=== PATIENT | male | born 1955 | race Caucasian/White ===

== ENCOUNTER 2023-09-17 14:50 | Inpatient (IN) ==
[2023-09-17 15:40] LABS: Basophils # (auto) 0.06 K/uL (0.00-0.20); Basophils % (auto) 0.4 %; Eosinophils # (auto) 0.07 K/uL (0.00-0.50); Eosinophils % (auto) 0.5 %; Hematocrit (blood only) 46.8 % (42.0-52.0); Hemoglobin 15.6 g/dl (14.0-18.0); Immature Granulocytes # (auto) 0.09 K/uL (0.01-0.20); Immature Granulocytes % (auto) 0.6 %; Lymphocytes # (auto) 2.21 K/uL (1.20-3.40); Lymphocytes % (auto) 15.7 %; Mean Corpuscular Hemoglobin 29.6 pg (25.0-34.0); Mean Corpuscular Hgb Conc 33.3 g/dL (32.0-36.0); Mean Corpuscular Volume 88.8 fL (80.0-100.0); Mean Platelet Volume 9.2 fL (9.4-12.4); Monocytes # (auto) 0.97 K/uL (0.11-0.59); Monocytes % (auto) 6.9 %; Neutrophils # (auto) 10.71 K/uL (1.40-6.50); Neutrophils % (auto) 75.9 %; Platelet Count 310 K/uL (130-400); RDW Coefficient of Variation 12.8 % (11.5-14.5); RDW Standard Deviation 41.6 fL (36.4-46.3); Red Blood Count 5.27 M/uL (4.70-6.10); White Blood Count 14.11 K/ul (4.8-10.8)
--- NOTE | 2023-09-17 15:53 | Emergency Department Note ---
Impression & Plan CHI (closed head injury), Contusion of scalp, Hematemesis, Nausea & vomiting, Fall, Dehydration ED Provider Note ED Provider Note NAME: MAKAYLA ESCALERA AGE:67 SEX: Male : 1955 ARRIVES VIA: Police INFORMANT: Patient ED PROVIDER(s): Dina Parsons DO CHIEF COMPLAINT: Altered mental status, head injury HPI: This is a 67-year-old male presents emergency department after police found him sitting on the ground and he was unable to coherently answer questions regarding events leading to that position. Police took him to the EMS station for further evaluation. He was noted to have an obvious head injury and did acknowledge that he was on blood thinners. He was brought in for evaluation. Patient states he was headed to a doctor's appointment and remembers getting out of his car. He believes he struck his head on the sidewalk. He denies loss of consciousness. He states he does take blood thinners but does not know what for. He denies any other pain or concern for injury. PAST MEDICAL HISTORY:See Below PAST SURGICAL HISTORY:See Below FAMILY HISTORY:See Below SOCIAL HISTORY:See Below HOME MEDICATIONS:See Below ALLERGIES:See Below VITALS:See Below PHYSICAL EXAMINATION: GENERAL: alert, well appearing, well nourished, no distress, non-toxic HEAD: nc, contusion and evolving hematoma with overlying superficial abrasion noted to right superior forehead/frontal scalp, no barrow signs, no raccoon eyes, no evidence of facial trauma EYE EXAM: normal conjunctiva, PERRL and EOM's grossly intact OROPHARYNX: no exudate, no erythema, lips, buccal mucosa, and tongue normal and mucous membranes are moist, no evidence of dental trauma NECK: supple, no nuchal rigidity, no adenopathy, non-tender LUNGS: Clear to auscultation. Normal chest wall mechanics, no w/r/r HEART: no murmurs, S1 normal and S2 normal ABDOMEN: abdomen soft, non-tender, normo-active bowel sounds, no masses, no rebound or guarding. BACK: Back is symmetrical on inspection and there is no deformity, no midline tenderness, no CVA tenderness. SKIN: no rashes, petechiae, orbruising UPPER EXTREMITIES: upper extremities are grossly normal. FROM, nml pulses b/l. No evidence of trauma or deformity. LOWER EXTREMITIES: No pitting edema. FROM, nml pulses b/l. 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 Superficial abrasion noted to right knee NEURO EXAM: Normal sensorium, cranial nerves II-XII grossly intact, normal speech, no facial droop,nogross weakness of arms, no gross weakness of legs. Gross sensation intact. No ataxia. Vital Signs: reviewed and remarkable Differential Diagnosis: CHI, ICH, concussion, ACS, dysrhythmia, CVA, electrolyte abnormality, dehydration, occult infection, DKA, as well as others were considered MEDICAL DECISION MAKING: This is a 67-year-old male brought in by EMS due to concern for head injury. Patient with difficulty remembering exact details and entire story of how this may have occurred. He states he was going to a doctor's office and he remembers falling onto the sidewalk. Patient afebrile and vital signs stable. Obvious head trauma noted, no other signs of significant trauma on physical exam. Labs drawn and sent, IV established, EKG and x-rays performed bedside interpreted by me. Patient sent for CT head and C-spine which were reassuring. While awaiting results of this patient sat up and vomited. Unfortunately emesis appeared bloody as I witnessed this at bedside, and IV had been dislodged. No other IV was able to be placed, patient given IV Protonix, and sent back down for additional CT imaging of the chest, abdomen and pelvis. Patient continued to remain hemodynamically stable. He was given IV magnesium additionally due to mild hypomagnesemia and prolonged QT noted on EKG. Patient began to recall more more events leading up to his fall more details surrounding the fall with each subsequent recheck at bedside. Additional imaging otherwise reassuring. Additional notes did reveal prior EGD with esophagitis and gastritis. No listing for anticoagulation noted on medication list from most recent [facility] evaluation. Patient started on Protonix drip as a precaution. Case discussed with hospitalist team for additional evaluation and management. I suspect head injury led to concussion causing amnesia surrounding those events however patient was more more lucid and able to provide more more details throughout his ER stay. I feel the concussion likely led to the nausea and vomiting which in the setting of his recent diagnosis of esophagitis and gastritis the cause of the underlying hematemesis. Given patient lives alone with the symptoms and recent GI evaluation, I feel he would benefit from additional inpatient monitoring and possible GI recommendations. Consultation(s): 1839: Discussed with Dr. Abdul, [facility] hospitalist team, for additional evaluation and management. ER Treatment Provided: See below 1645: Upon rechecking the patient, he had apparently ripped out his peripheral IV, and had vomited onto the floor. There did appear to be blood in the emesis. Patient states he first began getting sick several nights ago and that is why he called and made an appointment his doctor's office. 1718: Repeat IV established. Patient now clarifies that he first began having abdominal pain several months ago and has had a prior EGD and CAT scan of his abdomen. 1755: Patient states he lives alone. I did ask about calling friend or family and he declined. Patient stated he remembers getting out of his car now and tripping over the curb striking his head on the sidewalk. He states he has no current chest or abdominal pain, no difficulty breathing. He states he felt well prior to getting out of his car. He states it has been hard adjusting to walking since his amputation and he has fallen frequently. Diagnostics Interpreted By Me: -ECG: Normal sinus at 94, leftward axis, normal QRS, prolonged QTc, nonspecific ST/T wave changes -Cardiac Monitoring: An order was placed for continuous cardiac monitoring. The monitor shows a rate of 90 with normal sinus rhythm. -Laboratory studies: As stated above and show below. -Imaging studies: X-ray Chest: A single view study of the chest was reviewed and was negative for cardiomegaly, focal infiltrate, effusion, pulmonary edema, or wide mediastinum. No obvious rib fracture or pneumothorax. X-ray pelvis: No obvious fracture or dislocation Triage Nursing Note Reviewed Prior/Outside Records Reviewed -review of prior admission to [facility] in July 2023 reveals EGD which showed gastritis, esophagitis, and esophageal plaquing suspicious for candidemia; on review of medication list no listing and [facility] records for antiplatelet or anticoagulation medication Critical Care: Critical care of 52 min performed to assess and manage high likelihood of life- threatening traumatic injury and hematemesis, involving labs and imaging performed with assessment to evaluate altered mental status and fall diagnosis with frequent reassessment. This time includes bedside time, treatment discussions with patient/family/consultants, documentation time and excludes procedure time. 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 Communication effective. Development Rep Required: No Beliefs That Will Affect Care: None Current Living Situation: Alone Feels Safe at Home: Yes Safety Concerns: Feels Safe At This Time Assistive Devices: Cane, Glasses and Prosthesis Allergies Allergies Allergy/AdvReac Type Severity Reaction Status Date / Time No Known Allergies Allergy Unverified 09/17/23 18:57 Home Meds Home Medications Medication Instructions Recorded Confirmed amitriptyline 10 mg tablet 10 mg PO HS 09/17/23 09/17/23 atenolol 25 mg tablet 12.5 mg PO DAILY 09/17/23 09/17/23 atorvastatin 40 mg tablet 40 mg PO QAM 09/17/23 09/17/23 bupropion HCl 150 mg 24 hr tablet, 150 mg PO QAM 09/17/23 09/17/23 extended release bupropion HCl 300 mg 24 hr tablet, 300 mg PO QAM 09/17/23 09/17/23 extended release buspirone 10 mg tablet 20 mg PO BID 09/17/23 09/17/23 escitalopram oxalate 10 mg tablet 10 mg PO DAILY 09/17/23 09/17/23 finasteride 5 mg tablet 5 mg PO QAM 09/17/23 09/17/23 furosemide 20 mg tablet 20 mg PO QAM 09/17/23 09/17/23 glipizide 5 mg tablet, extended 5 mg PO QAM 09/17/23 09/17/23 release 24 hr hydroxyzine HCl 10 mg tablet 10 mg PO BID PRN anx/panic attacks 09/17/23 09/17/23 metformin 1,000 mg tablet 1,000 mg PO AMHS 09/17/23 09/17/23 mirtazapine 15 mg tablet 15 mg PO HS 09/17/23 09/17/23 omeprazole 40 mg capsule,delayed 40 mg PO HS 09/17/23 09/17/23 release semaglutide 2 mg/dose (8 mg/3 mL) 2 mg subcut WE 09/17/23 09/17/23 subcutaneous pen injector (Ozempic) tamsulosin 0.4 mg capsule 0.4 mg PO QAM 09/17/23 09/17/23 travoprost 0.004 % eye drops 1 drp OPB 09/17/23 09/17/23 trazodone 100 mg tablet 100 mg PO HS 09/17/23 09/17/23 Results & Data (ED) Vital Signs Vital Signs - 24 hr 09/17/23 15:01 09/17/23 15:08 09/17/23 16:55 Temperature 36.4 C L Temperature Source Temporal Artery Scan Pulse Rate 90 91 H Respiratory Rate 20 24 Respiratory Effort / Characteristics Non-Labored Spontaneous Respiratory Depth Normal Blood Pressure 122/80 98/67 L Blood Pressure Mean 94 76 Pulse Oximetry 97 Oxygen Delivery Method Room Air Sepsis Recent Fever Within 48 Hours No Sepsis New/Unexplained Change in Mental Status No Sepsis Action Taken by Nursing No Action Required 09/17/23 17:31 09/17/23 17:53 09/17/23 18:00 Temperature Temperature Source Pulse Rate 92 H 89 89 Respiratory Rate 28 H 22 25 H Respiratory Effort / Characteristics Respiratory Depth Blood Pressure 112/86 116/73 120/79 Blood Pressure Mean 94 87 92 Pulse Oximetry 97 95 95 Oxygen Delivery Method Room Air Sepsis Recent Fever Within 48 Hours Sepsis New/Unexplained Change in Mental Status Sepsis Action Taken by Nursing 09/17/23 18:15 09/17/23 18:30 Temperature Temperature Source Pulse Rate 90 91 H Respiratory Rate 24 21 Respiratory Effort / Characteristics Respiratory Depth Blood Pressure 119/77 129/79 Blood Pressure Mean 91 95 Pulse Oximetry 96 100 Oxygen Delivery Method Sepsis Recent Fever Within 48 Hours Sepsis New/Unexplained Change in Mental Status Sepsis Action Taken by Nursing Laboratory Data 09/18/23 01:53 09/18/23 01:53 Lab Results 09/17/23 09/17/23 09/17/23 Range/Units 15:21 15:42 17:33 WBC 14.11 H (4.8-10.8) K/ul RBC 5.27 (4.70-6.10) M/uL Hgb 15.6 (14.0-18.0) g/dl Hct 46.8 (42.0-52.0) % MCV 88.8 (80.0-100.0) fL MCH 29.6 (25.0-34.0) pg MCHC 33.3 (32.0-36.0) g/dL RDW Std Deviation 41.6 (36.4-46.3) fL RDW Coeff of William 12.8 (11.5-14.5) % Plt Count 310 (130-400) K/uL MPV 9.2 L (9.4-12.4) fL Immature Gran % (Auto) 0.6 % Neut % (Auto) 75.9 % Lymph % (Auto) 15.7 % Brantley % (Auto) 6.9 % Eos % (Auto) 0.5 % Baso % (Auto) 0.4 % Neut # (Auto) 10.71 H (1.40-6.50) K/uL Lymph # (Auto) 2.21 (1.20-3.40) K/uL Brantley # (Auto) 0.97 H (0.11-0.59) K/uL Eos # (Auto) 0.07 (0.00-0.50) K/uL Baso # (Auto) 0.06 (0.00-0.20) K/uL Immature Gran # (Auto) 0.09 (0.01-0.20) K/uL PT 10.9 (9.0-12.0) Seconds INR 1.0 (0.9-1.1) VBG pH 7.50 H (7.36-7.41) VBG pCO2 35 L (38-50) mmHg VBG pO2 23 mmHg VBG HCO3 27 mmol/L VBG O2 Saturation < 60.0 % VBG Base Excess 4.2 mEq/L Sodium 139 (136-145) mmol/L Potassium 4.1 (3.5-5.1) mmol/L Chloride 97 L (98-107) mmol/L Carbon Dioxide 26 (21-32) mmol/L Anion Gap 16 H (3-11) BUN 26 H (6-23) mg/dl Creatinine 1.17 (0.6-1.4) mg/dl Est Cr Clr Drug Dosing 64.1 ml/min Est GFR ( Amer) 74.9 ml/min Est GFR (Non-Af Amer) 64.6 ml/min BUN/Creatinine Ratio 22.2 H (10-20) Glucose 175 H (70-99(Fasting)) mg/dl Calcium 11.2 H (8.6-10.3) mg/dl Magnesium 1.6 L (1.7-2.4) mg/dl Total Bilirubin 1.0 (0.2-1.0) mg/dl AST 19 (13-39) U/L ALT 26 (7-52) U/L Alkaline Phosphatase 116 H (34-104) U/L Troponin I High Sens 4.0 (0-20) pg/ml Total Protein 7.2 (6.0-8.3) gm/dl Albumin 4.7 (3.4-5.0) gm/dl Globulin 2.5 (2.5-4.0) gm/dl Albumin/Globulin Ratio 1.9 (0.9-2) Lipase 13 (11-82) U/L TSH 2.241 (0.300-4.500) uIu/ml Ethyl Alcohol mg/dL < 10.0 (<10.0) mg/dl Administered Medications Acetaminophen (Acetaminophen 325 Mg Tab) 650 mg PO Q4H PRN PRN Reason: Pain or Fever Stop: 10/17/23 18:56 Last Admin: 09/18/23 06:29 Dose: 650 mg Documented By: [employer] Admin: 09/18/23 02:31 Dose: 650 mg Documented By: RONAK Sodium Chloride (Nss) 1,000 mls @ 125 mls/hr IV .Q8H [facility] Stop: 10/17/23 15:29 Last Admin: 09/18/23 06:25 Dose: 125 mls/hr Documented By: [employer] Infusion: 09/18/23 06:25 Dose: Infused Documented By: [employer] Admin: 09/17/23 22:41 Dose: 125 mls/hr Documented By: [employer] Infusion: 09/17/23 19:00 Dose: Infused Documented By: Infusion: 09/17/23 17:14 Dose: 125 mls/hr Documented By: Infusion: 09/17/23 17:03 Dose: 0 mls/hr Documented By: Admin: 09/17/23 17:00 Dose: 125 mls/hr Documented By: CPB Travoprost (Travoprost Z 0.004% Oph Soln 2.5 Ml Btl) 1 drops OPB HS DYANA Stop: 10/17/23 22:33 Last Admin: 09/17/23 23:22 Dose: 1 drops Documented By: [employer] Discontinued Medications Magnesium Sulfate/Dextrose (Magnesium Sulfate / D5w) 1 gm in 100 mls @ 100 mls/hr IV NOW STA Stop: 09/17/23 17:02 Last Infusion: 09/17/23 18:59 Dose: Infused Documented By: Infusion: 09/17/23 17:14 Dose: 100 mls/hr Documented By: Infusion: 09/17/23 17:04 Dose: 0 mls/hr Documented By: Admin: 09/17/23 16:57 Dose: 100 mls/hr Documented By: CPB Pantoprazole Sodium 40 mg/ (Syringe) 10 mls @ 5 mls/min IV NOW ONE Stop: 09/17/23 16:46 Last Admin: 09/17/23 18:59 Dose: 5 mls/min Documented By: CPB Pantoprazole Sodium 80 mg/ (Dextrose) 120 mls @ 480 mls/hr IV ONE STA Stop: 09/17/23 18:21 Last Infusion: 09/17/23 21:27 Dose: Infused Documented By: Admin: 09/17/23 21:07 Dose: 480 mls/hr Documented By: ROMARIO Ioversol (Optiray 320 500ml) 85 ml IV ONCE ONE Stop: 09/17/23 17:20 Last Admin: 09/17/23 17:20 Dose: 85 ml Documented By: PLW Imaging Data Radiologist's Impression: Cervical Spine CT 09/17/23 15:24 CT OF THE CERVICAL SPINE WITHOUT CONTRAST CLINICAL HISTORY: trauma COMPARISON STUDY: No previous studies for comparison. TECHNIQUE: Helical axial images of the cervical spine were obtained without IV contrast. Sagittal and coronal reconstructions were viewed. Automated exposure control was utilized for the study. A dose lowering technique was utilized adhering to the principles of ALARA. FINDINGS: Alignment of the cervical spine is anatomic. Vertebral body heights are maintained. No acute cervical spine fracture or subluxation is present. There is no prevertebral edema. Facet joints are intact. Mild multilevel degenerative disc disease and facet arthrosis is present. IMPRESSION: No acute cervical spine fracture or subluxation. ACT 112: Negative or not required by law. Electronically signed by: Nic Millan M.D. 09/17/2023 4:19 PM Chest X-Ray 09/17/23 15:24 XR chest 1V portable HISTORY: 67 years-old Male trauma acute chest pain status post fall COMPARISON: None TECHNIQUE: AP view of the chest FINDINGS: Cardiomediastinal and hilar silhouettes are within normal limits. No pneumothorax, pleural effusion or airspace consolidation. Spondylotic spurring of the spine. IMPRESSION: No acute process. ACT 112: Negative or not required by law. The above report was generated using voice recognition software. It may contain grammatical, syntax or spelling errors. Electronically signed by: Eugenio Vázquez M.D. 09/17/2023 4:[address] 09/17/23 15:24 CT OF THE HEAD WITHOUT CONTRAST CLINICAL HISTORY: trauma COMPARISON STUDY: No previous studies for comparison. TECHNIQUE: Helical axial images of the head were obtained without IV contrast. Automated exposure control was utilized for the study. A dose lowering technique was utilized adhering to the principles of ALARA. FINDINGS: No acute intracranial hemorrhage, midline shift or mass effect is present. The ventricular system is unremarkable. The basal cisterns are patent. No extra-axial collections are present. There are no findings to suggest acute dural sinus thrombosis or acute territorial infarct. Two right scalp contusions are present. There are no calvarial fractures. IMPRESSION: 1. No acute intracranial findings. 2. Two right scalp contusion. No calvarial fractures. ACT 112: Negative or not required by law. Electronically signed by: Nic Millan M.D. 09/17/2023 4:13 PM Pelvis X-Ray 09/17/23 15:24 XR pelvis 1-2V routine CLINICAL HISTORY: trauma COMPARISON: None FINDINGS: The sacroiliac joints and symphysis pubis are intact. There is no acute fracture within the pelvis or hips. Hip joint spaces are preserved. IMPRESSION: No fractures within the pelvis or hips. ACT 112: Negative or not required by law. Electronically signed by: Nic Millan M.D. 09/17/2023 4:14 PM Abdomen/Pelvis CT 09/17/23 16:45 CT OF THE ABDOMEN AND PELVIS WITH CONTRAST CLINICAL HISTORY: trauma, hematemesis COMPARISON STUDY: None. TECHNIQUE: Following IV administration of 85 mL of Optiray, axial images of the abdomen and pelvis were obtained from the lung bases to the proximal femurs. Images were reviewed in the axial, sagittal, and coronal planes. IV contrast was administered without complication. Automated exposure control was utilized for the study. A dose lowering technique was utilized adhering to the principles of ALARA. CT DOSE: 1807.82 mGy.cm FINDINGS: No hemoperitoneum or pneumoperitoneum is present. A metallic density within the gastric fundus likely reflects an endoscopic clip. No evidence for traumatic injury to the liver, spleen, adrenal glands, kidneys or pancreas. There is no biliary or pancreatic ductal dilatation. The caliber and wall thickness of small and large bowel are normal. The appendix is normal. No free fluid. No acute lumbar spine or pelvic fracture is identified. Lucency through the first coccygeal segment is present. IMPRESSION: 1. No evidence for traumatic injury to the solid abdominal viscera. 2. Lucency through the first coccygeal segment. This suggests an age indeterminate nondisplaced fracture. No additional fractures. ACT 112: Negative or not required by law. Electronically signed by: Nic Millan M.D. 09/17/2023 6:[address] 09/17/23 16:45 CT OF THE CHEST WITH IV CONTRAST CLINICAL HISTORY: trauma, hemoptysis COMPARISON STUDY: Chest radiograph performed earlier today. TECHNIQUE: Following IV administration of 85 mL of Optiray, helical axial images of the chest were obtained. Sagittal and coronal reconstructions were viewed as well as maximal intensity projections on an independent 3-D workstation. Automated exposure control was utilized for the study. A dose lowering technique was utilized adhering to the principles of ALARA. FINDINGS: There is no evidence for traumatic injury to the thoracic aorta. Size of the heart is normal. There is no pericardial effusion. No pneumothorax or pleural effusion is present. No pulmonary contusion is present. No acute rib or thoracic spine fracture is present. Heterogeneity of the spleen is due to the phase of enhancement. The spleen enhances homogeneously on the CT of the abdomen and pelvis which will be reported separately. There is no perisplenic fluid. IMPRESSION: No acute traumatic findings within the chest. ACT 112: Negative or not required by law. Electronically signed by: Nic Millan M.D. 09/17/2023 5:53 PM Discharge Plan Visit Data Chief Complaint: Fall ED Provider: Dina Parsons Discharge Problem: CHI (closed head injury), Contusion of scalp, Hematemesis, Nausea & vomiting, Fall, Dehydration Patient Disposition: Admitted As Inpatient Discharge Instructions Interventions: ED Discharge Assessment Last Done: 09/17/23 22:18
[2023-09-17 15:59] LABS: Albumin Globulin Ratio 1.9 (0.9-2); Albumin Level 4.7 gm/dl (3.4-5.0); BUN Creatinine Ratio 22.2 (10-20); Calcium 11.2 mg/dl (8.6-10.3); Creatinine Clr Calc Pharmacy 64.1 ml/min; Est GFR (African American) 74.9 ml/min; Est GFR (Non-African American) 64.6 ml/min; Globulin 2.5 gm/dl (2.5-4.0); Magnesium 1.6 mg/dl (1.7-2.4); Potassium 4.1 mmol/L (3.5-5.1); Total Protein 7.2 gm/dl (6.0-8.3)
[2023-09-17 16:07] LABS: Prothrombin Time 10.9 Seconds (9.0-12.0)
[2023-09-17 16:14] LABS: Thyroid Stimulating Hormone 2.241 uIu/ml (0.300-4.500)
--- NOTE | 2023-09-17 16:14 | CT Scan Report ---
CT OF THE HEAD WITHOUT CONTRAST CLINICAL HISTORY: trauma COMPARISON STUDY: No previous studies for comparison. TECHNIQUE: Helical axial images of the head were obtained without IV contrast. Automated exposure con trol was utilized for the study. A dose lowering technique was utilized adhering to the principles o f ALARA. FINDINGS: No acute intracranial hemorrhage, midline shift or mass effect is present. The ventricular system is unremarkable. The basal cisterns are patent. No extra-axial collections are present. There are no findings to suggest acute dural sinus thrombosis or acute territorial infarct. Two right scalp contusions are present. There are no calvarial fractures. IMPRESSION: 1. No acute intracranial findings. 2. Two right scalp contusion. No calvarial fractures. ACT 112: Negative or not required by law. Electronically signed by: Nic Millan M.D. 09/17/2023 4:13 PM
--- NOTE | 2023-09-17 16:16 | XRay Report ---
XR pelvis 1-2V routine CLINICAL HISTORY: trauma COMPARISON: None FINDINGS: The sacroiliac joints and symphysis pubis are intact. There is no acute fracture within th e pelvis or hips. Hip joint spaces are preserved. IMPRESSION: No fractures within the pelvis or hips. ACT 112: Negative or not required by law. Electronically signed by: Nic Millan M.D. 09/17/2023 4:14 PM
--- NOTE | 2023-09-17 16:20 | CT Scan Report ---
CT OF THE CERVICAL SPINE WITHOUT CONTRAST CLINICAL HISTORY: trauma COMPARISON STUDY: No previous studies for comparison. TECHNIQUE: Helical axial images of the cervical spine were obtained without IV contrast. Sagittal a nd coronal reconstructions were viewed. Automated exposure control was utilized for the study. A do se lowering technique was utilized adhering to the principles of ALARA. FINDINGS: Alignment of the cervical spine is anatomic. Vertebral body heights are maintained. No acut e cervical spine fracture or subluxation is present. There is no prevertebral edema. Facet joints are intact. Mild multilevel degenerative disc disease and facet arthrosis is present. IMPRESSION: No acute cervical spine fracture or subluxation. ACT 112: Negative or not required by law. Electronically signed by: Nic Millan M.D. 09/17/2023 4:19 PM
--- NOTE | 2023-09-17 16:33 | XRay Report ---
XR chest 1V portable HISTORY: 67 years-old Male trauma acute chest pain status post fall COMPARISON: None TECHNIQUE: AP view of the chest FINDINGS: Cardiomediastinal and hilar silhouettes are within normal limits. No pneumothorax, pleural effusion o r airspace consolidation. Spondylotic spurring of the spine. IMPRESSION: No acute process. ACT 112: Negative or not required by law. The above report was generated using voice recognition software. It may contain grammatical, syntax o r spelling errors. Electronically signed by: Eugenio Vázquez M.D. 09/17/2023 4:31 PM
[2023-09-17] MEDS: MAGNESIUM SULFATE / D5W 1 GM/100 ML BAG IV STA (16:57)
[2023-09-17] MEDS: SODIUM CHLORIDE 0.9% 1,000 ML IV SCH (17:00)
[2023-09-17] MEDS: OPTIRAY 320 500ml IV ONE (17:20)
[2023-09-17 17:43] LABS: Base Excess VBG 4.2 mEq/L; HCO3 VBG 27 mmol/L; Oxygen Saturation VBG < 60.0 %; PCO2 VBG 35 mmHg (38-50); PO2 VBG 23 mmHg
--- NOTE | 2023-09-17 17:56 | CT Scan Report ---
CT OF THE CHEST WITH IV CONTRAST CLINICAL HISTORY: trauma, hemoptysis COMPARISON STUDY: Chest radiograph performed earlier today. TECHNIQUE: Following IV administration of 85 mL of Optiray, helical axial images of the chest were o btained. Sagittal and coronal reconstructions were viewed as well as maximal intensity projections o n an independent 3-D workstation. Automated exposure control was utilized for the study. A dose low ering technique was utilized adhering to the principles of ALARA. FINDINGS: There is no evidence for traumatic injury to the thoracic aorta. Size of the heart is norm al. There is no pericardial effusion. No pneumothorax or pleural effusion is present. No pulmonary co ntusion is present. No acute rib or thoracic spine fracture is present. Heterogeneity of the spleen i s due to the phase of enhancement. The spleen enhances homogeneously on the CT of the abdomen and pel vis which will be reported separately. There is no perisplenic fluid. IMPRESSION: No acute traumatic findings within the chest. ACT 112: Negative or not required by law. Electronically signed by: Nic Millan M.D. 09/17/2023 5:53 PM
--- NOTE | 2023-09-17 18:03 | CT Scan Report ---
CT OF THE ABDOMEN AND PELVIS WITH CONTRAST CLINICAL HISTORY: trauma, hematemesis COMPARISON STUDY: None. TECHNIQUE: Following IV administration of 85 mL of Optiray, axial images of the abdomen and pelvis we re obtained from the lung bases to the proximal femurs. Images were reviewed in the axial, sagittal, and coronal planes. IV contrast was administered without complication. Automated exposure control wa s utilized for the study. A dose lowering technique was utilized adhering to the principles of ALARA . CT DOSE: 1807.82 mGy.cm FINDINGS: No hemoperitoneum or pneumoperitoneum is present. A metallic density within the gastric fun dus likely reflects an endoscopic clip. No evidence for traumatic injury to the liver, spleen, adrena l glands, kidneys or pancreas. There is no biliary or pancreatic ductal dilatation. The caliber and w all thickness of small and large bowel are normal. The appendix is normal. No free fluid. No acute murray mbar spine or pelvic fracture is identified. Lucency through the first coccygeal segment is present. IMPRESSION: 1. No evidence for traumatic injury to the solid abdominal viscera. 2. Lucency through the first coccygeal segment. This suggests an age indeterminate nondisplaced fract ure. No additional fractures. ACT 112: Negative or not required by law. Electronically signed by: Nic Millan M.D. 09/17/2023 6:01 PM
[2023-09-17] MEDS: PANTOprazole 40 MG in SYRINGE 0 ML IV ONE (18:59)
--- NOTE | 2023-09-17 19:17 | History & Physical Report ---
Date of Service September 17, 2023 Assessment & Plan (1) Fall: (2) Contusion of scalp: (3) CHI (closed head injury): Plan: Head CT - 1. No acute intracranial findings. 2. Two right scalp contusion. No calvarial fractures. No acute cervical spine fracture or subluxation. Trauma body scan obtained in ED and negative Patient likely with concussion as he had troubles remembering the story and was found by police and brought into the hospital. Will repeat CT head, and cont. to closely monitor. Monitor H&H as well Neurology consult ? Syncope Not clear how patient fell. He feels that he tripped over, however he also repo rts he felt lightheaded. CT chest - IMPRESSION: No acute traumatic findings within the chest. Urine drug screen - pending ECG - NSR, poss. prolonged QT Will monitor on telemetry Will obtain US carotids Will obtain echocardiogram, and will further discuss with cardiology as story from the patient is unclear at this time. (4) Diabetes mellitus type 2 in nonobese: Plan: In July reportedly A1c 6.7% -Does not use insulin, at home using metformin, Ozempic and glipizide, will hold while inpatient (5) Hematemesis: (6) Nausea & vomiting: Plan: Patient reports abdominal pain for past 6 weeks, nausea and vomiting, difficulty eating Reports being seen in July, and diagnosed with gastritis , esophagitis and taking omeprazole In ER noted to have hematemesis CT abdomen pelvis obtained - 1. No evidence for traumatic injury to the solid abdominal viscera. 2. Lucency through the first coccygeal segment. This suggests an age indeterminate nondisplaced fracture. No additional fractures. Started on PPI IV, will continue N.p.o. Monitor H&H q6hrs IVF GI consult (7) Depression: Plan: - on multiple medications, ? possibly contributing to fall, ? possibly prolong ing QT - follows w/ psychiatry Dr. Lewis Allen - med list from 08/29/23 reviewed in [facility] - seen by therapist 09/13/23 note reviewed in [facility] - pt says he feels anxious and feels medications are helping History of Present Illness Chief Complaint: head trauma, ? syncope Primary Care Provider: NO PCP 67-year-old male with history of diabetes mellitus type 2, not on insulin, A1c in July was 6.7%, hypertension, hyperlipidemia, BPH, history of osteomyelitis and patient status post left BKA, anxiety and depression, who presents in the ED today after being found by police sitting on the curb side confused. Patient fell and hit his head earlier today, and had difficulty remembering what happened to him. Police took him to EMS station and then brought him to the hospital here. Patient was scanned in the ER due to trauma, and scans were otherwise negative. However he was vomiting in the ER and had some hematemesis noted. Patient believes that he was actually going to see a [facility] physician today, but when he got out of his car, he fell and hit his head. He reports feeling lightheaded as he has not been eating for past 4 to 5 days, and also has difficulty with his prosthesis and likely tripped. However he cannot confirm the story very well. He tells me [facility] because he has been vomiting and has had abdominal pain for past 6 weeks. He denies blood in the stool or diarrhea. Currently he says that his stomach hurts, and his head hurts. In the ED he had CT of his head and also CT of the abdomen pelvis. He has history of anxiety and depression, and recently saw a therapist, note reviewed from September 13. He also reports usually seeing physicians in [facility]. Per therapist note, patient is stuttering since he had COVID. Patient denies having any fever chills cough rhinorrhea. Does not believe he had any chest pain. He says that he gets short of breath especially from his anxiety. Allergies Allergy/AdvReac Type Severity Reaction Status Date / Time No Known Allergies Allergy Unverified 09/17/23 18:57 Home Medications Medication Instructions Recorded Confirmed Type amitriptyline 10 mg tablet 10 mg PO HS 09/17/23 09/17/23 History atenolol 25 mg tablet 12.5 mg PO DAILY 09/17/23 09/17/23 History atorvastatin 40 mg tablet 40 mg PO QAM 09/17/23 09/17/23 History bupropion HCl 150 mg 24 hr tablet, 150 mg PO QAM 09/17/23 09/17/23 History extended release bupropion HCl 300 mg 24 hr tablet, 300 mg PO QAM 09/17/23 09/17/23 History extended release buspirone 10 mg tablet 20 mg PO BID 09/17/23 09/17/23 History escitalopram oxalate 10 mg tablet 10 mg PO DAILY 09/17/23 09/17/23 History finasteride 5 mg tablet 5 mg PO QAM 09/17/23 09/17/23 History furosemide 20 mg tablet 20 mg PO QAM 09/17/23 09/17/23 History glipizide 5 mg tablet, extended 5 mg PO QAM 09/17/23 09/17/23 History release 24 hr hydroxyzine HCl 10 mg tablet 10 mg PO BID PRN anx/panic attacks 09/17/23 09/17/23 History metformin 1,000 mg tablet 1,000 mg PO AMHS 09/17/23 09/17/23 History mirtazapine 15 mg tablet 15 mg PO HS 09/17/23 09/17/23 History omeprazole 40 mg capsule,delayed 40 mg PO HS 09/17/23 09/17/23 History release semaglutide 2 mg/dose (8 mg/3 mL) 2 mg subcut WE 09/17/23 09/17/23 History subcutaneous pen injector (Ozempic) tamsulosin 0.4 mg capsule 0.4 mg PO QAM 09/17/23 09/17/23 History travoprost 0.004 % eye drops 1 drp OPB HS 09/17/23 09/17/23 History trazodone 100 mg tablet 100 mg PO HS 09/17/23 09/17/23 History Past Med/Surg History Medical History (Updated 09/17/23 @ 19:40 by Franklyn Abdul MD) 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 MDD (major depressive disorder) BPH (benign prostatic hyperplasia) HTN (hypertension), benign Surgical History (Updated 09/17/23 @ 19:08 by Franklyn Abdul MD) Status post amputation of great toe Social History Smoking Status: Never smoker Hx Alcohol Use: No Hx Substance Use: No Preferred Language: [place] Communication Ability: Effective Communication Ability Comment: Patient reports stuttering following COVID. Communication effective. 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 Required: No Beliefs That Will Affect Care: None Current Living Situation: Alone Feels Safe at Home: Yes Safety Concerns: Feels Safe At This Time Assistive Devices: Cane, Glasses and Prosthesis Review of Systems Review of Systems: All systems reviewed & are unremarkable except as noted in HPI & below Physical Exam Constitutional: WD/WN, vitals as above (+ forehead contusion) Eyes: PERRL, conjunctivae normal, anicteric sclerae ENMT: external ear and nose normal, oropharynx normal Neck: normal visual inspection Respiratory: normal respiratory effort, lungs clear to auscultation Cardiovascular: RRR, no murmur, no edema Chest (Breasts): Chest: normal inspection of chest Gastrointestinal (Abdomen): Percussion/Palpation: abdomen soft (+ bowel sounds, + mild tenderness to palp, no guarding, no distention) Musculoskeletal: Head/Neck/Chest: normocephalic and + scalp tenderness (+ forehead contusion, moves extremities, + Left BKA) Skin: no rashes, warm and dry Neurologic: moves all extremities and awake Awake, alert, stuttering, able to answer some questions appropriately Psychiatric: Affect: + anxious affect Results & Data Results & Data Vital Signs (Past 12 Hours) Vital Signs Temp Pulse Resp BP Pulse Ox O2 Del Method 09/17/23 18:59 99 H 09/17/23 17:31 92 H 28 H 112/86 97 Room Air 09/17/23 16:55 24 98/67 L 09/17/23 15:08 91 H 09/17/23 15:01 36.4 C L 90 20 122/80 97 Room Air Laboratory Results 09/17/23 09/17/23 09/17/23 Range/Units 17:33 15:42 15:21 WBC 14.11 H (4.8-10.8) K/ul RBC 5.27 (4.70-6.10) M/uL Hgb 15.6 (14.0-18.0) g/dl Hct 46.8 (42.0-52.0) % MCV 88.8 (80.0-100.0) fL MCH 29.6 (25.0-34.0) pg MCHC 33.3 (32.0-36.0) g/dL RDW Std Deviation 41.6 (36.4-46.3) fL RDW Coeff of William 12.8 (11.5-14.5) % Plt Count 310 (130-400) K/uL MPV 9.2 L (9.4-12.4) fL Immature Gran % (Auto) 0.6 % Neut % (Auto) 75.9 % Lymph % (Auto) 15.7 % [place] % (Auto) 6.9 % Eos % (Auto) 0.5 % Baso % (Auto) 0.4 % Neut # (Auto) 10.71 H (1.40-6.50) K/uL Lymph # (Auto) 2.21 (1.20-3.40) K/uL [place] # (Auto) 0.97 H (0.11-0.59) K/uL Eos # (Auto) 0.07 (0.00-0.50) K/uL Baso # (Auto) 0.06 (0.00-0.20) K/uL Immature Gran # (Auto) 0.09 (0.01-0.20) K/uL PT 10.9 (9.0-12.0) Seconds INR 1.0 (0.9-1.1) VBG pH 7.50 H (7.36-7.41) VBG pCO2 35 L (38-50) mmHg VBG pO2 23 mmHg VBG HCO3 27 mmol/L VBG O2 Saturation < 60.0 % VBG Base Excess 4.2 mEq/L Sodium 139 (136-145) mmol/L Potassium 4.1 (3.5-5.1) mmol/L Chloride 97 L (98-107) mmol/L Carbon Dioxide 26 (21-32) mmol/L Anion Gap 16 H (3-11) BUN 26 H (6-23) mg/dl Creatinine 1.17 (0.6-1.4) mg/dl Est Cr Clr Drug Dosing 64.1 ml/min Est GFR ( Amer) 74.9 ml/min Est GFR (Non-Af Amer) 64.6 ml/min BUN/Creatinine Ratio 22.2 H (10-20) Glucose 175 H (70-99(Fasting)) mg/dl Calcium 11.2 H (8.6-10.3) mg/dl Magnesium 1.6 L (1.7-2.4) mg/dl Total Bilirubin 1.0 (0.2-1.0) mg/dl AST 19 (13-39) U/L ALT 26 (7-52) U/L Alkaline Phosphatase 116 H (34-104) U/L Troponin I High Sens 4.0 (0-20) pg/ml Total Protein 7.2 (6.0-8.3) gm/dl Albumin 4.7 (3.4-5.0) gm/dl Globulin 2.5 (2.5-4.0) gm/dl Albumin/Globulin Ratio 1.9 (0.9-2) Lipase 13 (11-82) U/L TSH 2.241 (0.300-4.500) uIu/ml Ethyl Alcohol mg/dL < 10.0 (<10.0) mg/dl Code Status & VTE Plan VTE Prophylaxis Plan VTE Prophylaxis will be ordered: Yes
[2023-09-17] MEDS: PANTOprazole 80 MG in DEXTROSE 5% 100 ML IV STA (21:07)
[2023-09-17 21:45] LABS: Hematocrit (blood only) 39.2 % (42.0-52.0); Hemoglobin 13.8 g/dl (14.0-18.0)
--- NOTE | 2023-09-17 23:13 | CT Scan Report ---
Exam(s): CT HEAD Without Contrast EXAM: CT Head Without Intravenous Contrast CLINICAL HISTORY: Reason for exam: follow up head trauma. TECHNIQUE: Axial computed tomography images of the head/brain without intravenous contrast. Automated exposure control was utilized for the study. A dose lowering technique was utilized adhering to the principles of ALARA. COMPARISON: CT head 09/17/2023. FINDINGS: Brain: Parenchymal volume loss with chronic microvascular ischemic changes. No hemorrhage. Ventricles: No ventriculomegaly. Bones/joints: Unremarkable. No acute fracture. Soft tissues: Right frontal and parietal scalp contusions. Sinuses: Unremarkable as visualized. No acute sinusitis. Mastoid air cells: Unremarkable as visualized. No mastoid effusion. IMPRESSION: 1. No intracranial hemorrhage or other acute intracranial abnormality. 2. Right frontal and parietal scalp contusions. 3. Parenchymal volume loss with chronic microvascular ischemic changes. Electronically signed by: Bubba Dunn MD 09/17/23 23:12 PM
[2023-09-17] MEDS: TRAVOPROST Z 0.004% OPH SOLN 2.5 ML BTL OPB SCH (23:22)
[2023-09-18 02:17] LABS: Hematocrit (blood only) 37.6 % (42.0-52.0); Hematocrit (blood only) 38.7 % (42.0-52.0); Hemoglobin 12.8 g/dl (14.0-18.0); Mean Corpuscular Volume 88.1 fL (80.0-100.0); Mean Platelet Volume 9.3 fL (9.4-12.4); Platelet Count 275 K/uL (130-400); RDW Standard Deviation 41.8 fL (36.4-46.3); Red Blood Count 4.27 M/uL (4.70-6.10); White Blood Count 15.04 K/ul (4.8-10.8)
[2023-09-18] MEDS: ACETAMINOPHEN 325 MG TAB PO PRN (02:31)
[2023-09-18 02:34] LABS: BUN Creatinine Ratio 27.7 (10-20); Calcium 9.3 mg/dl (8.6-10.3); Creatinine Clr Calc Pharmacy 74.8 ml/min; Est GFR (African American) 97.5 ml/min; Est GFR (Non-African American) 84.2 ml/min; Magnesium 1.7 mg/dl (1.7-2.4); Phosphorus 3.9 mg/dl (2.5-4.9); Potassium 3.7 mmol/L (3.5-5.1)
--- OUTSIDE RECORDS SUMMARY | 2023-09-18 06:10 | External Medical Summary | Summary of Care ---
Author Name Unknown Organization [facility] Address [address] [facility] [place] [address] Phone [phone] Care Team Providers Care Reproduction Artist Name Role Phone Alok Campbell MD Primary Care Provider [phone] Reason for Visit * Reason Comments Anxiety Encounter Details Date Type Department Care Team (Late st Contact Info) Description 09/13/2023 8:40 AM EST Therapy Psychology, [place] [address] [place] [address] Charo Wing [facility] [address] [place] [address] Adjustment disorder with mixed anxiety and depressed mood* Allergies No known active allergiesdocumented as of this encounter (statuses as of 09/13/2023) Medications Medication Sig Dispensed Refills Start Date End Date Status GoYoDeo ULTRA SYSTEM W/DEVICE KITIndications:DM type 2, not at goal (HCC) Use up to four times a day as directed 1 0 10/06/2008 Active Zinc Gluconate 50 MG CAPS Take 1 Tablet by mouth in the morning. 30 Cap 11 10/18/2016 Active Folic Acid 400 MCG Tablet Take 1 Tablet by mouth in the morning. 30 Tab 11 10/18/2016 Active NATURAL SUPPLEMENT Take 1 g by mouth in the morning. CINNAMON. 0 Active [place]-3 Fatty Acids (FISH OIL) 1200 MG CAPS Take 1,200 mg by mouth in the morning and 1,200 mg before bedtime. 0 Active ONETOUCH ULTRASOFT LANCETS MISCIndications:DM type 2 causing neurological disease (HCC) CHECK FASTING BLOOD SUGAR BEFORE BREAKFAST AND BEFORE SUPPER ADVISED 100 Box Dosing Unit 5 12/21/2017 Active ONETOUCH ULTRA BLUE STRPIndications:DM type 2 causing neurological disease (HCC) CHECK FASTING BLOOD SUGAR BEFORE BREAKFAST AND BEFORE SUPPER ADVISED 100 Strip 11 01/29/2018 Active BuPROPion HCl ER, SR, (WELLBUTRIN SR) 200 MG TB12 Take 1 Tablet by mouth in the morning and 1 Tablet before bedtime. 0 Active escitalopram (LEXAPRO) 20 MG Tablet Take 1 Tablet by mouth in the morning. 0 10/22/2019 Active busPIRone HCl 10 MG Oral Tablet (Buspar) TAKE 1 TABLET BY MOUTH TWICE DAILY DIRECTED 0 04/21/2021 Active Vitron-C 65-125 MG Oral Tablet (Iron-Vitamin C) Take 1 tablet by mouth twice daily 60 Tablet 11 09/16/2021 Active Acetaminophen 325 MG Oral Tablet (Tylenol) Take 3 Tablets (975 mg) by mouth every 6 hours as needed for Fever (Temp Greater than ), Pain, Breakthrough or Other (none). 30 Tablet 0 07/14/2022 Active Amitriptyline HCl 10 MG Oral Tablet (Elavil)Indication s:DM type 2 causing neurological disease (HCC) Take 1 Tablet by mouth at bedtime. 90 Tablet 1 07/19/2023 Active Atenolol 25 MG Oral Tablet (Tenormin)Indicati ons:HTN, goal below 140/80,Type 2 diabetes mellitus with hemoglobin A1c goal of less than 7.0% (HCC) Take 1/2 (one-half) tablet by mouth once daily 45 Tablet 3 07/19/2023 Active Atorvastatin Calcium 40 MG Oral Tablet (Lipitor)Indicatio ns:Type 2 diabetes mellitus with hemoglobin A1c goal of less than 7.0% (HCC),Dyslipidemia , goal LDL below 100,DM type 2 causing neurological disease (HCC) Take 1 Tablet by mouth in the morning. 90 Tablet 1 07/19/2023 Active Finasteride 5 MG Oral Tablet (Proscar)Indicatio ns:Enlarged prostate Take 1 Tablet by mouth in the morning. 90 Tablet 3 07/19/2023 Active Furosemide 20 MG Oral Tablet (Lasix)Indications :HTN, goal below 140/80 Take 1 Tablet by mouth in the morning. 90 Tablet 1 07/19/2023 Active glipiZIDE ER 5 MG Oral Tablet Extended Release 24 Hour (glipiZIDE XL)Indications:DM type 2 causing neurological disease (HCC),Type 2 diabetes mellitus with hemoglobin A1c goal of less than 7.0% (HCC),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) Take 1 Tablet by mouth in the morning. 90 Tablet 1 07/19/2023 Active metFORMIN HCl 1000 MG Oral Tablet (Glucophage)Indica tions:Type 2 diabetes mellitus with hemoglobin A1c goal of less than 7.0% (HCC),DM type 2 causing neurological disease (HCC) Take 1 Tablet by mouth in the morning and 1 Tablet before bedtime. With meals.. 180 Tablet 3 07/19/2023 Active Ozempic (2 MG/DOSE) 8 MG/3ML Subcutaneous Solution Pen-injector (Semaglutide (2 MG/DOSE)) INJECT 2 MG SUBCUTANEOUSLY ONCE A WEEK 3 mL 2 07/19/2023 Active Tamsulosin HCl 0.4 MG Oral Capsule (Flomax)Indication s:Enlarged prostate Take 1 Capsule by mouth in the morning. 90 Capsule 3 07/19/2023 Active traZODone HCl 100 MG Oral Tablet (Desyrel)Indicatio ns:Insomnia Take 1 Tablet by mouth at bedtime as needed for Sleep. 30 Tablet 3 07/19/2023 Active Omeprazole 40 MG Oral Capsule Delayed Release (PriLOSEC) Take 1 Capsule by mouth every night at bedtime. 30 Capsule 1 07/31/2023 Active hydrOXYzine HCl 25 MG Oral Tablet Take 1 Tablet by mouth 3 times a day as needed for Anxiety. 21 Tablet 0 07/31/2023 Active PreviDent 5000 Booster Plus 1.1 % Dental Paste Use as directed. 0 05/06/2023 Active Travoprost (BOBBY Free) 0.004 % Ophthalmic Solution (Travatan Z)Indications:Prim luisa open angle glaucoma of both eyes, moderate stage Instill 1 Drop into both eyes at bedtime. 5 mL 5 09/01/2023 Active documented as of this encounter (statuses as of 09/13/2023) Active Problems Problem Noted Date Diagnosed Date Abnormal CT of the chest 07/30/2023 Jen esophagitis 07/30/2023 Major depressive disorder, r ecurrent episode, moderate with anxious distress 07/29/2023 Tenosynovitis of foot 09/29/2022 Complicated UTI (urinary tract infection) 2022 Hematuria 09/25/2022 Cellulitis of left foot 09/25/2022 History of transmetatarsal amputation of left fo ot 09/20/2022 Diabetic ulcer of left lower leg associated with diabetes mellitus due to underlying condition, with fat layer exposed 09/20/2022 Osteomyelitis of left foot 07/21/2022 Sepsis 07/08/2022 Rhinovirus 07/08/2022 PVD (peripheral vascular disease) 11/04/2020 Primary open angle glaucoma of both eyes, modera te stage 09/09/2019 Cellulitis of left lower extremity 11/17/2017 Diabetic foot ulcer 11/17/2017 Status post amputation of great toe, left 2016 Benign non-nodular prostatic hyperplasia without lower urinary tract symptoms 07/19/2016 HTN, goal below 140/90 10/18/2015 Overview: Per HTN Protocol #27. Ojd95--pgp-ZSB at 97/mt, Min voltage criteria LVH. Type 2 diabetes mellitus wit h hemoglobin A1c goal of less than 7.0% 06/30/2015 Overview: ICD-10 update of inactive term DM type 2 causing eye disease 11/13/2009 Overview: DM eye exam 11/09/09-Taylort---NPDR,glaucoma suspect--Sweta f/u since 01/20 Dyslipidemia, goal LDL below 100 11/09/2009 Generalized anxiety disorder 11/24/2008 Avoidant personality disorder 11/24/2008 Major depressive disorder, r ecurrent severe without psychotic features 11/12/2008 Overview: Adm--LH DrSheth. DM type 2 causing neurological disease Overview: Fnjt59--1%, ld 100, nl bm, rbs 132, alt 09/26/2008--NEW DIAG DM--Hb 17/49, bmp, x na 134, fbs 238, nl lft, tsh 2.01, 226/259/31/143, psa 0.85, ua +glu, b12 nml , fol nml, -ferritin 56, 37%sat, l2d--15.2%---- - ma neg Eye exam--Nivia - Foot exam-10/06/2008--nml documented as of this encounter (statuses as of 09/13/2023) Resolved Problems Problem Noted Date Diagnosed Date Resolved Date BPH with obstruction/lower u rinary tract symptoms 07/29/2023 07/31/2023 Acute urinary retention 07/29/202307/13 Major depressive disorder, r ecurrent, moderate 07/21/2022 08/01/2023 Overview: Duplicated on pl Gangrene of toe of left foot 07/08/2022 09/20/2022 Symptomatic anemia 09/18/2020 GI bleed 09/18/2020 11/04/2020 Upper GI bleed 09/18/2020 09/21/2020 Acute blood loss anemia 09/18/2020 02/0 04/2021 Subacute osteomyelitis of left foot 09/18/2020 11/04/2020 Subacute osteomyelitis of right foot 08/17/2020 11/04/2020 Dry heaves 08/14/2020 11/04/2020 Lactic acidosis 08/14/2020 11/04/2020 Moderate malnutrition 08/14/20202020 Failure to thrive in adult 07/21/2020 0 11/04/2020 Ambulatory dysfunction 07/21/202011/04 Generalized weakness 07/21/2020 021 Generalized weakness 07/13/2020 021 Hypoxia 07/13/2020 11/04/2020 COVID-19 virus infection 07/11/2020 Abdominal pain 07/11/2020 09/21/2020 Foot osteomyelitis 10/22/2018 9 Diabetic ulcer of toe of rig ht foot associated with type 2 diabetes mellitus, with fat layer exposed 10/22/2018 11/04/2020 Elevated WBC count 11/18/2017 8 Gram-positive bacteremia 11/18/201705/2018 Rigors 11/17/2017 02/19/2018 Chills 11/17/2017 02/19/2018 Fatigue 11/17/2017 02/19/2018 Nausea and vomiting 11/17/2017 07/31/20 23 Near syncope 11/17/2017 02/19/2018 Foot osteomyelitis 09/18/2017 8 Encounter for long-term (cur rent) use of medications 09/11/2017 07/05/2021 Personal history of diabetic foot ulcer 08/07/2017 02/19/2018 Diastolic heart failure 08/05/2017 12/0 04/2022 Moderate malnutrition 08/04/20172017 Diabetic ulcer of left great toe 08/01/2017 08/07/2017 Acute osteomyelitis 08/01/2017 02/20/20 18 Fecal occult blood test positive 01/18/2016 02/05/2017 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 [id number]--vwq-EWS at 97/mt, Min voltage criteria LVH. Primary open angle glaucoma 11/15/2010 02/05/2017 Overview: St travatan gtt 10/21 Diverticulosis of colon 05/10/201001/12 Obesity, Class I, BMI 30.0-3 4.9 (see actual BMI) 11/04/2009 07/29/2020 Overview: Per Obesity Taxonomy, 09/22/2008--BMI: 30.35 kg/m? -- ht s Shoes. HTN, goal below 130/80 09/09/200904/04 Overview: Gdq47--gyg-AMQ at 97/mt, Min voltage criteria LVH. HTN, goal below 140/90 11/24/200809/09 Overview: Per HTN Taxonomy. Ufa10--jrg-DHC at 97/mt, Min voltage criteria LVH. Carpal tunnel syndrome 11/03/200802/05 Overview: Trial splint. Benign neoplasm of colon 10/29/2008 Overview: -- - One 2 mm polyp in the distal transverse colon.-adenoma ,- Mild diverticulosis in the sigmoid colon. Recommendation: - Repeat colonoscopy in 1 year because the preparation was too poor and for surveillance. Felicia Duarte MD Benign neoplasm of colon 10/27/2008 Overview: 12/22--nml-fair prep--rpt 3 yrs-DrL.>>>>>>12/25--defers csope this yr.>06/27- fobt++++refuses,ch cbc>hb 16.-,rpt 3 mts 12/15/2009 -Moderate diverticulosis sigmoid colon and descending colon. - Stool in the entire examined colon. Recommendation: - Use fiber, for example Citrucel, Fibercon, Konsyl or Metamucil. --RPT 2 yrs Shaylee 10/19-poor prep - repeat in 1 year, adenomatous polyp Referral 09/22/2008--FOBT neg. h/o CALCULUS OF KIDNEY 09/22/200802/05 Overview: Had passed spontaneously in 1993 --type unknown Obesity, BMI not known 09/22/200811/04 Overview: Per Obesity Taxonomy, 09/22/2008--BMI: 30.35 kg/m? -- ht s Shoes. Screening for prostate cancer 09/22/2008 02/05/2017 Overview: Adjustment disorder with depressed mood 09/22/2008 10/22/2018 Family history of diabetes mellitus 09/22/2008 02/05/2017 Overview: father Routine medical exam 09/22/2008 016 Overview: 11/09/2009 09/22/2008--new pt yousif--sent us his list--Fo 1000mg daily, Zn 50mg, [id number] documented as of this encounter (statuses as of 09/13/2023) Immunizations Name Administration Dates Next Due COVID-19 mRNA, LNP-s, No Pre serve, 2-Dose Series (Moderna) 09/15/2020,08/25/2020 COVID-19 mRNA, LNP-s, No Pre serve, 2-Dose Series (Pfizer) 06/24/2021 Pneumococcal Conjugate Vacci ne, 20-valent ([id number]) 05/14/2023 Pneumococcal Polysaccharide PPV23 (Pneumovax) 11/03/2008,10/06/2008(Deferred: Patient Refused) Seasonal Influenza, PF, 6 M & above, IM , (FluLaval or Fluzone) 04/25/2021,05/25/2020,06/13/2017 Seasonal Influenza, Quadriva lent Hd (Fluzone Hd) 05/14/2023,07/14/2022(Deferred: Contraindication - PT ALREADY RECEIVED THIS SEASON) Seasonal Influenza, Quadriva lent, No Preserve, IM 06/12/2018,06/30/2015 Seasonal Influenza, Recombin ant, RIV4, PF, (Flublock) 06/17/2019 Seasonal Influenza, Split, I IV3, With Preserve, Inj 06/19/2016,06/23/2014,06/10/2013,2011,06/07/2011,05/10/2010,05/11/2009,0 09/22/2008(Deferred: Patient Refused) TDAP (age 10 and older)(Boostrix) 03/05/2019 TDAP (age 11 and older)(Adacel) 09/22/19 09,09/22/2008(Deferred: Patient Refused) Varicella Zoster Vaccine (Adult) 08/17/2016 Zoster Vaccine Recombinant (Shingrix) 05/25/2020 documented as of this encounter Social History Tobacco Use Types Packs/Day Years Used Date Smoking Tobacco: Never Smokeless Tobacco: Never Alcohol Use Standard Drinks/Week Comments Not Currently 0 (1 standard drink = 0.6 oz pur e alcohol) PHQ-2 Answer Date Recorded PHQ Adult Total Score 11 05/14/2023 Hunger Vital Sign Answer Date Recorded Within the past 12 months, y ou worried that your food would run out before you got the money to buy more. Never true 05/14/20 23 Within the past 12 months, t he food you bought just didn't last and you didn't have money to get more. Never true 05/14/2023 Sex and Gender Information Value Date Recorded Sex Assigned at Male 03/05/2019 9:01 AM EDT Gender Identity Male 03/05/2019 9:01 AM EDT Sexual Orientation Straight 03/05/2019 9: 01 AM EDT Job Start Date Occupation Industry Not on file Not on file Not on file documented as of this encounter Functional Status Functional Status Response Date of Assess ment Are you deaf or do you have serious difficulty hearing? No 07/29/2023 Are you blind or do you have serious difficulty seeing, even when wearing glasses? No-wears glasses 07/29/2023 Do you have serious difficul ty walking or climbing stairs? (5 years old or older) Yes-ambulates w/cane and has prothestic leg (L) 07/29/2023 Do you have difficulty dress ing or bathing? (5 years old or older) No 07/29/2023 Because of a physical, menta l, or emotional condition, do you have difficulty doing errands alone such as visiting a doctor s office or shopping? (15 years old or older) No 07/29/2023 Cognitive Status Response Date of Assessm ent Because of a physical, menta l, or emotional condition, do you have serious difficulty concentrating, remembering, or making decisions? (5 years old or older) No 07/29/2023 documented as of this encounter Progress Notes * Charo Wing LCSW - 09/13/2023 8:49 AM EST PRIMARY CARE BEHAVIORAL HEALTH FOLLOW-UP 09/13/2023 Length of visit: 70 minutes (8:42am - 9:52am) Type of Visit: individual Treatment session number: 1 AGENDA & ACTION PLAN: 09/13/23- Epifanio was oriented and engaged. Epifanio presented anxious and displayed anxious thinking while processing through new information. During appointment, Epifanio picked his nails, was shaking and at times stuttered. Stuttering started after Epifanio had COVID. Epifanio reports that he has always had depression. He remembers being depressed since the age of [age]. . Currently, Epifanio reports that he doesn't feel sad, or down, but isn't happy.. Epifanio related to feeling "blah". Epifanio sees community Psychiatry and is on Buspar, Lexapro, Wellburtirn , and Hydroxyizine. Epifanio reports also having anxiety for a long time. At this time, Epifanio is having a hard time getting out of bed, is feeling overwhelmed by his apartment, has no ambition to clean it, and is having a hard time sleeping at night. Epifanio reports feeling more alert at night from 8-11. Can stay up for a couple nights in a row, and will sleep during the day. Epifanio recalls being in therapy ten years ago. Epifanio states that he is not an immediate threat to himself or anyone else at this time. Provided education on deep breathing and how to implement it Provided education on sleep hygiene. Not able to implement at this time due to hording books and only having pathways in his living room. Is always in his bed but reports that books are taking over his bed Discussed a behavioral activation routine of three times a day working on one corner of his living room for one minute. Plan: Will work on behavioral activation and deep breathing three times a day Complete treatment plan. Optional: Interventions addressed in treatment thus far: Treatment/Intervention Visit 09/13/2023 1 2 3 4 5 6 Behavioral activation Behavior modification for poor health behaviors (e.g., smoking cessation) Breathing re-training mindfulness training Cognitive restructuring/diffusion Exercise/physical activity Problem-solving Psychoeducation Exposure and/or response prevention Supportive therapy Sleep hygiene Stimulus control Time in bed restriction Conduct WHO (BHCM,RUI,MTM) MENTAL STATUS EXAMINATION: No changes to mental status since last visit. No change in suicide or homicide risk status since last visit. Level of suicide completion risk:Low Risk (wish to or ideation without method, intent, plan, orbehavior; modifiable risk factors and strong protective factors; or no reported history of ideationor behavior): Pt has agreed to return for further psychotherapy. Diagnosis: Adjustment Disorder with mixed anxiety and depressed mood RETURN 2 WEEKS for individual cognitive behavioral therapy. Charo Wing LCSW Primary Care Behavioral Health Psychology, [address] [place] [phone] documented in this encounter Plan of Treatment Upcoming Encounters Date Type Department Care Team (Latest Contact Info) Description 09/25/2023 10:00 AM EST [address] [phone] Charo Wing LCSW [address] [facility] [place] [address] 11/02/2023 8:45 AM EDT Office Visit Urology Adore Dolan [address] [facility] [address] [place] [address] Shane Baker MD 27 [facility] [address] [place] [address] 11/19/2023 11:00 AM EDT Pharmacy Pharmacy, [place] [address] [address] [place] [address] Pharmacist1, [facility] [place] [address] [place] [address] 11/22/2023 6:00 PM EDT Office Visit Family Practice, [place] [address] [place] [phone] Renata Murrieta CRNP [address] [place] [address] 12/11/2023 10:00 AM EDT Office Visit Podiatry, [address] [place] [address] Violet Grier, DPM [address] [place] [address] 12/18/2023 11:15 AM EDT Hospital Encounter ENDO [facility], Endoscopy [address] [place] [phone] Donna De Souza, DO [address] [place] [address] 12/18/2023 11:15 AM EDT - 12/18/2023 11:45 AM EDT Surgery ENDO [facility], Endoscopy [address] [place] [phone] Donna De Souza, DO [address] [place] [address] ESOPHAGOGASTRODUODENOSCOPY (EGD), FLEXIBLE, TRANSORAL, DIAGNOSTIC 12/31/2023 11:30 AM EDT Office Visit Ophthalmology, [place] [address] [place] [address] Michael Spivey MD [address] [place] [address] Scheduled Procedures Name Priority Associated Diagnoses Date/Ti me ESOPHAGOGASTRODUODENOSCOPY ( EGD), FLEXIBLE, TRANSORAL, DIAGNOSTIC Reflux esophagitis 12/18/2023 11:15 AM EDT Health Maintenance Due Date Last Done Comments Hepatitis C Screening 1974 Sigmoidoscopy 2001 Hepatitis B (1 of 3 - Risk 3-dose series) 2016 Fecal Occult Blood Test 09/14/2017 09/14/19 17, 07/19/2016, 06/23/2015, Additional history exists Zoster Vaccines (3 of 3) 07/20/2020 05/25/2020, /12/2016 Colonoscopy 12/25/2021 12/26/2011, 12/11, 12/15/2009, Additional history exists B-12 10/19/2022 10/19/2021, 02/0 02/2021, 04/06/2020, Additional history exists COVID-19 Vaccine ( season) 2023 06/24/2021, 09/15/2020, 08/25/2020 Albumin/Creatinine Ratio 05/04/2023 022, 04/29/2021, 02/25/2019, Additional history exists Depression, Most Recent Score >= 10 (will fire each visit until score < 10) 05/15/2023 05/14/2023 Diabetic Foot Exam 09/20/2023 09/20/2022, 0 02/22/2021, 09/09/2019, Additional history exists HbA1c 01/28/2024 07/29/2023, 02/11, 11/01/2022, Additional history exists Cologuard 03/02/2024 03/02/2021, 080 09/2017, 02/19/2017 Colorectal Cancer Screening 03/02/2024 GFR 07/31/2024 07/31/2023, 07/13, 07/29/2023, Additional history exists Diabetic Eye Exam 09/01/2024 09/01/2023, , 09/01/2023, Additional history exists Lipid Panel 03/02/2028 03/02/2023, 09/14, 07/05/2021, Additional history exists DTaP,Tdap,and Td Vaccines (3 - Td or Tdap) 03/05/2029 03/05/2019, 09/22/2008 Influenza Vaccine (FLU shot) Completed 09/2022, 04/25/2021, 05/25/2020, Additional history exists Pneumococcal Vaccine: 65+ Years Completed 05/14/2023, 11/03/2008 GARDASIL-HPV IMMUNIZATION SERIES Aged Out No longer eligible based on patient's age to complete this topic MENINGOCOCCAL (MENACTRA/MENVEO) Aged Out No longer eligible based on patient's age to complete this topic documented as of this encounter Medical Devices Implanted Type Area Roto Mixer Operator Device Identifier Shelf Expiration Date Model / Serial / Lot Clip Quick 2.8mm 230cm - [id number] Implanted:Qty: 7 on 09/18/2020 by Terrance Granados MD at [facility] N/A: Stomach [employer] [id number] / / Description:lot 01K x4, 02K x2and 92K x1 documented as of this encounter Visit Diagnoses Diagnosis Adjustment disorder with mixed anxiety and depressed mood- Primary Reflux esophagitis documented in this encounter Advance Directives Latest Code Status on File Code Status Date Activated Date Inactivated Comments Full Code 07/29/2023 12:00 AM 07/31/2023 8:32 PM Th is order reflects the patients wishes and were consensually agreed upon. Question Answer Comments Discussion of Advance Directives occurred with: Patient Code Status History Code Status Date Activated Date Inactivated Comments Full Code 09/25/2022 9:49 PM 10/04/2022 9:28 PM This order reflects the patients wishes and were consensually agreed upon. Question Answer Comments Discussion of Advance Directives occurred with: Patient Full Code 07/08/2022 2:58 AM 07/14/2022 5:35 PM This order reflects the patients wishes and were consensually agreed upon. Question Answer Comments Discussion of Advance Directives occurred with: Patient No Code 09/18/2020 12:42 AM 09/21/2020 5:52 PM This o rder reflects the patients wishes and were consensually agreed upon. Question Answer Comments Discussion of Advance Directives occurred with: Patient Does the patient have a Living Will? Yes, in chart and reviewed as current Does the patient have Health Care Power of Dimension Stone Quarry Supervisor? Yes, in chart and reviewed as current No Code 08/14/2020 1:19 AM 08/20/2020 4:29 PM This or mihir reflects the patients wishes and were consensually agreed upon. Question Answer Comments Discussion of Advance Directives occurred with: Patient Care Teams Reproduction Artist Relationship Specialty Start Date End Date Alok Campbell MD [address] [place] [address] PCP - General Family Medicine 09/01/23 documented as of this encounter
--- OUTSIDE RECORDS SUMMARY | 2023-09-18 06:11 | External Medical Summary | Summary of Care ---
Author Name Unknown Organization [facility] Address [address] [facility] [address] Phone [phone] Care Team Providers Care Senior Shipping Clerk Name Role Phone Unavailable Primary Care Provider Unavailabl e Reason for Visit * Reason Comments Appointment Encounter Details Date Type Department Care Team (Late st Contact Info) Description 08/21/2023 6:10 PM [facility] Pharmacy Pharmacy, [address] [place] [address] Pharmacist1, [address] [place] [address] Type 2 diabetes mellitus with hemoglobin A1c goal of less than 7.0% ([facility])*; 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 30 Cap 11 10/18/2016 Active Folic Acid 400 MCG Tablet Take 1 Tablet by mouth in the morning. 30 Tab 11 10/18/2016 Active NATURAL SUPPLEMENT Take 1 g by mouth in the morning. CINNAMON. 0 Active [place]-3 Fatty Acids (FISH OIL) 1200 MG CAPS [...] twice daily 60 Tablet 11 09/16/2021 Active Travoprost (BOBBY Free) 0.004 % Ophthalmic Solution (Travatan Z)Indications:Prim luisa open angle glaucoma of both eyes, moderate stage Instill into both eyes 1 Drop before bedtime. 5 mL 5 02/18/2022 Active Acetaminophen 325 MG Oral Tablet (Tylenol) [...] 07/19/2023 Active Atenolol 25 MG Oral Tablet (Tenormin)Faustinoti ons:HTN, goal below 140/80,Type 2 diabetes mellitus with hemoglobin A1c goal of less than 7.0% (HCC) Take 1/2 (one-half) tablet by mouth once daily 45 Tablet 3 07/19/2023 Active Atorvastatin Calcium 40 MG Oral Tablet (Lipitor)Faustinotio ns:Type 2 diabetes mellitus with hemoglobin A1c [...] Paste Use as directed. 0 05/06/2023 Active documented as of this encounter (statuses as of 08/21/2023) Active Problems Problem Noted Date Diagnosed Date [...] 140/90 10/18/2015 Overview: Per HTN Protocol #27. Fot58--mhe-YWF at 97/mt, Min voltage criteria LVH. 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 DM type 2 causing neurological disease Overview: Iqrq19--4%, ld 100, nl bm, rbs 132, alt 09/26/2008--NEW DIAG DM--Hb 17/49, bmp, x na 134, fbs 238, nl lft, tsh 2.01, 226/259/31/143, psa 0.85, ua +glu, b12 nml , fol nml, -ferritin 56, 37%sat, h9x--12.2%---- - ma neg Eye exam--Nivia - Foot exam-10/06/2008--nml documented as of this encounter (statuses as of 08/21/2023) Resolved Problems Problem Noted Date Diagnosed Date [...] foot ulcer 08/07/2017 02/19/2018 Diastolic heart failure 08/05/201704/2022 Moderate malnutrition 08/04/20172017 Diabetic ulcer of left [...] 140/80 04/01/201211/16 Overview: Per HTN Protocol #27. Ily84--mov-DTP at 97/mt, Min voltage criteria LVH. Primary open angle glaucoma 11/15/2010 02/05/2017 Overview: St travatan gtt 10/21 Diverticulosis of colon 05/10/201001/12 Obesity, Class I, BMI 30.0-3 4.9 (see actual BMI) 11/04/2009 07/29/2020 Overview: Per Obesity Taxonomy, 09/22/2008--BMI: 30.35 kg/m? -- ht s Shoes. HTN, goal below 130/80 09/09/200904/04 Overview: Xar40--gbx-YYU at 97/mt, Min voltage criteria LVH. HTN, goal below 140/90 11/24/200809/09 Overview: Per HTN Taxonomy. Ewq03--isq-WJI at 97/mt, Min voltage criteria LVH. Carpal [...] history of diabetes mellitus 09/22/2008 02/05/2017 Overview: Routine medical exam 09/22/2008 016 Overview: 11/09/2009 09/22/2008--new pt yousif--sent us his list--Fo 1000mg daily, Zn 50mg, [id number] documented as of this encounter (statuses as of 08/21/2023) Immunizations Name Administration Dates Next Due COVID-19 mRNA, LNP-s, No Pre serve, 2-Dose Series (Moderna) 09/15/2020,08/25/2020 COVID-19 mRNA, LNP-s, No Pre serve, 2-Dose Series (Pfizer) 06/24/2021 Pneumococcal Conjugate Vacci ne, 20-valent ([id number]) 05/14/2023 Pneumococcal Polysaccharide PPV23 (Pneumovax) 11/03/2008,10/06/2008(Deferred: Patient [...] as of this encounter Progress Notes * Valeri Lujan, pipelines superintendent - 08/21/2023 8:47 AM EST Patient Phone Numbers Spoke with patient to schedule MTDM appointment for diabetes management. Appointment scheduled as noted below. 09/04/2023 Thank you, Valeri Lujan Figure Refinisher And Repairer [facility] 08/21/2023,8:47 AM documented in this encounter Plan of Treatment Upcoming Encounters Date Type Department Care Team (Latest Contact Info) Description 08/27/2023 10:40 AM EST Office Visit Podiatry, [facility] [address] [facility] [place] [address] Violet Grier DPM [facility] [address] 09/01/2023 12:00 PM EST Office Visit Ophthalmology, [address] [place] [address] Michael Spivey MD [facility] [place] [address] 09/04/2023 1:00 PM EST [address], [address] [address] Pharmacist1, [facility] [place] [facility] [place] [address] 11/02/2023 8:45 AM EDT Office Visit Urology Kadi Jang [place] [address] [facility] [address] [place] [address] Shane Baker MD 27 [facility] [address] [place] [address] 11/16/2023 10:00 AM EDT Office Visit Family Practice, [place] 21 [place] [phone] Renata Murrieta CRNP 21 [facility] [place] [address] 12/18/2023 11:15 AM EDT Hospital Encounter ENDO GECL, Endoscopy [address] [facility] [address] [place] [phone] Donna De Souza, DO [address] [place] [address] 12/18/2023 11:15 AM EDT - 12/18/2023 11:45 AM EDT Surgery ENDO GECL, Endoscopy [address] [place] [phone] Donna De Souza, DO [address] [place] [address] ESOPHAGOGASTRODUODENOSCOPY (EGD), FLEXIBLE, TRANSORAL, DIAGNOSTIC Scheduled Procedures Name Priority Associated Diagnoses Date/Ti mo ESOPHAGOGASTRODUODENOSCOPY ( EGD), FLEXIBLE, TRANSORAL, DIAGNOSTIC Reflux esophagitis 12/18/2023 11:15 AM EDT Health Maintenance Due Date Last Done Comments Hepatitis C Screening 1974 Sigmoidoscopy 2001 Hepatitis B (1 of 3 - Risk 3-dose series) 2016 Fecal Occult Blood Test 09/14/2017 09/14/19 17, 07/19/2016, 06/23/2015, Additional history exists Zoster Vaccines (3 of 3) 07/20/2020 05/25/2020, 12/2016 Colonoscopy 12/25/2021 12/26/2011, 12/11, 12/15/2009, Additional history exists B-12 10/19/2022 10/19/2021, 02/2021, 04/06/2020, Additional history exists Diabetic Eye Exam 02/09/2023 02/09/2022, , 10/12/2021, Additional history exists COVID-19 Vaccine ( season) 2023 06/24/2021, 09/15/2020, 08/25/2020 Albumin/Creatinine Ratio 05/04/20232 022, 04/29/2021, 02/25/2019, Additional history exists Depression, Most Recent Score >= 10 (will fire each visit until score < 10) 05/15/2023 05/14/2023 Diabetic Foot Exam 09/20/2023 09/20/2022, 0 02/22/2021, 09/09/2019, Additional history exists HbA1c 01/28/2024 07/29/2023, 02/11, 11/01/2022, Additional history exists Cologuard 03/02/2024 03/02/2021, 08/09/2017, 02/19/2017 Colorectal Cancer Screening 03/02/2024 GFR 07/31/2024 07/31/2023, 07/13, 07/29/2023, Additional history exists Lipid Panel 03/02/2028 03/02/2023, [...] this encounter Medical Devices Implanted Type Area Grain Elevator Clerk Device Identifier Shelf Expiration Date Model / Serial / Lot Clip Quick 2.8mm 230cm - [id number] Implanted:Qty: 7 on 09/18/2020 by Terrance Granados MD at OR [facility] N/A: Stomach [employer] [id number] / / Description:lot 01K x4, 02K x2and 92K x1 documented as of this encounter Visit Diagnoses Diagnosis Type 2 diabetes mellitus with hemoglobin A1c goal of less than 7.0% (HCC)- Primary 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 Yes, in chart and reviewed as current No Code 08/14/2020 1:19 AM 08/20/2020 4:29 PM This or mihir reflects the patients wishes and were consensually agreed upon. Question Answer Comments Discussion of Advance Directives occurred with: Patient
--- OUTSIDE RECORDS SUMMARY | 2023-09-18 06:11 | External Medical Summary | Summary of Care ---
Author Name Unknown Organization [facility] Address [address] [facility] [place] [address] Phone [phone] Care Team Providers Care Corncob Pipe Supervisor Name Role Phone Alok Campbell MD Primary Care Provider [phone] Reason for Visit * Reason Comments Follow Up * Evaluate & Treat - Unlimited Visits (Within 10 days (routine)) - Pending Review Specialty Diagnoses / Procedures Referred By Mattie dillon Referred To Contact Podiatry Diagnoses Type 2 diabetes mellitus with hemoglobin A1c goal of less than 7.0% ([facility]) Dianne Lua MD [address] [place] [address] Referral ID Status Reason Start Date Expiration Date Visits Requested Visits Authorized [id number] Pending Review Specialty Services Required 05/14/[phone] Encounter Details Date Type Department Care Team (Late st Contact Info) Description 09/10/2023 10:00 AM EST Office Visit Podiatry, [facility] [address] [place] [address] Violet Grier DPM [address] [place] [address] History of below-knee amputation of left lower extremity (HCC)*; DM type 2 causing neurological disease Allergies No known active allergiesdocumented as of this encounter (statuses as of 09/10/2023) Medications Medication Sig Dispensed Refills Start Date [...] mouth in the morning. CINNAMON. 0 Active [place]-3 Fatty Acids (FISH OIL) 1200 MG CAPS Take 1,200 mg by mouth in the morning and 1,200 mg before bedtime. 0 Active [employer] ULTRASOFT LANCETS MISCIndications:DM type 2 causing neurological disease (HCC) CHECK FASTING BLOOD SUGAR BEFORE BREAKFAST AND BEFORE SUPPER ADVISED 100 Box Dosing Unit 5 12/21/2017 Active [employer]ap ULTRA BLUE STRPIndications:DM type 2 causing neurological [...] as of this encounter (statuses as of 09/10/2023) Active Problems Problem Noted Date Diagnosed Date [...] 140/90 10/18/2015 Overview: Per HTN Protocol #27. Zlk79--pjn-UJL at 97/mt, Min voltage criteria LVH. 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 DM type 2 causing neurological disease Overview: Euuo33--9%, ld 100, nl bm, rbs 132, alt 09/26/2008--NEW DIAG DM--Hb 17/49, bmp, x na 134, fbs 238, nl lft, tsh 2.01, 226/259/31/143, psa 0.85, ua +glu, b12 nml , fol nml, -ferritin 56, 37%sat, s6z--70.2%---- - ma neg Eye exam--DrNardis - Foot exam-10/06/2008--nml documented as of this encounter (statuses as of 09/10/2023) Resolved Problems Problem Noted Date Diagnosed Date [...] 140/80 04/01/201211/16 Overview: Per HTN Protocol #27. Llp70--mcs-ICO at 97/mt, Min voltage criteria LVH. Primary open angle glaucoma 11/15/2010 02/05/2017 Overview: St travatan gtt 10/21 Diverticulosis of colon 05/10/201001/12 Obesity, Class I, BMI 30.0-3 4.9 (see actual BMI) 11/04/2009 07/29/2020 Overview: Per Obesity Taxonomy, 09/22/2008--BMI: 30.35 kg/m? -- ht s Shoes. HTN, goal below 130/80 09/09/200904/04 Overview: Qin86--hre-VYI at 97/mt, Min voltage criteria LVH. HTN, goal below 140/90 11/24/200809/09 Overview: Per HTN Taxonomy. Ogm26--wlz-HOG at 97/mt, Min voltage criteria LVH. Carpal [...] us his list--Fo 1000mg daily, Zn 50mg, [id number] documented as of this encounter (statuses as of 09/10/2023) Immunizations Name Administration Dates Next Due COVID-19 mRNA, LNP-s, No Pre serve, 2-Dose Series (Moderna) 09/15/2020,08/25/2020 COVID-19 mRNA, LNP-s, No Pre serve, 2-Dose Series (Pfizer) 06/24/2021 Pneumococcal Conjugate Vacci ne, 20-valent (Adlpqms55) 05/14/2023 Pneumococcal Polysaccharide PPV23 (Pneumovax) 11/03/2008,10/06/2008(Deferred: Patient [...] as of this encounter Progress Notes * CherrieViolet hernandez, DPM - 09/10/2023 10:08 AM EST Podiatry Established Note [facility] Name: Epifanio Silva : 1955 Date: 09/10/2023 REASON FOR VISIT: Routine care SUBJECTIVE: This patient is a 67 year old male who presents today for routine care. Pt is well known to podiatry. Pt with hx of BKA, left. 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 - Stool in the entire examined colon. Recommendation: - Use fiber, for example Citrucel,Fibercon, Konsyl or Metamucil. --RPT 2 yrs DrHashem 10/19-poor prep - repeat in 1 year, adenomatous polyp Referral 09/22/2008--FOBT neg. Carpal tunnel syndrome 11/03/2008 Trial splint. 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) 11/13/2009 Dry eye Dyslipidemia, goal LDL below 100 11/09/2009 Family history of diabetes mellitus 09/22/2008 father h/o CALCULUS OF KIDNEY 09/22/2008 h/o CALCULUS OF KIDNEY 09/22/2008 Had passed spontaneously in 1993 --type unknown HTN, goal below 130/80 09/09/2009 Incipient senile cataract INFORMATION 01/2010 pachy 591/608;-4/-4 Major depressive disorder, recurrent 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) 11/12/2008 MGD (meibomian gland disease) Moderate malnutrition ([facility]) 08/04/2017 Personal history of diabetic foot ulcer 08/07/2017 Personal history of diabetic foot ulcer 08/07/2017 Primary open angle glaucoma 0.7/0.8 (11/01); FH-;VF 06/28;HRT 04/01 Primary open angle glaucoma 11/15/2010 St travatan gtt 10/21 Status post amputation of great toe, left ([facility]) 08/07/2017 ALLERGIES: Review of patient's allergies indicates: No Known Allergies REVIEW OF SYSTEMS: Constitutional: Negative for fever, activity change and appetite change. Skin: Negative for color change, rash and wound. Neurological: Negative for dizziness, weakness and numbness. FOCUSED PODIATRIC EXAM: Vitals: There were no vitals filed for this visit. General: Patient is awake alert oriented to person place time. No apparent distress. Vascular: Pedal pulses are palpable. Neurologic: LOPS. Diminished pain and light touch. +paresthesia. Musculoskeletal: +BKA, LLE. Absent 2nd digit. Hammer toes noted to the remaining digits. Dermatological: Small crusted/scabbed area to the medial arch and lateral 4th digit. No active signs of infection DIAGNOSTIC STUDIES: None ASSESSMENT: DM Hx of BKA PLAN: - Pt seen and evaluated - Ambulate to tolerance - Pt to be extra cautious and vigilant to the right foot - Discussed neuropathy - Follow up in 3 months for routine care or sooner should anything arise. Violet Grier DPM documented in this encounter Nursing Notes * Cleo Awan LPN - 09/10/2023 10:06 AM EST Check up for the right foot. Pt feels like he might be experiencing some neuropathy to that foot. Pt has been doing well since his BKA to the left foot. Pt is diabetic. documented in this encounter Plan of Treatment Upcoming Encounters Date Type Department Care Team (Latest Contact Info) Description 09/13/2023 8:40 AM EST Therapy Psychology, [address] [phone] Charo Wing, [facility] [place] [address] 11/02/2023 8:45 AM EDT Office Visit Urology Kadi Jnag [place] 27 [facility] [address] [place] [address] Shane Baker MD 27 [facility] [address] [place] [address] 11/19/2023 11:00 AM EDT Pharmacy Pharmacy, [address] [place] [address] Pharmacist1, [facility] [address] [place] [address] 11/22/2023 6:00 PM EDT Office [address], [address] [phone] Renata Murrieta CRNP 21 [facility] [place] [address] 12/11/2023 10:00 AM EDT Office Visit Podiatry, [facility] [address] [facility] [address] Violet Grier, [facility] [address] [facility] [place] [address] 12/18/2023 11:15 AM EDT Hospital Encounter ENDO GECL, Endoscopy [address] [facility] [address] [facility] [phone] Donna De Souza, DO [address] [place] [address] 12/18/2023 11:15 AM EDT - 12/18/2023 11:45 AM EDT Surgery ENDO GECL, Endoscopy [address] [facility] 310 [facility] [place] [phone] Donna De Souza DO [address] [place] [address] ESOPHAGOGASTRODUODENOSCOPY (EGD), FLEXIBLE, TRANSORAL, DIAGNOSTIC 12/31/2023 11:30 AM EDT Office Visit Ophthalmology, [place] [address] [place] [address] Michael Spivey MD [address] [place] [address] Scheduled Procedures Name Priority Associated Diagnoses Date/Ti me ESOPHAGOGASTRODUODENOSCOPY ( EGD), FLEXIBLE, TRANSORAL, DIAGNOSTIC Reflux esophagitis 12/18/2023 11:15 AM EDT Scheduled Referrals Name Type Priority Associated Diagnoses Orde r Schedule PODIATRY REFERRAL OP Referral Within 10 days (routine) Type 2 diabetes mellitus with hemoglobin A1c goal of less than 7.0% (HCC) Ordered: 05/14/2023 Health Maintenance Due Date Last Done Comments Hepatitis C Screening 1974 Sigmoidoscopy 2001 Hepatitis B (1 of 3 - Risk 3-dose series) 2016 Fecal Occult Blood Test 09/14/2017 09/14/19 17, 07/19/2016, 06/23/2015, Additional history exists Zoster Vaccines (3 of 3) 07/20/2020 05/25/2020, 12/2016 Colonoscopy 12/25/2021 12/26/2011, 12/11, 12/15/2009, Additional history exists B-12 10/19/2022 10/19/2021, 02/2021, 04/06/2020, Additional history exists COVID-19 Vaccine ( season) 2023 06/24/2021, 09/15/2020, 08/25/2020 Albumin/Creatinine Ratio 05/04/20232 022, 04/29/2021, 02/25/2019, Additional history exists Depression, Most Recent Score >= 10 (will fire each visit until score < 10) 05/15/2023 05/14/2023 Diabetic Foot Exam 09/20/2023 09/20/2022, 0 02/22/2021, 09/09/2019, Additional history exists HbA1c 01/28/2024 07/29/2023, 02/11, 11/01/2022, Additional history exists Cologuard 03/02/2024 03/02/2021, 0809/2017, 02/19/2017 Colorectal Cancer Screening 03/02/2024 GFR 07/31/2024 [...] this encounter Medical Devices Implanted Type Area Reducer Device Identifier Shelf Expiration Date Model / Serial / Lot Clip Quick 2.8mm 230cm - [id number] Implanted:Qty: 7 on 09/18/2020 by Terrance Granados MD at OR [facility] N/A: Stomach [employer] [id number] / / Description:lot 01K x4, 02K x2and 92K x1 documented as of this encounter Visit Diagnoses Diagnosis History of below-knee amputation of left lower extremity (HCC)- Primary DM type 2 causing neurological disease Type [...] the patient have Health Care Power of Lamp Tester And Inspector? Yes, in chart and reviewed as current No Code 08/14/2020 1:19 AM 08/20/2020 4:29 PM This or mihir reflects the patients wishes and were consensually agreed upon. Question Answer Comments Discussion of Advance Directives occurred with: Patient Care Teams Corncob Pipe Supervisor Relationship Specialty Start Date End Date Alok Campbell MD 21 [place] [address] PCP - General Family Medicine 09/01/23 documented as of this encounter
--- OUTSIDE RECORDS SUMMARY | 2023-09-18 06:11 | External Medical Summary | Summary of Care ---
Author Name Unknown Organization [facility] Address [address] [facility] [place] [address] Phone [phone] Care Team Providers Care Service Operations Manager Name Role Phone Alok Campbell MD Primary Care Provider [phone] Reason for Visit * Reason Comments Dosage Adjustment In Person (Anticoag Cl inic) Diabetes Follow-Up Encounter Details Date Type Department Care Team (Late st Contact Info) Description 09/04/2023 1:00 PM [facility] Pharmacy, [address] [place] [address] Pharmacist1, [address] [place] [address] Type 2 diabetes mellitus with hemoglobin A1c goal of less than 7.0% ([facility])*; 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 CINNAMON. 0 Active Nathalie-3 Fatty Acids (FISH OIL) 1200 MG CAPS [...] as of this encounter (statuses as of 09/04/2023) Active Problems Problem Noted Date Diagnosed Date [...] 140/90 10/18/2015 Overview: Per HTN Protocol #27. Cmm80--sqx-QYM at 97/mt, Min voltage criteria LVH. Type [...] DM type 2 causing neurological disease Overview: Jtqe52--1%, ld 100, nl bm, rbs 132, alt 09/26/2008--NEW DIAG DM--Hb 17/49, bmp, x na 134, fbs 238, nl lft, tsh 2.01, 226/259/31/143, psa 0.85, ua +glu, b12 nml , fol nml, -ferritin 56, 37%sat, a5y--24.2%---- - ia neg Eye exam--[facility] - Foot exam-10/06/2008--nml documented as of this encounter (statuses as of 09/04/2023) Resolved Problems Problem Noted Date Diagnosed Date [...] ulcer 08/07/2017 02/19/2018 Diastolic heart failure 08/05/2017 1204/2022 Moderate malnutrition 08/04/20172017 Diabetic ulcer of left [...] 140/80 04/01/201211/16 Overview: Per HTN Protocol #27. Gny82--wfw-EDG at 97/mt, Min voltage criteria LVH. Primary open angle glaucoma 11/15/2010 02/05/2017 Overview: St travatan gtt 10/21 Diverticulosis of colon 05/10/201001/12 Obesity, Class I, BMI 30.0-3 4.9 (see actual BMI) 11/04/2009 07/29/2020 Overview: Per Obesity Taxonomy, 09/22/2008--BMI: 30.35 kg/m? -- ht s Shoes. HTN, goal below 130/80 09/09/200904/04 Overview: Ixg24--hft-HXK at 97/mt, Min voltage criteria LVH. HTN, goal below 140/90 11/24/200809/09 Overview: Per HTN Taxonomy. Wpl71--vmf-QQZ at 97/mt, Min voltage criteria LVH. Carpal [...] us his list--Fo 1000mg daily, Zn 50mg, [id number] documented as of this encounter (statuses as of 09/04/2023) Immunizations Name Administration Dates Next Due COVID-19 mRNA, LNP-s, No Pre serve, 2-Dose Series (Moderna) 09/15/2020,08/25/2020 COVID-19 mRNA, LNP-s, No Pre serve, 2-Dose Series (Pfizer) 06/24/2021 Pneumococcal Conjugate Vacci ne, 20-valent (Fvyriwe30) 05/14/2023 Pneumococcal Polysaccharide PPV23 (Pneumovax) 11/03/2008,10/06/2008(Deferred: Patient [...] as of this encounter Progress Notes * Silva Chan, [facility] - 09/04/2023 1:16 PM EST Medication Therapy Disease Management Clinic - Diabetes Management Progress Note Epifanio Silva, identified by name and date of , is a 67 year old male being seen for diabetes management/education. Patient presents for return diabetic visit. DIABETES: Current diabetic medications: Metformin 1000mg: take 1 tablet twice daily Ozempic: inject 2mg once weekly Glipizide ER 5mg: take 1 tablet every morning GFR > 90 on 02/24/22 Medication Injection Site: Abdomen Lifestyle: Diet: unchanged Glucose Review/SMBG: Readings obtained from patient documented BG logbook Pre am Post am Pre Lunch Post Lunch Pre pm Post pm HS 159 129 115 104 156 171 166 172 115 226 141 128 128 141 193 168 139 148 125 96 137 125 150 68 Average 140 #DIV/0! 143 #DIV/0! #DIV/0! #DIV/0! 141 Hi 141 0 226 0 0 0 171 Lo 139 0 68 0 0 0 115 Range 2 0 158 0 0 0 56 Hypoglycemia: Does your blood sugar go below 70 mg/dL? Yes, once - today Hyperglycemia symptoms present: none Recent Labs Units 07/29/23 0603 03/02/23 0715 11/01/22 0449 HEMOGLOBIN A1C - [facility] % 6.7* 8.4* 6.3* Recent Labs Units 07/31/23 0445 07/30/23 0519 07/29/23 0603 ESTIMATED GLOMERULAR FILTRATION RATE - [facility] mL/min 89 >90 >90 CREATININE - [facility] mg/dL 0.9 0.9 0.8 HYPERTENSION: Patient on ACEi/ARB: no, UAC 22 on 05/04/22 BP Readings from Last 3 Encounters: 08/09/23 100/70 07/31/23 101/64 05/14/23 122/78 Blood pressure at goal: yes HYPERLIPIDEMIA: Patient is taking moderate or high intensity statin: yes HEALTH MAINTENANCE REVIEW: Health Maintenance Due Topic Date Due Hepatitis C Screening Never done Hepatitis B (1 of 3 - Risk 3-dose series) Never done Zoster Vaccines (3 of 3) 07/20/2020 B-12 10/19/2022 COVID-19 Vaccine ( season) 2023 Albumin/Creatinine Ratio 05/04/2023 Depression, Most Recent Score >= 10 (will fire each visit until score < 10) 05/15/2023 Diabetic Foot Exam 09/20/2023 ASSESSMENT & PLAN: ICD-10-CM 1. Type 2 diabetes mellitus with hemoglobin A1c goal of less than 7.0% (HCC) E11.9 2. 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 Reviewed BG readings with patient. Readings overall are controlled - mostly averaging in 140's. Occasional elevated readings, likely related to diet. Patient had 1 episode of hypoglycemia, this morning. Reported that he had overslept. A1C drawn in July when patient was in the hospital. Resulted at 6.7% - improved from previous reading and at goal. Medications - Reviewed current regimen, patient is adherent to regimen. Discussed reducing dose of glipizide to help prevent hypoglycemia if not eating. Patient does not want to do so at this time, stated he is trying to eat on a more regular basis. Patient to contact MTM if issues with hypoglycemia. Diet, Exercise, Lifestyle - Patient has been sick off and on since last MTM appointment. Patient is agreeable to SMBG 1 time(s) daily. Patient aware to contact clinic if any hypoglycemia before next visit. MEDICATION CHANGES: no change Diabetic Medications: Metformin 1000mg: take 1 tablet twice daily Ozempic: inject 2mg once weekly Glipizide ER 5mg: take 1 tablet every morning GFR > 90 on 02/24/22 HEALTH MAINTENANCE INTERVENTIONS: Labs: due for B12 and microalbumin - already ordered Immunizations: defers Foot Exam: Up to Date Eye Exam: Up to Date Annual Wellness Visit: due FOLLOW UP: Return to clinic in 10 weeks 11/16/2023 Silva Chan RPh Clinical Pharmacist - Tube Cutter Operator Medication Therapy Management Clinic 09/04/2023, 1:16 PM documented in this encounter Plan of Treatment Upcoming Encounters Date Type Department Care Team (Latest Contact Info) Description 09/10/2023 10:00 AM EST [facility] [address] [place] [address] Violet Grier DPM [address] [place] [address] 11/02/2023 8:45 AM EDT Office Visit Urology Adore Dolan [address] [facility] [address] [place] [address] [facility] [address] [place] [address] 11/16/2023 10:00 AM EDT Office Visit [facility] [address] [facility] [place] [phone] Renata Murrieta CRNP [address] [place] [address] 11/16/2023 11:00 AM EDT Pharmacy Pharmacy, [place] [address] [place] [address] Pharmacist1, [facility] [address] [place] [address] 12/18/2023 11:15 AM EDT Hospital Encounter [facility]O [facility], Endoscopy [address], [place] [phone] Donna De Souza, DO [address] [place], [place] [address] 12/18/2023 11:15 AM EDT - 12/18/2023 11:45 AM EDT Surgery [facility]O [facility] [phone] Donna De Souza, DO [address] [place], [place] [address] ESOPHAGOGASTRODUODENOSCOPY (EGD), FLEXIBLE, TRANSORAL, DIAGNOSTIC 12/31/2023 11:30 AM EDT Office Visit Ophthalmology, [place] [address] [place] [address] Michael Spivey MD [address] [facility] [place] [id number] Scheduled Procedures Name Priority Associated Diagnoses Date/Ti me ESOPHAGOGASTRODUODENOSCOPY ( EGD), FLEXIBLE, TRANSORAL, DIAGNOSTIC Reflux esophagitis 12/18/2023 11:15 AM EDT Health Maintenance Due Date Last Done Comments Hepatitis C Screening 1974 Sigmoidoscopy 2001 Hepatitis B (1 of 3 - Risk 3-dose series) 2016 Fecal Occult Blood Test 09/14/2017 09/14/19, 07/19/2016, 06/23/2015, Additional history exists Zoster Vaccines [...] 09/09/2019, Additional history exists HbA1c 01/28/2024 07/29/2023, 0708/2022, 11/01/2022, Additional history exists Cologuard 03/02/2024 03/02/2021, 09/2017, 02/19/2017 Colorectal Cancer Screening 03/02/2024 GFR [...] this encounter Medical Devices Implanted Type Area Lacquer Machine Feeder Device Identifier Shelf Expiration Date Model / Serial / Lot Clip Quick 2.8mm 230cm - [id number] Implanted:Qty: 7 on 09/18/2020 by Terrance Granados MD at OR [facility] N/A: St[employer] [id number]-.[id number] / / Description:lot 01K x4, 02K x2and [...] the patient have Health Care Power of Dedicated Owner Operator? Yes, in chart and reviewed as current No Code 08/14/2020 1:19 AM 08/20/2020 4:29 PM This or mihir reflects the patients wishes and were consensually agreed upon. Question Answer Comments Discussion of Advance Directives occurred with: Patient Care Teams Service Operations Manager Relationship Specialty Start Date End Date Alok Campbell MD [address] [place] [address] PCP - General Family Medicine 09/01/23 documented as of this encounter
--- OUTSIDE RECORDS SUMMARY | 2023-09-18 06:11 | External Medical Summary | Summary of Care ---
Author Name Unknown Organization [facility] Address [address] [place] [facility] [place] [address] Phone [phone] Care Team Providers Care Emergency Medical Technician Basic Name Role Phone Alok Campbell MD Primary Care Provider [phone] Reason for Visit * Reason Comments Eye Exam * Evaluate & Treat - Unlimited Visits (Within 30 days (routine)) - Authorized Specialty Diagnoses / Procedures Referred By Mattie dillon Referred To Contact Ophthalmology Diagnoses Type 2 diabetes mellitus with hemoglobin A1c goal of less than 7.0% (HCC) Khari Jackson MD [address] [place] [address] Referral ID Status Reason Start Date Expiration Date Visits Requested Visits Authorized [id number] Authorized Specialty Services Required [phone] Encounter Details Date Type Department Care Team ([facility] st Contact Info) Description 09/01/2023 9:00 AM EST Office Visit Ophthalmology, [place] [id number] Michael [place] [address] Encounter for ophthalmic examination and evaluation*; Primary open angle glaucoma of both eyes, moderate stage; Type 2 diabetes mellitus with hemoglobin A1c goal of less than 8.0% (HCC); Senile incipient cataract of both eyes Allergies No known active allergiesdocumented as of this encounter (statuses as of 09/03/2023) Medications Medication Sig Dispensed Refills Start Date End Date Status [place] ULTRA SYSTEM W/DEVICE KITIndications:DM type 2, not at goal (HCC) Use up to four times a day as directed 1 0 9 Active Zinc Gluconate 50 MG CAPS Take 1 Tablet by mouth in the morning. 30 Cap 11 7 Active Folic Acid 400 MCG Tablet Take 1 Tablet by mouth in the morning. 30 Tab 11 7 Active NATURAL SUPPLEMENT Take 1 g by mouth in the morning. CINNAMON. 0 Active [place]-3 Fatty Acids (FISH OIL) 1200 MG CAPS Take 1,200 mg by mouth in the morning and 1,200 mg before bedtime. 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 0 Active escitalopram (LEXAPRO) 20 MG Tablet Take 1 Tablet by mouth in the morning. 0 0 Active busPIRone HCl 10 MG Oral Tablet (Buspar) TAKE 1 TABLET BY MOUTH TWICE DAILY DIRECTED 0 1 Active Vitron-C 65-125 MG Oral Tablet (Iron-Vitamin C) Take 1 tablet by mouth twice daily 60 Tablet 11 2 Active Acetaminophen 325 MG Oral Tablet (Tylenol) Take 3 Tablets (975 mg) by mouth every 6 hours as needed for Fever (Temp Greater than ), Pain, Breakthrough or Other (none). 30 Tablet 0 2 Active Amitriptyline HCl 10 MG Oral Tablet (Elavil)Indicatio ns:DM type 2 causing neurological disease (HCC) Take 1 Tablet by mouth at bedtime. 90 Tablet 1 3 Active Atenolol 25 MG Oral Tablet (Tenormin)Indicat ions:HTN, goal below 140/80,Type 2 diabetes mellitus with hemoglobin A1c goal of less than 7.0% (HCC) Take 1/2 (one-half) tablet by mouth once daily 45 Tablet 3 3 Active Atorvastatin Calcium 40 MG Oral Tablet (Lipitor)Indicati ons:Type 2 diabetes mellitus with hemoglobin A1c goal of less than 7.0% (HCC),Dyslipidemi a, goal LDL below 100,DM type 2 causing neurological disease (HCC) Take 1 Tablet by mouth in the morning. 90 Tablet 1 3 Active Finasteride 5 MG Oral Tablet (Proscar)Indicati ons:Enlarged prostate Take 1 Tablet by mouth in the morning. 90 Tablet 3 3 Active Furosemide 20 MG Oral Tablet (Lasix)Indication s:HTN, goal below 140/80 Take 1 Tablet by mouth in the morning. 90 Tablet 1 3 Active glipiZIDE ER 5 MG Oral Tablet Extended Release 24 Hour (glipiZIDE XL)Indications:DM type 2 causing neurological disease (HCC),Type 2 diabetes mellitus with hemoglobin A1c goal of less than 7.0% (HCC),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) Take 1 Tablet by mouth in the morning. 90 Tablet 1 3 Active metFORMIN HCl 1000 MG Oral Tablet (Glucophage)Indic ations:Type 2 diabetes mellitus with hemoglobin A1c goal of less than 7.0% (HCC),DM type 2 causing neurological disease (HCC) Take 1 Tablet by mouth in the morning and 1 Tablet before bedtime. With meals.. 180 Tablet 3 3 Active Ozempic (2 MG/DOSE) 8 MG/3ML Subcutaneous Solution Pen-injector (Semaglutide (2 MG/DOSE)) INJECT 2 MG SUBCUTANEOUSLY ONCE A WEEK 3 mL 2 3 Active Tamsulosin HCl 0.4 MG Oral Capsule (Flomax)Indicatio ns:Enlarged prostate Take 1 Capsule by mouth in the morning. 90 Capsule 3 3 Active traZODone HCl 100 MG Oral Tablet (Desyrel)Indicati ons:Insomnia Take 1 Tablet by mouth at bedtime as needed for Sleep. 30 Tablet 3 3 Active Omeprazole 40 MG Oral Capsule Delayed Release (PriLOSEC) Take 1 Capsule by mouth every night at bedtime. 30 Capsule 1 3 Active hydrOXYzine HCl 25 MG Oral Tablet Take 1 Tablet by mouth 3 times a day as needed for Anxiety. 21 Tablet 0 3 Active PreviDent 5000 Booster Plus 1.1 % Dental Paste Use as directed. 0 3 Active Travoprost (BOBBY Free) 0.004 % Ophthalmic Solution (Travatan Z)Indications:Bailey reese open angle glaucoma of both eyes, moderate stage Instill 1 Drop into both eyes at bedtime. 5 mL 5 4 Active Travoprost (BOBBY Free) 0.004 % Ophthalmic Solution (Travatan Z)Indications:Bailey reese open angle glaucoma of both eyes, moderate stage Instill into both eyes 1 Drop before bedtime. 5 mL 5 2 09/01/19 24 Discontinu ed(Refill) documented as of this encounter (statuses as of 09/03/2023) Active Problems Problem Noted Date Diagnosed Date [...] 140/90 10/18/2015 Overview: Per HTN Protocol #27. Zlq63--mwj-RHY at 97/mt, Min voltage criteria LVH. 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 DM type 2 causing neurological disease Overview: Elox69--4%, ld 100, nl bm, rbs 132, alt 09/26/2008--NEW DIAG DM--Hb 17/49, bmp, x na 134, fbs 238, nl lft, tsh 2.01, 226/259/31/143, psa 0.85, ua +glu, b12 nml , fol nml, -ferritin 56, 37%sat, i4q--63.2%---- - ma neg Eye exam--Nivia - Foot exam-10/06/2008--nml documented as of this encounter (statuses as of 09/03/2023) Resolved Problems Problem Noted Date Diagnosed Date Resolved Date BPH with obstruction/lower u rinary tract symptoms 07/29/2023 07/31/2023 Acute urinary retention 07/29/2023/04/2023 Major depressive disorder, r ecurrent, moderate 07/21/2022 [...] 140/80 04/01/201211/16 Overview: Per HTN Protocol #27. Qon60--way-ZNE at 97/mt, Min voltage criteria LVH. Primary open angle glaucoma 11/15/2010 02/05/2017 Overview: St travatan gtt 10/21 Diverticulosis of colon 05/10/201001/12 Obesity, Class I, BMI 30.0-3 4.9 (see actual BMI) 11/04/2009 07/29/2020 Overview: Per Obesity Taxonomy, 09/22/2008--BMI: 30.35 kg/m? -- ht s Shoes. HTN, goal below 130/80 09/09/200904/04 Overview: Bzk19--iuw-GII at 97/mt, Min voltage criteria LVH. HTN, goal below 140/90 11/24/200809/09 Overview: Per HTN Taxonomy. Rvp77--hzc-UDN at 97/mt, Min voltage criteria LVH. Carpal [...] us his list--Fo 1000mg daily, Zn 50mg, [id number] documented as of this encounter (statuses as of 09/03/2023) Immunizations Name Administration Dates Next Due COVID-19 mRNA, LNP-s, No Pre serve, 2-Dose Series (Moderna) 09/15/2020,08/25/2020 COVID-19 mRNA, LNP-s, No Pre serve, 2-Dose Series (Pfizer) 06/24/2021 Pneumococcal Conjugate Vacci ne, 20-valent ([id number]) 05/14/2023 Pneumococcal Polysaccharide PPV23 (Pneumovax) 11/03/2008,10/06/2008(Deferred: Patient [...] older)(Boostrix) 03/05/2019 TDAP (age 11 and older)(Adacel) 09/22/19,09/22/2008(Deferred: Patient Refused) Varicella Zoster Vaccine (Adult) 08/17/2016 [...] as of this encounter Progress Notes * Michael Spivey MD - 09/01/2023 9:31 AM EST [facility] DEPARTMENT OF OPHTHALMOLOGY DIABETIC EYE EXAM PATIENT NAME: Epifanio Silva (67 year old male) PRIMARY CARE PHYSICIAN: Alok Campbell MD CC: here for diabetic eye exam HPI: DM for 14 years Last FBS: ? 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 - Stool in the entire examined colon. Recommendation: - Use fiber, for example Citrucel,Fibercon, Konsyl or Metamucil. --RPT 2 yrs Yangem 10/19-poor prep - repeat in 1 year, [...] depressive disorder, recurrent severe without psychotic features ([facility]) 11/12/2008 MGD (meibomian gland disease) Moderate malnutrition ([facility]) 08/04/2017 Personal history of diabetic foot ulcer 08/07/2017 Personal history of diabetic foot ulcer 08/07/2017 Primary open angle glaucoma 0.7/0.8 (11/01); FH-;VF 06/28;HRT 04/01 Primary open angle glaucoma 11/15/2010 St travatan gtt 10/21 Status post amputation of great toe, left ([facility]) 08/07/2017 Past Surgical History: Procedure Laterality Date AMPUTATION OF LOWER LEG Left 09/30/2022 AMPUTATION LEG THROUGH TIBIA AND FIBULA performed by Alexander Campbell MD at OR [facility] AMPUTATION OF TOE Left 08/02/2017 AMPUTATION TOE METATARSOPHALANGEAL JOINT performed by Violet Grier DPM at OR [facility] AMPUTATION OF TOE & METATARSAL Left 09/21/2017 AMPUTATION METATARSAL WITH TOE performed by Violet Grier DPM at OR [facility] AMPUTATION OF TOE & METATARSAL Left 11/21/2017 AMPUTATION METATARSAL WITH TOE performed by Violet Grier DPM at OR [facility] AMPUTATION OF TOE & METATARSAL Left 08/17/2020 AMPUTATION METATARSAL WITH TOE performed by Violet Grire DPM at OR [facility] AMPUTATION THRU METATARSAL Left 07/09/2022 AMPUTATION FOOT TRANSMETATARSAL performed by Jena Butts DPM at OR [facility] COLONOSCOPY W/ BIOPSY (RECTUM) 10/27/2008 poor prep - repeat in 1 year, adenomatous polyp COLONOSCOPY, DIAGNOSTIC (RECTUM) 12/15/2009 fair prep, diverticulosis, repeat in 2 years COLONOSCOPY, DIAGNOSTIC (RECTUM) 12/26/2011 COLONOSCOPY FLEXIBLE PROXIMAL DIAGNOSTIC performed by ROGER GODDARD at ENDOSCOPY [facility] EGD, FLEXIBLE, DIAGNOSTIC N/A 09/18/2020 large amount of blood, clot in stomach, briskly oozing lesion in mid body of stomach, likely AVM, hemostatsis achieved using clips/ESOPHAGOGASTRODUODENOSCOPY (EGD), FLEXIBLE, TRANSORAL, DIAGNOSTIC performed by Terrance Granados MD at OR [facility] EGD, FLEXIBLE, DIAGNOSTIC N/A 07/30/2023 ESOPHAGOGASTRODUODENOSCOPY (EGD), FLEXIBLE, TRANSORAL, DIAGNOSTIC performed by Donna De Souza DO OR [facility] EGD, W/ENDOSCOPIC US N/A 07/30/2023 one enlarged lymph node/gastritis/esophagitis/biopsies show reflux/repeat 4-6 months/ESOPHAGOGASTRODUODENOSCOPY (EGD), FLEXIBLE, TRANSORAL, ENDOSCOPIC ULTRASOUND performed by Donna De Souza DO at OR [facility] INCISION OF TOE TENDON Right 10/09/2019 TENOTOMY PERCUTANEOUS TOE performed by Violet Grier DPM at OR [facility] LASER TRABECULOPLASTY 11/22/2016 ALT OS inf 180 PARTIAL AMPUTATION OF TOE Right 11/07/2018 AMPUTATION TOE INTERPHALANGEAL JOINT performed by Violet Grier DPM at OR [facility] PARTIAL AMPUTATION OF TOE Right 10/09/2019 AMPUTATION TOE INTERPHALANGEAL JOINT performed by Violet Grier DPM at OR [facility] REMOVE TONSILS & ADENOIDS, UNDER 12 1960 REPAIR OF HAMMERTOE, ONE TOE Right 10/09/2019 CORRECTION HAMMERTOE performed by Violet Grier DPM at OR [facility] TREAT DEEP FOOT INFECTIONS Left 08/04/2017 INCISION AND DRAINAGE MULTIPLE AREA FOOT performed by Violet Grier DPM at OR [facility] TREAT DEEP FOOT INFECTIONS Left 09/28/2022 INCISION AND DRAINAGE MULTIPLE AREA FOOT performed by Violet Grier DPM at OR [facility] MEDS: Current Outpatient Medications Medication Sig Dispense Refill Travoprost (BOBBY Free) 0.004 % Ophthalmic Solution (Travatan Z) Instill 1 Drop into both eyes at bedtime. 5 mL 5 Responde Ai SYSTEM W/DEVICE KIT Use up to four times a day as directed 1 0 Zinc Gluconate 50 MG CAPS Take 1 Tablet by mouth in the morning. 30 Cap 11 Folic Acid 400 MCG Tablet Take 1 Tablet by mouth in the morning. 30 Tab 11 NATURAL SUPPLEMENT Take 1 g by mouth in the morning. CINNAMON. [place]-3 Fatty Acids (FISH OIL) 1200 MG CAPS Take 1,200 mg by mouth in the morning and 1,200 mg before bedtime. GrexItUCH ULTRASOFT LANCETS MISC CHECK FASTING BLOOD SUGAR BEFORE BREAKFAST AND BEFORE SUPPER ADVISED 100 Box Dosing Unit 5 GrexItUCH ULTRA BLUE STRP CHECK FASTING BLOOD SUGAR BEFORE BREAKFAST AND BEFORE SUPPER ADVISED 100 Strip 11 BuPROPion HCl ER, SR, (WELLBUTRIN SR) 200 MG TB12 Take 1 Tablet by mouth in the morning and 1 Tablet before bedtime. escitalopram (LEXAPRO) 20 MG Tablet Take 1 Tablet by mouth in the morning. busPIRone HCl 10 MG Oral Tablet (Buspar) TAKE 1 TABLET BY MOUTH TWICE DAILY DIRECTED Vitron-C 65-125 MG Oral Tablet (Iron-Vitamin C) Take 1 tablet by mouth twice daily 60 Tablet 11 Acetaminophen 325 MG Oral Tablet (Tylenol) Take 3 Tablets (975 mg) by mouth every 6 hours as neededfor Fever (Temp Greater than ), Pain, Breakthrough or Other (none). 30 Tablet 0 Amitriptyline HCl 10 MG Oral Tablet (Elavil) Take 1 Tablet by mouth at bedtime. 90 Tablet 1 Atenolol 25 MG Oral Tablet (Tenormin) Take 1/2 (one-half) tablet by mouth once daily 45 Tablet 3 Atorvastatin Calcium 40 MG Oral Tablet (Lipitor) Take 1 Tablet by mouth in the morning. 90 Tablet 1 Finasteride 5 MG Oral Tablet (Proscar) Take 1 Tablet by mouth in the morning. 90 Tablet 3 Furosemide 20 MG Oral Tablet (Lasix) Take 1 Tablet by mouth in the morning. 90 Tablet 1 glipiZIDE ER 5 MG Oral Tablet Extended Release 24 Hour (glipiZIDE XL) Take 1 Tablet by mouth in themorning. 90 Tablet 1 metFORMIN HCl 1000 MG Oral Tablet (Glucophage) Take 1 Tablet by mouth in the morning and 1 Tablet before bedtime. With meals.. 180 Tablet 3 Ozempic (2 MG/DOSE) 8 MG/3ML Subcutaneous Solution Pen-injector (Semaglutide (2 MG/DOSE)) INJECT 2 MG SUBCUTANEOUSLY ONCE A WEEK 3 mL 2 Tamsulosin HCl 0.4 MG Oral Capsule (Flomax) Take 1 Capsule by mouth in the morning. 90 Capsule 3 traZODone HCl 100 MG Oral Tablet (Desyrel) Take 1 Tablet by mouth at bedtime as needed for Sleep. 30 Tablet 3 Omeprazole 40 MG Oral Capsule Delayed Release (PriLOSEC) Take 1 Capsule by mouth every night at bedtime. 30 Capsule 1 hydrOXYzine HCl 25 MG Oral Tablet Take 1 Tablet by mouth 3 times a day as needed for Anxiety. 21 Tablet 0 PreviDent 5000 Booster Plus 1.1 % Dental Paste Use as directed. No current facility-administered medications for this visit. ALLERGIES: Review of patient's allergies indicates: No Known Allergies EXAM VA cc OD (D) 20/20; VA sc OD (N) 20/20 VA cc OS (D) 20/25; VA sc OS (N) 20/20 Pt takes his glasses off to read PC OD: sph -3.00 cyl +0.50 axis 012 PC OS: sph -3.75 cyl +1.25 axis 175 Add OD +1.50 Add OS +1.50 EXTERNAL: CVF: Full OU Lids: WNL Conjunctiva: WNL OU Pupils: PERRL; no APD EOM: Full SLIT LAMP Cornea: clear OU Tear Film: WNL OU A/C: D/Q OU Lens: trace NS, trace cortical OD; trace NS, 1+ cortical OS Iris: WNL OU TA OD: 13; OS: 13; 9:31 AM DILATED EXAM: Dilated with Mydriacyl 1% and Mydfrin 2.5%; advised re driving Lens used: 28 D and 90 D Vitreous: clear OU C/D: 0.75 OD; 0.8 OS Macula: WNL OD; WNL OS Periphery: WNL OD; WNL OS ASSESSMENT/PLAN DM 2 - controlled - no diabetic retinopathy --pt advised to tightly control blood sugars COAG - IOP OK --CPM - importance of compliance stressed --OCT (see below) Early cataracts OU RTC: 4 mo Michael Spivey MD 09/01/2023 9:31 AM [facility] DEPARTMENT OF OPHTHALMOLOGY OCT REPORT Patient Name: Epifanio Silva Date performed: 09/01/2023 Indication: glaucoma Eye tested: OU Microchip Specialist: Michaela Test Results: Neuroretinal rim thinning OU NFL thickness 67/56 Assessment/Plan: follow Copy of OCT scanned into EPIC Michael Spivey MD 09/01/2023 9:35 AM documented in this encounter Nursing Notes * Mesha Jennings TECH - 09/01/2023 9:16 AM EST VA cc OD (D) 20/20; VA sc OD (N) 20/20 VA cc OS (D) 20/25; VA sc OS (N) 20/20 Pt takes his glasses off to read PC OD: sph -3.00 cyl +0.50 axis 012 PC OS: sph -3.75 cyl +1.25 axis 175 Add OD +1.50 Add OS +1.50 How long have you been Diabetic? unknown Do you check your sugar daily? YES. Did not measure this morning. Last Hemoglobin A1C: Lab Results Component Value Date/Time HGBA1C 6.7 (H) 07/29/2023 06:03 AM HGBA1C 8.4 (H) 03/02/2023 07:15 AM HGBA1C 6.3 (H) 11/01/2022 04:49 AM HGBA1C 7.7 (H) 08/23/2020 05:36 AM HGBA1C 7.7 (H) 07/26/2020 05:51 AM HGBA1C 7.2 (H) 06/16/2020 10:15 AM Patient cautioned that effects of dilation may last 2-7 hours dependent upon individual reaction. It was discussed that driving while dilated is not recommended. documented in this encounter Plan of Treatment Upcoming Encounters Date Type Department Care Team (Latest Contact Info) Description 09/04/2023 1:00 PM EST Pharmacy Pharmacy, [address] [place] [address] Pharmacist1, [facility] [place] [address] [place] [address] 09/10/2023 10:00 AM EST Office [facility] [address] Violet Grier [facility] [address] [facility] [place] [address] 11/02/2023 8:45 AM EDT Office Visit Urology Adore Dolan [address] [place] [address] Shane Baker MD [address] [place] [address] 11/16/2023 10:00 AM EDT [facility] [place] [facility] [phone] Renata Murrieta CRNP [address] [facility] [place] [address] 12/18/2023 11:15 AM EDT Hospital Encounter [facility]O [facility], Endoscopy [address], [place] [id number] Donna De Souza, DO [address] [place] [address] 12/18/2023 11:15 AM EDT - 12/18/2023 11:45 AM EDT Surgery [facility] [address] [address] [id number] Donna De Souza, DO [address] [place] [address] ESOPHAGOGASTRODUODENOSCOPY (EGD), FLEXIBLE, TRANSORAL, DIAGNOSTIC 12/31/2023 11:30 AM EDT Office Visit [facility] [place] [address] [facility] [place] [address] Michael Spivey MD [address] [facility] [place] [address] Scheduled Procedures Name Priority Associated Diagnoses Date/Ti [...] 12/15/2009, Additional history exists B-12 10/19/2022 10/19/2021, 020 02/2021, 04/06/2020, Additional history exists COVID-19 Vaccine [...] this encounter Medical Devices Implanted Type Area Market Development Specialist Device Identifier Shelf Expiration Date Model / Serial / Lot Clip Quick 2.8mm 230cm - [id number] Implanted:Qty: 7 on 09/18/2020 by Terrance Granados MD at OR [facility] N/A: Stomach [employer] [id number] / / Description:lot 01K x4, 02K x2and 92K x1 documented as of this encounter Procedures Procedure Name Priority Date/Time Associated Diagnosis Comments OPTIC NERVE SCAN DIAGNOSTIC IMAGE,POSTERIOR Routine 09/01/2023 Primary open angle glaucoma of both eyes, moderate stage documented in this encounter Results * OPTIC NERVE SCAN DIAGNOSTIC IMAGE,POSTERIOR (09/01/2023) Michael Spivey MD [facility] documented in this encounter Visit Diagnoses Diagnosis Encounter for ophthalmic examination and evaluation- Primary Examination of eyes and vision Primary open angle glaucoma of both eyes, moderate stage Type 2 diabetes mellitus with hemoglobin A1c goal of less than 8.0% (HCC) Senile incipient cataract of both eyes Reflux esophagitis documented in this encounter Advance [...] the patient have Health Care Power of Electron Beam Welder Setter? Yes, in chart and reviewed as current No Code 08/14/2020 1:19 AM 08/20/2020 4:29 PM This or mihir reflects the patients wishes and were consensually agreed upon. Question Answer Comments Discussion of Advance Directives occurred with: Patient Care Teams Emergency Medical Technician Basic Relationship Specialty Start Date End Date Alok Campbell MD [address] [place] [address] PCP - General Family Medicine 09/01/23 documented as of this encounter
--- OUTSIDE RECORDS SUMMARY | 2023-09-18 06:11 | External Medical Summary | Summary of Care ---
Author Name Unknown Organization [facility] Address [address] [facility] [place] [address] Phone [phone] Care Team Providers Care Slat Basket Maker Name Role Phone Alok Campbell MD Primary Care Provider [phone] Reason for Visit * Reason Comments Eye Exam * Evaluate & Treat - Unlimited Visits (Within 30 days (routine)) - Authorized Specialty Diagnoses / Procedures Referred By Mattie dillon Referred To Contact Ophthalmology Diagnoses Type 2 diabetes mellitus with hemoglobin A1c goal of less than 7.0% (HCC) Khari Jackson MD [address] [place] [address] Referral ID Status Reason Start Date Expiration Date Visits Requested Visits Authorized [id number] Authorized Specialty Services Required 3 [phone] Encounter Details Date Type Department Care Team ([facility] st Contact Info) Description 09/01/2023 9:00 AM EST Office Visit Ophthalmology, [place] [address] Michael [place] [address] Encounter for ophthalmic examination and evaluation*; Primary open angle glaucoma of both eyes, moderate stage; Type 2 diabetes mellitus with hemoglobin A1c goal of less than 8.0% (HCC); Senile incipient cataract of both eyes Allergies No known active allergiesdocumented as of this encounter (statuses as of 09/01/2023) Medications Medication Sig Dispensed Refills Start Date End Date Status Spry ULTRA SYSTEM W/DEVICE KITIndications:DM type 2, not [...] mouth in the morning. CINNAMON. 0 Active [place]-3 Fatty Acids (FISH OIL) 1200 MG CAPS Take 1,200 mg by mouth in the morning and 1,200 mg before bedtime. 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 Tnj42--lla-WVT at 97/mt, Min voltage criteria LVH. Type [...] DM type 2 causing neurological disease Overview: Fepu25--6%, ld 100, nl bm, rbs 132, alt 09/26/2008--NEW DIAG DM--Hb 17/49, bmp, x na 134, fbs 238, nl lft, tsh 2.01, 226/259/31/143, psa 0.85, ua +glu, b12 nml , fol nml, -ferritin 56, 37%sat, o5m--42.2%---- - ma neg Eye exam--Nivia - Foot exam-10/06/2008--nml documented as of this encounter (statuses as of 09/01/2023) Resolved Problems Problem Noted Date Diagnosed Date [...] 140/80 04/01/201211/16 Overview: Per HTN Protocol #27. Ogl40--mma-XCO at 97/mt, Min voltage criteria LVH. Primary open angle glaucoma 11/15/2010 02/05/2017 Overview: St travatan gtt 10/21 Diverticulosis of colon 05/10/201001/12 Obesity, Class I, BMI 30.0-3 4.9 (see actual BMI) 11/04/2009 07/29/2020 Overview: Per Obesity Taxonomy, 09/22/2008--BMI: 30.35 kg/m? -- ht s Shoes. HTN, goal below 130/80 09/09/200904/04 Overview: Jnk11--xfg-ABP at 97/mt, Min voltage criteria LVH. HTN, goal below 140/90 11/24/200809/09 Overview: Per HTN Taxonomy. Zcd73--gph-QGU at 97/mt, Min voltage criteria LVH. Carpal [...] us his list--Fo 1000mg daily, Zn 50mg, [id number] documented as of this encounter (statuses as of 09/01/2023) Immunizations Name Administration Dates Next Due COVID-19 mRNA, LNP-s, No Pre serve, 2-Dose Series (Moderna) 09/15/2020,08/25/2020 COVID-19 mRNA, LNP-s, No Pre serve, 2-Dose Series (Pfizer) 06/24/2021 Pneumococcal Conjugate Vacci ne, 20-valent ([id number]) 05/14/2023 Pneumococcal Polysaccharide PPV23 (Pneumovax) 11/03/2008,10/06/2008(Deferred: Patient [...] Spivey MD - 09/01/2023 9:31 AM EST [facility] DEPARTMENT OF OPHTHALMOLOGY DIABETIC EYE EXAM PATIENT [...] see below Past Medical History: Diagnosis Date STAMP CLASSIFIER (background diabetic retinopathy) (HCC) Benign neoplasm of [...] depressive disorder, recurrent severe without psychotic features ([facility]) 11/12/2008 MGD (meibomian gland disease) Moderate malnutrition ([facility]) 08/04/2017 Personal history of diabetic foot ulcer 08/07/2017 Personal history of diabetic foot ulcer 08/07/2017 Primary open angle glaucoma 0.7/0.8 (11/01); FH-;VF 06/28;HRT 04/01 Primary open angle glaucoma 11/15/2010 St travatan gtt 10/21 Status post amputation of great toe, left ([facility]) 08/07/2017 Past Surgical History: Procedure Laterality Date AMPUTATION OF LOWER LEG Left 09/30/2022 AMPUTATION LEG THROUGH TIBIA AND FIBULA performed by Alexander Campbell MD at OR [facility] AMPUTATION OF TOE Left 08/02/2017 AMPUTATION TOE METATARSOPHALANGEAL JOINT performed by Violet Grier DPM at OR [facility] AMPUTATION OF TOE & METATARSAL Left 09/21/2017 AMPUTATION METATARSAL WITH TOE performed by Violet Grier DPM at OR [facility] AMPUTATION OF TOE & METATARSAL Left 11/21/2017 AMPUTATION METATARSAL WITH TOE performed by Violet Grier DPM at OR [facility] AMPUTATION OF TOE & METATARSAL Left 08/17/2020 AMPUTATION METATARSAL WITH TOE performed by Violet Grier DPM at OR [facility] AMPUTATION THRU METATARSAL Left 07/09/2022 AMPUTATION FOOT TRANSMETATARSAL performed by Jena Butts DPM at OR [facility] COLONOSCOPY W/ BIOPSY (RECTUM) 10/27/2008 poor prep - repeat in 1 year, adenomatous polyp COLONOSCOPY, DIAGNOSTIC (RECTUM) 12/15/2009 fair prep, diverticulosis, repeat in 2 years COLONOSCOPY, DIAGNOSTIC (RECTUM) 12/26/2011 COLONOSCOPY FLEXIBLE PROXIMAL DIAGNOSTIC performed by ROGER GODDARD at ENDOSCOPY [facility] EGD, FLEXIBLE, DIAGNOSTIC N/A 09/18/2020 large amount of blood, clot in stomach, briskly oozing lesion in mid body of stomach, likely AVM, hemostatsis achieved using clips/ESOPHAGOGASTRODUODENOSCOPY (EGD), FLEXIBLE, TRANSORAL, DIAGNOSTIC performed by Terrance Granados MD at OR [facility] EGD, FLEXIBLE, DIAGNOSTIC N/A 07/30/2023 ESOPHAGOGASTRODUODENOSCOPY (EGD), FLEXIBLE, TRANSORAL, DIAGNOSTIC performed by Donna De Souza DO OR [facility] EGD, W/ENDOSCOPIC US N/A 07/30/2023 one enlarged lymph node/gastritis/esophagitis/biopsies show reflux/repeat 4-6 months/ESOPHAGOGASTRODUODENOSCOPY (EGD), FLEXIBLE, TRANSORAL, ENDOSCOPIC ULTRASOUND performed by Donna De Souza DO at OR [facility] INCISION OF TOE TENDON Right 10/09/2019 TENOTOMY PERCUTANEOUS TOE performed by Violet Grier DPM at OR [facility] LASER TRABECULOPLASTY 11/22/2016 ALT OS inf 180 PARTIAL AMPUTATION OF TOE Right 11/07/2018 AMPUTATION TOE INTERPHALANGEAL JOINT performed by Violet Grier DPM at OR [facility] PARTIAL AMPUTATION OF TOE Right 10/09/2019 AMPUTATION TOE INTERPHALANGEAL JOINT performed by Violet Grier DPM at OR [facility] REMOVE TONSILS & ADENOIDS, UNDER 12 1960 REPAIR OF HAMMERTOE, ONE TOE Right 10/09/2019 CORRECTION HAMMERTOE performed by Violet Grier DPM at OR [facility] TREAT DEEP FOOT INFECTIONS Left 08/04/2017 INCISION AND DRAINAGE MULTIPLE AREA FOOT performed by Violet Grier DPM at OR [facility] TREAT DEEP FOOT INFECTIONS Left 09/28/2022 INCISION AND DRAINAGE MULTIPLE AREA FOOT performed by Violet Grier DPM at OR [facility] MEDS: Current Outpatient Medications Medication Sig Dispense Refill Travoprost (BOBBY Free) 0.004 % Ophthalmic Solution (Travatan Z) Instill 1 Drop into both eyes at bedtime. 5 mL 5 [employer] SYSTEM W/DEVICE KIT Use up to four times a day as directed 1 0 Zinc Gluconate 50 MG CAPS Take 1 Tablet by mouth in the morning. 30 Cap 11 Folic Acid 400 MCG Tablet Take 1 Tablet by mouth in the morning. 30 Tab 11 NATURAL SUPPLEMENT Take 1 g by mouth in the morning. CINNAMON. [place]-3 Fatty Acids (FISH OIL) 1200 MG CAPS Take 1,200 mg by mouth in the morning and 1,200 mg before bedtime. BonobosUCH ULTRASOFT LANCETS MISC CHECK FASTING BLOOD SUGAR BEFORE BREAKFAST AND BEFORE SUPPER ADVISED 100 Box Dosing Unit 5 BonobosUCH ULTRA BLUE STRP CHECK FASTING BLOOD SUGAR [...] mo Michael Spivey MD 09/01/2023 9:31 AM [facility] DEPARTMENT OF OPHTHALMOLOGY OCT REPORT Patient Name: Epifanio Silva Date performed: 09/01/2023 Indication: glaucoma Eye tested: OU Tube Molder Fiberglass: Michaela Test Results: Neuroretinal rim thinning OU [...] Description 09/04/2023 1:00 PM EST Pharmacy Pharmacy, [address] [place] [address] Pharmacist1, [facility] [place] [address] [place] [address] 09/10/2023 10:00 AM EST Office Visit [facility]iat[facility] [address] Violet Grier [facility] 400 [facility] [place] [address] 11/02/2023 8:45 AM EDT Office Visit Urology [place] D[place] [address] [place] [address] Shane Baker MD [address] [place] [address] 11/16/2023 10:00 AM EDT Office [facility] [place] [address] [facility] [place] [phone] Renata Murrieta CRNP [facility] [place] [address] 12/18/2023 11:15 AM EDT Hospital Encounter ENDO GECL, Endoscopy [address], [place] [address] Donna De Souza, DO [address] [place] [address] 12/18/2023 11:15 AM EDT - 12/18/2023 11:45 AM EDT Surgery ENDO GECL, [address] [address] Donna De Souza, DO [address] [place] [address] ESOPHAGOGASTRODUODENOSCOPY (EGD), FLEXIBLE, TRANSORAL, DIAGNOSTIC 12/31/2023 11:30 AM EDT Office Visit Ophthalmology, [place] [address] [facility] [place] [address] Michael Spivey MD [address] [facility] [place] [address] Scheduled Orders Name Type Priority Associated Diagnoses Orde r Schedule OPTIC NERVE SCAN DIAGNOSTIC IMAGE,POSTERIOR Procedures Routine Primary open angle glaucoma of both eyes, moderate stage Ordered: 09/01/2023 Scheduled Procedures Name Priority Associated Diagnoses Date/Ti [...] exists Diabetic Eye Exam 09/01/2024 09/01/2023, , 02/09/2022, Additional history exists Lipid Panel 03/02/2028 03/02/2023, [...] this encounter Medical Devices Implanted Type Area Stamp Classifier Device Identifier Shelf Expiration Date Model / Serial / Lot Clip Quick 2.8mm 230cm - [id number] Implanted:Qty: 7 on 09/18/2020 by Terrance Granados MD at OR [facility] N/A: Stomach [employer] [id number] / / Description:lot 01K x4, 02K x2and 92K x1 documented as of this encounter Visit Diagnoses Diagnosis Encounter for [...] the patient have Health Care Power of Power Brake Operator? Yes, in chart and reviewed as current No Code 08/14/2020 1:19 AM 08/20/2020 4:29 PM This or mihir reflects the patients wishes and were consensually agreed upon. Question Answer Comments Discussion of Advance Directives occurred with: Patient Care Teams Slat Basket Maker Relationship Specialty Start Date End Date Alok Campbell MD 21 [place] [address] PCP - General Family Medicine 09/01/23 documented as of this encounter
--- OUTSIDE RECORDS SUMMARY | 2023-09-18 06:11 | External Medical Summary | Summary of Care ---
Author Name Unknown Organization [facility] Address [address] [facility] [place] [address] Phone [phone] Care Team Providers Care Belt Maker Name Role Phone Unavailable Primary Care Provider Unavailabl e Reason for Visit * Reason Onset Date Comments Medication Pre-auth 08/23/2023 Ozempic Encounter Details Date Type Department Care Team (Late st Contact Info) Description 08/23/2023 Telephone [facility] 21 [facility] [place] [address] Dianne Lua MD 21 [facility] [place] [address] Medication Pre-auth (Ozempic) Allergies No known active allergiesdocumented as of this encounter (statuses as of 08/23/2023) Medications Medication Sig Dispensed Refills Start Date End Date Status ONETOPreDx Corp ULTRA SYSTEM W/DEVICE KITIndications:DM type 2, not [...] mouth in the morning. CINNAMON. 0 Active [place]-3 Fatty Acids (FISH OIL) 1200 MG CAPS [...] as of this encounter (statuses as of 08/23/2023) Active Problems Problem Noted Date Diagnosed Date [...] 140/90 10/18/2015 Overview: Per HTN Protocol #27. Cme16--lgx-OPE at 97/mt, Min voltage criteria LVH. Type [...] DM type 2 causing neurological disease Overview: Xotw22--4%, ld 100, nl bm, rbs 132, alt 09/26/2008--NEW DIAG DM--Hb 17/49, bmp, x na 134, fbs 238, nl lft, tsh 2.01, 226/259/31/143, psa 0.85, ua +glu, b12 nml , fol nml, -ferritin 56, 37%sat, u3r--60.2%---- - ma neg Eye exam--Nivia - Foot exam-10/06/2008--nml documented as of this encounter (statuses as of 08/23/2023) Resolved Problems Problem Noted Date Diagnosed Date [...] ulcer 08/07/2017 02/19/2018 Diastolic heart failure 08/05/2017 12/04/2022 Moderate malnutrition 08/04/20172017 Diabetic ulcer of left [...] 140/80 04/01/201211/16 Overview: Per HTN Protocol #27. Adx91--xlg-ZRD at 97/mt, Min voltage criteria LVH. Primary open angle glaucoma 11/15/2010 02/05/2017 Overview: St travatan gtt 10/21 Diverticulosis of colon 05/10/201001/12 Obesity, Class I, BMI 30.0-3 4.9 (see actual BMI) 11/04/2009 07/29/2020 Overview: Per Obesity Taxonomy, 09/22/2008--BMI: 30.35 kg/m? -- ht s Shoes. HTN, goal below 130/80 09/09/200904/04 Overview: Pav78--maa-JCS at 97/mt, Min voltage criteria LVH. HTN, goal below 140/90 11/24/200809/09 Overview: Per HTN Taxonomy. Wxz10--bdt-TCJ at 97/mt, Min voltage criteria LVH. Carpal [...] us his list--Fo 1000mg daily, Zn 50mg, [id number] documented as of this encounter (statuses as of 08/23/2023) Immunizations Name Administration Dates Next Due COVID-19 mRNA, LNP-s, No Pre serve, 2-Dose Series (Moderna) 09/15/2020,08/25/2020 COVID-19 mRNA, LNP-s, No Pre serve, 2-Dose Series (Pfizer) 06/24/2021 Pneumococcal Conjugate Vacci ne, 20-valent ([id number]) 05/14/2023 Pneumococcal Polysaccharide PPV23 (Pneumovax) 11/03/2008,10/06/2008(Deferred: Patient [...] No 07/29/2023 documented as of this encounter Miscellaneous Notes * Telephone Encounter - Rey Srivastava, SHAYLA - 08/23/2023 1:38 PM EST [place] for Ozempic submitted via [facility] PromptPA with office notes. Prior Auth ([facility]) ID: [id number] Drug/Service Name: OZEMPIC 2 MG/DOSE (8 MG/3 ML) Patient: MAKAYLA ESCALERA Date Requested: 08/23/2023 1:46:35 PM MemberID: [id number] : 1955 documented in this encounter Plan of Treatment Upcoming Encounters Date Type Department Care Team (Latest Contact Info) Description 08/27/2023 10:40 AM EST Office Visit [facility]iat[facility], [facility] [address] [address]rier [facility] [address] [facility] [address] 09/01/2023 12:00 PM EST Office [address], [address] [address] Michael Spivey MD 21 [place] [address] 09/04/2023 1:00 PM EST Pharmacy Pharmacy, [address] [place] [address] Pharmacist1, [facility] [address] 11/02/2023 8:45 AM EDT Office Visit Urology [place] [address] [address] [place] [address] Shane Baker MD [address] [address] [place] [address] 11/16/2023 10:00 AM EDT Office Visit [facility] [place] [facility] [phone] Renata Murrieta CRNP [address] [facility] [place] [address] 12/18/2023 11:15 AM EDT Hospital Encounter ENDO GECL, Endoscopy [address] [place], [place] [phone] Donna De Souza, [address] [place] [address] 12/18/2023 11:15 AM EDT - 12/18/2023 11:45 AM EDT Surgery ENDO GECL, Endoscopy Suite [facility] 310 [facility] [place] [phone] Donna De Souza, [address] [place] [address] ESOPHAGOGASTRODUODENOSCOPY (EGD), FLEXIBLE, TRANSORAL, DIAGNOSTIC Scheduled Procedures [...] 10/19/2021, 020 02/2021, 04/06/2020, Additional history exists Diabetic Eye [...] this encounter Medical Devices Implanted Type Area Hair Specialist Device Identifier Shelf Expiration Date Model / Serial / Lot Clip Quick 2.8mm 230cm - [id number] Implanted:Qty: 7 on 09/18/2020 by Terrance Granados MD at OR [facility] N/A: Stomach [employer] [id number]-.A / / Description:lot 01K x4, 02K x2and 92K x1 documented as of this encounter Advance Directives Latest Code Status [...] the patient have Health Care Power of Sales Assistant Displays? Yes, in chart and reviewed as current No Code 08/14/2020 1:19 AM 08/20/2020 4:29 PM This or mihir reflects the patients wishes and were consensually agreed upon. Question Answer Comments Discussion of Advance Directives occurred with: Patient
--- OUTSIDE RECORDS SUMMARY | 2023-09-18 06:11 | External Medical Summary | Summary of Care ---
Author Name Unknown Organization [facility] Address [address] [facility] [place] [address] Phone [phone] Care Team Providers Care Variety Saw Operator Name Role Phone Unavailable Primary Care Provider Unavailabl e Reason for Visit * Reason Onset Date Comments Medication Pre-auth 08/23/2023 Ozempic Encounter Details Date Type Department Care Team (Late st Contact Info) Description 08/23/[address] [facility] 21 [facility] [place] [address] Dianne Lua MD 21 [facility] [address] Medication Pre-auth (Ozempic) Allergies No known active allergiesdocumented as of this encounter (statuses as of 08/27/2023) Medications Medication Sig Dispensed Refills Start Date End Date Status [facility] ULTRA SYSTEM W/DEVICE KITIndications:DM type 2, not [...] mouth in the morning. CINNAMON. 0 Active [place]-3 Fatty Acids (FISH OIL) 1200 MG CAPS [...] as of this encounter (statuses as of 08/27/2023) Active Problems Problem Noted Date Diagnosed Date [...] 140/90 10/18/2015 Overview: Per HTN Protocol #27. Aug55--iwb-VOY at 97/mt, Min voltage criteria LVH. Type [...] DM type 2 causing neurological disease Overview: Whjw79--9%, ld 100, nl bm, rbs 132, alt 09/26/2008--NEW DIAG DM--Hb 17/49, bmp, x na 134, fbs 238, nl lft, tsh 2.01, 226/259/31/143, psa 0.85, ua +glu, b12 nml , fol nml, -ferritin 56, 37%sat, l9p--93.2%---- - ma neg Eye exam--Nivia - Foot exam-10/06/2008--nml documented as of this encounter (statuses as of 08/27/2023) Resolved Problems Problem Noted Date Diagnosed Date [...] 140/80 04/01/201211/16 Overview: Per HTN Protocol #27. Dvx04--dqj-UIB at 97/mt, Min voltage criteria LVH. Primary open angle glaucoma 11/15/2010 02/05/2017 Overview: St travatan gtt 10/21 Diverticulosis of colon 05/10/201001/12 Obesity, Class I, BMI 30.0-3 4.9 (see actual BMI) 11/04/2009 07/29/2020 Overview: Per Obesity Taxonomy, 09/22/2008--BMI: 30.35 kg/m? -- ht s Shoes. HTN, goal below 130/80 09/09/200904/04 Overview: Zgt45--uee-RHX at 97/mt, Min voltage criteria LVH. HTN, goal below 140/90 11/24/200809/09 Overview: Per HTN Taxonomy. Lvb92--gjp-XPG at 97/mt, Min voltage criteria LVH. Carpal [...] us his list--Fo 1000mg daily, Zn 50mg, [id number] documented as of this encounter (statuses as of 08/27/2023) Immunizations Name Administration Dates Next Due COVID-19 mRNA, LNP-s, No Pre serve, 2-Dose Series (Moderna) 09/15/2020,08/25/2020 COVID-19 mRNA, LNP-s, No Pre serve, 2-Dose Series (Pfizer) 06/24/2021 Pneumococcal Conjugate Vacci ne, 20-valent ([id number]) 05/14/2023 Pneumococcal Polysaccharide PPV23 (Pneumovax) 11/03/2008,10/06/2008(Deferred: Patient [...] Miscellaneous Notes * Telephone Encounter - Rey Srivastava LPN - 08/27/2023 3:13 PM EST Checked status: Drug/Service Name: OZEMPIC 2 MG/DOSE (8 MG/3 ML) Physician/Nurse: Dianne Lua EOC ID: [id number] Status: Approved Date Requested: 08/23/2023 13:46:35 Date Closed: 08/25/2023 12:28:28 Dispensing Location: Retail Pharmacy Medication was filled on 08/25/23. * Telephone Encounter - Rey Srivastava LPN - 08/23/2023 1:38 PM EST PA for Ozempic submitted via [facility] PromptPA with office notes. Prior Auth ([facility]) ID: [id number] Drug/Service Name: OZEMPIC 2 MG/DOSE (8 MG/3 ML) Patient: MAKAYLA ESCALERA Date Requested: 08/23/2023 1:46:35 PM MemberID: [id number] : 1955 documented in this encounter Plan of Treatment Upcoming Encounters Date Type Department Care Team (Latest Contact Info) Description 09/01/2023 12:00 PM EST Office [facility]hthal[facility], [place] [facility] [place] [address] Michael Spivey MD 21 [facility] [place] [address] 09/04/2023 1:00 PM EST Pharmacy Pharmacy, [place] 21 [place] [address] Pharmacist1, [facility] [place] 21 [facility] [place] [address] 09/10/2023 10:00 AM EST Office Visit Podiatry, [facility] [address] [place] [place] [address] [address]rier [address] 400 [facility] [place] [address] 11/02/2023 8:45 AM EDT Office Visit Urology Vicki [place]olanwn [address] [address] [place] [address] Shane Baker MD [address] [place] [address] [place] [address] 11/16/2023 10:00 AM EDT Office Visit [facility] [address] [place] [phone] Renata Murrieta CRNP 21 [place] [address] 12/18/2023 11:15 AM EDT Hospital Encounter ENDO GECL, [address] [phone] Donna De Souza, DO [address] [place] [address] 12/18/2023 11:15 AM EDT - 12/18/2023 11:45 AM EDT Surgery ENDO GECL, [address]oscopy [address] [phone] Donna De Souza, DO [address] [place], [place] [address] ESOPHAGOGASTRODUODENOSCOPY (EGD), FLEXIBLE, TRANSORAL, DIAGNOSTIC Scheduled Procedures Name Priority Associated Diagnoses Date/Ti ma ESOPHAGOGASTRODUODENOSCOPY ( EGD), FLEXIBLE, TRANSORAL, DIAGNOSTIC Reflux [...] 12/15/2009, Additional history exists B-12 10/19/2022 10/19/2021, 0202/2021, 04/06/2020, Additional history exists Diabetic Eye Exam [...] this encounter Medical Devices Implanted Type Area Air Cargo Agent Device Identifier Shelf Expiration Date Model / Serial / Lot Clip Quick 2.8mm 230cm - [id number] Implanted:Qty: 7 on 09/18/2020 by Terrance Granados MD at OR [facility] N/A: Stomach [employer] [...] the patient have Health Care Power of Cork Insulator? Yes, in chart and reviewed as current No Code 08/14/2020 1:19 AM 08/20/2020 4:29 PM This or mihir reflects the patients wishes and were consensually agreed upon. Question Answer Comments Discussion of Advance Directives occurred with: Patient
--- OUTSIDE RECORDS SUMMARY | 2023-09-18 06:12 | External Medical Summary | Summary of Care ---
Author Name Unknown Organization [facility] Address [address] [place] [address] Phone [phone] Care Team Providers Care Ui Application Developer Name Role Phone Unavailable Primary Care Provider Unavailabl e Reason for Visit * Reason Comments NEW PATIENT Encounter Details Date Type Department Care Team (Late st Contact Info) Description 08/09/2023 9:00 AM EST Therapy [facility], [place] [address] [place] [address] Charo Wing, [facility] [address] [place] [address] Predominant disturbance of emotions* Allergies No known active allergiesdocumented as of this encounter (statuses as of 08/09/2023) Medications Medication Sig Dispensed Refills Start Date End Date Status Puzl ULTRA SYSTEM W/DEVICE KITIndications:DM type 2, not [...] mouth in the morning. CINNAMON. 0 Active Wells-3 Fatty Acids (FISH OIL) 1200 MG CAPS [...] 07/19/2023 Active Finasteride 5 MG Oral Tablet (Proscar)Faustinotio ns:Enlarged prostate Take 1 Tablet by mouth [...] for Anxiety. 21 Tablet 0 07/31/2023 Active Fluconazole 200 MG Oral Tablet (Diflucan) Take 1 Tablet by mouth in the morning for 12 days. Do not start before August 01, 2023. 12 Tablet 0 08/01/2023 4 Active PreviDent 5000 Booster Plus 1.1 % Dental Paste Use as directed. 0 05/06/2023 Active documented as of this encounter (statuses as of 08/09/2023) Active Problems Problem Noted Date Diagnosed Date [...] 140/90 10/18/2015 Overview: Per HTN Protocol #27. Nmt72--jnp-YGY at 97/mt, Min voltage criteria LVH. 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 DM type 2 causing neurological disease Overview: Sdpt53--1%, ld 100, nl bm, rbs 132, alt 09/26/2008--NEW DIAG DM--Hb , bmp, x na 134, fbs 238, nl lft, tsh 2.01, 226/259/31/143, psa 0.85, ua +glu, b12 nml , fol nml, -ferritin 56, 37%sat, z0y--26.2%---- - ma neg Eye exam--[facility] - Foot exam-10/06/2008--nml documented as of this encounter (statuses as of 08/09/2023) Resolved Problems Problem Noted Date Diagnosed Date [...] 140/80 04/01/201211/16 Overview: Per HTN Protocol #27. Obg96--rco-ALC at 97/mt, Min voltage criteria LVH. Primary open angle glaucoma 11/15/2010 02/05/2017 Overview: St travatan gtt 10/21 Diverticulosis of colon 05/10/201001/12 Obesity, Class I, BMI 30.0-3 4.9 (see actual BMI) 11/04/2009 07/29/2020 Overview: Per Obesity Taxonomy, 09/22/2008--BMI: 30.35 kg/m? -- ht s Shoes. HTN, goal below 130/80 09/09/200904/04 Overview: Pyl61--wsh-JFO at 97/mt, Min voltage criteria LVH. HTN, goal below 140/90 11/24/200809/09 Overview: Per HTN Taxonomy. Yek70--rvw-PDB at 97/mt, Min voltage criteria LVH. Carpal [...] us his list--Fo 1000mg daily, Zn 50mg, [id number] documented as of this encounter (statuses as of 08/09/2023) Immunizations Name Administration Dates Next Due COVID-19 mRNA, LNP-s, No Pre serve, 2-Dose Series (Moderna) 09/15/2020,08/25/2020 COVID-19 mRNA, LNP-s, No Pre serve, 2-Dose Series (Pfizer) 06/24/2021 Pneumococcal Conjugate Vacci ne, 20-valent (Qpragsj21) 05/14/2023 Pneumococcal Polysaccharide PPV23 (Pneumovax) 11/03/2008,10/06/2008(Deferred: Patient [...] of this encounter Progress Notes * Charo Wing, BRYSON - 08/09/2023 1:22 PM EST [facility] Brief Consultation/Warm Hand off Epifanio Silva was referred by No primary care provider on file. Time spent on this visit was <15 minutes There is no charge for today's visit. Presenting Problem: I met with pt briefly today at the request of pt's caring physician Dr. Jackson. Psychoeducation was given on the role of behavioral health in patient care. Patient was referred dueto concerns about not taking care of health, having diabetes, having a leg amputated, and history of depression and anxiety. Therapist met with patient who reports that he has been seeing Dr. Allen for Psychiatry for years to manage depression and anxiety. At this time, there is no major concerns with depression and anxiety. The biggest concern at this time is not sleeping. "I haven't always beenlike this". Epifanio reports that he is going nights without sleep and then will crash. Epifanio is currently prescribed lexapro which will be decreased and Trazodone which will be increased. Epifanio reports that he hasdno issue with sleeping while in the care home after his lower leg was amputated. Epifanio's leg was amputated in September of this year and he was in a care home through June. Epifanio states that he is not an immediate threat to himself or anyone else at this time. Marleyhreports that he has a lot of appointments in August and would like to look at his calendar before scheduling a therapy appointment with [facility]. Plan and Recommendations: Patient will receive a brief course of behavioral health treatment with [facility]. Charo Wing LCSW [facility], [address] [address] documented in this encounter Plan of Treatment Upcoming Encounters Date Type Department Care Team (Latest Contact Info) Description 08/21/2023 6:10 PM EST [place] [id number] Pharmacist1, [facility] [place] [address] [place] [address] 08/27/2023 10:40 AM EST Office [facility], [facility] [address] [facility] [place] [address] Violet Grier, [facility] [address] [facility] [address] 09/01/2023 12:00 PM EST [facility] [place] [address] [facility] [id number] Michael Spivey [facility] [address] [facility] [place] [address] 11/02/2023 8:45 AM EDT Office Visit Urology [facility] [place] [address] [place] [address] Shane Baker MD [address] [facility] [address] [place] [address] 11/16/2023 10:00 AM EDT Office [facility], [place] [address] [facility] [place] [phone] Renata Murrieta CRNP [address] [facility] [place] [address] 12/18/2023 11:15 AM EDT Hospital Encounter [facility]O [facility], Endoscopy [address], [place] [phone] Donna De Souza, DO [address] [place] [address] 12/18/2023 11:15 AM EDT - 12/18/2023 11:45 AM EDT Surgery ENDO [facility], Endoscopy [address], [place] [phone] Donna De Souza, DO [address] [place] [address] ESOPHAGOGASTRODUODENOSCOPY (EGD), FLEXIBLE, TRANSORAL, DIAGNOSTIC Scheduled Procedures [...] this encounter Medical Devices Implanted Type Area Brazer Crawler Torch Device Identifier Shelf Expiration Date Model / Serial / Lot Clip Quick 2.8mm 230cm - [id number] Implanted:Qty: 7 on 09/18/2020 by Terrance Granados MD at OR [facility] N/A: [employer] HX-.[id number] / / Description:lot 01K x4, 02K x2and 92K x1 documented as of this encounter Visit Diagnoses Diagnosis Predominant disturbance of emotions- Primary Reflux esophagitis documented in this encounter [...] the patient have Health Care Power of Data Entry Representative? Yes, in chart and reviewed as current No Code 08/14/2020 1:19 AM 08/20/2020 4:29 PM This or mihir reflects the patients wishes and were consensually agreed upon. Question Answer Comments Discussion of Advance Directives occurred with: Patient
--- OUTSIDE RECORDS SUMMARY | 2023-09-18 06:12 | External Medical Summary | Summary of Care ---
Author Name Unknown Organization [facility] Address [address] [place] [address] Phone [phone] Care Team Providers Care Dam Tender Assistant Name Role Phone Unavailable Primary Care Provider Unavailabl e Reason for Referral * Evaluate & Treat - Unlimited Visits (Within 30 days (routine)) - Authorized Specialty Diagnoses / Procedures Referred By Contac t Referred To Contact Ophthalmology Diagnoses Type 2 diabetes mellitus with hemoglobin A1c goal of less than 7.0% ([facility]) Khari Jackson MD [address] [place] [address] Referral ID Status Reason Start Date Expiration Date Visits Requested Visits Authorized [id number] Authorized Specialty Services Required 3 [phone] Question Answer Referral Priority Within 30 days (routine) Where should this appointment be scheduled? [facility] Referring to: [facility] Referring for: Ophthalmology Conditions Ophthalmology Conditions Other Ophthalmology (comment) Reason for Visit * Reason Comments Hospital Follow-Up [facility] 07/28/23- 3 * Evaluate & Treat - Unlimited Visits (Within 10 days (routine)) - Closed Specialty Diagnoses / Procedures Referred By Contac t Referred To Contact Family Medicine Diagnoses Abdominal pain Dehydration Keon Islas, DO [address] [place] [address] Referral ID Status Reason Start Date Expiration Date V isits Requested Visits Authorized [id number] Closed Specialty Services Required 07/28/2023 1 1 Encounter Details Date Type Department Care Team (Latest Contact Info) Description 08/09/2023 12:00 PM EST Office Visit [facility] [place] [address] [place] [address] Khari Jackson MD [address] [place] [address] Miguelina esophagitis ([facility])*; DM type 2 nursing care encounter (HCC); Major depressive disorder, recurrent 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); Type 2 diabetes mellitus with hemoglobin A1c goal of less than 7.0% (HCC); Avoidant personality disorder ([facility]); Generalized anxiety disorder; Primary open angle glaucoma of both eyes, moderate stage; History of transmetatarsal amputation of left foot (HCC); PVD (peripheral vascular disease) ([facility]); DM type 2 causing neurological disease; DM type 2 causing eye disease ([facility]) Allergies No known active allergiesdocumented as of this encounter (statuses as of 08/16/2023) Medications Medication Sig Dispensed Refills Start Date End Date Status ONETOUCH ULTRA SYSTEM W/DEVICE KITIndications:DM type 2, not at goal ([facility]) Use up to four times a day as directed 1 0 10/06/2008 Active Zinc Gluconate 50 MG CAPS Take 1 Tablet by mouth in the morning. 30 Cap 11 10/18/2016 Active Folic Acid 400 MCG Tablet Take 1 Tablet by mouth in the morning. 30 Tab 11 10/18/2016 Active NATURAL SUPPLEMENT Take 1 g by mouth in the morning. CINNAMON. 0 Active [employer]-3 Fatty Acids (FISH OIL) 1200 MG CAPS Take 1,200 mg by mouth in the morning and 1,200 mg before bedtime. 0 Active ONETOUCH ULTRASOFT LANCETS MISCIndications:D M type 2 causing neurological disease (HCC) CHECK FASTING BLOOD SUGAR BEFORE BREAKFAST AND BEFORE SUPPER ADVISED 100 Box Dosing Unit 5 12/21/2017 Active ONETOUCH ULTRA BLUE STRPIndications:D M type 2 causing [...] Free) 0.004 % Ophthalmic Solution (Travatan Z)Indications:Bailey mary ann open angle glaucoma of both eyes, moderate [...] 07/19/2023 Active Atenolol 25 MG Oral Tablet (Tenormin)Indicat [...] 07/19/2023 Active Finasteride 5 MG Oral Tablet (Proscar)Indicati ons:Enlarged prostate Take 1 Tablet by mouth in the morning. 90 Tablet 3 07/19/2023 Active Furosemide 20 MG Oral Tablet (Lasix)Indication s:HTN, goal below 140/80 Take 1 Tablet by mouth in the morning. 90 Tablet 1 07/19/2023 Active glipiZIDE ER 5 MG Oral Tablet Extended Release 24 Hour (glipiZIDE XL)Indications:DM type 2 causing neurological disease (HCC),Type 2 diabetes mellitus with hemoglobin A1c goal of less than 7.0% ([facility]),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) Take 1 Tablet by mouth in the morning. 90 Tablet 1 07/19/2023 Active metFORMIN HCl 1000 MG Oral Tablet (Glucophage)Indic ations:Type 2 diabetes mellitus with hemoglobin A1c goal of less than 7.0% ([facility]),DM type 2 causing neurological disease (HCC) Take [...] Dental Paste Use as directed. 0 05/06/2023 Acti ve Fluconazole 200 MG Oral Tablet (Diflucan) Take 1 Tablet by mouth in the morning for 12 days. Do not start before August 01, 2023. 12 Tablet 0 08/01/2023 4 documented as of this encounter (statuses as of 08/16/2023) Active Problems Problem Noted Date Diagnosed Date Abnormal CT of the chest 07/30/2023 Miguelina esophagitis 07/30/2023 Major depressive disorder, r ecurrent [...] 140/90 10/18/2015 Overview: Per HTN Protocol #27. Tij03--tli-VBT at 97/mt, Min voltage criteria LVH. Type [...] Caleb. DM type 2 causing neurological disease 9 Overview: Hqaf52--3%, ld 100, nl bm, rbs 132, alt 09/26/2008--NEW DIAG DM--Hb 17/49, bmp, x na 134, fbs 238, nl lft, tsh 2.01, 226/259/31/143, psa 0.85, ua +glu, b12 nml , fol nml, -ferritin 56, 37%sat, m0n--77.2%---- - ma neg Eye exam--Nivia - Foot exam-10/06/2008--nml documented as of this encounter (statuses as of 08/16/2023) Resolved Problems Problem Noted Date Diagnosed Date Resolved Date BPH with obstruction/lower u rinary tract symptoms 07/29/2023 07/31/2023 Acute urinary retention 07/29/202307/13 Major depressive disorder, r ecurrent, moderate 07/21/2022 08/01/2023 Overview: Duplicated on pl Gangrene of toe of left foot 07/08/2022 09/20/2022 Symptomatic anemia 09/18/2020 GI bleed 09/18/2020 11/04/2020 Upper GI bleed 09/18/2020 09/21/2020 Acute blood loss anemia 09/18/2020 02/04/2021 Subacute osteomyelitis of left foot 09/18/2020 11/04/2020 [...] 140/80 04/01/201211/16 Overview: Per HTN Protocol #27. Zkv99--pqg-GOJ at 97/mt, Min voltage criteria LVH. Primary open angle glaucoma 11/15/2010 02/05/2017 Overview: St travatan gtt 10/21 Diverticulosis of colon 05/10/201001/12 Obesity, Class I, BMI 30.0-3 4.9 (see actual BMI) 11/04/2009 07/29/2020 Overview: Per Obesity Taxonomy, 09/22/2008--BMI: 30.35 kg/m? -- ht s Shoes. HTN, goal below 130/80 09/09/200904/04 Overview: Rpx87--qtk-AFB at 97/mt, Min voltage criteria LVH. HTN, goal below 140/90 11/24/200809/09 Overview: Per HTN Taxonomy. Tad34--der-HCB at 97/mt, Min voltage criteria LVH. Carpal [...] exam 09/22/2008 016 Overview: 11/09/2009 09/22/2008--new pt eval--sent us his list--Fo 1000mg daily, Zn 50mg, [id number] documented as of this encounter (statuses as of 08/16/2023) Immunizations Name Administration Dates Next Due COVID-19 mRNA, LNP-s, No Pre serve, 2-Dose Series (Moderna) 09/15/2020,08/25/2020 COVID-19 mRNA, LNP-s, No Pre serve, 2-Dose Series (Pfizer) 06/24/2021 Pneumococcal Conjugate Vacci ne, 20-valent ([id number]) 05/14/2023 Pneumococcal Polysaccharide PPV23 (Pneumovax) 11/03/2008,10/06/2008(Deferred: Patient [...] on file documented as of this encounter Last Filed Vital Signs Vital Sign Reading Time Taken Comments Blood Pressure 100/70 08/09/2023 12:01 PM EST Pulse 110 08/09/2023 12:01 PM EST Temperature 35.3 C (95.5 F) 08/09/2023 1 2:01 PM EST Respiratory Rate 20 08/09/2023 12:0 1 PM EST Oxygen Saturation 100% 08/09/2023 12: 01 PM EST Inhaled Oxygen Concentration - - Weight 80.5 kg (177 lb 6.4 oz) 08/09/2023 12:01 PM EST with prosthetic left leg Height - - Body Mass Index 26.97 07/30/2023 11:58 AM EST documented in this encounter Functional Status Functional Status Response [...] No 07/29/2023 documented as of this encounter Patient Instructions * Patient Instructions* Natasha Soler Karina, SILK CONDITIONER - 08/09/2023 12:12 PM EST Images from the original note were not included. Diabetic Retinopathy: Evaluating Your Eyes Diabetic retinopathy is a condition that happens when diabetes damages blood vessels in the rear ofthe eye. It can lead to vision loss. To help catch it early, have a complete dilated eye exam at least once a year. During the exam, the eye healthcare provider will review your medical history, examine your eyes, and check your vision. Women who are and have pre-existing type 1 or type 2 diabetes have an increased risk of retinopathy. Women with diabetes should have an eye exam before or in the first trimester. They should continue to be monitored every trimester and for 1 year after delivery, depending on the severity of the retinopathy. The retina is the light-sensitive part of the eye that allows you to see. High blood sugar can damage blood vessels of the retina and cause them to leak or bleed. This damage can lead to abnormal blood vessel growth. This condition is called diabetic retinopathy. You may not have symptoms early in the disease. Later, there may be floaters, blurred vision, or poor night vision. There may also be partial or complete vision loss. Early cases of diabetic retinopathy can be treated by carefully controlling blood sugar, blood pressure, and cholesterol. Surgery or laser treatments may help restore lost vision. Laser surgery can shrink abnormal blood vessels or close ones that are leaking. Medicines injected in the eye can help decrease swelling of the retina. Home care Take all medicines, including insulin or oral diabetic medicine, exactly as prescribed. Follow the diet advised by your healthcare provider. If you have high cholesterol, follow a low-fat, low-cholesterol diet. Monitor blood sugars as advised. Try to achieve your ideal weight. If you smoke, quit smoking. Tobacco use worsens the effect of diabetes on your blood vessels. If you have high blood pressure, consider buying an automatic blood pressure machine. These are available at most pharmacies. Use this to monitor your blood pressure. Report your blood pressure readings to your healthcare provider. Exercise regularly. Follow-up care Follow up with your healthcare provider, or as advised. You must have a complete eye exam at least once a year, more often if needed. Untreated diabetic retinopathy can lead to complete loss of vision. Occupational therapists can help you adapt to any vision loss you have, including learning techniques to safely administer insulin. When to seek medical advice Call your healthcare provider right away if any of these occur. Increasing blurriness or any sudden changes in your vision Sudden flashes of light inside your eye New floaters (small dots or strings that seem to be moving across your field of vision) Eye pain, redness, or discharge from your eyelid New dark spots appearing in your field of vision Halos around lights Dimness of vision Partial or complete loss of vision Women with diabetes should have a complete eye exam before becoming , or as soon as possible when they find out they are . Retinopathy sometimes worsens during . Your eye exam Your eye healthcare provider uses an eye chart and other tools to check your vision. Then he or sheexamines your eyes for signs of disease. You are given eye drops to widen (dilate) your pupils. Youmay have one or more of the following tests: Tonometry to measure fluid pressure inside the eye. Slit lamp exam to allow the healthcare provider to view the structures of your eye. Ultrasound to create an image of the eye using sound waves. Ultrasound may be used if blood is found in the clear gel that fills the eye (vitreous). Ocular coherence tomography (OCT) to create an image of the retina using light waves. This shows ifthere is fluid leaking into certain parts of the eye. It can also measure the thickness of the retina. Fluorescein angiography This test may be done to check the health of the inside lining of the eye (retina). It also checks the tiny blood vessels (capillaries) that carry blood to the retina. During the test: Photographs are taken of the retina. A dye is then injected into the bloodstream through the arm or hand. The dye travels to the capillaries in the eye. More photographs are taken of the retina. The dye causes the capillaries to stand out on the photographs. You may feel brief nausea during the procedure. For a few hours after the test, your skin, eyes, and urine may appear yellow. Talk with your healthcare provider for more information about this test. Date Last Reviewed: 01/12/201619990574-2615 [email or web address] [address] [place] [address], [place] [address]. All rights reserved. This information is not intended as a substitute for professional medical care. Always follow your healthcare professional's instructions. documented in this encounter Progress Notes * Natasha Soler LPN - 08/09/2023 12:12 PM EST The importance of having a yearly diabetic eye exam has been discussed with patient. Order and/or Referral placed along with patient instructions. Provider made aware. Natasha Soler LPN Subjective: Epifanio Silva is a 67 year old male Chief Complaint Patient presents with Hospital Follow-Up [facility] 07/28/23-07/31/23 HPI: Epifanio Silva is a 67 year old male who presents with a chief complaint of Hospital Follow-Up ([facility] 07/28/23-07/31/23) 67 year old male here for recheck after a recnetg 3 day IP stay at [facility] Feeling better, taking meds, EGD showed miguelina esophagitis and treated with oral (diflucan) and parental antifungal agents as an IP Has finished oral antifungal meds Swallowing is better, life long anxiety and depression, sees psychiatry and on medication bupropion, trazodone (recent dose increase), buspar, lexapro and bupropion NIDDM, taking metformin, ozempic, and glipizide No hypoglycemia recently Has diabetic neuropathy, BPH, previous LE amputation Esophageal biopsy negative for tumor, flow cytometry of lymph node was negative No family in the area, he is not and has no children, his step mother is elderly and remains close Patient Active Problem List Diagnosis Code 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, recurrent severe without psychotic features ([facility]) F33.2 Generalized anxiety disorder 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 ([facility]) F60.6 Dyslipidemia, goal LDL below 100 E78.5 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) E11.39 Type 2 diabetes mellitus with hemoglobin A1c goal of less than 7.0% (HCC) E11.9 HTN, goal below 140/90 I10 Benign non-nodular prostatic hyperplasia without lower urinary tract symptoms N40.0 Status post amputation of great toe, left ([facility]) Z89.412 Cellulitis of left lower extremity L03.116 Diabetic foot ulcer (HCC) E11.621, L97.509 Primary open angle glaucoma of both eyes, moderate stage H40.1132 PVD (peripheral vascular disease) ([facility]) I73.9 Sepsis ([facility]) A41.9 Rhinovirus B34.8 Osteomyelitis of left foot ([facility]) M86.9 History of transmetatarsal amputation of left foot ([facility]) Z89.432 Diabetic ulcer of left lower leg associated with diabetes mellitus due to underlying condition, with fat layer exposed ([facility]) E08.622, L97.922 Hematuria R31.9 Cellulitis of left foot L03.116 Complicated UTI (urinary tract infection) N39.0 Tenosynovitis of foot M65.9 Major depressive disorder, recurrent episode, moderate with anxious distress ([facility]) F33.[address] of the chest R93.89 Miguelina esophagitis ([facility]) B37.81 Current Outpatient Medications Medication Sig Dispense Refill [employer] SYSTEM W/DEVICE KIT Use up to four times a day as directed 1 0 Zinc Gluconate 50 MG CAPS Take 1 Tablet by mouth in the morning. 30 Cap 11 Folic Acid 400 MCG Tablet Take 1 Tablet by mouth in the morning. 30 Tab 11 NATURAL SUPPLEMENT Take 1 g by mouth in the morning. CINNAMON. [employer]-3 Fatty Acids (FISH OIL) 1200 MG CAPS Take 1,200 mg by mouth in the morning and 1,200 mg before bedtime. [employer] SolutionsTOUCH ULTRASOFT LANCETS MISC CHECK FASTING BLOOD SUGAR BEFORE BREAKFAST AND BEFORE SUPPER ADVISED 100 Box Dosing Unit 5 S[employer] Technology SolutionsTOUCH ULTRA BLUE STRP CHECK FASTING BLOOD SUGAR [...] by mouth twice daily 60 Tablet 11 Travoprost (BOBBY Free) 0.004 % Ophthalmic Solution (Travatan Z) Instill into both eyes 1 Drop beforebedtime. 5 mL 5 Acetaminophen 325 MG Oral Tablet (Tylenol) Take [...] as needed for Anxiety. 21 Tablet 0 Fluconazole 200 MG Oral Tablet (Diflucan) Take 1 Tablet by mouth in the morning for 12 days. Do notstart before August 01, 2023. 12 Tablet 0 PreviDent 5000 Booster Plus 1.1 % Dental Paste Use as directed. No current facility-administered medications for this visit. Review of patient's allergies indicates: No Known Allergies Past Medical History: Diagnosis Date CHART COMPUTER (background diabetic retinopathy) (HCC) Benign neoplasm of colon 10/27/2008 poor prep - repeat in 1 year, adenomatous polyp Benign neoplasm of colon 10/27/200812/22--nml-fair prep--rpt 3 yrs-DrL.>>>>>>12/25--defers csope this yr.>06/27- fob t++++refuses,ch cbc>hb 16.-,rpt 3 mts 12/15/2009 -Moderate diverticulosis sigmoid colon and descending colon. - Stool in the entire examined colon. Recommendation: - Use fiber, for example Citrucel,Fibercon, Konsyl or Metamucil. --RPT 2 yrs Shaylee [...] depressive disorder, recurrent severe without psychotic features ([facility]) 11/12/2008 MGD (meibomian gland disease) Moderate malnutrition ([facility]) 08/04/2017 Personal history of diabetic foot ulcer 08/07/2017 Personal history of diabetic foot ulcer 08/07/2017 Primary open angle glaucoma 0.7/0.8 (11/01); FH-;VF 06/28;HRT 04/01 Primary open angle glaucoma 11/15/2010 St travatan gtt 10/21 Status post amputation of great toe, left ([facility]) 08/07/2017 Past Surgical History: Procedure Laterality Date AMPUTATION OF LOWER LEG Left 09/30/2022 AMPUTATION LEG THROUGH TIBIA AND FIBULA performed by Alexander Campbell MD at OR [facility] AMPUTATION OF TOE Left 08/02/2017 AMPUTATION TOE METATARSOPHALANGEAL JOINT performed by Violet Grier DPM at OR [facility] AMPUTATION OF TOE & METATARSAL Left 09/21/2017 AMPUTATION METATARSAL WITH TOE performed by Violet Grier DPM at OR [facility] AMPUTATION OF TOE & METATARSAL Left 11/21/2017 AMPUTATION METATARSAL WITH TOE performed by Violet Grier DPM at OR [facility] AMPUTATION OF TOE & METATARSAL Left 08/17/2020 AMPUTATION METATARSAL WITH TOE performed by Violet Grier DPM at OR [facility] AMPUTATION THRU METATARSAL Left 07/09/2022 AMPUTATION FOOT TRANSMETATARSAL performed by Jena Butts DPM at OR [facility] COLONOSCOPY W/ BIOPSY (RECTUM) 10/27/2008 poor prep - repeat in 1 year, adenomatous polyp COLONOSCOPY, DIAGNOSTIC (RECTUM) 12/15/2009 fair prep, diverticulosis, repeat in 2 years COLONOSCOPY, DIAGNOSTIC (RECTUM) 12/26/2011 COLONOSCOPY FLEXIBLE PROXIMAL DIAGNOSTIC performed by ROGER GODDARD ENDOSCOPY [facility] EGD, FLEXIBLE, DIAGNOSTIC N/A 09/18/2020 large amount of blood, clot in stomach, briskly oozing lesion in mid body of stomach, likely AVM, hemostatsis achieved using clips/ESOPHAGOGASTRODUODENOSCOPY (EGD), FLEXIBLE, TRANSORAL, DIAGNOSTIC performed by Terrance Granados MD at OR [facility] EGD, FLEXIBLE, DIAGNOSTIC N/A 07/30/2023 ESOPHAGOGASTRODUODENOSCOPY (EGD), FLEXIBLE, TRANSORAL, DIAGNOSTIC performed by Donna De Souza DO OR [facility] EGD, W/ENDOSCOPIC US N/A 07/30/2023 one enlarged lymph node/gastritis/esophagitis/biopsies show reflux/repeat 4-6 months/ESOPHAGOGASTRODUODENOSCOPY (EGD), FLEXIBLE, TRANSORAL, ENDOSCOPIC ULTRASOUND performed by Donna De Souza DO at OR [facility] INCISION OF TOE TENDON Right 10/09/2019 TENOTOMY PERCUTANEOUS TOE performed by Violet Grier DPM at OR [facility] LASER TRABECULOPLASTY 11/22/2016 ALT OS inf 180 PARTIAL AMPUTATION OF TOE Right 11/07/2018 AMPUTATION TOE INTERPHALANGEAL JOINT performed by Violet Grier DPM at OR [facility] PARTIAL AMPUTATION OF TOE Right 10/09/2019 AMPUTATION TOE INTERPHALANGEAL JOINT performed by Violet Grier DPM at OR [facility] REMOVE TONSILS & ADENOIDS, UNDER 12 1960 REPAIR OF HAMMERTOE, ONE TOE Right 10/09/2019 CORRECTION HAMMERTOE performed by Violet Grier DPM at OR [facility] TREAT DEEP FOOT INFECTIONS Left 08/04/2017 INCISION AND DRAINAGE MULTIPLE AREA FOOT performed by Violet Grier DPM at OR [facility] TREAT DEEP FOOT INFECTIONS Left 09/28/2022 INCISION AND DRAINAGE MULTIPLE AREA FOOT performed by Violet Grier DPM at OR [facility] Objective: The patient is a 67 year old male BP 100/70 | Pulse 110 | Temp 35.3 C (95.5 F) (Tympanic) | Resp 20 | Wt 80.5 kg (177 lb 6.4 oz) Comment: with prosthetic left leg | SpO2 100% | BMI 26.97 kg/m | BSA 1.97 m General: alert, healthy, anxious, cooperative, moderate distress, and smiling Oropharynx: no exudate, no erythema, lips, buccal mucosa, and tongue normal, and mucous membranes are moist Neck: supple, no adenopathy, no bruits, thyroid normal size, non-tender, without nodularity, no stridor, non-tender, neck veins flat, trachea midline Heart: regular rate & rhythm, no murmur, no gallops, and distant heart sounds Lungs: chest symmetric with normal AP diameter, no chest deformities noted, no chest wall tenderness, lungs clear to auscultation, decreased breath sounds Extremities: less than 2 second capillary refill, no joint deformities, effusion, or inflammation, left foot amputation ASSESSMENT/PLAN: No changes to current meds, eosphageal biopsy was benign, now on PPI BID with improvement, kendra cytometry was negative Repeat EGD in December schedule To see ELECTRICIAN ASSISTANT in three months to establish Discussed case with post anesthesia care unit nurse Charo to assist with dealing with medical issues and introduced patient to post anesthesia care unit nurse Miguelina esophagitis ([facility]) (Primary) DM type 2 nursing care encounter ([facility]) Major depressive disorder, recurrent severe without psychotic features ([facility]) Type 2 diabetes mellitus with hemoglobin A1c goal of less than 7.0% ([facility]) - ADULT/PEDS OPHTHALMOLOGY/OPTOMETRY REFERRAL OP Avoidant personality disorder ([facility]) Generalized anxiety disorder Primary open angle glaucoma of both eyes, moderate stage History of transmetatarsal amputation of left foot ([facility]) PVD (peripheral vascular disease) ([facility]) DM type 2 causing neurological disease DM type 2 causing eye disease ([facility]) Khari Jackson MD [address] [address] documented in this encounter Nursing Notes * Natasha Soler LPN - 08/09/2023 11:59 AM EST Chief Complaint Patient presents with Hospital Follow-Up [facility] 07/28/23-07/31/23 RECOMMENDED TO DO FOR NEXT PROVIDER(S): Follow up esophageal biopsy if negative can stop fluconazole Follow up cytology and flow cytometry REASON(S) FOR MEDICATION CHANGE(S): - added omeprazole 40mg daily per GI - refill atarax prn anxiety DISPOSITION ON DISCHARGE: home with health services Active Hospital Problems Diagnosis Abnormal CT of the chest Miguelina esophagitis (HCC) Major depressive disorder, recurrent episode, moderate with anxious distress (HCC) HTN, goal below 140/90 Type 2 diabetes mellitus with hemoglobin A1c goal of less than 7.0% (HCC) Dyslipidemia, goal LDL below 100 Generalized anxiety disorder Major depressive disorder, recurrent 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) Resolved Hospital Problems Diagnosis Date Resolved *Principal Diagnosis - Nausea and vomiting 07/31/2023 BPH with obstruction/lower urinary tract symptoms 07/31/2023 Acute urinary retention C/o feeling weak and tired. States he is not sleeping well. States he got a call from his therapist approx 20 minutes ago and they are going to decrease his Lexapro and increase his Trazodone. documented in this encounter Plan of Treatment Upcoming Encounters Date Type Department Care Team (Latest Contact Info) Description 08/21/2023 6:10 PM EST Pharmacy Pharmacy, [address] [place] [address] Pharmacist1, [address] [place] [address] 08/27/2023 10:40 AM EST Office Visit Podiatry, [facility] [address] [facility] [place] [address] Violet Grier DPM [address] [facility] [address] 09/01/2023 12:00 PM EST Office Visit Ophthalmology, [place] [address] [place] [address] Michael Spivey MD [address] [place] [address] 11/02/2023 8:45 AM EDT Office Visit Urology [facility] [place] [address] [place] [address] Shane Baker MD [address] [place] [address] 11/16/2023 10:00 AM EDT Office Visit [facility] [address] [place] [phone] Renata Murrieta CRNP [address] [facility] [address] 12/18/2023 11:15 AM EDT Hospital Encounter [facility], Endoscopy [address] [place] [phone] Donna De Souza, DO [address] [place] [address] 12/18/2023 11:15 AM EDT - 12/18/2023 11:45 AM EDT Surgery ENDO [facility], Endoscopy [address], [place] [phone] Donna De Souza, DO [address] [place] [address] ESOPHAGOGASTRODUODENOSCOPY (EGD), FLEXIBLE, TRANSORAL, DIAGNOSTIC Scheduled Procedures Name Priority Associated Diagnoses Date/Ti me ESOPHAGOGASTRODUODENOSCOPY ( EGD), FLEXIBLE, TRANSORAL, DIAGNOSTIC Reflux esophagitis 12/18/2023 11:15 AM EDT Scheduled Referrals Name Type Priority Associated Diagnoses Orde r Schedule ADULT/PEDS OPHTHALMOLOGY/OPTOM ETRY REFERRAL OP Referral Within 30 days (routine) Type 2 diabetes mellitus with hemoglobin A1c goal of less than 7.0% (HCC) Ordered: 08/09/2023 Health Maintenance Due Date Last Done Comments [...] this encounter Medical Devices Implanted Type Area [employer] Operations Manager Device Identifier Shelf Expiration Date Model / Serial / Lot Clip Quick 2.8mm 230cm - [id number] Implanted:Qty: 7 on 09/18/2020 by Terrance Granados MD at OR [facility] N/A: [employer] HX-.A / / Description:lot 01K x4, 02K x2and 92K x1 documented as of this encounter Visit Diagnoses Diagnosis Miguelina esophagitis (HCC)- Primary Candidiasis of the esophagus DM type 2 nursing care encounter (HCC) Type II or unspecified type diabetes mellitus without mention of complication, not stated as uncontrolled Major depressive disorder, recurrent 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) Major depressive disorder, recurrent episode, severe, without mention of psychotic behavior Type 2 diabetes mellitus with hemoglobin A1c goal of less than 7.0% (HCC) 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 Yes, in chart and reviewed as current No Code 08/14/2020 1:19 AM 08/20/2020 4:29 PM This or mihir reflects the patients wishes and were consensually agreed upon. Question Answer Comments Discussion of Advance Directives occurred with: Patient"
--- OUTSIDE RECORDS SUMMARY | 2023-09-18 06:13 | External Medical Summary ---
Author Name Unknown Address Unknown Organization K1F:[facility] - [address] [place] [address] Laboratory Report Ordering Provider Test Date Status NICOLE GARCÍA 07/30/2023 05:19:00 Final Observation Date Value Abnormality Reference (Units ) Status Phosphate 07/30/2023 05:19:00 2.7 2.5-4.8 (m g/dL) Final Performing Location [facility] - [address] [place] [address]
--- OUTSIDE RECORDS SUMMARY | 2023-09-18 06:13 | External Medical Summary ---
Author Name Unknown Address Unknown Organization : Laboratory Report Ordering Provider Test Date Status NICOLE GARCÍA 07/30/2023 07:57:19 Final Observation Date Value Abnormality Reference (Units ) Status Glucose Point of Care 07/30/2023 07:57:19 105 70-120 (mg/dL) Final Performing Location
--- OUTSIDE RECORDS SUMMARY | 2023-09-18 06:13 | External Medical Summary ---
Author Name Unknown Address Unknown Organization K1F:[facility] - [address] [place] [address] Laboratory Report Ordering Provider Test Date Status RICKYNICOLE 07/30/2023 05:19:00 Final Less than 0.5 ng/mL: Low ris k for progression to sepsis. Review patients condition for localized infections.

0.5 to 2.0 ng/mL: Intermediate risk for progresion to sepsis. Review underlying conditions. Recommend repeat PCT after 6 hours has elapsed.

Greater than 2.0 ng/mL: high risk for progression to sepsis unless other causes are known. Observation Date Value Abnormality Reference (Units ) Status Procalcitonin [Mass/volume] in Serum or Plasma by Immunoassay 07/30/2023 05:19:00 0.05 <0.10 (ng/mL) Final Performing Location [facility] - [address] [place] [address]
--- OUTSIDE RECORDS SUMMARY | 2023-09-18 06:13 | External Medical Summary ---
Author Name Unknown Address Unknown Organization K1F:[facility] - [address] [place] [address] Laboratory Report Ordering Provider Test Date Status NICOLE GARCÍA 07/31/2023 04:45:00 Final Observation Date Value Abnormality Reference (Units ) Status Phosphate 07/31/2023 04:45:00 3.5 2.5-4.8 (m g/dL) Final Performing Location [facility] - [address] [place] [address]
--- OUTSIDE RECORDS SUMMARY | 2023-09-18 06:13 | External Medical Summary ---
Author Name Unknown Address Unknown Organization K01:[facility] [place] [address] [facility] [place] [address] Laboratory Report Ordering Provider Test Date Status FAM COSTA 07/29/2023 06:03:00 Final Observation Date Value Abnormality Reference (Units ) Status HbA1C 07/29/2023 06:03:00 6.7 Above high normal 4. 0-5.6 (%) Final The use of HbA1c to monitor glycemic status is based on normal hemoglobin and HbA composition. This test should not be used in patients with abnormal hemoglobin that affects the half life of the red blood cell or the in vivo glycation rates. Glucose, estimated average 07/29/2023 06:03:00 146 Above high normal <126 (mg/dL) Mario pritchett Performing Location [facility] [place] [address] [facility] [address]
--- OUTSIDE RECORDS SUMMARY | 2023-09-18 06:13 | External Medical Summary ---
Author Name Unknown Address Unknown Organization K1F:[facility]ORY [facility] - [address] [place] [address] Laboratory Report Ordering Provider Test Date Status MARLEEN COSTARYA 07/29/2023 06:03:00 Final Observation Date Value Abnormality Reference (Units ) Status Phosphate 07/29/2023 06:03:00 3.1 2.5-4.8 (m g/dL) Final Performing Location [facility] - [address] [place] [address]
--- OUTSIDE RECORDS SUMMARY | 2023-09-18 06:13 | External Medical Summary ---
Author Name Unknown Address Unknown Organization K1F:[facility] - [address] [place] [address] Laboratory Report Ordering Provider Test Date Status NICOLE GARCÍA 07/31/2023 04:45:00 Final Observation Date Value Abnormality Reference (Units ) Status WBC, Total 07/31/2023 04:45:00 10.71 4.00-10.80 (K/uL) Final RBC 07/31/2023 04:45:00 4.37 4.50-5.25 (M/uL) Final Hemoglobin 07/31/2023 04:45:00 13.4 Below low normal 14.0-16.8 (g/dL) Final HCT 07/31/2023 04:45:00 39.3 Below low normal 40.0-48.4 (%) Final MCV 07/31/2023 04:45:00 89.9 82.0-99.5 (fL) Final MCH 07/31/2023 04:45:00 30.7 27.0-34.0 (pg) Final MCHC 07/31/2023 04:45:00 34.1 32.0-36.0 (g/dL) Final RDW 07/31/2023 04:45:00 14.1 11.5-15.5 (%) Final Platelets 07/31/2023 04:45:00 204 140-400 (K/uL) Final MPV 07/31/2023 04:45:00 9.5 6.6-11.1 (fL) Final Nucleated erythrocytes/100 leukocytes [Ratio] in Blood by Automated count 07/31/2023 04:45:00 0 <=0 (/100 WBCs) Final Performing Location [facility] - [address] [place] [address]
--- OUTSIDE RECORDS SUMMARY | 2023-09-18 06:13 | External Medical Summary ---
Author Name Unknown Address Unknown Organization : Laboratory Report Ordering Provider Test Date Status NICOLE GARCÍA 07/30/2023 16:29:40 Final Observation Date Value Abnormality Reference (Units ) Status Glucose Point of Care 07/30/2023 16:29:40 149 Above high normal 70-120 (mg/dL) Final Performing Location
--- OUTSIDE RECORDS SUMMARY | 2023-09-18 06:13 | External Medical Summary | Summary of Care ---
Author Name Unknown Organization [facility] Address [address] [facility] [place] [address] Phone [phone] Care Team Providers Care Substation Inspector Name Role Phone Unavailable Primary Care Provider Unavailabl e Reason for Referral * Evaluate & Treat - Unlimited Visits (Within 10 days (routine)) - Authorized Specialty Diagnoses / Procedures Referred By Mattie dillon Referred To Contact Family Medicine Diagnoses Abdominal pain Dehydration Keon Islas DO [address] [facility] [place] [address] Referral ID Status Reason Start Date Expiration Date Visits Requested Visits Authorized [id number] Authorized Specialty Services Required 3 1 1 Question Answer Referral Priority Within 10 days (routine) Where should this appointment be scheduled? Norbert Comments Discharge Order Reason for Visit * Reason Comments Vomiting * Auth/Cert Specialty Diagnoses / Procedures Referred By Mattie dillon Referred To Contact Referral ID Status Reason Start Date Expiration Date Visits Re quested Visits Authorized [id number] Encounter Details Date Type Department Care Team (Latest Contact Info) Description 07/28/2023 6:50 PM EST - 07/31/2023 4:32 PM EST Hospital Encounter 5A [facility] 5th Floor [address] [place] [phone] Keon Islas DO [address] [place] [id number] Valentina Valenzuela MD [address] [facility] [phone] Maura Draper MD [address] [place] [address] Services [place] [id number] Various: EKG,UGI,UEUS,KRAVS Discharge Disposition: Home - Self Care Allergies No known active allergiesdocumented as of this encounter (statuses as of 08/01/2023) Medications Medication Sig Dispensed Refills Start Date [...] mouth in the morning. CINNAMON. 0 Active [place]-3 Fatty Acids (FISH OIL) 1200 MG CAPS Take 1,200 mg by mouth in the morning and 1,200 mg before bedtime. 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 5 mL 5 2 Active Acetaminophen 325 MG Oral Tablet [...] for Anxiety. 21 Tablet 0 3 Active Fluconazole 200 MG Oral Tablet (Diflucan) Take 1 Tablet by mouth in the morning for 12 days. Do not start before August 01, 2023. 12 Tablet 0 3 08/13/19 24 Active hydrOXYzine HCl 25 MG Oral TabletIndications :Rash and nonspecific skin eruption TAKE 1 TABLET BY MOUTH 4 TIMES DAILY NEEDED FOR ITCHING 40 Tablet 0 2 07/31/20 23 Discontinu ed(Medicat ion List Clean Up) PURACYN PLUS RX wound & skin care fliptop EX SOLN Apply topically to affected area every afternoon. Apply to affected area 250 mL 0 3 07/31/20 23 Discontinu ed(Medicat ion List Clean Up) hydrOXYzine HCl 25 MG Oral Tablet Take 1 Tablet by mouth 3 times a day as needed for Anxiety for up to 7 days. 21 Tablet 0 3 07/31/20 23 Discontinu ed(Refill) documented as of this encounter (statuses as of 08/01/2023) Active Problems Problem Noted Date Diagnosed Date [...] exposed 09/20/2022 Osteomyelitis of left foot 07/21/2022 Major depressive disorder, recurrent, moderate 1 09/21/2021 Sepsis 07/08/2022 Rhinovirus 07/08/2022 PVD (peripheral vascular disease) 11/04/2020 Primary open angle glaucoma of both eyes, modera te stage 09/09/2019 Cellulitis of left lower extremity 11/17/2017 Diabetic foot ulcer 11/17/2017 Status post amputation of great toe, left 2016 Benign non-nodular prostatic hyperplasia without lower urinary tract symptoms 07/19/2016 HTN, goal below 140/90 10/18/2015 Overview: Per HTN Protocol #27. Eid00--gpy-JJP at 97/mt, Min voltage criteria LVH. Type [...] DM type 2 causing neurological disease Overview: Baor50--0%, ld 100, nl bm, rbs 132, alt 09/26/2008--NEW DIAG DM--Hb 17/49, bmp, x na 134, fbs 238, nl lft, tsh 2.01, 226/259/31/143, psa 0.85, ua +glu, b12 nml , fol nml, -ferritin 56, 37%sat, e8u--23.2%---- - ma neg Eye exam--Nivia - Foot exam-10/06/2008--nml documented as of this encounter (statuses as of 08/01/2023) Resolved Problems Problem Noted Date Diagnosed Date Resolved Date BPH with obstruction/lower u rinary tract symptoms 07/29/2023 07/31/2023 Acute urinary retention 07/29/202307/13 Gangrene of toe of left foot 07/08/2022 [...] 140/80 04/01/201211/16 Overview: Per HTN Protocol #27. Kaj96--zqe-PNV at 97/mt, Min voltage criteria LVH. Primary open angle glaucoma 11/15/2010 02/05/2017 Overview: St travatan gtt 10/21 Diverticulosis of colon 05/10/201001/12 Obesity, Class I, BMI 30.0-3 4.9 (see actual BMI) 11/04/2009 07/29/2020 Overview: Per Obesity Taxonomy, 09/22/2008--BMI: 30.35 kg/m? -- ht s Shoes. HTN, goal below 130/80 09/09/200904/04 Overview: Qnw56--tnf-BHY at 97/mt, Min voltage criteria LVH. HTN, goal below 140/90 11/24/200809/09 Overview: Per HTN Taxonomy. Xqw00--cfj-MAT at 97/mt, Min voltage criteria LVH. Carpal [...] us his list--Fo 1000mg daily, Zn 50mg, [id number] documented as of this encounter (statuses as of 08/01/2023) Immunizations Name Administration Dates Next Due COVID-19 mRNA, LNP-s, No Pre serve, 2-Dose Series (Moderna) 09/15/2020,08/25/2020 COVID-19 mRNA, LNP-s, No Pre serve, 2-Dose Series (Pfizer) 06/24/2021 Pneumococcal Conjugate Vacci ne, 20-valent (Lieoyju40) 05/14/2023 Pneumococcal Polysaccharide PPV23 (Pneumovax) 11/03/2008,10/06/2008(Deferred: Patient [...] Date Smoking Tobacco: Never Smokeless Tobacco: Never Tobacco Cessation:Counseling Given: Not Answered Alcohol Use Standard Drinks/Week Comments Not Currently [...] Sign Reading Time Taken Comments Blood Pressure 101/64 07/31/2023 3:23 PM EST Pulse 88 07/31/2023 3:23 PM EST Temperature 36.6 C (97.9 F) 07/31/2023 3:23 PM ES T Respiratory Rate 18 07/31/2023 3:23 PM EST Oxygen Saturation 94% 07/31/2023 3:23 PM EST Inhaled Oxygen Concentration - - Weight 72.6 kg (160 lb) 07/28/2023 5:45 PM EST Height 172.7 cm (5' 8") 07/30/2023 11:58 AM EST Body Mass Index 24.33 07/28/2023 5:45 PM EST documented in this encounter Functional Status [...] No 07/29/2023 documented as of this encounter Discharge Instructions * Discharge Instructions* Keon Islas DO - 07/28/2023 10:43 PM EST I have referred you to a primary care doctor but if you already have a primary care doctor make sure you follow-up with them early next week. Please make sure you are hydrating frequently and continue taking your medications as prescribed. Use the Atarax as prescribed. Take Tylenol primarily to help with discomfort but be sure to follow the instructions. If you develop any new or concerning symptoms such as chest pain, difficulty breathing, fevers, persistent nausea/vomiting, inability to tolerate oral hydration, severe/worsening abdominal pain, or any other concerning symptoms please return to the emergency department for evaluation. * Discharge Instr - AVS* Maura Draper MD - 07/31/2023 2:24 PM EST Discharge Date: 07/31/2023 The information below provides you with the instructions and the list of medications you need to betaking following discharge from the hospital. If you have any questions, please ask before leaving. If you have questions after leaving, you can reach us at the numbers below. YOUR HOSPITAL PROVIDERS: Discharging Provider: Maura Draper MD Provider Department: Hospital Medicine To reach this Provider Sunday through Sunday (8:00 AM to 4:30 PM) for any questions or test results: Call [phone] For after-hours concerns: Call [phone] and have your provider paged, or the provider collection team lead for the Department of Hospital Medicine paged. Please note, the discharging provider will not be able to provide you with any medications refills.Please discuss these with your primary care provider. Worsening Symptoms: If you have new symptoms, or your symptoms get worse, please contact your Discharge Provider or Primary Care Provider (PCP). If these providers are not available, you can go to your local [facility] or [facility] during their business hours. In an EMERGENCY situation: Call 911 or go to the nearest emergency room. A BRIEF SUMMARY OF YOUR HOSPITAL STAY: You came to the hospital with: complaint of nausea and vomiting Your main diagnosis at discharge was: Nausea and vomiting. Your CT scan of the chest showed thickening of your esophagus where it meets the stomach. There were also some enlarged lymph nodes adjacent to this area. You had an endoscopy with biopsies taken. The GI doctor also saw what looked to be a yeast infection in your esophagus (swallowing tube) for this I have prescribed fluconazole to treat the yeast in your throat. The GI doctor also recommended taking a stomach acid suppression medication called omeprazole 40mg every night. The GI doctor's office will call you with the results of the biopsies taken during the procedure. IF the yeast biopsy returns NEGATIVE you will be told to discontinue taking the fluconazole. Operations & Procedures performed: Endoscopy Complications: none significant Inpatient test results that are pending at discharge: Yes, biopsy results!. You or your doctor willbe contacted if there are significant abnormalities with these tests. Advance Directive Documented: Advance Directive Does the Patient have an Advance Directive? No YOUR FOLLOW UP APPOINTMENTS: Primary Care Provider Information: PCP: No primary care provider on file. No primary physician on file. None (office) None (fax) An appointment was requested with your PCP (No primary care provider on file.) within 7 days. (Please take this form to this visit with your primary care physician.) You need the following studies in the future: Per the GI doctor based on biopsy results. Nothing atthis time. INSTRUCTIONS: Diet: Previous diet- chew all food thoroughly. Eat slowly and drink plenty of water to aid in the passage of food from your esophagus into your stomach. IF you feel like something is getting stuck. Call your primary care doctor. Activity: As tolerated See attached document- with information on how to reduce the inflammation in your esophagus. Additional Instructions: - Call your primary care physician or seek medical attention if you are unable to take your medications as directed, you have increased pain with swallowing, you develop shortness of breath, chest pain or high fever. - Do not take [id number] NSAIDs (nonsteroid anti-inflammatory medications); ie. Advil, Motrin, Ibuprofen, etc. Avoid smoking. documented in this encounter Progress Notes * Maura Draper MD - 07/30/2023 4:45 PM EST Images from the original note were not included. [facility] 5A-5112/D INTERVAL HISTORY: 67yM w/ hx of barrets esophagus, GERD, type 2DM, anxiety adm with intractable nausea and vomiting. Found to have lactic acidosis, acute urinary retention (resolved), and thickening of the distal esophagus with associated lymphadenopathy. Patinet was made NPO at midnight for GI eval today. Subjective: Patient states he is feeling MUCH better, more like himself. Denies anything getting stuck when swallowing. Slept poorly. Anxiety under better control today. No severe abd pain, no nausea or vomiting overnight. Objective Physical Exam Most Recent Vital Signs: BP: 123 mmHg/71 mmHg (07/30/23 1540) Pulse: 86 (07/30/23 1540) Temp: 36.39 C (07/30/23 1540) Resp: 18 (07/30/23 1540) SpO2: 98 % (07/30/23 1540) BP 123/71 | Pulse 86 | Temp 36.4 C (97.5 F) (Temporal Artery) | Resp 18 | Ht 1.727 m (5' 8") | Wt 72.6 kg (160 lb) | SpO2 98% | BMI 24.33 kg/m | BSA 1.87 m Vitals reviewed over last 24 hours General: improved general appearance today, not as anxious or shakey today, NAD HEEN: EOMI, no scleral icterus, ophx clear, NECK: no stridor, no JVD PULM: no wheezes, no rhonchi, no crackles CVS: RRR, ABD: soft, NT except for mild TTP in epigastric region ND +BS, no rebound, no guarding Neuro:alert and oriented x3, CN 2-12 grossly intact Psych: normal mood and affect Peripheral Line Left;Lower Arm 20 Gauge (Active) Number of days: 2 STUDIES: Encounter Orders Labs and other studies reviewed with pertinent findings noted below: Recent Results (from the past 24 hour(s)) GLUCOSE METER, POINT OF CARE Collection Time: 07/29/23 4:59 PM Result Value Ref Range Glucose Meter 130 (H) 70 - 120 mg/dL GLUCOSE METER, POINT OF CARE Collection Time: 07/29/23 10:00 PM Result Value Ref Range Glucose Meter 115 70 - 120 mg/dL BASIC METABOLIC PANEL Collection Time: 07/30/23 5:19 AM Result Value Ref Range BUN 15 6 - 20 mg/dL Creatinine 0.9 0.6 - 1.2 mg/dL Estimated Glomerular Filtration Rate >90 >=60 mL/min Sodium 142 135 - 146 mmol/L Potassium 3.5 3.5 - 5.1 mmol/L Chloride 105 98 - 107 mmol/L CO2 28 22 - 32 mmol/L Anion Gap 9 7 - 15 mmol/L Glucose 77 70 - 120 mg/dL Calcium 9.1 8.4 - 10.2 mg/dL PHOSPHORUS Collection Time: 07/30/23 5:19 AM Result Value Ref Range Phosphorus 2.7 2.5 - 4.8 mg/dL MAGNESIUM Collection Time: 07/30/23 5:19 AM Result Value Ref Range Magnesium 1.9 1.5 - 2.6 mg/dL CBC Collection Time: 07/30/23 5:19 AM Result Value Ref Range WBC 7.32 4.00 - 10.80 K/uL RBC 4.43 4.50 - 5.25 M/uL HGB 13.6 (L) 14.0 - 16.8 g/dL HCT 39.9 (L) 40.0 - 48.4 % MCV 90.1 82.0 - 99.5 fL MCH 30.7 27.0 - 34.0 pg MCHC 34.1 32.0 - 36.0 g/dL RDW 14.0 11.5 - 15.5 % PLT 213 140 - 400 K/uL MPV 9.0 6.6 - 11.1 fL nRBCs 0 <=0 /100 WBCs HEPATIC FUNCTION PANEL Collection Time: 07/30/23 5:19 AM Result Value Ref Range Albumin 3.6 (L) 3.8 - 5.0 g/dL AST 15 10 - 50 U/L Alkaline Phosphatase 94 35 - 130 U/L ALT 22 10 - 50 U/L Bilirubin, Total 0.7 <=1.2 mg/dL Bilirubin, Direct <0.2 0.0 - 0.3 mg/dL Protein 5.8 (L) 6.0 - 8.3 g/dL PROCALCITONIN Collection Time: 07/30/23 5:19 AM Result Value Ref Range Procalcitonin 0.05 <0.10 ng/mL GLUCOSE METER, POINT OF CARE Collection Time: 07/30/23 7:57 AM Result Value Ref Range Glucose Meter 105 70 - 120 mg/dL GLUCOSE METER, POINT OF CARE Collection Time: 07/30/23 11:35 AM Result Value Ref Range Glucose Meter 122 (H) 70 - 120 mg/dL GLUCOSE METER, POINT OF CARE Collection Time: 07/30/23 2:28 PM Result Value Ref Range Glucose Meter 123 (H) 70 - 120 mg/dL GLUCOSE METER, POINT OF CARE Collection Time: 07/30/23 4:29 PM Result Value Ref Range Glucose Meter 149 (H) 70 - 120 mg/dL } Assessment and Plan IMPRESSION : Principal Problem: Nausea and vomiting Active Problems: Major depressive disorder, recurrent severe without psychotic features ([facility]) Generalized anxiety disorder Dyslipidemia, goal LDL below 100 Type 2 diabetes mellitus with hemoglobin A1c goal of less than 7.0% ([facility]) HTN, goal below 140/90 BPH with obstruction/lower urinary tract symptoms Acute urinary retention Major depressive disorder, recurrent episode, moderate with anxious distress ([facility]) Abnormal CT of the chest Miguelina esophagitis ([facility]) Resolved Problems: * No resolved hospital problems. * DIFFERENTIAL AND PLAN: Patient's intractable nausea and vomiting has improved. EGD today by GI Prelim- +esophageal candidaosis- start treatment, follow up biopsy Continue anxiety meds, depression meds Now tolerating oral tamsulosin and acute urinary retention has resolved Daily PPI QHS Follow up biopsies Advance diet PT/OT Expected discharge tomorrow if remains clinically stable. PHARMACOLOGIC VTE PROPHYLAXIS: Enoxaparin CODE STATUS: Full Code EXPECTED DISCHARGE DATE: No information available I spent a total of 45 minutes coordinating, documenting, and providing care for this patient excluding time spent in the performance of separately billed services. documented in this encounter H&P Notes * Donna De Souza DO - 07/30/2023 12:36 PM EST Endoscopy Pre-Procedure Assessment Name: Epifanio Silva Date: 07/30/2023 Time: 12:36 PM Procedure(s): Upper GI Endoscopy; with Indication(s) of upper abdominal symptoms that persist despite an appropriate trial of therapy Endoscopic Ultrasound; with Indication(s) of evaluation of abnormalities on radiologic study Endoscopy Pre-Procedure Assessment: Prior to the procedure, the patient is identified. The patient's history, medications and allergieshave been reviewed. The patient is competent. The risks and benefits of the proposed procedure and the planned sedation have been discussed with the patient. All questions have been answered and informed consent for the procedure has been obtained. Prior to Admission medications Medication Sig Last Dose Discont. hydrOXYzine HCl 25 MG Oral Tablet Take 1 Tablet by mouth 3 times a day as needed for Anxiety for upto 7 days. Amitriptyline HCl 10 MG Oral Tablet (Elavil) Take 1 Tablet by mouth at bedtime. Past Week Atenolol 25 MG Oral Tablet (Tenormin) Take 1/2 (one-half) tablet by mouth once daily Past Week Atorvastatin Calcium 40 MG Oral Tablet (Lipitor) Take 1 Tablet by mouth in the morning. Past Week Finasteride 5 MG Oral Tablet (Proscar) Take 1 Tablet by mouth in the morning. Past Week Furosemide 20 MG Oral Tablet (Lasix) Take 1 Tablet by mouth in the morning. Past Week glipiZIDE ER 5 MG Oral Tablet Extended Release 24 Hour (glipiZIDE XL) Take 1 Tablet by mouth in themorning. Past Week metFORMIN HCl 1000 MG Oral Tablet (Glucophage) Take 1 Tablet by mouth in the morning and 1 Tablet before bedtime. With meals.. Past Week Ozempic (2 MG/DOSE) 8 MG/3ML Subcutaneous Solution Pen-injector (Semaglutide (2 MG/DOSE)) INJECT 2 MG SUBCUTANEOUSLY ONCE A WEEK Past Week Tamsulosin HCl 0.4 MG Oral Capsule (Flomax) Take 1 Capsule by mouth in the morning. Past Week traZODone HCl 100 MG Oral Tablet (Desyrel) Take 1 Tablet by mouth at bedtime as needed for Sleep. Past Week Acetaminophen 325 MG Oral Tablet (Tylenol) Take 3 Tablets (975 mg) by mouth every 6 hours as neededfor Fever (Temp Greater than ), Pain, Breakthrough or Other (none). 07/28/2023 Travoprost (BOBBY Free) 0.004 % Ophthalmic Solution (Travatan Z) Instill into both eyes 1 Drop beforebedtime. Past Week hydrOXYzine HCl 25 MG Oral Tablet TAKE 1 TABLET BY MOUTH 4 TIMES DAILY NEEDED FOR ITCHING Past Week Vitron-C 65-125 MG Oral Tablet (Iron-Vitamin C) Take 1 tablet by mouth twice daily Past Week busPIRone HCl 10 MG Oral Tablet (Buspar) TAKE 1 TABLET BY MOUTH TWICE DAILY DIRECTED 07/28/2023 escitalopram (LEXAPRO) 20 MG Tablet Take 1 Tablet by mouth in the morning. Past Week BuPROPion HCl ER, SR, (WELLBUTRIN SR) 200 MG TB12 Take 1 Tablet by mouth in the morning and 1 Tablet before bedtime. Past Week NATURAL SUPPLEMENT Take 1 g by mouth in the morning. CINNAMON. Past Week [place]-3 Fatty Acids (FISH OIL) 1200 MG CAPS Take 1,200 mg by mouth in the morning and 1,200 mg before bedtime. Past Week Folic Acid 400 MCG Tablet Take 1 Tablet by mouth in the morning. Past Week Zinc Gluconate 50 MG CAPS Take 1 Tablet by mouth in the morning. Past Week PURACYN PLUS RX wound & skin care fliptop EX SOLN Apply topically to affected area every afternoon. Apply to affected area Patient not taking: Reported on 07/29/2023 Not Taking ONETOUCH ULTRA BLUE STRP CHECK FASTING BLOOD SUGAR BEFORE BREAKFAST AND BEFORE SUPPER ADVISED ONETOUCH ULTRASOFT LANCETS [facility] CHECK FASTING BLOOD SUGAR BEFORE BREAKFAST AND BEFORE SUPPER ADVISED [employer] ULTRA SYSTEM W/DEVICE KIT Use up to four times a day as directed Review of patient's allergies indicates: No Known Allergies BP 121/79 | Pulse 83 | Temp 37.2 C (99 F) (Temporal Artery) | Resp 18 | Ht 1.727 m (5' 8") | Wt72.6 kg (160 lb) | SpO2 96% | BMI 24.33 kg/m | BSA 1.87 m Physical Exam: Mental Status Examination: alert and oriented. Airway Examination: normal oropharyngeal airway and neck mobility. Respiratory Examination: clear to auscultation. CV Examination: systolic murmur. ASA Grade: III - A patient with severe systemic disease. Abdomen: negative CT 07/28/23 1. There is no evidence of filling defects within the pulmonary arterial circulation to suggest pulmonary embolism. 2. Esophagus is patulous and somewhat dilated. Mild thickening of distal esophageal wall. Question reflux disease and esophagitis. Recommend clinical correlation. Further evaluation with upper GI or EGD may be considered to evaluate the wall thickening of the distal esophagus and exclude any underlying lesions. 3. Nonspecific lymph nodes at the level of the diaphragm adjacent to the gastroesophageal junction. Recommend attention on follow-up. Latest Reference Range & Units 07/30/23 05:19 Sodium 135 - 146 mmol/L 142 Potassium 3.5 - 5.1 mmol/L 3.5 Chloride 98 - 107 mmol/L 105 CO2 22 - 32 mmol/L 28 BUN 6 - 20 mg/dL 15 Creatinine 0.6 - 1.2 mg/dL 0.9 Estimated Glomerular Filtration Rate >=60 mL/min >90 Anion Gap 7 - 15 mmol/L 9 Glucose 70 - 120 mg/dL 77 Calcium 8.4 - 10.2 mg/dL 9.1 Magnesium 1.5 - 2.6 mg/dL 1.9 Phosphorus 2.5 - 4.8 mg/dL 2.7 Protein 6.0 - 8.3 g/dL 5.8 (L) CBC Rpt ! WBC 4.00 - 10.80 K/uL 7.32 HGB 14.0 - 16.8 g/dL 13.6 (L) HCT 40.0 - 48.4 % 39.9 (L) MCV 82.0 - 99.5 fL 90.1 PLT 140 - 400 K/uL 213 Procalcitonin <0.10 ng/mL 0.05 Albumin 3.8 - 5.0 g/dL 3.6 (L) AST 10 - 50 U/L 15 ALT 10 - 50 U/L 22 Alkaline Phosphatase 35 - 130 U/L 94 Bilirubin, Total <=1.2 mg/dL 0.7 Bilirubin, Direct 0.0 - 0.3 mg/dL <0.2 (L): Data is abnormally low !: Data is abnormal Rpt: View report in Results Review for more information Latest Reference Range & Units 07/30/23 05:19 Sodium 135 - 146 mmol/L 142 Potassium 3.5 - 5.1 mmol/L 3.5 Chloride 98 - 107 mmol/L 105 CO2 22 - 32 mmol/L 28 BUN 6 - 20 mg/dL 15 Creatinine 0.6 - 1.2 mg/dL 0.9 Estimated Glomerular Filtration Rate >=60 mL/min >90 Anion Gap 7 - 15 mmol/L 9 Glucose 70 - 120 mg/dL 77 Calcium 8.4 - 10.2 mg/dL 9.1 Magnesium 1.5 - 2.6 mg/dL 1.9 Phosphorus 2.5 - 4.8 mg/dL 2.7 Protein 6.0 - 8.3 g/dL 5.8 (L) CBC Rpt ! WBC 4.00 - 10.80 K/uL 7.32 HGB 14.0 - 16.8 g/dL 13.6 (L) HCT 40.0 - 48.4 % 39.9 (L) MCV 82.0 - 99.5 fL 90.1 PLT 140 - 400 K/uL 213 Procalcitonin <0.10 ng/mL 0.05 Albumin 3.8 - 5.0 g/dL 3.6 (L) AST 10 - 50 U/L 15 ALT 10 - 50 U/L 22 Alkaline Phosphatase 35 - 130 U/L 94 Bilirubin, Total <=1.2 mg/dL 0.7 Bilirubin, Direct 0.0 - 0.3 mg/dL <0.2 (L): Data is abnormally low !: Data is abnormal Rpt: View report in Results Review for more information This patient has undergone a preprocedural evaluation. A determination has been made to proceed with the planned procedure under [facility] [place] procedural guidelines and the [facility] Non-Emergent, Elective Medical Services and Treatment Recommendations (published on 11-18-19). The community and hospital prevalence of COVID-19 has been discussed as well as this patient's specific risks associated with SARS-CoV-19 infection. Based upon the clinical acuity and patient-specific care considerations, this procedure is deemed a Tier II - Intermediate acuity treatment or service with either progression or the threat of progressive disease related to the delay in treatment. Not providing the service has the potential for increasing morbidity or mortality. After reviewing the risks and benefits, the patient is deemed in satisfactory condition to undergo the procedure. The anesthesia plan is to use general anesthesia. Donna De Souza DO 07/30/2023 * Valentina Valenzuela MD - 07/29/2023 12:04 AM EST Images from the original note were not included. [facility] 5A-5106/D PRESENTING PROBLEM: Nausea and vomiting HPI: 67-year-old male with a past medical history of amputation of the left lower extremity, type 2diabetes mellitus, major depression, hypertension, generalized anxiety disorder, dyslipidemia is admitted to the hospital with intractable nausea and vomiting. Patient states he started feeling nauseous around 4 days ago and started vomiting 3 days ago. Patient states the vomitus is nonbloody. Patient states he has had low oral fluid intake and food intake due to the vomiting. Patient has had a bowel movement 48 hours ago, denies any blood or black tarry stools present. Patient states he does have shortness of breath, however states that was his new baseline after getting COVID infection 4 years ago. Denies any additional dyspnea, wheezing, chest pain. Patient additionally denies any fever,chills, lightheadedness, headaches, cough. Patient denies any alcohol abuse come my tobacco use or illicit drug use. In the ED patient's lactate initially was elevated, on repeated had decreased after fluid was given. Patient's abdominal pain had somewhat improved upon evaluation. Patient's vitals were stable, however he was tachycardic. Subjective Patient's past history, medications, and allergies were reviewed. Objective Physical Exam Most Recent Vital Signs: BP: 141 mmHg/87 mmHg (07/28/23 2300) Pulse: 101 (07/28/23 2300) Temp: 36 C (07/28/23 1745) Resp: 16 (07/28/23 2300) SpO2: 96 % (07/28/23 2100) Constitutional: no acute distress HEENT: normal: normocephalic, atraumatic; no masses, tenderness, or adenopathy CV: normal rate and rhythm, no murmur, gallops or rub Chest: normal respiratory effort, lungs clear to auscultation and percussion Abdomen: normal: soft, bowel sounds normal, no masses, tenderness or organomegaly Musculoskeletal: (-) negative Extremities: no clubbing, cyanosis, or edema, otherwise grossly normal, warm, and dry, surgical scar well-healed Neuro: alert, oriented to person, place, and time, normal mental status exam, gait normal, reflexesnormal and symmetric, sensory normal Psych: normal mood and affect, nonsuicidal, judgement normal, memory normal STUDIES: Encounter Orders Labs and other studies reviewed with pertinent findings noted below: Recent Results (from the past 24 hour(s)) GLUCOSE METER, POINT OF CARE Collection Time: 07/28/23 5:52 PM Result Value Ref Range Glucose Meter 208 (H) 70 - 120 mg/dL RESPIRATORY PATHOGEN PANEL, PCR Collection Time: 07/28/23 5:53 PM Result Value Ref Range Adenovirus by PCR Negative Negative Coronavirus 229E by PCR Negative Negative Coronavirus HKU1 by PCR Negative Negative Coronavirus NL63 by PCR Negative Negative Coronavirus OC43 by PCR Negative Negative Coronavirus SARS-CoV-2 by PCR Negative Negative Human Metapneumovirus by PCR Negative Negative Rhinovirus/Enterovirus by PCR Negative Negative Influenza A Virus by PCR Negative Negative Influenza B Virus by PCR Negative Negative Parainfluenza Virus 1 by PCR Negative Negative Parainfluenza Virus 2 by PCR Negative Negative Parainfluenza Virus 3 by PCR Negative Negative Parainfluenza Virus 4 by PCR Negative Negative Respiratory Syncytial Virus by PCR Negative Negative Bordetella pertussis by PCR Negative Negative Chlamydia pneumoniae by PCR Negative Negative Mycoplasma pneumoniae by PCR Negative Negative Bordetella parapertussis by PCR Negative Negative COMPREHENSIVE METABOLIC PANEL Collection Time: 07/28/23 6:18 PM Result Value Ref Range BUN 40 (H) 6 - 20 mg/dL Creatinine 1.0 0.6 - 1.2 mg/dL Estimated Glomerular Filtration Rate 82 >=60 mL/min Sodium 135 135 - 146 mmol/L Potassium 4.3 3.5 - 5.1 mmol/L Chloride 88 (L) 98 - 107 mmol/L CO2 22 22 - 32 mmol/L Anion Gap 25 (H) 7 - 15 mmol/L Glucose 222 (H) 70 - 120 mg/dL Albumin 4.5 3.8 - 5.0 g/dL AST 18 10 - 50 U/L Alkaline Phosphatase 143 (H) 35 - 130 U/L Bilirubin, Total 1.0 <=1.2 mg/dL Calcium 11.0 (H) 8.4 - 10.2 mg/dL Protein 7.8 6.0 - 8.3 g/dL ALT 32 10 - 50 U/L LIPASE Collection Time: 07/28/23 6:18 PM Result Value Ref Range Lipase 33 13 - 60 U/L LACTATE Collection Time: 07/28/23 6:18 PM Result Value Ref Range Lactate 7.3 (HH) 0.4 - 2.0 mmol/L CBC Collection Time: 07/28/23 6:18 PM Result Value Ref Range WBC 14.79 (H) 4.00 - 10.80 K/uL RBC 5.78 4.50 - 5.25 M/uL HGB 17.7 (H) 14.0 - 16.8 g/dL HCT 51.3 (H) 40.0 - 48.4 % MCV 88.8 82.0 - 99.5 fL MCH 30.6 27.0 - 34.0 pg MCHC 34.5 32.0 - 36.0 g/dL RDW 14.4 11.5 - 15.5 % PLT 357 140 - 400 K/uL MPV 9.4 6.6 - 11.1 fL nRBCs 0 <=0 /100 WBCs DIFFERENTIAL, AUTOMATED Collection Time: 07/28/23 6:18 PM Result Value Ref Range WBC 14.79 (H) 4.00 - 10.80 K/uL Neutrophils % 63.4 40.0 - 75.0 % Lymphocytes % 26.0 18.0 - 42.0 % Monocytes % 8.9 1.0 - 11.0 % Eosinophils % 0.7 0.0 - 6.0 % Basophils % 0.5 0.0 - 2.0 % Immature Granulocytes % 0.5 0.0 - 2.0 % Absolute Neutrophils 9.36 (H) 1.80 - 7.70 K/uL Absolute Lymphocytes 3.85 1.00 - 4.80 K/ul Absolute Monocytes 1.31 (H) 0.00 - 1.10 K/uL Absolute Eosinophils 0.11 0.00 - 0.70 K/uL Absolute Basophils 0.08 0.00 - 0.20 K/uL Absolute Immature Granulocytes 0.08 0.00 - 0.20 K/uL PROCALCITONIN Collection Time: 07/28/23 6:18 PM Result Value Ref Range Procalcitonin 0.07 <0.10 ng/mL TROPONIN T, HIGH SENSITIVITY Collection Time: 07/28/23 6:18 PM Result Value Ref Range Troponin T, High Sensitivity 18 <=22 ng/L BNP, NT-PRO Collection Time: 07/28/23 6:18 PM Result Value Ref Range BNP, NT-Pro 41 <300 pg/mL CK Collection Time: 07/28/23 6:18 PM Result Value Ref Range CK 52 39 - 308 U/L BLOOD GAS, VENOUS Collection Time: 07/28/23 7:25 PM Result Value Ref Range Temperature 37.0 C pH, Venous 7.576 (H) 7.320 - 7.430 units pCO2, Venous 24.7 (L) 40.0 - 60.0 mmHg pO2, Venous 25.9 25.0 - 50.0 mmHg Base Excess, Venous 3.2 (H) -2.0 - 2.0 mmol/L Hemoglobin, Whole Blood 18.4 (H) 14.0 - 16.8 g/dL Oxyhemoglobin, Venous 50.3 40.0 - 85.0 % total Hgb Carboxyhemoglobin, Whole Blood 1.0 <=1.5 % total Hgb Methemoglobin, Whole Blood 0.6 <=1.5 % total Hgb Reduced Hemoglobin, Venous 48.1 % total Hgb O2 Content, Venous 12.9 7.0 - 18.0 %vol Bicarbonate, Whole Blood 22.9 (L) 23.0 - 31.0 mmol/L LACTATE Collection Time: 07/28/23 9:01 PM Result Value Ref Range Lactate 2.7 (H) 0.4 - 2.0 mmol/L URINALYSIS, REFLEX TO MICROSCOPIC Collection Time: 07/28/23 9:44 PM Result Value Ref Range Color, Urine Yellow Light Yellow, Yellow, Dark Yellow Clarity, Urine Clear Clear Glucose, Urine Negative Negative mg/dL Bilirubin, Urine Negative Negative Ketone, Urine 15 (A) Negative mg/dL Specific [place], Urine 1.030 1.003 - 1.030 Blood, Urine Trace (A) Negative pH, Urine 5.5 5.0 - 7.5 Units Protein, Urine Negative Negative mg/dL Urobilinogen, Urine 0.2 0.2, 1.0 mg/dL Nitrite, Urine Negative Negative Esterase, Urine Negative Negative MICROSCOPIC EXAM, URINE Collection Time: 07/28/23 9:44 PM Result Value Ref Range RBC, Urine 0-2 0 - 2 /HPF WBC, Urine 0-2 0 - 2 /HPF Bacteria, Urine 0-25 0 - 25 /HPF BASIC METABOLIC PANEL Collection Time: 07/28/23 10:16 PM Result Value Ref Range BUN 36 (H) 6 - 20 mg/dL Creatinine 0.9 0.6 - 1.2 mg/dL Estimated Glomerular Filtration Rate >90 >=60 mL/min Sodium 138 135 - 146 mmol/L Potassium 3.6 3.5 - 5.1 mmol/L Chloride 99 98 - 107 mmol/L CO2 24 22 - 32 mmol/L Anion Gap 15 7 - 15 mmol/L Glucose 106 70 - 120 mg/dL Calcium 8.9 8.4 - 10.2 mg/dL LACTATE Collection Time: 07/28/23 10:16 PM Result Value Ref Range Lactate 2.4 (H) 0.4 - 2.0 mmol/L TROPONIN T, HIGH SENSITIVITY Collection Time: 07/28/23 10:16 PM Result Value Ref Range Troponin T, High Sensitivity 14 <=22 ng/L CT PULMONARY EMBOLUS W CONTRAST Final Result PROCEDURE INFORMATION: Exam: CTA Chest With Contrast Exam date and time: 07/28/2023 7:59 PM Age: 67 years old Clinical indication: Abdominal pain; Other: Anxiety; Additional info: Severe generalized abdominal pain TECHNIQUE: Imaging protocol: Computed tomographic angiography of the chest with contrast. Exam focused on the arteries. 3D rendering (Not supervised by radiologist): MIP and/or 3D reconstructed images were created by the technologist. Radiation optimization: All CT scans at this facility use at least one of these dose optimization techniques: automated exposure control; mA and/or kV adjustment per patient size (includes targeted exams where dose is matched to clinical indication); or iterative reconstruction. Contrast material: [id number]; Contrast volume: 100 ml; Contrast route: INTRAVENOUS (IV); REPORTING DATA: Count of CT and Cardiac NM exams in prior 12 months: This patient has received [address] and 0 known cardiac nuclear medicine studies in the 12 months prior to the current study. COMPARISON: CT PULMONARY EMBOLUS W CONTRAST 07/28/2023 7:59 PM FINDINGS: Pulmonary arteries: Normal. No pulmonary emboli. Aorta: Unremarkable. No aortic aneurysm. No aortic dissection. Lungs: Minimal atelectatic changes at the lung bases. Pleural spaces: Unremarkable. No pneumothorax. No pleural effusion. Heart: Unremarkable. No cardiomegaly. No pericardial effusion. Mediastinal space: Esophagus is patulous and somewhat dilated. Mild thickening of distal esophageal wall. Lymph nodes: No significant mediastinal adenopathy. Nonspecific 1 cm lymph node adjacent to the gastroesophageal junction at the site of hiatus hernia, series 17 image 27 Bones/joints: There are moderate degenerative changes present. Soft tissues: Unremarkable. IMPRESSION IMPRESSION: 1. There is no evidence of filling defects within the pulmonary arterial circulation to suggest pulmonary embolism. 2. Esophagus is patulous and somewhat dilated. Mild thickening of distal esophageal wall. Question reflux disease and esophagitis. Recommend clinical correlation. Further evaluation with upper GI or EGD may be considered to evaluate the wall thickening of the distal esophagus and exclude any underlying lesions. 3. Nonspecific lymph nodes at the level of the diaphragm adjacent to the gastroesophageal junction. Recommend attention on follow-up. PROCEDURE INFORMATION: Exam: CT Abdomen And Pelvis With Contrast Exam date and time: 07/28/2023 7:59 PM Age: 67 years old Clinical indication: Abdominal pain; Other: Anxiety; Additional info: Severe generalized abdominal pain TECHNIQUE: Imaging protocol: Computed tomography of the abdomen and pelvis with contrast. Radiation optimization: All CT scans at this facility use at least one of these dose optimization techniques: automated exposure control; mA and/or kV adjustment per patient size (includes targeted exams where dose is matched to clinical indication); or iterative reconstruction. Contrast material: [id number]; Contrast volume: 100 ml; Contrast route: INTRAVENOUS (IV); REPORTING DATA: Count of CT and Cardiac NM exams in prior 12 months: This patient has received [address] and 0 known cardiac nuclear medicine studies in the 12 months prior to the current study. COMPARISON: CT ABD/PELVIS WO IV/ORAL CONTRAST 09/25/2022 8:16 PM FINDINGS: Lungs: No acute abnormality. Liver: Normal. No mass. Gallbladder and bile ducts: The gallbladder is distended. Pancreas: There is diffuse atrophy of the pancreatic parenchyma. Spleen: Normal. No splenomegaly. Adrenal glands: Mild adrenal hyperplasia. Kidneys and ureters: Bilateral extrarenal pelves, right greater than left. Remainder of the ureters is unremarkable.There is no evidence of renal or ureteral calcifications. Stomach and bowel: Thickening of the gastric wall nonspecific and may be associated with nondistention. Mild diverticulosis is present in the distal colon. There is no evidence of intestinal obstruction. Appendix: No evidence of appendicitis. Intraperitoneal space: Unremarkable. No free air. No significant fluid collection. Vasculature: Unremarkable. No abdominal aortic aneurysm. Lymph nodes: Unremarkable. No enlarged lymph nodes. Urinary bladder: Unremarkable as visualized. Reproductive: Unremarkable as visualized. Bones/joints: The spine demonstrates moderate degenerative changes at multiple levels. Soft tissues: Unremarkable. IMPRESSION: 1. Overall nonobstructive bowel gas pattern. No focal inflammation identified 2. The gallbladder is distended. If pain referred to this area consider ultrasound to further evaluate 3. Mild diverticulosis without significant inflammation THIS DOCUMENT HAS BEEN ELECTRONICALLY SIGNED BY ROHIT HERRERA MD CT ABD/PELVIS W IV CONTRAST - WO ORAL CONTRAST Final Result PROCEDURE INFORMATION: Exam: CTA Chest With Contrast Exam date and time: 07/28/2023 7:59 PM Age: 67 years old Clinical indication: Abdominal pain; Other: Anxiety; Additional info: Severe generalized abdominal pain TECHNIQUE: Imaging protocol: Computed tomographic angiography of the chest with contrast. Exam focused on the arteries. 3D rendering (Not supervised by radiologist): MIP and/or 3D reconstructed images were created by the technologist. Radiation optimization: All CT scans at this facility use at least one of these dose optimization techniques: automated exposure control; mA and/or kV adjustment per patient size (includes targeted exams where dose is matched to clinical indication); or iterative reconstruction. Contrast material: [id number]; Contrast volume: 100 ml; Contrast route: INTRAVENOUS (IV); REPORTING DATA: Count of CT and Cardiac NM exams in prior 12 months: This patient has received [address] and 0 known cardiac nuclear medicine studies in the 12 months prior to the current study. COMPARISON: CT PULMONARY EMBOLUS W CONTRAST 07/28/2023 7:59 PM FINDINGS: Pulmonary arteries: Normal. No pulmonary emboli. Aorta: Unremarkable. No aortic aneurysm. No aortic dissection. Lungs: Minimal atelectatic changes at the lung bases. Pleural spaces: Unremarkable. No pneumothorax. No pleural effusion. Heart: Unremarkable. No cardiomegaly. No pericardial effusion. Mediastinal space: Esophagus is patulous and somewhat dilated. Mild thickening of distal esophageal wall. Lymph nodes: No significant mediastinal adenopathy. Nonspecific 1 cm lymph node adjacent to the gastroesophageal junction at the site of hiatus hernia, series 17 image 27 Bones/joints: There are moderate degenerative changes present. Soft tissues: Unremarkable. IMPRESSION IMPRESSION: 1. There is no evidence of filling defects within the pulmonary arterial circulation to suggest pulmonary embolism. 2. Esophagus is patulous and somewhat dilated. Mild thickening of distal esophageal wall. Question reflux disease and esophagitis. Recommend clinical correlation. Further evaluation with upper GI or EGD may be considered to evaluate the wall thickening of the distal esophagus and exclude any underlying lesions. 3. Nonspecific lymph nodes at the level of the diaphragm adjacent to the gastroesophageal junction. Recommend attention on follow-up. PROCEDURE INFORMATION: Exam: CT Abdomen And Pelvis With Contrast Exam date and time: 07/28/2023 7:59 PM Age: 67 years old Clinical indication: Abdominal pain; Other: Anxiety; Additional info: Severe generalized abdominal pain TECHNIQUE: Imaging protocol: Computed tomography of the abdomen and pelvis with contrast. Radiation optimization: All CT scans at this facility use at least one of these dose optimization techniques: automated exposure control; mA and/or kV adjustment per patient size (includes targeted exams where dose is matched to clinical indication); or iterative reconstruction. Contrast material: [id number]; Contrast volume: 100 ml; Contrast route: INTRAVENOUS (IV); REPORTING DATA: Count of CT and Cardiac NM exams in prior 12 months: This patient has received [address] and 0 known cardiac nuclear medicine studies in the 12 months prior to the current study. COMPARISON: CT ABD/PELVIS WO IV/ORAL CONTRAST 09/25/2022 8:16 PM FINDINGS: Lungs: No acute abnormality. Liver: Normal. No mass. Gallbladder and bile ducts: The gallbladder is distended. Pancreas: There is diffuse atrophy of the pancreatic parenchyma. Spleen: Normal. No splenomegaly. Adrenal glands: Mild adrenal hyperplasia. Kidneys and ureters: Bilateral extrarenal pelves, right greater than left. Remainder of the ureters is unremarkable.There is no evidence of renal or ureteral calcifications. Stomach and bowel: Thickening of the gastric wall nonspecific and may be associated with nondistention. Mild diverticulosis is present in the distal colon. There is no evidence of intestinal obstruction. Appendix: No evidence of appendicitis. Intraperitoneal space: Unremarkable. No free air. No significant fluid collection. Vasculature: Unremarkable. No abdominal aortic aneurysm. Lymph nodes: Unremarkable. No enlarged lymph nodes. Urinary bladder: Unremarkable as visualized. Reproductive: Unremarkable as visualized. Bones/joints: The spine demonstrates moderate degenerative changes at multiple levels. Soft tissues: Unremarkable. IMPRESSION: 1. Overall nonobstructive bowel gas pattern. No focal inflammation identified 2. The gallbladder is distended. If pain referred to this area consider ultrasound to further evaluate 3. Mild diverticulosis without significant inflammation THIS DOCUMENT HAS BEEN ELECTRONICALLY SIGNED BY ROHIT HERRERA MD XR CHEST 1 VIEW Final Result PROCEDURE INFORMATION: Exam: XR Chest Exam date and time: 07/28/2023 7:11 PM Age: 67 years old Clinical indication: Other: SOB TECHNIQUE: Imaging protocol: Radiologic exam of the chest. Views: 1 view. COMPARISON: DX XR CHEST 1 VIEW 09/25/2022 5:28 PM FINDINGS: Lungs: There is poor ventilation of the lungs, accounting for mild diffuse increase in pulmonary parenchymal density. Pleural spaces: Unremarkable. No pleural effusion. No pneumothorax. Heart/Mediastinum: Unremarkable. No cardiomegaly. Bones/joints: Unremarkable. IMPRESSION IMPRESSION: There is no evidence of focal pulmonary consolidation. THIS DOCUMENT HAS BEEN ELECTRONICALLY SIGNED BY ROHIT HERRERA MD ABDOMEN LIMITED (Results Pending) Assessment and Plan IMPRESSION: Active Problems: Major depressive disorder, recurrent 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) Generalized anxiety disorder Dyslipidemia, goal LDL below 100 Type 2 diabetes mellitus with hemoglobin A1c goal of less than 7.0% (HCC) HTN, goal below 140/90 Nausea and vomiting Resolved Problems: * No resolved hospital problems. * DIFFERENTIAL AND PLAN: 7-year-old male with a past medical history of amputation of the left lower extremity, type 2 diabetes mellitus, major depression, hypertension, generalized anxiety disorder, dyslipidemia is admittedto the hospital with intractable nausea and vomiting. Will continue to trend patient's lactate. Patient's VBG was largely unremarkable. Patient's CT abdomen and pelvis and PE were largely unremarkable. Will keep NPO now and treat patient's nausea. - NPO except meds - Isolyte - Nausea control - Trend lactate PHARMACOLOGIC VTE PROPHYLAXIS:Enoxaparin CODE STATUS: Full Code EXPECTED DISCHARGE DATE: No information available This patient was seen, examined, and discussed with Valentina Valenzuela MD at the time of admission. I saw and evaluated the patient today. I have reviewed the trainee note and agree. Patient is a 67 yo gentleman with history of DM, depression, HTN, anxiety, HLD who came with history of nausea, vomiting and abdominal pain. Lactic acid elevated but trending down after IVF. Will continue IVF, NPO, F/U. 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 Estimated blood loss: Minimal. Procedure: Pre-Anesthesia Assessment: - Prior to the procedure, a History and Physical was performed, and patient medications, allergies and sensitivities were reviewed. The patient's tolerance of previous anesthesia was reviewed. - The risks and benefits of the procedure and the sedation options and risks were discussed with the patient. All questions were answered and informed consent was obtained. - Patient identification and proposed procedure were verified prior to the procedure by the physician, the nurse and the curtain stretcher assembler. The procedure was verified in the procedure room. - Pre-procedure physical examination revealed no contraindications to sedation. - ASA Grade Assessment: III - A patient with severe systemic disease. - After reviewing the risks and benefits, the patient was deemed in satisfactory condition to undergo the procedure. - The anesthesia plan was to use general anesthesia. - Immediately prior to administration of medications, the patient was re- assessed for adequacy to receive sedatives. - The heart rate, respiratory rate, oxygen saturations, blood pressure, adequacy of pulmonary ventilation, and response to care were monitored throughout the procedure. - The physical status of the patient was re-assessed after the procedure. After obtaining informed consent, the endoscope was passed under direct vision. All instruments were visually inspected immediately before and after removal from the patient to ensure they are fully intact. Throughout the procedure, the patient's blood pressure, pulse, and oxygen saturations were monitored continuously. The [id number]-Q190 Endoscope ([id number]) was introduced through the mouth, and advanced to the third part of duodenum. The upper GI endoscopy was accomplished without difficulty. The patient tolerated the procedure well. Findings & Specimens: Localized, white plaques were found in the upper third of the esophagus. Biopsies were taken with a cold forceps for histology. The pathology specimen was placed into Bottle C. Estimated blood loss was minimal. Esophagitis with no bleeding was found at the gastroesophageal junction. Biopsies were taken with a cold forceps for histology. The pathology specimen was placed into Bottle B. Estimated blood loss was minimal. Diffuse mild inflammation characterized by erythema and granularity was found in the stomach. Biopsies were taken with a cold forceps for histology. The pathology specimen was placed into Bottle A. Estimated blood loss was minimal. The examined duodenum was normal. Impression: - Esophageal plaques were found, suspicious for candidiasis. Biopsied. - Esophagitis with no bleeding. Biopsied. - Gastritis, This is likely related to 1 of the patient's medications.. Biopsied. - Normal examined duodenum. Recommendation: - Perform an upper endoscopic ultrasound (UEUS) today. - Await pathology results. - Consider a trial of omeprazole 40 mg 1 time daily - medications which cause nausea could include buspirone, Lexapro, trazodone, or amitriptyline Donna De Souza DO 07/30/2023 2:04:26 PM This report has been signed electronically. Estimated Blood Loss: Estimated blood loss was minimal. * Maura Draper MD - 07/30/2023 1:23 PM ESTAssociated Order(s): UPPER ENDOSCOPIC U/S [facility] Patient Name: Epifanio Silva Procedure Date: 07/30/2023 1:23 PM Date of : 1955 Admit Type: Inpatient Note Status: Finalized Date of : 1955 Admit Type: Inpatient Age: 67 Room: OR 2 Gender: Male Note Status: Finalized Procedure: Upper EUS Indications: Lymphadenopathy on CT scan Providers: Donna De Souza DO (Doctor) Referring MD: Maura Draper Medicines: General Anesthesia Complications: No immediate complications. Estimated blood loss: Minimal. Procedure: Pre-Anesthesia Assessment: - Prior to the procedure, a History and Physical was performed, and patient medications, allergies and sensitivities were reviewed. The patient's tolerance of previous anesthesia was reviewed. - The risks and benefits of the procedure and the sedation options and risks were discussed with the patient. All questions were answered and informed consent was obtained. - Patient identification and proposed procedure were verified prior to the procedure by the physician, the nurse and the curtain stretcher assembler. The procedure was verified in the procedure room. - Pre-procedure physical examination revealed no contraindications to sedation. - ASA Grade Assessment: III - A patient with severe systemic disease. - After reviewing the risks and benefits, the patient was deemed in satisfactory condition to undergo the procedure. - The anesthesia plan was to use general anesthesia. - Immediately prior to administration of medications, the patient was re- assessed for adequacy to receive sedatives. - The heart rate, respiratory rate, oxygen saturations, blood pressure, adequacy of pulmonary ventilation, and response to care were monitored throughout the procedure. - The physical status of the patient was re-assessed after the procedure. After obtaining informed consent, the endoscope was passed under direct vision. All instruments were visually inspected immediately before and after removal from the patient to ensure they are fully intact. Throughout the procedure, the patient's blood pressure, pulse, and oxygen saturations were monitored continuously. The [id number] Endoscope ([id number]) was introduced through the mouth, and advanced to the second part of duodenum. The Endosonoscope was introduced through the mouth, and advanced to the second part of duodenum. The upper EUS was accomplished without difficulty. The patient tolerated the procedure well. Findings & Specimens: ENDOSONOGRAPHIC FINDING: : There was no sign of significant endosonographic abnormality in the ampulla. No pathologic lymphadenopathy was identified. There was no sign of significant endosonographic abnormality in the common bile duct. The maximum diameter of the duct was 4 mm. No stones, no biliary sludge and ducts of normal caliber were identified. There was no sign of significant endosonographic abnormality in the gallbladder. An unremarkable gallbladder was identified. There was abnormal echogenicity in the visualized portion of the liver. This area was hyperechoic. There was no sign of significant endosonographic abnormality in the left adrenal gland. No masses and no adrenal gland enlargement were identified. One enlarged lymph node was visualized in the gastrohepatic ligament (level 18). It measured 11 mm by 10 mm in maximal cross-sectional diameter. The node was oval, hypoechoic and had well defined margins. Fine needle aspiration for cytology was performed. Color Doppler imaging was utilized prior to needle puncture to confirm a lack of significant vascular structures within the needle path. Four passes were made with the 22 gauge needle using a transgastric approach. A stylet was used. A senior hr generalist was present to evaluate the adequacy of the specimen. Final cytology results are pending. Estimated blood loss was minimal. There was no sign of significant endosonographic abnormality in the entire pancreas. No masses, no cysts. Impression: - There was no sign of significant pathology in the ampulla. - There was no sign of significant pathology in the common bile duct. - There was no sign of significant pathology in the gallbladder. - There was abnormal echogenicity in the visualized portion of the liver. This was hyperechoic. Tissue has not been obtained. However, the endosonographic appearance is suggestive of fatty infiltration. - Endosonographic images of the left adrenal gland were unremarkable. - One enlarged lymph node was visualized in the gastrohepatic ligament (level 18). Fine needle aspiration performed. - There was no sign of significant pathology in the entire pancreas. Recommendation: - Return patient to [facility] for ongoing care. - Await cytology results. Donna De Souza DO 07/30/2023 2:09:21 PM This report has been signed electronically. Estimated Blood Loss: Estimated blood loss was minimal. * Ramin Swanson DO - 07/28/2023 8:13 PM ESTAssociated Order(s): EKG REASON FOR STUDY: Abdominal pain CONCLUSIONS: Normal sinus rhythm Left axis deviation Left ventricular hypertrophy with secondary QRS widening Prolonged QT interval, consider myocardial disease, electrolytes or drugs Abnormal ECG When compared with ECG of 25-SEP-2022 17:12, Premature supraventricular complexes are no longer Present Ventricular Rate: 96 Atrial Rate: 96 MD Interval: 188 QRS Duration: 122 QT/QTc: 406/512 ms P-R-T [place]: 0 : -43 : 16 degrees documented in this encounter Consult Notes * India Neville OT - 07/31/2023 2:23 PM ESTAssociated Order(s): ADULT OCCUPATIONAL THERAPY CONSULT IP GENERAL EVALUATION - Occupational Therapy [address] [address] Name: Epifanio Silva Location: [facility] [id number] Date: 07/31/2023 Time: 2:43 PM Epifanio Silva is a 67 year old male. Patient Status: Inpatient Insurance: Payor: [employer] Plan: [employer] CLASSIC 1 PART D MC-LD Product Type: *No Product type* Patient Seen: at bedside, nursing cleared patient for therapy Patient Identified By: Name, ID Band and Date Diagnosis: decreased activity tolerance, generalized weakness (07/31/23 144) Status of treatment: Evaluation completed (07/31/231442) Orders: OT evaluation and treatment (07/31/231442) Weight Bearing Status: Weight bearing as tolerated (07/31/23 144) Precautions: Falls;Safety (07/31/23 144) Total Treatment Time: (07/31/231442) 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) Benign neoplasm [...] 11/12/2008 MGD (meibomian gland disease) Moderate malnutrition ([facility]) 08/04/2017 Personal history of diabetic foot ulcer 08/07/2017 Personal history of diabetic foot ulcer 08/07/2017 Primary open angle glaucoma 0.7/0.8 (11/01); FH-;VF 06/28;HRT 04/01 Primary open angle glaucoma 11/15/2010 [facility] gtt 10/21 Status post amputation of great toe, left (HCC) 08/07/2017 Past Surgical History: Past Surgical History: Procedure Laterality Date AMPUTATION OF LOWER LEG Left 09/30/2022 AMPUTATION LEG THROUGH TIBIA AND FIBULA performed by Alexander Campbell MD at OR [facility] AMPUTATION OF TOE Left 08/02/2017 AMPUTATION TOE METATARSOPHALANGEAL JOINT performed by Violet Grier DPM at OR [facility] AMPUTATION OF TOE & METATARSAL Left 09/21/2017 AMPUTATION METATARSAL WITH TOE performed by Violet Grier DPM at OR [facility] AMPUTATION OF TOE & METATARSAL Left 11/21/2017 AMPUTATION METATARSAL WITH TOE performed by Violet Grier DPM at OR [facility] AMPUTATION OF TOE & METATARSAL Left 08/17/2020 AMPUTATION METATARSAL WITH TOE performed by Violet Grier DPM at OR [facility] AMPUTATION THRU METATARSAL Left 07/09/2022 AMPUTATION FOOT TRANSMETATARSAL performed by Jena Butts DPM at OR [facility] COLONOSCOPY W/ BIOPSY (RECTUM) 10/27/2008 poor prep - repeat in 1 year, adenomatous polyp COLONOSCOPY, DIAGNOSTIC (RECTUM) 12/15/2009 fair prep, diverticulosis, repeat in 2 years COLONOSCOPY, DIAGNOSTIC (RECTUM) 12/26/2011 COLONOSCOPY FLEXIBLE PROXIMAL DIAGNOSTIC performed by ROGER GODDARD at ENDOSCOPY [facility] EGD, FLEXIBLE, DIAGNOSTIC N/A 09/18/2020 large amount of blood, clot in stomach, briskly oozing lesion in mid body of stomach, likely AVM, hemostatsis achieved using clips/ESOPHAGOGASTRODUODENOSCOPY (EGD), FLEXIBLE, TRANSORAL, DIAGNOSTIC performed by Terrance Granados MD at OR [facility] EGD, FLEXIBLE, DIAGNOSTIC N/A 07/30/2023 ESOPHAGOGASTRODUODENOSCOPY (EGD), FLEXIBLE, TRANSORAL, DIAGNOSTIC performed by Donna De Souza DO OR [facility] EGD, W/ENDOSCOPIC US N/A 07/30/2023 ESOPHAGOGASTRODUODENOSCOPY (EGD), FLEXIBLE, TRANSORAL, ENDOSCOPIC ULTRASOUND performed by Donna De Souza DO at OR [facility] INCISION OF TOE TENDON Right 10/09/2019 TENOTOMY PERCUTANEOUS TOE performed by Violet Grier DPM at OR [facility] LASER TRABECULOPLASTY 11/22/2016 ALT OS inf 180 PARTIAL AMPUTATION OF TOE Right 11/07/2018 AMPUTATION TOE INTERPHALANGEAL JOINT performed by Violet Grier DPM at OR [facility] PARTIAL AMPUTATION OF TOE Right 10/09/2019 AMPUTATION TOE INTERPHALANGEAL JOINT performed by Violet Grier DPM at OR [facility] REMOVE TONSILS & ADENOIDS, UNDER 12 1960 REPAIR OF HAMMERTOE, ONE TOE Right 10/09/2019 CORRECTION HAMMERTOE performed by Violet Grier DPM at OR [facility] TREAT DEEP FOOT INFECTIONS Left 08/04/2017 INCISION AND DRAINAGE MULTIPLE AREA FOOT performed by Violet Grier DPM at OR [facility] TREAT DEEP FOOT INFECTIONS Left 09/28/2022 INCISION AND DRAINAGE MULTIPLE AREA FOOT performed by Violet Grier DPM at OR [facility] Social History/Disposition Lives with: Alone (07/31/231442) Assistance available: No (07/31/231442) Dwelling type: Apartment (07/31/231442) Entry steps: (7 with railing) (07/31/231442) Inside steps: 10 - 15 (12 with railing) (07/31/231442) Bedroom location: 2nd floor (07/31/231442) Bath location: 2nd floor full bath (07/31/231442) Prior Level of Function Reported by: Patient (07/31/231442) Ambulation: Ambulatory with device (07/31/231442) Ambulatory Device: Cane (L LE prosthetic) (12/19/23 1443) Grooming: Independent (07/31/23 144) Bathing: Independent (07/31/23 144) Dressing: Independent (07/31/23 144) Feeding: Independent (07/31/231442) Toileting: Independent (07/31/23 1443) Meal Prep: Independent (07/31/23 144) Homemaking: Independent (07/31/23 144) Shopping: Independent (07/31/23 144) Medication Management: Independent (07/31/231442) Durable Medical Equipment at home: Rolling walker;Straight cane (07/31/231442) Subjective: The pt was agreeable to participate in OT, he denied concerns about self-care/ functional mobility. Pain: No complaints of pain Observations Consciousness: Alert (07/31/231442) Orientation: Oriented times 4 (07/31/231442) Other Findings Light touch sensation: RUE;Impaired (tingling in 5th digit, otherwise intact) (07/31/231442) Current Functional Status: Bilateral Upper Extremity Hand Dominance: Right (07/31/231442) Range of Motion: WNL (07/31/231442) Strength Assessment: (at least) (07/31/231442) Self Care Feeding: Independent (07/31/231442) Dressing Upper Body: (OT untied gown, pt donned own tshirt) (07/31/231442) Lower Body: (independent for prosthesis, per PT) (07/31/231442) Bathing Upper Body: (setup with wipes) (07/31/231442) Bed Mobility Supine-Sit: Modified Independent (used railing) (07/31/231442) Sit-Supine: Independent (07/31/231442) Alarm Status Patient positioned in: Bed (07/31/231442) With: Call valdivia in reach (07/31/231442) Patient and Family Goals: to get well and to return home Patient Education Education Topic: Role of OT;Plan of care goals (07/31/231442) Review of Precautions: Safety;Fall (07/31/231442) Education Provided to: Patient (07/31/231442) Response to Education: Receptive and agreeable to education (07/31/231442) Barriers to learning: Medical status (07/31/231442) Preferred learning method: Combination (07/31/231442) Treatment Provided: Therapeutic Activity: 10 minutes Evaluation Low Complexity 13 minutes - [id number]: Patient was cooperative, pleasant, and alert during treatment session. Low complexity evaluation performed and functional mobility deficit, decreased endurance, and impaired balance deficits were identified that result in activity limitation. The patient does not have any comorbidities that affect occupational performance. There were no modifications necessary to complete the evaluation. Deficits Requiring O.T. Treatment: Deficits requiring O.T. treatment needs: ADL/self-care;Endurance;Balance;Functional mobility;Upper extremity strength (activity tolerance) (07/31/231442) Goals: Bathing: Upper: independent (pt does 100%). Lower: independent (pt does 100%) Dressing: Upper: independent (pt does 100%). Lower: independent (pt does 100%). Demonstrates ability to tolerate out of bed mobility at least 3 times a day for 2 consecutive days. Goal Time Frame: Within 10 treatment sessions. Assessment: The patient tolerated OT fairly well. He completed bed mobility without hands-on assistance. He donned a t-shirt without assistance; assistance was provided to [facility]. The pt declined to don prothesis, but as per PT, he donned it independently this AM. OT AM-PAC score is 20. Would consider home with post-acute care services which may include outpatient therapy or home health. The level of care will be determined in collaboration with the patient, family/caregiver, and care team members. OT will follow and treat at [facility] to maximize the patient's functional skills while at the acute care level. Treatment Plan: Energy Conservation, Safety, Functional Ambulation, Transfer training, Upper extremity strengthening, Balance activities, and Endurance Anticipated Frequency (on eval): 1 to 3 times per week (07/31/231442) AM-PAC Help From Another Person Eating Meals: None (07/31/231442) Help From Another Person Taking Care of Personal Grooming: A little (07/31/231442) Help From Another Person To Put On/Take Off Upper Body Clothing: A little (07/31/231442) Help From Another Person To Put On/Take Off Lower Body Clothing: None (07/31/231442) Help From Another Person Toileting: A little (07/31/231442) Help From Another Person Bathing: A little (07/31/231442) OT AM-PAC Score: 20 (07/31/231442) OT AM-PAC t-Scale Score: 42.03 (07/31/231442) HLM (Highest Level of Mobility) Goal: Level 6 walk 10 steps or more (07/31/231119) * Kathryn Olivo, PT - 07/31/2023 11:20 AM ESTAssociated Order(s): ADULT PHYSICAL THERAPY CONSULT IP GENERAL EVALUATION - Physical Therapy [address] [address] Name: Epifanio Silva Location: [place] [address]/ Date: 07/31/2023 Time: 1119 Epifanio Silva is a/an 67 year old male. Patient Status: Inpatient Insurance: Payor: [employer] Plan: [employer] CLASSIC 1 PART D - Product Type: *No Product type* Patient Seen: at bedside. Patient Identified By: Name, ID Band and Date Diagnosis: N/V, abdominal pain, dehydration (07/31/231119) Status of treatment: OOB evaluation completed (07/31/231119) Orders: PT evaluation and treatment (07/31/231119) Weight Bearing Status: Weight bearing as tolerated (07/31/231119) Precautions: Alarms;Falls;Safety (07/31/231119) Total Treatment Time--free text: 38 (07/31/231119) As per H&P: "67-year-old male with a past medical history of amputation of the left lower extremity, type 2 diabetes mellitus, major depression, hypertension, generalized anxiety disorder, dyslipidemia is admitted to the hospital with intractable nausea and vomiting. Patient states he started feeling nauseous around 4 days ago and started vomiting 3 days ago. Patient states the vomitus is nonbloody. Patient states he has had low oral fluid intake and food intake due to the vomiting. Patienthas had a bowel movement 48 hours ago, denies any blood or black tarry stools present. Patient states he does have shortness of breath, however states that was his new baseline after getting COVID infection 4 years ago. Denies any additional dyspnea, wheezing, chest pain. Patient additionally denies any fever, chills, lightheadedness, headaches, cough. Patient denies any alcohol abuse come my tobacco use or illicit drug use. In the ED patient's lactate initially was elevated, on repeated had decreased after fluid was given. Patient's abdominal pain had somewhat improved upon evaluation. Patient's vitals were stable, however he was tachycardic." US abdomen: IMPRESSION: 1. No signs of acute cholecystitis. 2. Possible hepatic steatosis. 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) Benign neoplasm [...] 11/12/2008 MGD (meibomian gland disease) Moderate malnutrition (HCC) 08/04/2017 Personal history of diabetic foot ulcer 08/07/2017 Personal history of diabetic foot ulcer 08/07/2017 Primary open angle glaucoma 0.7/0.8 (11/01); FH-;VF 06/28;HRT 04/01 Primary open angle glaucoma 11/15/2010 [facility] gtt 10/21 Status post amputation of great toe, left (HCC) 08/07/2017 Past Surgical History: Past Surgical History: Procedure Laterality Date AMPUTATION OF LOWER LEG Left 09/30/2022 AMPUTATION LEG THROUGH TIBIA AND FIBULA performed by Alexander Campbell MD at OR [facility] AMPUTATION OF TOE Left 08/02/2017 AMPUTATION TOE METATARSOPHALANGEAL JOINT performed by Violet Grier DPM at OR [facility] AMPUTATION OF TOE & METATARSAL Left 09/21/2017 AMPUTATION METATARSAL WITH TOE performed by Violet Grier DPM at OR [facility] AMPUTATION OF TOE & METATARSAL Left 11/21/2017 AMPUTATION METATARSAL WITH TOE performed by Violet Grier DPM at OR [facility] AMPUTATION OF TOE & METATARSAL Left 08/17/2020 AMPUTATION METATARSAL WITH TOE performed by Violet Grier DPM at OR [facility] AMPUTATION THRU METATARSAL Left 07/09/2022 AMPUTATION FOOT TRANSMETATARSAL performed by Jena Butts DPM at OR [facility] COLONOSCOPY W/ BIOPSY (RECTUM) 10/27/2008 poor prep - repeat in 1 year, adenomatous polyp COLONOSCOPY, DIAGNOSTIC (RECTUM) 12/15/2009 fair prep, diverticulosis, repeat in 2 years COLONOSCOPY, DIAGNOSTIC (RECTUM) 12/26/2011 COLONOSCOPY FLEXIBLE PROXIMAL DIAGNOSTIC performed by ROGER GODDARD at ENDOSCOPY [facility] EGD, FLEXIBLE, DIAGNOSTIC N/A 09/18/2020 large amount of blood, clot in stomach, briskly oozing lesion in mid body of stomach, likely AVM, hemostatsis achieved using clips/ESOPHAGOGASTRODUODENOSCOPY (EGD), FLEXIBLE, TRANSORAL, DIAGNOSTIC performed by Terrance Granados MD at OR [facility] EGD, FLEXIBLE, DIAGNOSTIC N/A 07/30/2023 ESOPHAGOGASTRODUODENOSCOPY (EGD), FLEXIBLE, TRANSORAL, DIAGNOSTIC performed by Donna De Souza DOat OR [facility] EGD, W/ENDOSCOPIC US N/A 07/30/2023 ESOPHAGOGASTRODUODENOSCOPY (EGD), FLEXIBLE, TRANSORAL, ENDOSCOPIC ULTRASOUND performed by Donna De Souza DO at OR [facility] INCISION OF TOE TENDON Right 10/09/2019 TENOTOMY PERCUTANEOUS TOE performed by Violet Grier DPM at OR [facility] LASER TRABECULOPLASTY 11/22/2016 ALT OS inf 180 PARTIAL AMPUTATION OF TOE Right 11/07/2018 AMPUTATION TOE INTERPHALANGEAL JOINT performed by Violet Grier DPM at OR [facility] PARTIAL AMPUTATION OF TOE Right 10/09/2019 AMPUTATION TOE INTERPHALANGEAL JOINT performed by Violet Grier DPM at OR [facility] REMOVE TONSILS & ADENOIDS, UNDER 12 1960 REPAIR OF HAMMERTOE, ONE TOE Right 10/09/2019 CORRECTION HAMMERTOE performed by Violet Grier DPM at OR [facility] TREAT DEEP FOOT INFECTIONS Left 08/04/2017 INCISION AND DRAINAGE MULTIPLE AREA FOOT performed by Violet Grier DPM at OR [facility] TREAT DEEP FOOT INFECTIONS Left 09/28/2022 INCISION AND DRAINAGE MULTIPLE AREA FOOT performed by Violet Grier DPM at OR [facility] Subjective: "I feel like I can go home today." Social History/Disposition Lives with: Alone (07/31/23 112) Assistance available: No (07/31/23 112) Dwelling type: Apartment (07/31/23 112) Entry steps: Other - Describe (7 with HR) (07/31/23 1120) Inside steps: 10 - 15 (12 with HR) (07/31/23 1120) Bedroom location: 2nd floor (07/31/23 1120) Bath location: 2nd floor full bath (07/31/23 112) Prior Level of Function Reported by: Patient;Chart review (07/31/231119) Ambulation: Ambulatory with device (07/31/23 1120) Ambulatory Device: Cane (07/31/23 1120) Devices at home: Straight cane (07/31/23 1120) Observations Consciousness: Alert (07/31/23 1120) Orientation: Oriented times 4 (121119) Psychosocial: Patient can communicate basic needs;Patient can converse in a social setting (07/31/231119) Other Findings: Yes (07/31/231119) Findings: Light touch sensation;Edema;Tone (07/31/231119) Light Touch Sensation Results: Impaired;RLE (07/31/231119) Edema Results: Absent;LLE;RLE (07/31/231119) Tone Results: Intact;LLE;RLE (07/31/231119) Sitting Posture: Forward head;Rounded shoulders (07/31/231119) Standing Posture: Forward head;Rounded shoulders (07/31/231119) Pain: No complaints of pain Range of Motion Range of Motion: WFL (07/31/231119) Strength Assessment Strength Assessment: WNL (07/31/231119) Transfers Sit-Stand: Supervision (07/31/231119) Stand-Sit: Supervision (07/31/231119) W/C-Bed/Mat: Supervision (07/31/231119) Ambulation: Distance ambulated (feet): 200 Assistive Device: Straight cane Assist: Contact Guard Stair Training: Number of stairs: 15 Number of handrails: 1 Level of Assistance: CGA Balance Sit (Static): Good (07/31/231119) Sit (Dynamic): Good (07/31/231119) Stand (Static): Fair (07/31/231119) Stand (Dynamic): Fair (07/31/231119) Patient and or Family Goal(s): to get well and to return home. Pt denies any recent falls. 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 Patient Education Review of Precautions: Safety;Fall (07/31/231119) Safety Awareness: Patient verbalizes insight of current deficits;Patient demonstrates carryover of insight during functional tasks;Patient can communicate basic needs (07/31/231119) Preferred learning method: Combination (07/31/231119) Barriers to learning: Medical Status (07/31/231119) Method of Education: Verbalized to patient;Patient demonstrated task (07/31/231119) Topic of Education: Safety with mobility, Goals/plan of care, Use of assistive device, Fall prevention, and discharge planning. Method of Education: Verbal discussion and explanation provided to pt regarding goals for PT consult, safety and fall prevention strategies and discharge planning: verbalized understanding and or agreement of this information Treatment Provided: Therapeutic Activities 15 minutes: transfer training toilet transfer training Standing tolerance Gait Training 14 minutes: gait training with cane stair training Evaluation Moderate Complexity 9 minutes - [id number]: Patient was cooperative, pleasant, motivated, alert, and willing to participate during treatment session. Moderate complexity evaluation performed and 1-2 personal factors or comorbidities were identified that will impact plan of care, including multiple steps at home, lives alone at home, and this admission for nausea, vomiting, abdominal pain and dehydration. Patient presents with limitations in bed mobility, transfers, gait, elevations, balance, endurance, and safety, which will impact plan of care. These limitations will be addressed by the goals set for this patient. Alarm Status Patient positioned in: Chair (07/31/23 1120) With: Call valdivia in reach (07/31/23 1120) Treatment Status: Treatment at bedside (07/31/23 1120) Goals(within 10 sessions): Demonstrate Bed Mobility with: Supine <> Sit: independent (pt does 100%) Demonstrate Transfers with: Sit <> stand: independent (pt does 100%) Bed <> chair: independent (pt does 100%) Demonstrate Ambulation: level of assistance on level surface: modified independent (with device or slow) with SPC >300 Demonstrate Stairclimbing: Number of steps: 15 with HR and independence for access to home setting Increase Balance: in standing to Fair+ for improved stability Increase Safety: with use of AD and assistance for fall prevention strategies Assessment: PT consult completed with pt demonstrating supervision level transfers from bed, chair and toilet surfaces. Pt is independent with donning prosthesis L BKA. Amb with SPC 200 ft with mild unsteadiness and no LOB and SOB. B LE ROM and strength are WFL and standing balance is Fair at RW. Multiple standing trials at bedside and bathroom with mild unsteadiness. Stair training with 1 HR 15 ft with step to gt pattern and CGA. Would consider home with post- acute care services which may include outpatient therapy or home health. The level of care will be determined in collaboration with the patient, family/caregiver, and care team members. AMPAC of 20 Deficits requiring P.T. treatment needs: Safety;Mobility;Balance;Endurance (12/19/23 1120) Equipment Needs: Equipment needs: (Pt has DME in home setting) (07/31/23 112) Treatment Plan: Bed mobility training, Transfer training, Gait training with RW, Elevation training, Standing Balance activities, and Educate on safety with use of AD and assistance for fall prevention strategies. Anticipated Frequency (on eval): 3 to 5 times per week (07/31/23 1120) AM PAC Score with Stairs: 20 * Rachelle Agudelo PA-C - 07/30/2023 8:43 AM ESTAssociated Order(s): GASTROENTEROLOGY CONSULT IP CONSULT - Gastroenterology [facility]-[address] [place] [id number] Name: Epifanio Silva Location: [place] [id number]/ Date: 07/30/2023 Time: 8:43 AM REQUESTING SERVICE: Medicine REASON FOR CONSULT: Intractable nausea and vomiting- distal esophageal thickening with associated lymphadenopathy- evaland treat HPI: Epifanio Silva is a 67 year old male w/ PMHx T2DM, s/p amputation of left lower leg, and others below, admitted w/ n/v. 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) (HCC) Benign neoplasm [...] depressive disorder, recurrent severe without psychotic features ([facility]) 11/12/2008 MGD (meibomian gland disease) Moderate malnutrition ([facility]) 08/04/2017 Personal history of diabetic foot ulcer 08/07/2017 Personal history of diabetic foot ulcer 08/07/2017 Primary open angle glaucoma 0.7/0.8 (11/01); FH-;VF 06/28;HRT 04/01 Primary open angle glaucoma 11/15/2010 [facility] gtt 10/21 Status post amputation of great toe, left ([facility]) 08/07/2017 Pt states he developed epigastric discomfort and postprandial nausea, vomiting several days ago. Hewas unable to keep anything down PO. Had been losing weight but unsure how much. Hasn't had any BMsin several days. Denies any hematemesis, melena or hematochezia, fevers or chills, chest pain or shortness of breath. On arrival to hospital, had elevated lactate, that improved after IVF. Has a mild anemia with a hemoglobin of 13.6. LFTs WNl. CT chest suggestive of esophagus is patulous and somewhat dilated. Mild thickening of distal esophageal wall. Question reflux disease and esophagitis. Patient states he does feel somewhat improved currently. No current nausea or vomiting. He does have occasional heartburn. 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 No tobacco or EtOH use. EGD 2020: Impression: Large amount of blood/clot in the stomach that was cleared. Briskly oozing lesion in mid body of stomach, likely an AVM. Hemostasis achieved using clips. Last colonoscopy 2011: - Diverticulosis in the sigmoid colon. - Otherwise normal to the terminal ileum, with retroflexed views of the ascending colon and rectum. Past Surgical History: Past Surgical History: Procedure Laterality Date AMPUTATION OF LOWER LEG Left 09/30/2022 AMPUTATION LEG THROUGH TIBIA AND FIBULA performed by Alexander Campbell MD at OR [facility] AMPUTATION OF TOE Left 08/02/2017 AMPUTATION TOE METATARSOPHALANGEAL JOINT performed by Violet Grier DPM at OR [facility] AMPUTATION OF TOE & METATARSAL Left 09/21/2017 AMPUTATION METATARSAL WITH TOE performed by Violet Grier DPM at OR [facility] AMPUTATION OF TOE & METATARSAL Left 11/21/2017 AMPUTATION METATARSAL WITH TOE performed by Violet Grier DPM at OR [facility] AMPUTATION OF TOE & METATARSAL Left 08/17/2020 AMPUTATION METATARSAL WITH TOE performed by Violet Grier DPM at OR [facility] AMPUTATION THRU METATARSAL Left 07/09/2022 AMPUTATION FOOT TRANSMETATARSAL performed by Jena Butts DPM at OR [facility] COLONOSCOPY W/ BIOPSY (RECTUM) 10/27/2008 poor prep - repeat in 1 year, adenomatous polyp COLONOSCOPY, DIAGNOSTIC (RECTUM) 12/15/2009 fair prep, diverticulosis, repeat in 2 years COLONOSCOPY, DIAGNOSTIC (RECTUM) 12/26/2011 COLONOSCOPY FLEXIBLE PROXIMAL DIAGNOSTIC performed by ROGER GODDARD at ENDOSCOPY [facility] EGD, FLEXIBLE, DIAGNOSTIC N/A 09/18/2020 large amount of blood, clot in stomach, briskly oozing lesion in mid body of stomach, likely AVM, hemostatsis achieved using clips/ESOPHAGOGASTRODUODENOSCOPY (EGD), FLEXIBLE, TRANSORAL, DIAGNOSTIC performed by Terrance Granados MD at OR [facility] INCISION OF TOE TENDON Right 10/09/2019 TENOTOMY PERCUTANEOUS TOE performed by Violet Grier DPM at OR [facility] LASER TRABECULOPLASTY 11/22/2016 ALT OS inf 180 PARTIAL AMPUTATION OF TOE Right 11/07/2018 AMPUTATION TOE INTERPHALANGEAL JOINT performed by Violet Grier DPM at OR [facility] PARTIAL AMPUTATION OF TOE Right 10/09/2019 AMPUTATION TOE INTERPHALANGEAL JOINT performed by Violet Grier DPM at OR [facility] REMOVE TONSILS & ADENOIDS, UNDER 12 1960 REPAIR OF HAMMERTOE, ONE TOE Right 10/09/2019 CORRECTION HAMMERTOE performed by Violet Grier DPM at OR [facility] TREAT DEEP FOOT INFECTIONS Left 08/04/2017 INCISION AND DRAINAGE MULTIPLE AREA FOOT performed by Violet Grier DPM at OR [facility] TREAT DEEP FOOT INFECTIONS Left 09/28/2022 INCISION AND DRAINAGE MULTIPLE AREA FOOT performed by Violet Grier DPM at OR [facility] Social History: Social History Tobacco Use Smoking status: Never Smokeless tobacco: Never Vaping Use Vaping Use: Never used Substance Use Topics Alcohol use: Not Currently Drug use: Never Family History: Family History Problem Relation Age of Onset Diabetes Father CLL Neurological Disorder Mother Parkinsons, breast ca age 60-70 No Past Hx Brother Allergies: Patient has no known allergies. ROS: A complete review of systems is as stated above, otherwise, all others negative. PHYSICAL EXAMINATION: Most Recent Vital Signs: BP: 131 mmHg/73 mmHg (07/30/23 075) Pulse: 88 (07/30/23 075) Temp: 36.28 C (07/30/23752) Resp: 18 (07/30/23752) SpO2: 97 % (07/30/23752) Vital Signs Last 24 Hours: Systolic BP: Most Recent Systolic BP Av.7 mmHg Min: 110 mmHg Max: 131 mmHg Temperature: Most Recent Temperature Av.3 C Min: 36.28 C Max: 36.39 C Pulse: Pulse Av.2 Min: 82 Max: 94 Respirations: Resp Av.3 Min: 16 Max: 18 SpO2: SpO2 Av % Min: 97 % Max: 97 % Constitutional: no acute distress + chronically ill HEENT: normal: normocephalic Eyes: no scleral icterus, redness, or injection Neck: supple, normal range of motion CV: normal rate and rhythm Chest: normal respiratory effort Abdomen: normal: soft, bowel sounds normal, no masses, tenderness or appreciable ascites Skin: warm and dry, no rashes Neuro: normal mental status exam Psych: normal mood and affect, memory normal LABS: Labs reviewed. Recent Results (from the past 24 hour(s)) GLUCOSE METER, POINT OF CARE Collection Time: 07/29/23 4:59 PM Result Value Ref Range Glucose Meter 130 (H) 70 - 120 mg/dL GLUCOSE METER, POINT OF CARE Collection Time: 07/29/23 10:00 PM Result Value Ref Range Glucose Meter 115 70 - 120 mg/dL BASIC METABOLIC PANEL Collection Time: 07/30/23 5:19 AM Result Value Ref Range BUN 15 6 - 20 mg/dL Creatinine 0.9 0.6 - 1.2 mg/dL Estimated Glomerular Filtration Rate >90 >=60 mL/min Sodium 142 135 - 146 mmol/L Potassium 3.5 3.5 - 5.1 mmol/L Chloride 105 98 - 107 mmol/L CO2 28 22 - 32 mmol/L Anion Gap 9 7 - 15 mmol/L Glucose 77 70 - 120 mg/dL Calcium 9.1 8.4 - 10.2 mg/dL PHOSPHORUS Collection Time: 07/30/23 5:19 AM Result Value Ref Range Phosphorus 2.7 2.5 - 4.8 mg/dL MAGNESIUM Collection Time: 07/30/23 5:19 AM Result Value Ref Range Magnesium 1.9 1.5 - 2.6 mg/dL CBC Collection Time: 07/30/23 5:19 AM Result Value Ref Range WBC 7.32 4.00 - 10.80 K/uL RBC 4.43 4.50 - 5.25 M/uL HGB 13.6 (L) 14.0 - 16.8 g/dL HCT 39.9 (L) 40.0 - 48.4 % MCV 90.1 82.0 - 99.5 fL MCH 30.7 27.0 - 34.0 pg MCHC 34.1 32.0 - 36.0 g/dL RDW 14.0 11.5 - 15.5 % PLT 213 140 - 400 K/uL MPV 9.0 6.6 - 11.1 fL nRBCs 0 <=0 /100 WBCs HEPATIC FUNCTION PANEL Collection Time: 07/30/23 5:19 AM Result Value Ref Range Albumin 3.6 (L) 3.8 - 5.0 g/dL AST 15 10 - 50 U/L Alkaline Phosphatase 94 35 - 130 U/L ALT 22 10 - 50 U/L Bilirubin, Total 0.7 <=1.2 mg/dL Bilirubin, Direct <0.2 0.0 - 0.3 mg/dL Protein 5.8 (L) 6.0 - 8.3 g/dL PROCALCITONIN Collection Time: 07/30/23 5:19 AM Result Value Ref Range Procalcitonin 0.05 <0.10 ng/mL GLUCOSE METER, POINT OF CARE Collection Time: 07/30/23 7:57 AM Result Value Ref Range Glucose Meter 105 70 - 120 mg/dL GLUCOSE METER, POINT OF CARE Collection Time: 07/30/23 11:35 AM Result Value Ref Range Glucose Meter 122 (H) 70 - 120 mg/dL IMAGING: US ABDOMEN LIMITED Final Result PROCEDURE INFORMATION: Exam: US Abdomen, Limited; Right Upper Quadrant Exam date and time: 07/29/2023 9:20 AM Age: 67 years old Clinical indication: Abdominal pain; Generalized; Additional info: Evaluate for cholelcystitis TECHNIQUE: Imaging protocol: Real time ultrasound of the abdomen with image documentation. Limited exam focused on the right upper quadrant. COMPARISON: CT ABD/PELVIS W IV CONTRAST - WO ORAL CONTRAST 07/28/2023 7:59 PM FINDINGS: Liver: Increased echogenicity of the liver may be consistent with hepatic steatosis. Gallbladder: No gallstones identified. No pericholecystic fluid. No gallbladder wall thickening. Negative sonographic Miles sign. Biliary ducts: The common bile duct measures up to 4 mm in diameter. Pancreas: Visualized pancreas is unremarkable. Right kidney: The right kidney measures 12.4 x 5.0 x 6.4 cm. No hydronephrosis. Simple appearing cyst in the interpolar region of the right kidney measuring up to 11 mm. IMPRESSION IMPRESSION: 1. No signs of acute cholecystitis. 2. Possible hepatic steatosis. THIS DOCUMENT HAS BEEN ELECTRONICALLY SIGNED BY KRISTI BA MD CT PULMONARY EMBOLUS W CONTRAST Final Result PROCEDURE INFORMATION: Exam: CTA Chest With Contrast Exam date and time: 07/28/2023 7:59 PM Age: 67 years old Clinical indication: Abdominal pain; Other: Anxiety; Additional info: Severe generalized abdominal pain TECHNIQUE: Imaging protocol: Computed tomographic angiography of the chest with contrast. Exam focused on the arteries. 3D rendering (Not supervised by radiologist): MIP and/or 3D reconstructed images were created by the technologist. Radiation optimization: All CT scans at this facility use at least one of these dose optimization techniques: automated exposure control; mA and/or kV adjustment per patient size (includes targeted exams where dose is matched to clinical indication); or iterative reconstruction. Contrast material: [id number]; Contrast volume: 100 ml; Contrast route: INTRAVENOUS (IV); REPORTING DATA: Count of CT and Cardiac NM exams in prior 12 months: This patient has received [address] and 0 known cardiac nuclear medicine studies in the 12 months prior to the current study. COMPARISON: CT PULMONARY EMBOLUS W CONTRAST 07/28/2023 7:59 PM FINDINGS: Pulmonary arteries: Normal. No pulmonary emboli. Aorta: Unremarkable. No aortic aneurysm. No aortic dissection. Lungs: Minimal atelectatic changes at the lung bases. Pleural spaces: Unremarkable. No pneumothorax. No pleural effusion. Heart: Unremarkable. No cardiomegaly. No pericardial effusion. Mediastinal space: Esophagus is patulous and somewhat dilated. Mild thickening of distal esophageal wall. Lymph nodes: No significant mediastinal adenopathy. Nonspecific 1 cm lymph node adjacent to the gastroesophageal junction at the site of hiatus hernia, series 17 image 27 Bones/joints: There are moderate degenerative changes present. Soft tissues: Unremarkable. IMPRESSION IMPRESSION: 1. There is no evidence of filling defects within the pulmonary arterial circulation to suggest pulmonary embolism. 2. Esophagus is patulous and somewhat dilated. Mild thickening of distal esophageal wall. Question reflux disease and esophagitis. Recommend clinical correlation. Further evaluation with upper GI or EGD may be considered to evaluate the wall thickening of the distal esophagus and exclude any underlying lesions. 3. Nonspecific lymph nodes at the level of the diaphragm adjacent to the gastroesophageal junction. Recommend attention on follow-up. PROCEDURE INFORMATION: Exam: CT Abdomen And Pelvis With Contrast Exam date and time: 07/28/2023 7:59 PM Age: 67 years old Clinical indication: Abdominal pain; Other: Anxiety; Additional info: Severe generalized abdominal pain TECHNIQUE: Imaging protocol: Computed tomography of the abdomen and pelvis with contrast. Radiation optimization: All CT scans at this facility use at least one of these dose optimization techniques: automated exposure control; mA and/or kV adjustment per patient size (includes targeted exams where dose is matched to clinical indication); or iterative reconstruction. Contrast material: [id number]; Contrast volume: 100 ml; Contrast route: INTRAVENOUS (IV); REPORTING DATA: Count of CT and Cardiac NM exams in prior 12 months: This patient has received [address] and 0 known cardiac nuclear medicine studies in the 12 months prior to the current study. COMPARISON: CT ABD/PELVIS WO IV/ORAL CONTRAST 09/25/2022 8:16 PM FINDINGS: Lungs: No acute abnormality. Liver: Normal. No mass. Gallbladder and bile ducts: The gallbladder is distended. Pancreas: There is diffuse atrophy of the pancreatic parenchyma. Spleen: Normal. No splenomegaly. Adrenal glands: Mild adrenal hyperplasia. Kidneys and ureters: Bilateral extrarenal pelves, right greater than left. Remainder of the ureters is unremarkable.There is no evidence of renal or ureteral calcifications. Stomach and bowel: Thickening of the gastric wall nonspecific and may be associated with nondistention. Mild diverticulosis is present in the distal colon. There is no evidence of intestinal obstruction. Appendix: No evidence of appendicitis. Intraperitoneal space: Unremarkable. No free air. No significant fluid collection. Vasculature: Unremarkable. No abdominal aortic aneurysm. Lymph nodes: Unremarkable. No enlarged lymph nodes. Urinary bladder: Unremarkable as visualized. Reproductive: Unremarkable as visualized. Bones/joints: The spine demonstrates moderate degenerative changes at multiple levels. Soft tissues: Unremarkable. IMPRESSION: 1. Overall nonobstructive bowel gas pattern. No focal inflammation identified 2. The gallbladder is distended. If pain referred to this area consider ultrasound to further evaluate 3. Mild diverticulosis without significant inflammation THIS DOCUMENT HAS BEEN ELECTRONICALLY SIGNED BY ROHIT HERRERA MD CT ABD/PELVIS W IV CONTRAST - WO ORAL CONTRAST Final Result PROCEDURE INFORMATION: Exam: CTA Chest With Contrast Exam date and time: 07/28/2023 7:59 PM Age: 67 years old Clinical indication: Abdominal pain; Other: Anxiety; Additional info: Severe generalized abdominal pain TECHNIQUE: Imaging protocol: Computed tomographic angiography of the chest with contrast. Exam focused on the arteries. 3D rendering (Not supervised by radiologist): MIP and/or 3D reconstructed images were created by the technologist. Radiation optimization: All CT scans at this facility use at least one of these dose optimization techniques: automated exposure control; mA and/or kV adjustment per patient size (includes targeted exams where dose is matched to clinical indication); or iterative reconstruction. Contrast material: [id number]; Contrast volume: 100 ml; Contrast route: INTRAVENOUS (IV); REPORTING DATA: Count of CT and Cardiac NM exams in prior 12 months: This patient has received [address] and 0 known cardiac nuclear medicine studies in the 12 months prior to the current study. COMPARISON: CT PULMONARY EMBOLUS W CONTRAST 07/28/2023 7:59 PM FINDINGS: Pulmonary arteries: Normal. No pulmonary emboli. Aorta: Unremarkable. No aortic aneurysm. No aortic dissection. Lungs: Minimal atelectatic changes at the lung bases. Pleural spaces: Unremarkable. No pneumothorax. No pleural effusion. Heart: Unremarkable. No cardiomegaly. No pericardial effusion. Mediastinal space: Esophagus is patulous and somewhat dilated. Mild thickening of distal esophageal wall. Lymph nodes: No significant mediastinal adenopathy. Nonspecific 1 cm lymph node adjacent to the gastroesophageal junction at the site of hiatus hernia, series 17 image 27 Bones/joints: There are moderate degenerative changes present. Soft tissues: Unremarkable. IMPRESSION IMPRESSION: 1. There is no evidence of filling defects within the pulmonary arterial circulation to suggest pulmonary embolism. 2. Esophagus is patulous and somewhat dilated. Mild thickening of distal esophageal wall. Question reflux disease and esophagitis. Recommend clinical correlation. Further evaluation with upper GI or EGD may be considered to evaluate the wall thickening of the distal esophagus and exclude any underlying lesions. 3. Nonspecific lymph nodes at the level of the diaphragm adjacent to the gastroesophageal junction. Recommend attention on follow-up. PROCEDURE INFORMATION: Exam: CT Abdomen And Pelvis With Contrast Exam date and time: 07/28/2023 7:59 PM Age: 67 years old Clinical indication: Abdominal pain; Other: Anxiety; Additional info: Severe generalized abdominal pain TECHNIQUE: Imaging protocol: Computed tomography of the abdomen and pelvis with contrast. Radiation optimization: All CT scans at this facility use at least one of these dose optimization techniques: automated exposure control; mA and/or kV adjustment per patient size (includes targeted exams where dose is matched to clinical indication); or iterative reconstruction. Contrast material: [id number]; Contrast volume: 100 ml; Contrast route: INTRAVENOUS (IV); REPORTING DATA: Count of CT and Cardiac NM exams in prior 12 months: This patient has received [address] and 0 known cardiac nuclear medicine studies in the 12 months prior to the current study. COMPARISON: CT ABD/PELVIS WO IV/ORAL CONTRAST 09/25/2022 8:16 PM FINDINGS: Lungs: No acute abnormality. Liver: Normal. No mass. Gallbladder and bile ducts: The gallbladder is distended. Pancreas: There is diffuse atrophy of the pancreatic parenchyma. Spleen: Normal. No splenomegaly. Adrenal glands: Mild adrenal hyperplasia. Kidneys and ureters: Bilateral extrarenal pelves, right greater than left. Remainder of the ureters is unremarkable.There is no evidence of renal or ureteral calcifications. Stomach and bowel: Thickening of the gastric wall nonspecific and may be associated with nondistention. Mild diverticulosis is present in the distal colon. There is no evidence of intestinal obstruction. Appendix: No evidence of appendicitis. Intraperitoneal space: Unremarkable. No free air. No significant fluid collection. Vasculature: Unremarkable. No abdominal aortic aneurysm. Lymph nodes: Unremarkable. No enlarged lymph nodes. Urinary bladder: Unremarkable as visualized. Reproductive: Unremarkable as visualized. Bones/joints: The spine demonstrates moderate degenerative changes at multiple levels. Soft tissues: Unremarkable. IMPRESSION: 1. Overall nonobstructive bowel gas pattern. No focal inflammation identified 2. The gallbladder is distended. If pain referred to this area consider ultrasound to further evaluate 3. Mild diverticulosis without significant inflammation THIS DOCUMENT HAS BEEN ELECTRONICALLY SIGNED BY ROHIT HERRERA MD XR CHEST 1 VIEW Final Result PROCEDURE INFORMATION: Exam: XR Chest Exam date and time: 07/28/2023 7:11 PM Age: 67 years old Clinical indication: Other: SOB TECHNIQUE: Imaging protocol: Radiologic exam of the chest. Views: 1 view. COMPARISON: DX XR CHEST 1 VIEW 09/25/2022 5:28 PM FINDINGS: Lungs: There is poor ventilation of the lungs, accounting for mild diffuse increase in pulmonary parenchymal density. Pleural spaces: Unremarkable. No pleural effusion. No pneumothorax. Heart/Mediastinum: Unremarkable. No cardiomegaly. Bones/joints: Unremarkable. IMPRESSION IMPRESSION: There is no evidence of focal pulmonary consolidation. THIS DOCUMENT HAS BEEN ELECTRONICALLY SIGNED BY ROHIT HERRERA MD IMPRESSION: Epifanio Silva is a(n) 67 year old male who presents witth nausea, vomiting, abd discomfort. CT chest suggested "Esophagus is patulous and somewhat dilated. Mild thickening of distal esophageal wall. Question reflux disease and esophagitis." Abd soft, nontender. We are consulted for n/v and abnormal CT. RECOMMENDATIONS/PLAN: - Given his presentation will proceed with EGD/EUS to evalute further his symptoms and abnormal CT - Keep NPO - IVF - Antiemetic PRN - Analgesia PRN - Prior to endoscopic evaluation, we appreciate assistance in the management and correction of starks laboratory elements including the following: Please optimize pt's hemoglobin >7, INR <2, platelets >50,000, potassium levels >3.5 but <5.3, and sodium levels within 5 points of the reference range. Thank you for the opportunity to be involved in this patient's care. Please see attending addendum for further discussions/recommendations. I have discussed the case with my attending, Dr Whittaker. Associated attestation - Donna De Souza DO - 07/30/2023 1:10 PM EST I have reviewed the advanced practitioner documentation and agree. I saw and evaluated the patient on date of service referenced in note and have performed the following medically appropriate historyand/or exam: The patient presents with a history of nausea vomiting and epigastric discomfort over the past 1 week. Of note he did have a prior upper endoscopy several years ago notable for esophagitis and gastritis. He has not on an outpatient proton pump inhibitor. Given the imaging studies we will proceed with upper endoscopy and endoscopic ultrasound today, I have discussed the risks to include bleeding infection perforation pain and need for follow-up studies.. * Rosa Adam MD - 07/29/2023 5:21 PM ESTAssociated Order(s): PSYCHIATRY CONSULT IP INITIAL PSYCHIATRY CONSULT NOTE Patient location: Unit: [address] [place] [address] Bed: [facility] [id number] / D I was in a different facility from the patient. After connecting through televideo, patient was identified by name and date of and/or wristband checked. Patient (or authorized legal financial foundations representative) was then informed that this was a Telemedicine visit and being conducted confidentially over secure lines. My office door was closed. No one else was in the room with me. Patient acknowledged consent and understanding of privacy and security of the Telemedicine visit, and gave permission to have a telemedicine presenter stay in the room in order to assist with the history and to conduct the exam as needed. I informed the patient that I have reviewed their record in [facility] and presented the opportunity for them to ask any questions regarding the visit today. The patient agreed to participate. I communicated with the patient for 35 minutes via televideo. Date of Consult: 07-29-23 Subjective HISTORY OF PRESENT ILLNESS (HPI): Interview with patient/review of chart shows: 67 yo with N/V + poor po intake Tachycardia, electrolyte imbalances low K Hx of MDD and YENNIFER noted Currently getting Wellbutrin 200 bid //Lexapro 20//Buspar 10 tid//Trazodone 100 hs Atarax prn noted Dilaudid prn noted Ativan prn noted Consult is for anxiety Patient claims he is feeling better now Less N/V He says he is playing "catch up" with his psych meds Off of them for 4 to 5 days with N/V It may take a while for them to return to the former blood levels Anxiety is better with prn Ativan and Atarax noted He states for sleep he had Trazodone at rest home Sleeping is still a struggle at times He admits to long hx of depression and anxiety starting at 9 yo He has had one psych hospital for severe depression But no SA No SIB No cutting He denies any suicidal ideation at this time He ranks his depression as moderate 4 to 5 out of 10 now He states he has a tough time adjusting to his amputation and going in and out of hospitals He lives alone No severe panic attacks at this time Alert, verbal cooperative, weak PSYCHIATRIC REVIEW OF SYSTEMS: Anxiety Depression Fatigue insomnia PAST PSYCHIATRIC HISTORY Inpatient: one time Psychotropic medications, including yes History of SI: no History of SI attempts: no History of trauma, abuse, exploitation or trafficking: none I have reviewed the patient's allergies, past history, and medications. Past Medical History Allergies Medications Family History Social and Substance Use History Sexual Activity :[id number]} MENTAL STATUS EXAM (MSE) Appearance: within normal limits and age-appropriate Attitude: cooperative Eye Contact: good Behavior: psychomotor retardation Impulse Control: good Speech: normal rate and normal volume Mood: depressed Affect: appropriate Thought Process: within normal limits Thought Content:normal Suicidality and Homicidality: No Ideation Insight: good Judgment: good Memory: good Attention/Concentration: good Orientation: alert Language: clear and coherent Fund of Knowledge: good Objective PHYSICAL EXAM & ADDITIONAL FINDINGS Please see most recent physical exam by attending physician. Reviewed ED vital signs and pertinent labs, imaging and other studies through Results Review Pain Screening: Is patient experiencing any pain? Yes, Pain level Scale: 2 Recommendations for management: None Nutritional Screening: No concerns RISK ASSESSMENT- Risk assessment is a dynamic process; it is possible that this patient's condition, and risk level,may change. This should be re-evaluated and managed over time as appropriate. Please call or re-consult us if additional assistance is needed in terms of risk assessment and management. If your team decides to discharge this patient, please advise the patient how to best access emergency psychiatric services, or to call 911, if their condition worsens or they feel unsafe in any way. Risk Factors: history of depression and anxiety Protective Factors: access to appropriate services, willing to participate in less restrictive means of help rather than hospitalization (e.g., outpatient therapy), history of being able to cope withstressors without engaging in self- harm, and identifies appropriate solutions to current problems Based on my current evaluation and risk assessment, patient is determined to be at: Low Risk of harm to self or others GENERAL FORMULATION- Low risk for suicide; no SI elicited Depression is a 5 out of 10; f N/V; poor po intake; off psych meds for 5 days now Playing catch up Anxiety responsive to ativan and atarax prn Difficulty sleeping at night --rest home he took Trazodone He has a long chronic hx of depression /anxiety ( see hpi for details) No psychosis No hasmukh Weakness and fatigue are noted Watch for hypotension from Trazodone 100 consider dropping it down a bit All other meds are appropriate dosages and consider waiting for them to reach steady state after being off of them for 5 days DIAGNOSES: Major depressive disorder with anxious distress, moderate PLAN/RECOMMENDATIONS/INTERVENTIONS: Continue to use atarax and ativan prns Drop down trazodone prn to 50 mg po qhs prn this will avoid hypotention if Trazodone 50 mg is not sufficient we can always go higher later. No changes needed in Wellbutrinand buspar and Lexapro at this time --patience--- let them rebuild to steady state Non-Medication recommendations: no sitter needed no inpatient psych needed I reviewed and updated the [place] Suicide Screen and Suicide Safety Plan as clinically indicated Follow-Up Telepsychiatry C/L services: Will sign off for now. Please re-consult our service as necessary. Total time spent in encounter: 45 minutes total, including record review, clinical interview, behavior observations, discussion of impressions and recommendations, completion, scoring, and interpretation of questionnaires, consultation/communication with relevant parties, clinical documentation, Impressions and recommendations were shared with the appropriate persons, including the patient to the extent that the patient is able to consent to treatment as well as understand and participate intreatment decision-making. Consultation recommendations were discussed with requesting physician/service. Thank you for involving us in the care of this patient. Please contact us with questions/concerns. LISSETH Adam MD documented in this encounter Nursing Notes * Xochitl Gannon RN - 07/30/2023 9:00 PM EST Pt got agitated that his pump was beeping, and also because that the cafeteria was closed in the evenings and overnight. Pt wanted to go down to the vending machines. Staff explained to pt that he could not leave the floor, and pt became very agitated as he went back to his room. Food options were offered to him, and he said that he is hungry now because he hasn't been able to eat for the past several days. Pt spoke aggressively toward staff, and nursing ticket sales supervisor was called to his room. Nursing ticket sales supervisor explained food options available to pt overnight, and he was agreeable to a microwave dinner. Pt calmed down after speaking with nursing ticket sales supervisor and receiving microwave dinner. * Rosi Muñoz RN - 07/30/2023 5:51 PM EST Late entry 1500 - Patient returned back to unit at this time via bed accompanied by SDS staff. SBAR BSSR received at bedside. Patient denies pain and states that he "feels way better than when this started". Patient asking to go home and was educated at this time on plan of treatment. This nurse reached out to Dr. Draper at this time regarding advancing diet. VSS. BP 123/71 | Pulse 86 | Temp 36.4 C (97.5 F) (Temporal Artery) | Resp 18 | Ht 1.727 m (5' 8") |Wt 72.6 kg (160 lb) | SpO2 98% | BMI 24.33 kg/m | BSA 1.87 m * Gilda Garcia RN - 07/30/2023 2:01 PM EST EGD eus WITH NEEDLE STICK IN [facility] OR completed. Pt philippe procedure well. Sedated by AGRICULTURAL CHEMIST. See anesthesia record for VS and medications given. Abd soft. Airway patent. Pt to recovery on L side with HOB elevated. Report to recovery room nurse. Bedside cleaning done. SPECIMENS VERIFIED WITH MD. * Concepcion Miller RN - 07/29/2023 3:29 PM EST Clinical Goal(s): Patient will have a decrease in nausea and vomiting this shift. (07/29/23 1022) Possible barriers to meeting goal(s)/advancing plan of care: admitting diagnosis Stability of the patient: Moderately stable - low risk of patient condition declining or worsening Summary regarding today's goal(s): Met: patient verbalized decrease in nausea this shift, no vomiting this shift. Recommendations: continue plan of care. * Akiko Carranza RN - 07/29/2023 12:28 AM EST VIRTUAL RN [facility]-[address] [id number] Name: Epifanio Silva Location: [facility] [id number] Date: 07/29/2023 Time: 12:28 AM I completed the Admission Navigator. The patient was in the hospital. I was not in a hospital or clinic location. After connecting through televideo, the patient was identified by name and date of and / or wristband checked. Patient (or authorized legal financial foundations representative) was then informed that this was a Virtual Nurse visit and was being conducted confidentially over secure lines. I used a headset and other methods to ensure confidentiality for the patient. Patient acknowledged consent and understanding of privacy and security of the Virtual Nurse visit. I presented the opportunity for the patient or authorized legal financial foundations representative to ask any questions regarding the visit today. The patient or authorized legal financial foundations representative agreed to participate. TT sent to Xochitl Gannon RN, noting completion of virtual admission. * Xochitl Gannon RN - 07/29/2023 12:13 AM EST Dual Licensed Skin Assessment completed by Xochitl Gannon RN and Evangelista Taylor LPN. The patient is/has a N/A Skin Breakdown (includes non blanchable erythema): No * Xochitl Gannon RN - 07/29/2023 12:11 AM EST Pt arrived to floor via wheelchair without complication. Pt is anxious, but cooperative and friendly. Oriented to room and staff. Instructed on use of call valdivia, which is within reach. documented in this encounter ED Notes * Keon Islas DO - 07/28/2023 7:03 PM EST HISTORY OF PRESENT ILLNESS Epifanio Silva is a 67 year old male who presents to the ED for evaluation of Vomiting. The patient was seen at 07/28/231901. 67-year-old male with a history of diabetes and amputations with peripheral vascular disease presenting to the emergency depart with severe abdominal pain that has been going on for 3 days and worsening. He complains of nausea currently. He has had episodes of vomiting. He has not had any urinary symptoms. Denies any black or bloody stool. He does complain of a baseline shortness of breath since COVID infection that is not worse than usual and denies any chest pain. He does not have any headaches, lightheadedness, fever or chills. He denies any alcohol abuse. History provided by: patient coordinator cardiopulmonary services used: No Vomiting Review of Systems Gastrointestinal: Positive for vomiting. The patient's allergies, past history, and medications were reviewed. PHYSICAL EXAM Initial Vitals (see all): BP 124/91 | Pulse 115 | Resp 24 | Temp 96.8 | O2 100 %, Room Air, None | Weight 72.58 kg | Height 172.7 cm | BMI 24.33 kg/m2 Initial Pain Assessment (see all): 5 (moderate pain)/10 ([facility] Adult Scale 0-10) Physical Exam Vitals and nursing note reviewed. Constitutional: General: He is not in acute distress. Appearance: Normal appearance. He is ill-appearing. HENT: Head: Normocephalic and atraumatic. Nose: Nose normal. Mouth/Throat: Mouth: Mucous membranes are moist. Pharynx: Oropharynx is clear. Eyes: Extraocular Movements: Extraocular movements intact. Pupils: Pupils are equal, round, and reactive to light. Cardiovascular: Rate and Rhythm: Normal rate and regular rhythm. Pulmonary: Effort: Pulmonary effort is normal. No respiratory distress. Breath sounds: Normal breath sounds. No wheezing, rhonchi or rales. Abdominal: General: Abdomen is flat. There is no distension. Palpations: Abdomen is soft. Tenderness: There is abdominal tenderness (diffuse). There is no guarding or rebound. Musculoskeletal: Cervical back: Normal range of motion. Skin: General: Skin is warm and dry. Neurological: General: No focal deficit present. Mental Status: He is alert. Psychiatric: Mood and Affect: Mood normal. Behavior: Behavior normal. PROCEDURES AND TREATMENTS ED Orders | ED Results MEDICAL DECISION MAKING Nursing notes and vital signs were reviewed. ED Course as of 07/28/23 2324 Sat Jul 28, 20231953 His labs reveal a lactate at 7.3. He does have an anion gap likely due to the lactate. VBG shows a respiratory alkalosis. He has a leukocytosis and is hemoconcentrated with an elevated hemoglobin and hematocrit. Lipase is negative. [AT] 2017 On my independent review of this patient's EKG he has a normal sinus rhythm at a rate of 96 with intervals that are within normal limits. No significant ST changes to suggest ischemia. QTC interval is borderline prolonged. [AT] 2050 CT scan does not reveal any concerning acute abnormality. Radiology does comment on a distended gallbladder but the patient did not have localizing tenderness to the right upper quadrant as wellas LFTs other than a mild elevation in the alkaline phosphatase but AST, ALT and bilirubin are within normal limits. Patient's labs suggest significant dehydration. Repeat lactate pending after fluidadministration. Tachycardia is improving. Patient is resting in bed and does not appear in distresscurrently. [AT] 213 Patient's lactate has tremendously improved and is now 2.7. Repeat fluids bolus will be provided. After this a troponin, lactate and BNP will be obtained. [AT] 213 Patient retaining urine. Straight cath will be performed. [AT] 2240 Patient does not appear in distress resting in bed. His lactate is normalized. His metabolic panel is reassuring. His troponin series is negative. He appeared comfortable when I explained is results and that I did not see a reason he needs to be admitted. He started to slightly hyperventilating and seemed very anxious. I explained that he did not feel need to find his right yet and we were still waiting on his repeat labs. This seemed to calm him down. I suspect some of this may be relatedto severe anxiety and him working himself up causing this severe lactate elevation because there isno signs of inflammation on his CT or other abnormality in the abdomen pelvis or chest. [AT] 2241 Since this patient's labs have dramatically improved and he has remained stable here in the emergency department I am going to discharge him with return precautions. I will refill his hydroxyzine prescription and have him follow-up with his primary care doctor. [AT] 2253 I did discuss the possibility that he could have a vascular problem in his abdomen that cause the lactate but given the duration of his pain it is unlikely that we would not see any signs of inflammation or bowel edema with ischemia. He also reports that he continued to vomit which makes me suspicious that he had cyclic vomiting and became profoundly dehydrated. We ultimately agreed for discharge and that he would return with any new or worsening symptoms. [AT] 2304 On re-evaluation the patient says his pain is low. He is tolerating oral intake and fluids. I am providing him Atarax because he does appear somewhat anxious. He will now be discharged with return precautions. [AT] 2310 He just told nursing staff that he does not feel well when they tried to discharge him. I am going to contact the hospitalist team about an observation stay given this patient's severe episode of abdominal pain with a persistently mildly elevated lactate since he is now feeling unwell again. [AT] 2322 Dr. Valenzuela has accepted this patient for further care. [AT] ED Course User Index [AT] Keon Islas, DO Differential Diagnoses Based on my history, physical exam, and evaluation, the differential includes, but is not limited, to the following diagnoses: Viral illness, gastroenteritis, mesenteric ischemia, AAA, dissection, diverticulitis, appendicitis, cholecystitis, pancreatitis, dehydration, electrolyte abnormality, pneumonia, PE, ACS unlikely,. 67-year-old male presenting to the emergency department abdominal pain. 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 He has diffuse severe abdominal pain and is tender on exam but it does not seem to localize. He does point to his left abdomen near his belly buttonand radiating across to the right side as location of his pain. Breath sounds are equal and clear. He does report a baseline shortness of breath and is not on a blood thinner. He is tachycardic. I will send him for PE scan along with a CT abdomen pelvis with contrast. Amount and/or Complexity of Data Reviewed Labs: ordered. Radiology: ordered. ECG/medicine tests: ordered. Risk Prescription drug management. Decision regarding hospitalization. Clinical Impressions Abdominal pain Dehydration Cyclical vomiting Disposition Admitted. I discussed the management of this patient with the admitting provider and I made a decision to admit the patient. Admission Order Ordered Status . 07/28/232321 Admit for Inpatient Services (incl ZPO) ONCE Ordered Discharge Medications Disp Refills Start End hydrOXYzine HCl 25 MG Oral Tablet 21 Tablet 0 07/28/2023 08/04/2023 Sig - Route: Take 1 Tablet by mouth 3 times a day as needed for Anxiety for up to 7 days. - Oral Class: ePrescribing Renewals Renewal requests to authorizing provider (Keon Islas DO) <b>prohibited</b> Keon Islas * Nella Huizar RN - 07/28/2023 5:49 PM EST Pt comes in complaining of abdominal pain and vomiting for the past 3 days. Reports he has not beenable to keep anything down during this time period. Still retains gallbladder and appendix. Denies any urinary symptoms. Pt reports he does have anxiety and lost his bottle of hydroxyzine recently sohas not been able to take it the past couple days. Pt is visibly anxious in triage. documented in this encounter Miscellaneous Notes * Care Plan - Sudarshan Muniz RN - 07/31/2023 4:32 PM EST Clinical Goal(s): Pt will not fall this shift. (07/31/23 0386) Possible barriers to meeting goal(s)/advancing plan of care: BKA of left leg and admitting dx. Stability of the patient: Moderately stable - low risk of patient condition declining or worsening Summary regarding today's goal(s): Met: Pt did not fall this shift. Recommendations: Continue plan of care. * Ancillary Progress Note - Ellie Castelan, Clearing Distribution Clerk - 07/31/2023 4:01 PMEST 4:00 CM called [facility] [employer] there was no answer. 4:15 CM called [facility] [employer] there was no answer. 4:42 CM met with patient in room and informed him that [facility] [employer] closed at 3 PM that day and were unable to transport him at this time. CM asked the patient to call his contacts as the only other option would be [facility] and that would cost him somewhere around $150. Patient stated he had a friendand his stepmother he could call. EST * Communication - Marisabel Monreal RN - 07/31/2023 3:14 PM EST Appts: You have a primary care appointment on August 09, 2023 at 12:00 pm. Please arrive by 11:[address] Khari Jackson [phone] [facility] * Pt Handout (on AVS) - Marisabel Monreal RN - 07/31/2023 3:13 PM EST Images from the original note were not included. [id number] Omeprazole Delayed Release Oral Capsule Brands: Prilosec Uses This medicine is used for the following purposes: indigestion inflammation of stomach inflammation of the esophagus stomach acid stomach acid reflux ulcers in stomach or intestines ulcers in stomach or intestines Instructions Swallow the medicine without crushing or chewing it. Take the medicine before eating. This medicine will work best if you take it at about the same time every day. Store at room temperature away from heat, light, and moisture. Do not keep in the bathroom. This medicine can reduce the absorption of other medicines. Talk to your doctor or pharmacist aboutthe best times to use this product. If you forget to take a dose on time, take it as soon as you remember. If it is almost time for thenext dose, do not take the missed dose. Return to your normal schedule. Do not take 2 doses at one time. Drug interactions can change how medicines work or increase risk for side effects. Tell your healthcare providers about all medicines taken. Include prescription and pham-fcl-qhjxvzh medicines, vitamins, and herbal medicines. Speak with your doctor or pharmacist before starting or stopping any medicine. Tell your doctor if symptoms do not get better or if they get worse. This medicine may affect the strength of your bones. If you have or are at increased risk for osteoporosis (weakening of the bones), your doctor may recommend foods with calcium and vitamin D. Cautions Tell your doctor and pharmacist if you ever had an allergic reaction to a medicine. Do not use the medication any more than instructed. Please tell your doctor if you have moderate to severe diarrhea while on this medicine. Do not treat the diarrhea with jwfk-peb-chxomsk diarrhea medicine. This medicine passes into breast milk. Ask your doctor before . During , this medicine should be used only when clearly needed. Talk to your doctor about the risks and benefits. Do not share this medicine with anyone who has not been prescribed this medicine. Some patients have serious side effects from this medicine. Ask your pharmacist to show you the information from the Food and Drug Administration (FDA) and discuss it with you. Side Effects The following is a list of some common side effects from this medicine. Please speak with your doctor about what you should do if you experience these or other side effects. headaches stomach upset or abdominal pain Call your doctor or get medical help right away if you notice any of these more serious side effects: severe or persistent abdominal pain severe, watery or bloody diarrhea fever swelling in the neck or throat numbness or tingling in hands and feet fast or irregular heart beats pain in the joints signs of kidney damage (such as change in urine color or bubbly urine) muscle aches, spasms or abnormal movements butterfly-shaped rash on nose and cheeks seizures blood in stool A few people may have an allergic reaction to this medicine. Symptoms can include difficulty breathing, skin rash, itching, swelling, or severe dizziness. If you notice any of these symptoms, seek medical help quickly. Extra Please speak with your doctor, nurse, or pharmacist if you have any questions about this medicine. [email or web address] IMPORTANT NOTE: This document tells you briefly how to take your medicine, but it does not tell youall there is to know about it. Your doctor or pharmacist may give you other documents about your medicine. Please talk to them if you have any questions. Always follow their advice. There is a more complete description of this medicine available in [place]. Scan this code on your smartphone or tablet or use the web address below. You can also ask your pharmacist for a printout. If you have any questions, please ask your pharmacist. The display and use of this drug information is subject to Terms of Use. Copyright(c) 2022 [employer]. [employer]. All rights reserved. This information is not intended as a substitute for professional medical care. Always follow your healthcare professional's instructions. * Pt Handout (on AVS) - Marisabel Monreal RN - 07/31/2023 3:12 PM EST Images from the original note were not included. [id number] Hydroxyzine Oral Tablet Uses This medicine is used for the following purposes: agitation anxiety itching Instructions This medicine may be taken with or without food. Store at room temperature away from heat, light, and moisture. Do not keep in the bathroom. Drug interactions can change how medicines work or increase risk for side effects. Tell your healthcare providers about all medicines taken. Include prescription and yifh-wdi-phcityr medicines, vitamins, and herbal medicines. Speak with your doctor or pharmacist before starting or stopping any medicine. Tell your doctor if symptoms do not get better or if they get worse. Cautions Tell your doctor and pharmacist if you ever had an allergic reaction to a medicine. Do not use the medication any more than instructed. Your ability to stay alert or to react quickly may be impaired by this medicine. Do not drive or operate machinery until you know how this medicine will affect you. Please check with your doctor before drinking alcohol while on this medicine. Tell the doctor or pharmacist if you are , planning to be , or . Do not share this medicine with anyone who has not been prescribed this medicine. Side Effects The following is a list of some common side effects from this medicine. Please speak with your doctor about what you should do if you experience these or other side effects. constipation dizziness or drowsiness dry mouth Call your doctor or get medical help right away if you notice any of these more serious side effects: confusion fainting hallucinations (unusual thoughts, seeing or hearing things that are not real) fast or irregular heart beats mood changes seizures shakiness difficulty or discomfort urinating blurring or changes of vision A few people may have an allergic reaction to this medicine. Symptoms can include difficulty breathing, skin rash, itching, swelling, or severe dizziness. If you notice any of these symptoms, seek medical help quickly. Extra Please speak with your doctor, nurse, or pharmacist if you have any questions about this medicine. [email or web address] IMPORTANT NOTE: This document tells you briefly how to take your medicine, but it does not tell youall there is to know about it. Your doctor or pharmacist may give you other documents about your medicine. Please talk to them if you have any questions. Always follow their advice. There is a more complete description of this medicine available in [place]. Scan this code on your smartphone or tablet or use the web address below. You can also ask your pharmacist for a printout. If you have any questions, please ask your pharmacist. The display and use of this drug information is subject to Terms of Use. Copyright(c) 2022 [employer]. [employer]. All rights reserved. This information is not intended as a substitute for professional medical care. Always follow your healthcare professional's instructions. * Pt Handout (on AVS) - Marisabel Monreal RN - 07/31/2023 3:12 PM EST Images from the original note were not included. [id number] Fluconazole Oral Tablet Brands: Diflucan Uses For treating fungal infections. Instructions This medicine may be taken with or without food. This medicine will work best if you take it at about the same time every day. Keep the medicine at room temperature. Avoid heat and direct light. Tell your doctor if you have severe or persistent sweating, diarrhea or vomiting. These can increase your risk of a serious side effect. If you forget to take a dose on time, take it as soon as you remember. If it is almost time for thenext dose, do not take the missed dose. Return to your normal schedule. Do not take 2 doses at one time. Drug interactions can change how medicines work or increase risk for side effects. Tell your healthcare providers about all medicines taken. Include prescription and yhay-rcx-oklknck medicines, vitamins, and herbal medicines. Speak with your doctor or pharmacist before starting or stopping any medicine. Tell your doctor if symptoms do not get better or if they get worse. Keep using this medicine for the full number of days that it is prescribed. Do not stop the medicine even if you start to feel better. It is very important that you follow your doctor's instructions for all blood tests. Cautions Tell your doctor and pharmacist if you ever had an allergic reaction to a medicine. Do not use the medication any more than instructed. Your ability to stay alert or to react quickly may be impaired by this medicine. Do not drive or operate machinery until you know how this medicine will affect you. This medicine passes into breast milk. Ask your doctor before . This medicine can hurt a new baby in the womb. If you become while on this medicine, tell your doctor immediately. Your doctor may switch you to a different medicine. Women must use reliable forms of control while taking this medicine and for 1 week after stopping to prevent . Do not share this medicine with anyone who has not been prescribed this medicine. Side Effects The following is a list of some common side effects from this medicine. Please speak with your doctor about what you should do if you experience these or other side effects. diarrhea dizziness headaches nausea and vomiting stomach upset or abdominal pain Call your doctor or get medical help right away if you notice any of these more serious side effects: decreased appetite fainting swelling in the neck or throat fast or irregular heart beats signs of liver damage (such as yellowing of eye or skin, dark urine, or unusual tiredness) weight loss A few people may have an allergic reaction to this medicine. Symptoms can include difficulty breathing, skin rash, itching, swelling, or severe dizziness. If you notice any of these symptoms, seek medical help quickly. Extra Please speak with your doctor, nurse, or pharmacist if you have any questions about this medicine. [email or web address] IMPORTANT NOTE: This document tells you briefly how to take your medicine, but it does not tell youall there is to know about it. Your doctor or pharmacist may give you other documents about your medicine. Please talk to them if you have any questions. Always follow their advice. There is a more complete description of this medicine available in Latvian. Scan this code on your smartphone or tablet or use the web address below. You can also ask your pharmacist for a printout. If you have any questions, please ask your pharmacist. The display and use of this drug information is subject to Terms of Use. Copyright(c) 2022 [employer]. [employer]. All rights reserved. This information is not intended as a substitute for professional medical care. Always follow your healthcare professional's instructions. * Pt Handout (on AVS) - Marisabel Monreal RN - 07/31/2023 2:57 PM EST Images from the original note were not included. [id number] Apixaban Oral Tablet Brands: Eliquis Uses This medicine is used for the following purposes: blood disorder prevent blood clots treatment of blood clots blood clot Instructions This medicine may be taken with or without food. This medicine will work best if you take it at about the same time every day. Store at room temperature away from heat, light, and moisture. Do not keep in the bathroom. It is important that you keep taking each dose of this medicine on time even if you are feeling well. If you forget to take a dose on time, take it as soon as you remember. If it is almost time for thenext dose, do not take the missed dose. Return to your normal schedule. Do not take 2 doses at one time. Drug interactions can change how medicines work or increase risk for side effects. Tell your healthcare providers about all medicines taken. Include prescription and adtn-yfu-lsudzpn medicines, vitamins, and herbal medicines. Speak with your doctor or pharmacist before starting or stopping any medicine. Talk to your doctor before taking other medicines, including aspirins and ibuprofen containing products. Speak to your doctor about which medicines are safe to use while you are on this medicine. It is very important that you follow your doctor's instructions for all blood tests. Cautions This medicine may cause serious bleeding problems in patients taking blood thinner medications. Follow your doctor's instructions carefully to monitor your blood lab tests if you are on blood thinners. Tell your doctor and pharmacist if you ever had an allergic reaction to a medicine. This medicine may cause serious bleeding from the stomach or bowels. Stop this medicine and call your doctor immediately if you see any signs of bleeding. Bleeding can cause pain in the stomach, vomiting up liquid that looks like coffee grounds, and red or dark tarry stools. There is an increased risk of bleeding while on this medicine, please tell your doctor or nurse if you notice any excessive bleeding or bruising. Do not use the medication any more than instructed. Please check with your doctor before drinking alcohol while on this medicine. Do not breastfeed while on this medicine. This medicine can hurt a new baby in the womb. If you become while on this medicine, tell your doctor immediately. Your doctor may switch you to a different medicine. Do not take Ashley's wort while on this medicine. Do not share this medicine with anyone who has not been prescribed this medicine. Some patients have serious side effects from this medicine. Ask your pharmacist to show you the information from the Food and Drug Administration (FDA) and discuss it with you. Always refill this medicine before it runs out. Side Effects The following is a list of some common side effects from this medicine. Please speak with your doctor about what you should do if you experience these or other side effects. nosebleeds Call your doctor or get medical help right away if you notice any of these more serious side effects: bleeding or bruising coughing up blood or vomit that looks like coffee grounds fainting numbness or tingling in hands and feet severe or persistent headache sudden leg pain, swelling, warmth or redness loss of movement anywhere on the body shortness of breath bloody or dark, tarry stools symptoms of stroke (such as one-sided weakness, slurred speech, confusion) difficulty swallowing unusual or unexplained tiredness or weakness blood in urine blurring or changes of vision A few people may have an allergic reaction to this medicine. Symptoms can include difficulty breathing, skin rash, itching, swelling, or severe dizziness. If you notice any of these symptoms, seek medical help quickly. Extra Please speak with your doctor, nurse, or pharmacist if you have any questions about this medicine. [email or web address] IMPORTANT NOTE: This document tells you briefly how to take your medicine, but it does not tell youall there is to know about it. Your doctor or pharmacist may give you other documents about your medicine. Please talk to them if you have any questions. Always follow their advice. There is a more complete description of this medicine available in Latvian. Scan this code on your smartphone or tablet or use the web address below. You can also ask your pharmacist for a printout. If you have any questions, please ask your pharmacist. The display and use of this drug information is subject to Terms of Use. Copyright(c) 2022 [employer] 5856-5863 [employer]. All rights reserved. This information is not intended as a substitute for professional medical care. Always follow your healthcare professional's instructions. * Pt Handout (on AVS) - Maura Draper MD - 07/31/2023 2:41 PM EST Images from the original note were not included. [id number] Esophagitis Do you often have burning pain in your chest? You may have esophagitis. This is when the lining of the esophagus becomes red and swollen (inflamed). The esophagus is the tube that links your throat to your stomach. This sheet tells you more about esophagitis. It also talks about treatment. With esophagitis, the lining of the esophagus is inflamed. Main types of esophagitis Reflux esophagitis. This is the more common type. It's caused by GERD (gastroesophageal reflux disease). Stomach contents and acid flow back up into the esophagus. This happens over and over. It leads to inflammation. You are more likely to get this type if you: Are overweight Have asthma Smoke Are Vomit a lot Take certain medicines, such as aspirin and other nonsteroidal anti- inflammatory drugs (NSAIDs) Have a hiatal hernia Infectious esophagitis. This is caused by an infection. You are more at risk for this kind if you have a weak immune system and poor nutrition. Using antibiotics can also raise your risk. The infection is often from: A type of fungus (often miguelina) A virus, such as herpes simplex virus 1 (HSV-1) or cytomegalovirus (CMV) Eosinophilic esophagitis. Foods or other things around you can give you an allergic reaction. This causes an immune response. It may lead to this type of esophagitis. Pill-induced esophagitis. Certain types of medicines can cause inflammation and ulcers in the esophagus. Some of these are: Doxycycline Aspirin NSAIDs Alendronate Potassium Quinidine Iron Symptoms of esophagitis These symptoms can occur with esophagitis: Pain when swallowing, or trouble swallowing Pain behind your breastbone (heartburn) Acid regurgitation Chronic sore throat Gum inflammation Cavities Bad breath Nausea Pain in your upper belly (abdomen) Bleeding (indicated by bright red vomit or black, tarry stool) These symptoms occur more often with reflux esophagitis: Coughing, wheezing, or asthma Hoarseness or laryngitis Diagnosis of esophagitis Your healthcare provider will ask about your past health, recent infections or illnesses, and your symptoms. You?ll also be examined. Sometimes you may need certain tests, such as: Upper endoscopy. A thin, flexible tube with a tiny light and camera is used. It's put into the mouth down into the esophagus. This lets the provider look for damage. A small sample of tissue (biopsy) may also be taken. The sample is sent to a lab for testing. Upper gastrointestinal (GI) X-ray with barium. An X-ray is done after you drink a substance called barium. Barium may make problems in the esophagus easier to see on an X-ray. Esophageal pH. A soft, thin tube is passed into the esophagus through the nose or mouth for 24 hours. It measures the acid level in the esophagus. Esophageal manometry. A soft, thin tube is passed into the esophagus through the nose or mouth. It measures muscle contractions in the esophagus. Treatment of esophagitis Medicines. Different medicines can help treat esophagitis. The medicine used will depend on the type of esophagitis you have. Talk with your healthcare provider. Lifestyle changes. Making these changes can help reduce irritation and ease your symptoms: Limit or don't eat: o Spicy foods (pepper, chili powder, loja) o Hard foods (nuts, crackers, raw vegetables) o Acidic foods and drinks (tomatoes, citrus fruits and juices) o High-fat foods o Chocolate o Peppermint Until you can swallow without pain, stick to a combined liquid and soft diet. Try foods such as cooked cereals, mashed potatoes, and soups. Take small bites and chew your food well. Don't eat large meals or heavy meals at night. Don't lie down within 2 to 3 hours of eating. Get to or stay at a healthy weight. Stay away from alcohol, caffeine, and smoking or tobacco products. [place] your teeth at least twice a day and floss every day. Raise your upper body by 4 to 6 inches when lying in bed. This can be done using a foam wedge. Or put blocks or bed risers under the legs at the head of your bed. Surgery. This may be needed for severe reflux esophagitis. Other noninvasive procedures to treat GERD and esophagitis are being studied. Your provider can tell you more. Why treatment is important Without treatment, esophagitis can get worse, especially if you have severe reflux esophagitis. Ongoing symptoms can cause scarring of the esophagus. Over time, scarring can lead to a narrowing of the esophagus (stricture). This can make it hard to pass food down to the stomach. As symptoms go on, they can also cause changes in the lining of the esophagus. These changes can put you at a slightly higher risk of cancer of the esophagus. Last Reviewed Date: 01/11/202119992003-2371 [employer]. All rights reserved. This information is not intended as a substitute for professional medical care. Always follow your healthcare professional's instructions. * Pt Handout (on AVS) - Maura Draper MD - 07/31/2023 2:37 PM EST Images from the original note were not included. 00605 Treating Dysphagia An evaluation helps your healthcare provider find the cause of your trouble swallowing. This condition is called dysphagia. Your evaluation may include a health history and some special tests. Your provider will make a treatment plan based on the results of your evaluation. You may need to take medicines. In some cases, your provider may advise a procedure to stretch or widen your esophagus (esophageal dilation). Or your provider may advise surgery. What you can do Follow your treatment plan to help control dysphagia. Take all medicines as directed. You also can help ease your symptoms by being careful about what and how you eat. Medicines You may need medicines. These can: Reduce or neutralize stomach acids Control muscle spasms in the food pipe (esophagus) Treat an allergic disorder of the esophagus that is causing the problem Be injected into the esophagus to help symptoms Esophageal dilation Dilation is a procedure that your provider can use to widen your esophagus. It's most often done when a narrowing (stricture) of the esophagus is causing the problem. There are many ways your provider can widen your esophagus. They can discuss them with you. Eating tips Eat slowly in a relaxed setting. Don?t talk while you eat. Take small bites. Chew slowly and thoroughly. Sit upright during and after meals. Ask your provider about any special diets that may help, such as liquid diets. If you have trouble swallowing solid foods, you can use a primer powder blender wet to mash or pure them. Thicken liquids with milk, juice, broth, gravy, or starch. This can make swallowing easier. Blend foods to make them easier to eat. Additional therapy Your healthcare provider may advise that you see a speech therapist or occupational therapist. These specialists in dysphagia may give you exercises and instructions to help you eat safely. Last Reviewed Date: 12/11/202119995325-3662 [employer]. All rights reserved. This information is not intended as a substitute for professional medical care. Always follow your healthcare professional's instructions. * Pt Handout (on AVS) - Maura Draper MD - 07/31/2023 2:37 PM EST Images from the original note were not included. [id number] Miguelina Esophagitis The esophagus is the tube that connects the throat to the stomach. Esophagitis is an inflammation of the lining of the esophagus. This occurs most often from acid reflux or an infection. The most common cause of infection is a fungus called miguelina. This infection is also known as thrush. Esophagitis may cause pain or trouble with swallowing. It may also cause fever and bleeding. If left untreated, it can scar the esophagus. Scarring may narrow the esophagus and lead to permanent trouble swallowing. In adults, esophagitis with miguelina infection is most common in people who have HIV/AIDS. A weak immune system from other causes may also result in the infection. It may also sometimes affect people who have had chemotherapy or radiation, or use inhaled steroid medicines. Smoking, antibiotics, and dentures may also increase the risk for esophagitis. People with diabetes may also be a risk. In some cases, your healthcare provider may do an endoscopy. This means looking inside the esophagus with a small tube and light. Miguelina esophagitis usually responds well to treatment. To prevent itfrom coming back, your healthcare provider must also treat factors that contribute to the infection. Home care If your provider has prescribed medicines, take all of them as directed. Call your provider if you have questions about the medicines or have side effects. To help prevent irritation of the throat, don't eat spicy foods such as pepper, chili powder, loja, or nutmeg. Don't eat hard foods such as nuts, crackers, or raw vegetables. Also don't eat acidic foods or drinks such as tomatoes, oranges, grapefruits, or citrus juices. Until you can swallow without pain, follow a liquid and soft diet. Include such foods as applesauce, cooked cereals, mashed potatoes, and soups. Take small bites and chew your food well. Don't drink alcohol and don't smoke. Practice good oral hygiene. Take good care of your teeth and gums. Have regular dental checkups. Tell your dentist about your infection and the medicines you are taking Follow-up care Follow up with your healthcare provider, or as advised. When to seek medical advice Call your healthcare provider for any of the following: Increasing pain with swallowing Inability to eat or drink Dizziness or weakness Fever of 100.4F (38C) or higher, or as directed by your healthcare provider Symptoms get worse or you have new symptoms Last Reviewed Date: 06/13/202119998428-4571 [employer]. All rights reserved. This information is not intended as a substitute for professional medical care. Always follow your healthcare professional's instructions. * Care Plan - Xochitl Gannon RN - 07/31/2023 5:05 AM EST Clinical Goal(s): Pt will have no falls during this shift (07/30/231955) Possible barriers to meeting goal(s)/advancing plan of care: Stress, pain, admitting diagnosis Stability of the patient: Moderately stable - low risk of patient condition declining or worsening Summary regarding today's goal(s): Met: Pt did not have any falls during this shift Recommendations: Continue to implement fall prevention protocols as well as stress reduction techniques. Monitor pain level and provide appropriate interventions. Follow plan of care. * Care Plan - Rosi Muñoz RN - 07/30/2023 6:40 PM EST Clinical Goal(s): Patient will be free from n/v during shift (07/30/23999) Possible barriers to meeting goal(s)/advancing plan of care: admitting dx Stability of the patient: Moderately stable - low risk of patient condition declining or worsening Summary regarding today's goal(s): Met: Patient free from n/v during shift Recommendations: continue plan of care; medicate per MAR; monitor s/s of abdominal pain, n/v. * Progress Notes - Non-Billable - Donna De Souza DO - 07/30/2023 2:09 PM EST The patient underwent upper endoscopy and endoscopic ultrasound today. There was evidence of mild esophagitis, mild gastritis in addition to possible Miguelina esophagitis. Biopsies were taken from thestomach and esophagus. It is quite possible that the patient's nauseous related to 1 of his medications, the patient is on quite a few medications for his underlying psychiatric problems. Medicationsthat can cause nausea include his tricyclic antidepressant, SSRI, buspirone to name a few. Recommendation Await pathology results Consider a trial of omeprazole as an outpatient Re-evaluate antidepressant medications with Psychiatry Await results from FNA of the lymph node Please call with any questions or concerns GI to sign off * Care Plan - Xochitl Gannon RN - 07/30/2023 5:00 AM EST Clinical Goal(s): Pt will sleep for at least 4 hours during this shift (07/29/231956) Possible barriers to meeting goal(s)/advancing plan of care: Stress, pain, nausea Stability of the patient: Moderately stable - low risk of patient condition declining or worsening Summary regarding today's goal(s): Met: Pt slept for more than 4 hours during this shift Recommendations: Continue to implement stress reduction strategies and monitor pain level, providing appropriate interventions as needed. Follow plan of care. * Progress Notes - Non-Billable - Maura Draper MD - 07/29/2023 7:01 AM EST Agree with H and P from overnight hospitalist of same date: 67yM here with nausea and vomiting, poor intake and lactic acidosis which results with IV fluids. Patient remained tachycardic so was admitted to medicine. Imaging notable for distended gallbladder. Review of prior EMR - last echo was 10/05-- Normal EF- grade 1 diastolic dysfunction, no significant valvular abnl AM lab review: Creatinine at baseline. Hypokalemia at 3.3 Mag 1.7 Lactate normalized Leukocytosis resolved - cbc wnl Proca wnl UA not consistent with infection CT PE revealed thickening of the distal esophagus with associate lymphadenopathy New diagnoses: - BPH with LUTS - patient with acute urinary retention in the setting of vomiting his prostate medications last few days - repeat PVR and if high, will place nguyen. Severe anxiety - increase buspar to TID - add prn ativan while in house - psych consult - trazodone for insomnia Updates to plan of care: - US eval of gallbladder- alk phos mildly elevate on admission and now wnl, so less likely acute cholecystitis - GI consult for esophageal findings with lymphadenopathy- NPO after midnight in case of EGD- patient with hx of barretts- patient has epigastric pain and sensation of food sticking in that region - continue antiemtics - advance diet as clinically feasible. - NPO at midnight for possible EGD tomorrow - conitnue IVS - follow up labs in the AM * Care Plan - Xochitl Gannon RN - 07/29/2023 5:00 AM EST Clinical Goal(s): Pt will have reduced anxiety during this shift (07/29/23 0011) Possible barriers to meeting goal(s)/advancing plan of care: Pain, SOB Stability of the patient: Moderately stable - low risk of patient condition declining or worsening Summary regarding today's goal(s): Met: Pt's anxiety was reduced during this shift Recommendations: Continue to monitor pain level and stress as well as vital signs, providing appropriate interventions as necessary. Follow plan of care. * Medical Necessity - Charo Hall RN - 07/29/2023 12:23 AM EST AdmissionCare Guideline: Vomiting - INPT, Inpatient Based on the indications selected for the patient, the bed status of Admit to Inpatient was determined to be MET The following indications were selected as present at the time of evaluation of the patient: Vomiting that is severe or persistent, as indicated by 1 or more of the following: - - Treatment regimen necessary to adequately control vomiting requires inpatient level of care (eg, not available in outpatient setting). Additional Information: Patient states he started feeling nauseous around 4 days ago and started vomiting 3 days ago. Patient states the vomitus is nonbloody. Patient states he has had low oral fluidintake and food intake due to the vomiting admitted to the hospital with intractable nausea and vomiting. Will continue to trend patient's lactate isolyte infusion AdmissionCare documentation entered by: Charo Hall [facility], 27th edition, Copyright 2022 [facility] [place] [employer] All Rights Reserved. [id number]:00 Solely for purpose of utilization review and payment; not a diagnostic tool * ED Print Project Manager Note - Silva Huizar RN - 07/28/2023 7:49 PM EST 1920: patient complaining of nausea and vomiting over the last three days. States he has not moved his bowels in the last four. Complains of lower abdominal pain. Abdomen is soft, non-tender with active bowel sounds. States he has been unable to tolerate any oral intake. No bowel surgeries in the past so retains gall bladder and appendix. Denies chest pain, fevers/chills, diarrhea or urinary symptoms. Reports shortness of breath which has been baseline "since having COVID 4 years ago." Patient's sentences are broken up and some stuttering is present which he also states is baseline since having COVID. Patient is alert and oriented. Patient laying in bed with his eyes somewhat closed and keep s fluttering them. Eyes appear reddened. Pupils 2 mm and reactive to light bilaterally. Cheeks appear flushed. Mucus membranes are pink and moist. Resp equal and unlabored despite breathing quickly. Lungs clear to auscultation. Abdomen soft, non-tender with active bowel sounds to all quadrants. ST on the monitor with a rate of 103. Aware a urine sample is needed and call valdivia placed at bedside. 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 Was at [facility] for rehab.Patient also states he is missing toes on his right foot. 1949: CT called regarding need for CT sooner per Dr. Islas. 2025: patient pulse ox noted to dip down into the 80's with a good wave form. No respiratory distress noted and no complaints of worsening shortness of breath. Immediately goes back up to 95% or above with no interventions. 2123: patient laying in the stretcher covering his ears. When asked if he needed something or if his ears were hurting he states no but "they're talking so I wanted to cover my ears." Ear plugs provided. Denies needs/concerns at this time. 2132: had the patient attempt to urinate. Unable to do so. Bladder scan performed, > 500 mL within the bladder. Dr. Islas aware. Straight cath ordered. documented in this encounter Plan of Treatment Upcoming Encounters Date Type Department Care Team (Late st Contact Info) Description 08/07/2023 11:30 AM EST Office Visit Pharmacy, [address] [place] [address] Pharmacist1, [facility] [address] [place] [id number] 08/09/2023 12:00 PM EST Office Visit Family [facility] [place] [address] [place] [phone] Khari Jackson MD [address] [place] [address] 08/27/2023 10:40 AM EST Office Visit Podiatry, [facility] [address] [facility] [place] [phone] [facility]PM [facility] [address] 11/02/2023 8:45 AM EDT Office Visit Urology [facility] [address] [facility] [address] [place] [address] Shane Baker MD [address] [facility] [address] [place] [address] 11/16/2023 10:00 AM EDT [facility] [phone] Renata Murrieta CRNP [address] [place] [address] Pending Results Name Type Priority Associated Diagnoses Date /Time CULTURE, BLOOD Lab Routine 07/28/2023 7:12 PM EST CULTURE, BLOOD Lab Routine 07/28/2023 7:25 PM EST SURGICAL PATHOLOGY Pathology Routine 2022 2:00 PM EST CYTOLOGY Pathology Routine 07/30/2023 1:5 0 PM EST FLOW CYTOMETRY, LEUKEMIA LYMPHOMA PANEL Lab Routine 07/30/20 1:50 PM EST Scheduled Orders Name Type Priority Associated Diagnoses Orde r Schedule EGD, FLEXIBLE,W/ENDOSCOPIC US Procedures Routine Once for 1 Occurrences starting 07/30/2023 until 07/30/2023 TOXICOLOGY, URINESCREEN W/ CONFIRMATION Lab Add-on Perform Now for 1 Occurrences starting 07/30/2023 until 07/30/2023 SURGICAL PATHOLOGY Pathology Routine One Ti me for 1 Occurrences starting 07/30/2023 until 07/30/2023, 1 completed CYTOLOGY Pathology Routine One Time for 1 Occurrences starting 07/30/2023 until 07/30/2023, 1 completed EKG EKG Routine At risk for prolonged QT interval syndrome Perform Now for 1 Occurrences starting 07/31/2023 until 07/31/2023 FLOW CYTOMETRY, LEUKEMIA LYMPHOMA PANEL Lab Routine One Time for 1 Occurrences starting 07/31/2023 until 07/31/2023 Scheduled Referrals Name Type Priority Associated Diagnoses Orde r Schedule FAMILY PRACTICE REFERRAL OP Referral Within 10 days (routine) Abdominal pain Dehydration Ordered: 07/28/2023 Health Maintenance Due Date Last Done Comments [...] this encounter Medical Devices Implanted Type Area Service Person Device Identifier Shelf Expiration Date Model / Serial / Lot Clip Quick 2.8mm 230cm - [id number] Implanted:Qty: 7 on 09/18/2020 by Terrance Granados MD at OR [facility] N/A: Stomach [employer] HX-.[id number] / / Description:lot 01K x4, 02K x2and 92K x1 documented as of this encounter Procedures Procedure Name Priority Date/Time Associated Diagnosis Comments GLUCOSE METER, POINT OF CARE [facility] 07/31/2023 4:10 PM EST GLUCOSE METER, POINT OF CARE [facility] 07/31/2023 11:25 AM EST GLUCOSE METER, POINT OF CARE [facility] 07/31/2023 7:36 AM EST BASIC METABOLIC PANEL Routine 07/31/2023 4:45 AM EST PHOSPHORUS Routine 07/31/2023 4:45 AM EST CBC Routine 07/31/2023 4:45 AM EST MAGNESIUM Routine 07/31/2023 4:45 AM EST GLUCOSE METER, POINT OF CARE [facility] 07/30/2023 9:27 PM EST GLUCOSE METER, POINT OF CARE [facility] 07/30/2023 4:29 PM EST GLUCOSE METER, POINT OF CARE [facility] 07/30/2023 2:28 PM EST US ENDOSCOPIC Routine 07/30/2023 1:58 PM EST UPPER GI ENDOSCOPY 07/30/2023 1: 24 PM EST UPPER ENDOSCOPIC U/S 07/30/2023 1:23 PM EST EGD, Flexible, Diagnostic 07/30/2023 1:11 PM EST Nausea & vomiting EGD, w/Endoscopic US 07/30/2023 1:11 PM EST Nausea & vomiting GLUCOSE METER, POINT OF CARE [facility] 07/30/2023 11:35 AM EST GLUCOSE METER, POINT OF CARE [facility] 07/30/2023 7:57 AM EST PROCALCITONIN Routine 07/30/2023 5:19 AM EST HEPATIC FUNCTION PANEL Routine 5:19 AM EST BASIC METABOLIC PANEL Routine 07/30/2023 5:19 AM EST PHOSPHORUS Routine 07/30/2023 5:19 AM EST CBC Routine 07/30/2023 5:19 AM EST MAGNESIUM Routine 07/30/2023 5:19 AM EST GLUCOSE METER, POINT OF CARE [facility] 07/29/2023 10:00 PM EST GLUCOSE METER, POINT OF CARE [facility] 07/29/2023 4:59 PM EST GLUCOSE METER, POINT OF CARE [facility] 07/29/2023 11:51 AM EST US ABDOMEN LIMITED STAT 07/29/2023 9: 40 AM EST GLUCOSE METER, POINT OF CARE [facility] 07/29/2023 8:03 AM EST HEMOGLOBIN A1C Routine 07/29/2023 6:03 AM EST COMPREHENSIVE METABOLIC PANEL Routine 07/29/2023 6:03 AM EST PHOSPHORUS Routine 07/29/2023 6:03 AM EST LACTATE Routine 07/29/2023 6:03 AM EST CBC Routine 07/29/2023 6:03 AM EST MAGNESIUM Routine 07/29/2023 6:03 AM EST LACTATE Routine 07/29/2023 3:29 AM EST LACTATE Routine 07/29/2023 1:15 AM EST CULTURE, URINE, QUANTITATIVE Routine 07/29/2023 12:20 AM EST TROPONIN T, HIGH SENSITIVITY STAT 07/28/2023 10:16 PM EST BASIC METABOLIC PANEL STAT 07/28/2023 10:16 PM EST LACTATE STAT 07/28/2023 10:16 PM EST MICROSCOPIC EXAM, URINE STAT 07/28/2023 9:44 PM EST URINALYSIS, REFLEX TO MICROSCOPIC STAT 07/28/2023 9:44 PM EST LACTATE STAT 07/28/2023 9:01 PM EST MD ECG ROUTINE ECG W/LEAST 12 LDS I&R ONLY STAT 07/28/2023 8:13 PM EST Abdominal pain CT PULMONARY EMBOLUS W CONTRAST STAT 07/28/2023 8:[address] ABD/PELVIS W IV CONTRAST - WO ORAL CONTRAST STAT 07/28/2023 8:11 PM EST BLOOD GAS, VENOUS STAT 07/28/2023 7:2 5 PM EST CULTURE, BLOOD Routine 07/28/2023 7:25 PM EST XR CHEST 1 VIEW STAT 07/28/2023 7:19 PM EST CULTURE, BLOOD Routine 07/28/2023 7:12 PM EST EXTRA GREEN TOP WITH GEL Routine 07/28/2023 6:18 PM EST EXTRA LIGHT BLUE TOP STAT 07/28/2023 6:18 PM EST EXTRA TUBES Routine 07/28/2023 6:18 PM EST DIFFERENTIAL, AUTOMATED STAT 07/28/2023 6:18 PM EST TROPONIN T, HIGH SENSITIVITY Add-on 07/28/2023 6:18 PM EST PROCALCITONIN Add-on 07/28/2023 6:18 PM EST BNP (NT-PROBNP) Add-on 07/28/2023 6:18 PM EST COMPREHENSIVE METABOLIC PANEL STAT 07/28/2023 6:18 PM EST CK Add-on 07/28/2023 6:18 PM EST CBC STAT 07/28/2023 6:18 PM EST LIPASE STAT 07/28/2023 6:18 PM EST LACTATE Routine 07/28/2023 6:18 PM EST CBC STAT 07/28/2023 6:18 PM EST RESPIRATORY PATHOGEN PANEL, PCR STAT 07/28/2023 5:53 PM EST GLUCOSE METER, POINT OF CARE [facility] 07/28/2023 5:52 PM EST documented in this encounter Results * (ABNORMAL) GLUCOSE METER, POINT OF CARE (07/31/2023 4:10 PM EST) Glucose Meter 141(H) 70 - 120 mg/dL 07/31/2023 4:15 PM EST [facility] Blood Whole blood specimen / Unknown 07/31/2023 4:10 PM EST 07/31/2023 4:15 PM EST Maura Draper MD LAB POINT OF CARE TEST DOCKED DEVICE UNSOLICITED RESULTS Performing Organization Address City/[facility] Co de Phone Number [facility] [address] [place] [address] * (ABNORMAL) GLUCOSE METER, POINT OF CARE (07/31/2023 11:25 AM EST) Glucose Meter 262(H) 70 - 120 mg/dL 07/31/2023 11:28 AM EST [facility] Blood Whole blood specimen / Unknown 07/31/2023 11:25 AM EST 07/31/2023 11:28 AM EST Maura Draper MD LAB POINT OF CARE TEST DOCKED DEVICE UNSOLICITED RESULTS Performing Organization Address [facility] de Phone Number [facility] [address] [place] [address] * (ABNORMAL) GLUCOSE METER, POINT OF CARE (07/31/2023 7:36 AM EST) Glucose Meter 129(H) 70 - 120 mg/dL 07/31/2023 9:42 AM EST [facility] Blood Whole blood specimen / Unknown 07/31/2023 7:36 AM EST 07/31/2023 9:42 AM EST Maura Draper MD LAB POINT OF CARE TEST DOCKED DEVICE UNSOLICITED RESULTS Performing Organization Address City/[facility]/ZIP Co de Phone Number [facility] [address] [place], [place] [address] [place] [address] * (ABNORMAL) CBC (07/31/2023 4:45 AM EST) WBC 10.71 4.00 - 10.80 K/uL 07/31/2023 5:16 AM EST LABORATORY GL RBC 4.37 4.50 - 5.25 M/uL 07/31/2023 5:16 AM EST LABORATORY GL HGB 13.4(L) 14.0 - 16.8 g/dL 07/31/2023 5:16 AM EST LABORATORY GL HCT 39.3(L) 40.0 - 48.4 % 07/31/2023 5:16 AM EST LABORATORY GL MCV 89.9 82.0 - 99.5 fL 07/31/2023 5:16 AM EST LABORATORY GL MCH 30.7 27.0 - 34.0 pg 07/31/2023 5:16 AM EST LABORATORY [facility] MCHC 34.1 32.0 - 36.0 g/dL 07/31/2023 5:16 AM EST LABORATORY [facility] RDW 14.1 11.5 - 15.5 % 07/31/2023 5:16 AM EST LABORATORY [facility] PLT 204 140 - 400 K/uL 07/31/2023 5:16 AM EST LABORATORY [facility] MPV 9.5 6.6 - 11.1 fL 07/31/2023 5:16 AM EST LABORATORY GL nRBCs 0 <=0 /100 WBCs 07/31/2023 5:16 AM EST LABORATORY GL Blood Venous blood specimen / Unknown Venipuncture / Unknown 07/31/2023 4:45 AM EST 07/31/2023 5:07 AM EST Muara Draper MD LAB BLOOD ORDERABL ES LABORATORY [address] [place] [address] * (ABNORMAL) BASIC METABOLIC PANEL (07/31/2023 4:45 AM EST) BUN 16 6 - 20 mg/dL 07/31/2023 5:38 AM EST LABORATORY GL Creatinine 0.9 0.6 - 1.2 mg/dL 07/31/2023 5:38 AM EST [facility] Estimated Glomerular Filtration Rate 89 >=60 mL/min 07/31/2023 5:38 AM EST [facility] Comment:eGFR is calculated b ased on the CKD-EPI 2020 equation Sodium 143 135 - 146 mmol/L 07/31/2023 5:38 AM EST [facility] Potassium 3.8 3.5 - 5.1 mmol/L 07/31/2023 5:38 AM EST [facility] Chloride 105 98 - 107 mmol/L 07/31/2023 5:38 AM EST [facility] CO2 27 22 - 32 mmol/L 07/31/2023 5:38 AM EST [facility] Anion Gap 11 7 - 15 mmol/L 07/31/2023 5:38 AM EST [facility] Glucose 122(H) 70 - 120 mg/dL 07/31/2023 5:38 AM EST [facility] Calcium 9.2 8.4 - 10.2 mg/dL 07/31/2023 5:38 AM EST [facility] Blood Venous blood specimen / Unknown Venipuncture / Unknown 07/31/2023 4:45 AM EST 07/31/2023 5:08 AM EST Maura Draper MD LAB BLOOD ORDERABL ES Performing Organization Address City/[facility]/ZIP Co de Phone Number [facility] [address] [place], [place] [phone] * MAGNESIUM (07/31/2023 4:45 AM EST) Magnesium 1.8 1.5 - 2.6 mg/dL 07/31/2023 5:38 AM EST [facility] Blood Venous blood specimen / Unknown Venipuncture / Unknown 07/31/2023 4:45 AM EST 07/31/2023 5:08 AM EST Maura Draper MD LAB BLOOD ORDERABL ES LABORATORY GL [address] [place], [place] [id number] * PHOSPHORUS (07/31/2023 4:45 AM EST) Phosphorus 3.5 2.5 - 4.8 mg/dL 07/31/2023 5:38 AM EST LABORATORY [facility] Blood Venous blood specimen / Unknown Venipuncture / Unknown 07/31/2023 4:45 AM EST 07/31/2023 5:08 AM EST Maura Draper MD LAB BLOOD ORDERABL ES Performing Organization Address City/[facility]/ZIP Co de Phone Number LABORATORY [facility] [address] [place], [place] [phone] * (ABNORMAL) GLUCOSE METER, POINT OF CARE (07/30/2023 9:27 PM EST) Glucose Meter 169(H) 70 - 120 mg/dL 07/30/2023 9:41 PM EST [facility] Blood Whole blood specimen / Unknown 07/30/2023 9:27 PM EST 07/30/2023 9:41 PM EST Maura Draper MD LAB POINT OF CARE TEST DOCKED DEVICE UNSOLICITED RESULTS Performing Organization Address [facility] Phone Number [facility] [address] [place] [phone] * (ABNORMAL) GLUCOSE METER, POINT OF CARE (07/30/2023 4:29 PM EST) Glucose Meter 149(H) 70 - 120 mg/dL 07/30/2023 4:51 PM EST [facility] Blood Whole blood specimen / Unknown 07/30/2023 4:29 PM EST 07/30/2023 4:51 PM EST Maura Draper MD LAB POINT OF CARE TEST DOCKED DEVICE UNSOLICITED RESULTS Performing Organization Address [facility] de Phone Number [facility] [address] [place] [phone] * (ABNORMAL) GLUCOSE METER, POINT OF CARE (07/30/2023 2:28 PM EST) Glucose Meter 123(H) 70 - 120 mg/dL 07/30/2023 2:30 PM EST [facility] Blood Whole blood specimen / Unknown 07/30/2023 2:28 PM EST 07/30/2023 2:30 PM EST Maura Draper MD LAB POINT OF CARE TEST DOCKED DEVICE UNSOLICITED RESULTS [facility] [address] [place] [address] * US ENDOSCOPIC (07/30/2023 1:58 PM EST) Narrative Scheduling, Silent - 07/30/2023 1:59 PM EST This is an imaging study not interpreted or resulted by a [facility] or [facility] contracted radiologist. 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 Estimated blood loss:Minimal. Procedure: Pre-Anesthesia Assessment: - Prior to the procedure, a History and Physicalwas performed, and patient medications, allergies and sensitivities werereviewed. The patient's tolerance of previous anesthesia was reviewed. - The risks and benefits of the procedure and thesedation options and risks were discussed with the patient. All questions wereanswered and informed consent was obtained. - Patient identification and proposed procedurewere verified prior to the procedure by the physician, the nurse and the curtain stretcher assembler.The procedure was verified in the procedure room. - Pre-procedure physical examination revealed nocontraindications to sedation. - ASA Grade Assessment: III - A patient with severesystemic disease. - After reviewing the risks and benefits, thepatient was deemed in satisfactory condition to undergo the procedure. - The anesthesia plan was to use generalanesthesia. - Immediately prior to administration ofmedications, the patient was re-assessed for adequacy to receive sedatives. - The heart rate, respiratory rate, oxygensaturations, blood pressure, adequacy of pulmonary ventilation, and response to care weremonitored throughout the procedure. - The physical status of the patient wasre-assessed after the procedure. After obtaining informed consent, the endoscope waspassed under direct vision. All instruments were visually inspected immediatelybefore and after removal from the patient to ensure they are fully intact. Throughoutthe procedure, the patient's blood pressure, pulse, and oxygen saturations weremonitored continuously. The [id number] Endoscope ([id number]) was introduced throughthe mouth, and advanced to the third part of duodenum. The upper GI endoscopy wasaccomplished without difficulty. The patient tolerated the procedure well. Findings & Specimens: Localized, white plaques were found in the upper third of theesophagus. Biopsies were taken with a cold forceps for histology. The pathology specimen was placed intoBottle C. Estimated blood loss was minimal. Esophagitis with no bleeding was found at the gastroesophagealjunction. Biopsies were taken with a cold forceps for histology. The pathology specimen was placed intoBottle B. Estimated blood loss was minimal. Diffuse mild inflammation characterized by erythema and granularitywas found in the stomach. Biopsies were taken with a cold forceps for histology. The pathology specimenwas placed into Bottle A. Estimated blood loss was minimal. The examined duodenum was normal. Impression: - Esophageal plaques were found, suspicious forcandidiasis. Biopsied. - Esophagitis with no bleeding. Biopsied. - Gastritis, This is likely related to 1 of thepatient's medications.. Biopsied. - Normal examined duodenum. Recommendation: - Perform an upper endoscopic ultrasound (UEUS)today. - Await pathology results. - Consider a trial of omeprazole 40 mg 1 timedaily - medications which cause nausea could includebuspirone, Lexapro, trazodone, or amitriptyline Donna De Souza DO 07/30/2023 2:04:26 PM This report has been signed electronically. Estimated Blood Loss: Estimated blood loss was minimal. Maura Draper MD GASTRO UPPER * UPPER ENDOSCOPIC U/S (07/30/2023 1:23 PM EST) 07/30/2023 1:23 PM EST Narrative Procedure Note Maura Draper MD - 07/30/2023 1:23 PM EST [facility] Patient Name: Epifanio Silva Procedure Date: 07/30/2023 1:23 PM Date of : 1955 Admit Type: Inpatient Note Status:Finalized Date of : 1955 Admit Type: Inpatient Age: 67 Room: OR 2 Gender: Male Note Status: Finalized Procedure: Upper EUS Indications: Lymphadenopathy on CT scan Providers: Donna De Souza DO (Doctor) Referring MD: Maura Draper Medicines: General Anesthesia Complications: No immediate complications. Estimated blood loss:Minimal. Procedure: Pre-Anesthesia Assessment: - Prior to the procedure, a History and Physicalwas performed, and patient medications, allergies and sensitivities werereviewed. The patient's tolerance of previous anesthesia was reviewed. - The risks and benefits of the procedure and thesedation options and risks were discussed with the patient. All questions wereanswered and informed consent was obtained. - Patient identification and proposed procedurewere verified prior to the procedure by the physician, the nurse and the curtain stretcher assembler.The procedure was verified in the procedure room. - Pre-procedure physical examination revealed nocontraindications to sedation. - ASA Grade Assessment: III - A patient with severesystemic disease. - After reviewing the risks and benefits, thepatient was deemed in satisfactory condition to undergo the procedure. - The anesthesia plan was to use generalanesthesia. - Immediately prior to administration ofmedications, the patient was re-assessed for adequacy to receive sedatives. - The heart rate, respiratory rate, oxygensaturations, blood pressure, adequacy of pulmonary ventilation, and response to care weremonitored throughout the procedure. - The physical status of the patient wasre-assessed after the procedure. After obtaining informed consent, the endoscope waspassed under direct vision. All instruments were visually inspected immediatelybefore and after removal from the patient to ensure they are fully intact. Throughoutthe procedure, the patient's blood pressure, pulse, and oxygen saturations weremonitored continuously. The [id number] Endoscope ([id number]) was introducedthrough the mouth, and advanced to the second part of duodenum. The Endosonoscope wasintroduced through the mouth, and advanced to the second part of duodenum. The upperEUS was accomplished without difficulty. The patient tolerated the procedurewell. Findings & Specimens: ENDOSONOGRAPHIC FINDING: : There was no sign of significant endosonographic abnormality in theampulla. No pathologic lymphadenopathy was identified. There was no sign of significant endosonographic abnormality in thecommon bile duct. The maximum diameter of the duct was 4 mm. No stones, no biliary sludge and ductsof normal caliber were identified. There was no sign of significant endosonographic abnormality in thegallbladder. An unremarkable gallbladder was identified. There was abnormal echogenicity in the visualized portion of theliver. This area was hyperechoic. There was no sign of significant endosonographic abnormality in theleft adrenal gland. No masses and no adrenal gland enlargement were identified. One enlarged lymph node was visualized in the gastrohepatic ligament(level 18). It measured 11 mm by 10 mm in maximal cross-sectional diameter. The node was oval,hypoechoic and had well defined margins. Fine needle aspiration for cytology was performed. Color Dopplerimaging was utilized prior to needle puncture to confirm a lack of significant vascular structures withinthe needle path. Four passes were made with the 22 gauge needle using a transgastric approach. A styletwas used. A senior hr generalist was present to evaluate the adequacy of the specimen. Final cytologyresults are pending. Estimated blood loss was minimal. There was no sign of significant endosonographic abnormality in theentire pancreas. No masses, no cysts. Impression: - There was no sign of significant pathology in theampulla. - There was no sign of significant pathology in thecommon bile duct. - There was no sign of significant pathology in thegallbladder. - There was abnormal echogenicity in the visualizedportion of the liver. This was hyperechoic. Tissue has not been obtained. However,the endosonographic appearance is suggestive of fatty infiltration. - Endosonographic images of the left adrenal glandwere unremarkable. - One enlarged lymph node was visualized in thegastrohepatic ligament (level 18). Fine needle aspiration performed. - There was no sign of significant pathology in theentire pancreas. Recommendation: - Return patient to hospital [facility] for ongoingcare. - Await cytology results. Donna De Souza DO 07/30/2023 2:09:21 PM This report has been signed electronically. Estimated Blood Loss: Estimated blood loss was minimal. Maura Draper MD GASTRO UPPER * (ABNORMAL) GLUCOSE METER, POINT OF CARE (07/30/2023 11:35 AM EST) Glucose Meter 122(H) 70 - 120 mg/dL 07/30/2023 11:56 AM EST [facility] Blood Whole blood specimen / Unknown 07/30/2023 11:35 AM EST 07/30/2023 11:56 AM EST Maura Draper MD LAB POINT OF CARE TEST DOCKED DEVICE UNSOLICITED RESULTS Performing Organization Address City/[facility] Co de Phone Number [facility] [address] [place] [address] * GLUCOSE METER, POINT OF CARE (07/30/2023 7:57 AM EST) Glucose Meter 105 70 - 120 mg/dL 07/30/2023 8:27 AM EST [facility] Blood Whole blood specimen / Unknown 07/30/2023 7:57 AM EST 07/30/2023 8:27 AM EST Maura Draper MD LAB POINT OF CARE TEST DOCKED DEVICE UNSOLICITED RESULTS Performing Organization Address City/[facility] Co de Phone Number [facility] [address] [place] [address] * (ABNORMAL) CBC (07/30/2023 5:19 AM EST) WBC 7.32 4.00 - 10.80 K/uL 07/30/2023 5:41 AM EST LABORATORY GL RBC 4.43 4.50 - 5.25 M/uL 07/30/2023 5:41 AM EST LABORATORY GL HGB 13.6(L) 14.0 - 16.8 g/dL 07/30/2023 5:41 AM EST LAB[facility]ATORY [facility] HCT 39.9(L) 40.0 - 48.4 % 07/30/2023 5:41 AM EST [facility] MCV 90.1 82.0 - 99.5 fL 07/30/2023 5:41 AM EST LABORATORY GL MCH 30.7 27.0 - 34.0 pg 07/30/2023 5:41 AM EST LABORATORY GL MCHC 34.1 32.0 - 36.0 g/dL 07/30/2023 5:41 AM EST LABORATORY GL RDW 14.0 11.5 - 15.5 % 07/30/2023 5:41 AM EST LABORATORY [facility] PLT 213 140 - 400 K/uL 07/30/2023 5:41 AM EST [facility] [facility] MPV 9.0 6.6 - 11.1 fL 07/30/2023 5:41 AM EST LABORATORY GL nRBCs 0 <=0 /100 WBCs 07/30/2023 5:41 AM EST LABORATORY GL Blood Venous blood specimen / Unknown Venipuncture / Unknown 07/30/2023 5:19 AM EST 07/30/2023 5:35 AM EST Maura Draper MD LAB BLOOD ORDERABL ES LABORATORY [facility] [address] [place] [address] * BASIC METABOLIC PANEL (07/30/2023 5:19 AM EST) BUN 15 6 - 20 mg/dL 07/30/2023 6:59 AM EST LABORATORY GLH Creatinine 0.9 0.6 - 1.2 mg/dL 07/30/2023 6:59 AM EST LABORATORY GL Estimated Glomerular Filtration Rate >90 >=60 mL/min 07/30/2023 6:59 AM EST LABORATORY [facility] Comment:eGFR is calculated b ased on the CKD-EPI 2020 equation Sodium 142 135 - 146 mmol/L 07/30/2023 6:59 AM EST LABORATORY [facility] Potassium 3.5 3.5 - 5.1 mmol/L 07/30/2023 6:59 AM EST LABORATORY GL[facility] Chloride 105 98 - 107 mmol/L 07/30/2023 6:59 AM EST LABORATORY GL[facility] CO2 28 22 - 32 mmol/L 07/30/2023 6:59 AM EST LABORATORY GL[facility] Anion Gap 9 7 - 15 mmol/L 07/30/2023 6:59 AM EST LABORATORY GL[facility] Glucose 77 70 - 120 mg/dL 07/30/2023 6:59 AM EST LABORATORY GL[facility] Calcium 9.1 8.4 - 10.2 mg/dL 07/30/2023 6:59 AM EST LABORATORY [facility] Blood Venous blood specimen / Unknown Venipuncture / Unknown 07/30/2023 5:19 AM EST 07/30/2023 5:35 AM EST Maura Draper MD LAB BLOOD ORDERABL ES LABORATORY [facility] [address] [place] [address] * PROCALCITONIN (07/30/2023 5:19 AM EST) Procalcitonin 0.05 <0.10 ng/mL 07/30/2023 6:47 AM EST LABORATORY [facility] Blood Venous blood specimen / Unknown Venipuncture / Unknown 07/30/2023 5:19 AM EST 07/30/2023 5:35 AM EST Narrative LABORATORY GL[facility] - 07/30/2023 6:47 AM EST Less than 0.5 ng/mL: Low risk for progression to sepsis. Review patients condition for localized infections. 0.5 to 2.0 ng/mL: Intermediate risk for progresion to sepsis. Review underlying conditions. Recommend repeat PCT after 6 hours has elapsed. Greater than 2.0 ng/mL: high risk for progression to sepsis unless other causes are known. Maura Draper MD LAB BLOOD ORDERABL ES Performing Organization Address [facility] Co de Phone Number LABORATORY [address] [address] * (ABNORMAL) HEPATIC FUNCTION PANEL (07/30/2023 5:19 AM EST) Albumin 3.6(L) 3.8 - 5.0 g/dL 07/30/2023 6:59 AM EST LABORATORY GL[facility] AST 15 10 - 50 U/L 07/30/2023 6:59 AM EST LABORATORY GL[facility] Alkaline Phosphatase 94 35 - 130 U/L 07/30/2023 6:59 AM EST LABORATORY GL[facility] ALT 22 10 - 50 U/L 07/30/2023 6:59 AM EST LABORATORY GL[facility] Bilirubin, Total 0.7 <=1.2 mg/dL 07/30/2023 6:59 AM EST LABORATORY GL[facility] Bilirubin, Direct <0.2 0.0 - 0.3 mg/dL 07/30/2023 6:59 AM EST LABORATORY GL[facility] Protein 5.8(L) 6.0 - 8.3 g/dL 07/30/2023 6:59 AM EST LABORATORY GL[facility] Blood Venous blood specimen / Unknown Venipuncture / Unknown 07/30/2023 5:19 AM EST 07/30/2023 5:35 AM EST Maura Draper MD LAB BLOOD ORDERABL ES Performing Organization Address [facility] de Phone Number LABORATORY [address] [address] * MAGNESIUM (07/30/2023 5:19 AM EST) Magnesium 1.9 1.5 - 2.6 mg/dL 07/30/2023 6:59 AM EST LABORATORY GL[facility] Blood Venous blood specimen / Unknown Venipuncture / Unknown 07/30/2023 5:19 AM EST 07/30/2023 5:35 AM EST Maura Draper MD LAB BLOOD ORDERABL ES Performing Organization Address City/[facility]/ZIP Co de Phone Number LABORATORY [address] [phone] * PHOSPHORUS (07/30/2023 5:19 AM EST) Phosphorus 2.7 2.5 - 4.8 mg/dL 07/30/2023 6:59 AM EST LABORATORY [facility] Blood Venous blood specimen / Unknown Venipuncture / Unknown 07/30/2023 5:19 AM EST 07/30/2023 5:35 AM EST Maura Draper MD LAB BLOOD ORDERABL ES Performing Organization Address [facility] Co de Phone Number LABORATORY [address] [address] * GLUCOSE METER, POINT OF CARE (07/29/2023 10:00 PM EST) Glucose Meter 115 70 - 120 mg/dL 07/29/2023 10:23 PM EST [facility] Blood Whole blood specimen / Unknown 07/29/2023 10:00 PM EST 07/29/2023 10:23 PM EST Maura Draper MD LAB POINT OF CARE TEST DOCKED DEVICE UNSOLICITED RESULTS Performing Organization Address [facility] de Phone Number [facility] [address] [place] [address] [place] [address] * (ABNORMAL) GLUCOSE METER, POINT OF CARE (07/29/2023 4:59 PM EST) Glucose Meter 130(H) 70 - 120 mg/dL 07/29/2023 5:13 PM EST [facility] Blood Whole blood specimen / Unknown 07/29/2023 4:59 PM EST 07/29/2023 5:13 PM EST Maura Draper MD LAB POINT OF CARE TEST DOCKED DEVICE UNSOLICITED RESULTS Performing Organization Address [facility] Co de Phone Number [facility] [address] [place] [address] [place] [address] * (ABNORMAL) GLUCOSE METER, POINT OF CARE (07/29/2023 11:51 AM EST) Glucose Meter 165(H) 70 - 120 mg/dL 07/29/2023 12:01 PM EST [facility] Blood Whole blood specimen / Unknown 07/29/2023 11:51 AM EST 07/29/2023 12:01 PM EST Maura Draper MD LAB POINT OF CARE TEST DOCKED DEVICE UNSOLICITED RESULTS [facility] [address] [place] [address] * US ABDOMEN LIMITED (07/29/2023 9:40 AM EST) Anatomical Region Laterality Modality Abdomen, Body Ultrasound 07/29/2023 9:20 AM EST Impressions 07/29/2023 10:54 AM EST IMPRESSION: 1. No signs of acute cholecystitis. 2. Possible hepatic steatosis. THIS DOCUMENT HAS BEEN ELECTRONICALLY SIGNED BY KRISTI BA MD Narrative 07/29/2023 10:54 AM EST PROCEDURE INFORMATION: Exam: US Abdomen, Limited; Right Upper Quadrant Exam date and time: 07/29/2023 9:20 AM Age: 67 years old Clinical indication: Abdominal pain; Generalized; Additional info: Evaluate for cholelcystitis TECHNIQUE: Imaging protocol: Real time ultrasound of the abdomen with image documentation. Limited exam focused on the right upper quadrant. COMPARISON: CT ABD/PELVIS W IV CONTRAST - WO ORAL CONTRAST 07/28/2023 7:59 PM FINDINGS: Liver: Increased echogenicity of the liver may be consistent with hepatic steatosis. Gallbladder: No gallstones identified. No pericholecystic fluid. No gallbladder wall thickening. Negative sonographic Miles sign. Biliary ducts: The common bile duct measures up to 4 mm in diameter. Pancreas: Visualized pancreas is unremarkable. Right kidney: The right kidney measures 12.4 x 5.0 x 6.4 cm. No hydronephrosis. Simple appearing cyst in the interpolar region of the right kidney measuring up to 11 mm. Procedure Note Kristi Ba MD - 07/29/2023 PROCEDURE INFORMATION: Exam: US Abdomen, Limited; Right Upper Quadrant Exam date and time: 07/29/2023 9:20 AM Age: 67 years old Clinical indication: Abdominal pain; Generalized; Additional info:Evaluate for cholelcystitis TECHNIQUE: Imaging protocol: Real time ultrasound of the abdomen with imagedocumentation. Limited exam focused on the right upper quadrant. COMPARISON: CT ABD/PELVIS W IV CONTRAST - WO ORAL CONTRAST 07/28/2023 7:59 PM FINDINGS: Liver: Increased echogenicity of the liver may be consistent with hepatic steatosis. Gallbladder: No gallstones identified. No pericholecystic fluid. Nogallbladder wall thickening. Negative sonographic Miles sign. Biliary ducts: The common bile duct measures up to 4 mm in diameter. Pancreas: Visualized pancreas is unremarkable. Right kidney: The right kidney measures 12.4 x 5.0 x 6.4 cm. Nohydronephrosis. Simple appearing cyst in the interpolar region of the right kidneymeasuring up to 11 mm. IMPRESSION IMPRESSION: 1. No signs of acute cholecystitis. 2. Possible hepatic steatosis. THIS DOCUMENT HAS BEEN ELECTRONICALLY SIGNED BY KRISTI BA MD Keon Islas DO RAD ULTRASOUND * GLUCOSE METER, POINT OF CARE (07/29/2023 8:03 AM EST) Glucose Meter 74 70 - 120 mg/dL 07/29/2023 8:17 AM EST [facility] Blood Whole blood specimen / Unknown 07/29/2023 8:03 AM EST 07/29/2023 8:17 AM EST Maura Draper MD LAB POINT OF CARE TEST DOCKED DEVICE UNSOLICITED RESULTS [facility] [address] [place] [address] * LACTATE (07/29/2023 6:03 AM EST) Lactate 0.9 0.4 - 2.0 mmol/L 07/29/2023 7:04 AM EST LABORATORY [facility] Blood Venous blood specimen / Unknown Venipuncture / Unknown 07/29/2023 6:03 AM EST 07/29/2023 6:18 AM EST Valentina Valenzuela MD LAB BLOOD ORDERABL ES LABORATORY [address] [address] * (ABNORMAL) HEMOGLOBIN A1C (07/29/2023 6:03 AM EST) Hemoglobin A1C 6.7(H) 4.0 - 5.6 % 07/29/2023 11:55 AM EST LABORATORY [facility] Comment:The use of HbA1c to monitor glycemic status is based on normal hemoglobin and HbA composition. This test should not be used in patients with abnormal hemoglobin that affects the half life of the red blood cell or the in vivo glycation rates. Estimated Average Glucose 146(H) <126 mg/dL 07/29/2023 11:55 AM EST LABORATORY [facility] Blood Venous blood specimen / Unknown Venipuncture / Unknown 07/29/2023 6:03 AM EST 07/29/2023 6:18 AM EST Shereen May MD LAB BLOOD ORDERABLE S LABORATORY [facility] [address] [place] [address] * PHOSPHORUS (07/29/2023 6:03 AM EST) Phosphorus 3.1 2.5 - 4.8 mg/dL 07/29/2023 6:58 AM EST LABORATORY [facility] Blood Venous blood specimen / Unknown Venipuncture / Unknown 07/29/2023 6:03 AM EST 07/29/2023 6:18 AM EST Shereen May MD LAB BLOOD ORDERABLE S LABORATORY [address] [id number] * MAGNESIUM (07/29/2023 6:03 AM EST) Magnesium 1.7 1.5 - 2.6 mg/dL 07/29/2023 6:58 AM EST LABORATORY GL Blood Venous blood specimen / Unknown Venipuncture / Unknown 07/29/2023 6:03 AM EST 07/29/2023 6:18 AM EST Shereen May MD LAB BLOOD ORDERABLE S LABORATORY [facility] [address] [place] [address] * CBC (07/29/2023 6:03 AM EST) WBC 10.26 4.00 - 10.80 K/uL 07/29/2023 6:21 AM EST LABORATORY [facility] RBC 4.66 4.50 - 5.25 M/uL 07/29/2023 6:21 AM EST LABORATORY [facility] HGB 14.3 14.0 - 16.8 g/dL 07/29/2023 6:21 AM EST LABORATORY GL HCT 41.5 40.0 - 48.4 % 07/29/2023 6:21 AM EST LABORATORY GL MCV 89.1 82.0 - 99.5 fL 07/29/2023 6:21 AM EST LABORATORY [facility] MCH 30.7 27.0 - 34.0 pg 07/29/2023 6:21 AM EST LABORATORY [facility] MCHC 34.5 32.0 - 36.0 g/dL 07/29/2023 6:21 AM EST LABORATORY [facility] RDW 14.5 11.5 - 15.5 % 07/29/2023 6:21 AM EST LABORATORY GL PLT 232 140 - 400 K/uL 07/29/2023 6:21 AM EST LABORATORY GL MPV 9.0 6.6 - 11.1 fL 07/29/2023 6:21 AM EST LABORATORY GL nRBCs 0 <=0 /100 WBCs 07/29/2023 6:21 AM EST LABORATORY GL Blood Venous blood specimen / Unknown Venipuncture / Unknown 07/29/2023 6:03 AM EST 07/29/2023 6:18 AM EST Shereen May MD LAB BLOOD ORDERABLE S LABORATORY [facility] [address] [facility] [place] [address] * (ABNORMAL) COMPREHENSIVE METABOLIC PANEL (07/29/2023 6:03 AM EST) BUN 29(H) 6 - 20 mg/dL 07/29/2023 6:58 AM EST LABORATORY GL[facility] Creatinine 0.8 0.6 - 1.2 mg/dL 07/29/2023 6:58 AM EST LABORATORY [facility] Estimated Glomerular Filtration Rate >90 >=60 mL/min 07/29/2023 6:58 AM EST LABORATORY [facility] Comment:eGFR is calculated b ased on the CKD-EPI 2020 equation Sodium 139 135 - 146 mmol/L 07/29/2023 6:58 AM EST LABORATORY GL[facility] Potassium 3.3(L) 3.5 - 5.1 mmol/L 07/29/2023 6:58 AM EST LABORATORY [facility] Chloride 102 98 - 107 mmol/L 07/29/2023 6:58 AM EST LABORATORY GL[facility] CO2 25 22 - 32 mmol/L 07/29/2023 6:58 AM EST LABORATORY GL[facility] Anion Gap 12 7 - 15 mmol/L 07/29/2023 6:58 AM EST LABORATORY GL[facility] Glucose 76 70 - 120 mg/dL 07/29/2023 6:58 AM EST LABORATORY GL[facility] Albumin 3.5(L) 3.8 - 5.0 g/dL 07/29/2023 6:58 AM EST LABORATORY GL[facility] AST 14 10 - 50 U/L 07/29/2023 6:58 AM EST LABORATORY [facility] Alkaline Phosphatase 98 35 - 130 U/L 07/29/2023 6:58 AM EST LABORATORY GL[facility] Bilirubin, Total 0.8 <=1.2 mg/dL 07/29/2023 6:58 AM EST LABORATORY [facility] Calcium 8.7 8.4 - 10.2 mg/dL 07/29/2023 6:58 AM EST LABORATORY [facility] Protein 5.7(L) 6.0 - 8.3 g/dL 07/29/2023 6:58 AM EST LABORATORY GL[facility] ALT 20 10 - 50 U/L 07/29/2023 6:58 AM EST LABORATORY [facility] Blood Venous blood specimen / Unknown Venipuncture / Unknown 07/29/2023 6:03 AM EST 07/29/2023 6:18 AM EST Shereen May MD LAB BLOOD ORDERABLE S Performing Organization Address [facility] Co de Phone Number LABORATORY [address] [phone] * LACTATE (07/29/2023 3:29 AM EST) Lactate 1.5 0.4 - 2.0 mmol/L 07/29/2023 4:06 AM EST LABORATORY [facility] Blood Venous blood specimen / Unknown Venipuncture / Unknown 07/29/2023 3:29 AM EST 07/29/2023 3:39 AM EST Valentina Valenzuela MD LAB BLOOD ORDERABL ES Performing Organization Address [facility] Co de Phone Number LABORATORY [address] [address] * (ABNORMAL) LACTATE (07/29/2023 1:15 AM EST) Lactate 3.3(H) 0.4 - 2.0 mmol/L 07/29/2023 1:55 AM EST LABORATORY [facility] Blood Venous blood specimen / Unknown Venipuncture / Unknown 07/29/2023 1:15 AM EST 07/29/2023 1:17 AM EST Valentina Valenzuela MD LAB BLOOD ORDERABL ES Performing Organization Address [facility] Co de Phone Number LABORATORY [address] [address] * CULTURE, URINE, QUANTITATIVE (07/29/2023 12:20 AM EST) Culture Growth No significant growth 07/30/2023 7:25 AM EST LABORATORY [facility] Urine Urine specimen obtained by clean catch procedure / Unknown Non-blood Collection / Unknown 07/29/2023 12:20 AM EST 07/29/2023 12:36 AM EST Shereen May MD LAB MICRO - GENERAL ORDERABLES LABORATORY [facility] [address] [place] [address] * TROPONIN T, HIGH SENSITIVITY (07/28/2023 10:16 PM EST) Troponin T, High Sensitivity 14 <=22 ng/L 07/28/2023 10:36 PM EST LABORATORY [facility] Blood Venous blood specimen / Unknown Venipuncture / Unknown 07/28/2023 10:16 PM EST 07/28/2023 10:19 PM EST Keon [facility] LAB BLOOD ORDERABLE S Performing Organization Address City/[facility] Co de Phone Number LABORATORY [facility] [address] [place] [address] * (ABNORMAL) LACTATE (07/28/2023 10:16 PM EST) Lactate 2.4(H) 0.4 - 2.0 mmol/L 07/28/2023 10:33 PM EST LABORATORY [facility] Blood Venous blood specimen / Unknown Venipuncture / Unknown 07/28/2023 10:16 PM EST 07/28/2023 10:19 PM EST Keon [facility] LAB BLOOD ORDERABLE S Performing Organization Address City/[facility]/ZIP Co de Phone Number LABORATORY [facility] [address] [place] [address] * (ABNORMAL) BASIC METABOLIC PANEL (07/28/2023 10:16 PM EST) BUN 36(H) 6 - 20 mg/dL 07/28/2023 10:37 PM EST LABORATORY [facility] Creatinine 0.9 0.6 - 1.2 mg/dL 07/28/2023 10:37 PM EST LABORATORY GL Estimated Glomerular Filtration Rate >90 >=60 mL/min 07/28/2023 10:37 PM EST LABORATORY [facility] Comment:eGFR is calculated b ased on the CKD-EPI 2020 equation Sodium 138 135 - 146 mmol/L 07/28/2023 10:37 PM EST LABORATORY GL[facility] Potassium 3.6 3.5 - 5.1 mmol/L 07/28/2023 10:37 PM EST LABORATORY [facility] Chloride 99 98 - 107 mmol/L 07/28/2023 10:37 PM EST LABORATORY GL[facility] CO2 24 22 - 32 mmol/L 07/28/2023 10:37 PM EST LABORATORY [facility] Anion Gap 15 7 - 15 mmol/L 07/28/2023 10:37 PM EST LABORATORY [facility] Glucose 106 70 - 120 mg/dL 07/28/2023 10:37 PM EST LABORATORY [facility] Calcium 8.9 8.4 - 10.2 mg/dL 07/28/2023 10:37 PM EST LABORATORY [facility] Blood Venous blood specimen / Unknown Venipuncture / Unknown 07/28/2023 10:16 PM EST 07/28/2023 10:19 PM EST Keon Boaz Roshan DO LAB BLOOD ORDERABLE S Performing Organization Address City/[facility]/ZIP Co de Phone Number LABORATORY [address] [address] * MICROSCOPIC EXAM, URINE (07/28/2023 9:44 PM EST) RBC, Urine 0-2 0 - 2 /HPF 07/28/2023 10:04 PM EST LABORATORY [facility] WBC, Urine 0-2 0 - 2 /HPF 07/28/2023 10:04 PM EST LABORATORY [facility] Bacteria, Urine 0-25 0 - 25 /HPF 07/28/2023 10:04 PM EST LABORATORY [facility] Urine Urine specimen obtained by clean catch procedure / Unknown Non-blood Collection / Unknown 07/28/2023 9:44 PM EST 07/28/2023 9:49 PM EST [facility] Roshan DO LAB URINE ORDERABLE S Performing Organization Address City/[facility]/ZIP Co de Phone Number LABORATORY [address] [address] * (ABNORMAL) URINALYSIS, REFLEX TO MICROSCOPIC (07/28/2023 9:44 PM EST) Color, Urine Yellow Light Yellow, Yellow, Dark Yellow 07/28/2023 9:53 PM EST LABORATORY [facility] Clarity, Urine Clear Clear 07/28/2023 9:53 PM EST LABORATORY [facility] Glucose, Urine Negative Negative mg/dL 07/28/2023 9:53 PM EST LABORATORY [facility] Bilirubin, Urine Negative Negative 07/28/2023 9:53 PM EST LABORATORY [facility] Ketone, Urine 15(A) Negative mg/dL 07/28/2023 9:53 PM EST LABORATORY [facility] Specific [place], Urine 1.030 1.003 - 1.030 07/28/2023 9:53 PM EST LABORATORY GL Blood, Urine Trace(A) Negative 07/28/2023 9:53 PM EST LABORATORY GL pH, Urine 5.5 5.0 - 7.5 Units 07/28/2023 9:53 PM EST LABORATORY [facility] Protein, Urine Negative Negative mg/dL 07/28/2023 9:53 PM EST LABORATORY GL Urobilinogen, Urine 0.2 0.2, 1.0 mg/dL 07/28/2023 9:53 PM EST LABORATORY [facility] Nitrite, Urine Negative Negative 07/28/2023 9:53 PM EST LABORATORY [facility] Esterase, Urine Negative Negative 07/28/2023 9:53 PM EST LABORATORY GL Urine Urine specimen obtained by clean catch procedure / Unknown Non-blood Collection / Unknown 07/28/2023 9:44 PM EST 07/28/2023 9:49 PM EST [facility] LAB URINE ORDERABLE S LABORATORY [facility] [address] [place] [address] * (ABNORMAL) LACTATE (07/28/2023 9:01 PM EST) Lactate 2.7(H) 0.4 - 2.0 mmol/L 07/28/2023 9:21 PM EST LABORATORY GL Blood Venous blood specimen / Unknown Venipuncture / Unknown 07/28/2023 9:01 PM EST 07/28/2023 9:08 PM EST Keon Islas DO LAB [place] [address] * EKG (07/28/2023 8:13 PM EST) 07/28/2023 8:13 PM EST Narrative Procedure Note Ramin Swanson DO - 07/28/2023 8:13 PM EST REASON FOR STUDY: Abdominal pain CONCLUSIONS: Normal sinus rhythm Left axis deviation Left ventricular hypertrophy with secondary QRS widening Prolonged QT interval, consider myocardial disease, electrolytes ordrugs Abnormal ECG When compared with ECG of 25-SEP-2022 17:12, Premature supraventricular complexes are no longer Present Ventricular Rate: 96 Atrial Rate: 96 MD Interval: 188 QRS Duration: 122 QT/QTc: 406/512 ms P-R-T [place]: 0 : -43 : 16 degrees Keon Islas EKG Performing Organization Address [facility] Co de Phone Number [employer] CARDIOLOGY * CT ABD/PELVIS W IV CONTRAST - WO ORAL CONTRAST (07/28/2023 8:11 PM EST) Anatomical Region Laterality Modality Body, Abdomen, Pelvis Computed T omography 07/28/2023 7:59 PM EST Impressions 07/28/2023 8:28 PM EST IMPRESSION: 1. There is no evidence of filling defects within the pulmonary arterial circulation to suggest pulmonary embolism. 2. Esophagus is patulous and somewhat dilated. Mild thickening of distal esophageal wall. Question reflux disease and esophagitis. Recommend clinical correlation. Further evaluation with upper GI or EGD may be considered to evaluate the wall thickening of the distal esophagus and exclude any underlying lesions. 3. Nonspecific lymph nodes at the level of the diaphragm adjacent to the gastroesophageal junction. Recommend attention on follow-up. PROCEDURE INFORMATION: Exam: CT Abdomen And Pelvis With Contrast Exam date and time: 07/28/2023 7:59 PM Age: 67 years old Clinical indication: Abdominal pain; Other: Anxiety; Additional info: Severe generalized abdominal pain TECHNIQUE: Imaging protocol: Computed tomography of the abdomen and pelvis with contrast. Radiation optimization: All CT scans at this facility use at least one of these dose optimization techniques: automated exposure control; mA and/or kV adjustment per patient size (includes targeted exams where dose is matched to clinical indication); or iterative reconstruction. Contrast material: [id number]; Contrast volume: 100 ml; Contrast route: INTRAVENOUS (IV); REPORTING DATA: Count of CT and Cardiac NM exams in prior 12 months: This patient has received [address] and 0 known cardiac nuclear medicine studies in the 12 months prior to the current study. COMPARISON: CT ABD/PELVIS WO IV/ORAL CONTRAST 09/25/2022 8:16 PM FINDINGS: Lungs: No acute abnormality. Liver: Normal. No mass. Gallbladder and bile ducts: The gallbladder is distended. Pancreas: There is diffuse atrophy of the pancreatic parenchyma. Spleen: Normal. No splenomegaly. Adrenal glands: Mild adrenal hyperplasia. Kidneys and ureters: Bilateral extrarenal pelves, right greater than left. Remainder of the ureters is unremarkable.There is no evidence of renal or ureteral calcifications. Stomach and bowel: Thickening of the gastric wall nonspecific and may be associated with nondistention. Mild diverticulosis is present in the distal colon. There is no evidence of intestinal obstruction. Appendix: No evidence of appendicitis. Intraperitoneal space: Unremarkable. No free air. No significant fluid collection. Vasculature: Unremarkable. No abdominal aortic aneurysm. Lymph nodes: Unremarkable. No enlarged lymph nodes. Urinary bladder: Unremarkable as visualized. Reproductive: Unremarkable as visualized. Bones/joints: The spine demonstrates moderate degenerative changes at multiple levels. Soft tissues: Unremarkable. IMPRESSION: 1. Overall nonobstructive bowel gas pattern. No focal inflammation identified 2. The gallbladder is distended. If pain referred to this area consider ultrasound to further evaluate 3. Mild diverticulosis without significant inflammation THIS DOCUMENT HAS BEEN ELECTRONICALLY SIGNED BY ROHIT HERRERA MD Narrative 07/28/2023 8:28 PM EST PROCEDURE INFORMATION: Exam: CTA Chest With Contrast Exam date and time: 07/28/2023 7:59 PM Age: 67 years old Clinical indication: Abdominal pain; Other: Anxiety; Additional info: Severe generalized abdominal pain TECHNIQUE: Imaging protocol: Computed tomographic angiography of the chest with contrast. Exam focused on the arteries. 3D rendering (Not supervised by radiologist): MIP and/or 3D reconstructed images were created by the technologist. Radiation optimization: All CT scans at this facility use at least one of these dose optimization techniques: automated exposure control; mA and/or kV adjustment per patient size (includes targeted exams where dose is matched to clinical indication); or iterative reconstruction. Contrast material: [id number]; Contrast volume: 100 ml; Contrast route: INTRAVENOUS (IV); REPORTING DATA: Count of CT and Cardiac NM exams in prior 12 months: This patient has received [address] and 0 known cardiac nuclear medicine studies in the 12 months prior to the current study. COMPARISON: CT PULMONARY EMBOLUS W CONTRAST 07/28/2023 7:59 PM FINDINGS: Pulmonary arteries: Normal. No pulmonary emboli. Aorta: Unremarkable. No aortic aneurysm. No aortic dissection. Lungs: Minimal atelectatic changes at the lung bases. Pleural spaces: Unremarkable. No pneumothorax. No pleural effusion. Heart: Unremarkable. No cardiomegaly. No pericardial effusion. Mediastinal space: Esophagus is patulous and somewhat dilated. Mild thickening of distal esophageal wall. Lymph nodes: No significant mediastinal adenopathy. Nonspecific 1 cm lymph node adjacent to the gastroesophageal junction at the site of hiatus hernia, series 17 image 27 Bones/joints: There are moderate degenerative changes present. Soft tissues: Unremarkable. Procedure Note Rohit Herrera MD - 07/28/2023 PROCEDURE INFORMATION: Exam: CTA Chest With Contrast Exam date and time: 07/28/2023 7:59 PM Age: 67 years old Clinical indication: Abdominal pain; Other: Anxiety; Additional info:Severe generalized abdominal pain TECHNIQUE: Imaging protocol: Computed tomographic angiography of the chest withcontrast. Exam focused on the arteries. 3D rendering (Not supervised by radiologist): MIP and/or 3D reconstructed images were created by the technologist. Radiation optimization: All CT scans at this facility use at least one ofthese dose optimization techniques: automated exposure control; mA and/or kV adjustment per patient size (includes targeted exams where dose is matchedto clinical indication); or iterative reconstruction. Contrast material: [id number]; Contrast volume: 100 ml; Contrast route: INTRAVENOUS (IV); REPORTING DATA: Count of CT and Cardiac NM exams in prior 12 months: This patient hasreceived [address] and 0 known cardiac nuclear medicine studies in the 12 monthsprior to the current study. COMPARISON: CT PULMONARY EMBOLUS W CONTRAST 07/28/2023 7:59 PM FINDINGS: Pulmonary arteries: Normal. No pulmonary emboli. Aorta: Unremarkable. No aortic aneurysm. No aortic dissection. Lungs: Minimal atelectatic changes at the lung bases. Pleural spaces: Unremarkable. No pneumothorax. No pleural effusion. Heart: Unremarkable. No cardiomegaly. No pericardial effusion. Mediastinal space: Esophagus is patulous and somewhat dilated. Mildthickening of distal esophageal wall. Lymph nodes: No significant mediastinal adenopathy. Nonspecific 1 cm lymphnode adjacent to the gastroesophageal junction at the site of hiatus hernia,series 17 image 27 Bones/joints: There are moderate degenerative changes present. Soft tissues: Unremarkable. IMPRESSION IMPRESSION: 1. There is no evidence of filling defects within the pulmonary arterial circulation to suggest pulmonary embolism. 2. Esophagus is patulous and somewhat dilated. Mild thickening of distal esophageal wall. Question reflux disease and esophagitis. Recommendclinical correlation. Further evaluation with upper GI or EGD may be considered to evaluate the wall thickening of the distal esophagus and exclude anyunderlying lesions. 3. Nonspecific lymph nodes at the level of the diaphragm adjacent to the gastroesophageal junction. Recommend attention on follow-up. PROCEDURE INFORMATION: Exam: CT Abdomen And Pelvis With Contrast Exam date and time: 07/28/2023 7:59 PM Age: 67 years old Clinical indication: Abdominal pain; Other: Anxiety; Additional info:Severe generalized abdominal pain TECHNIQUE: Imaging protocol: Computed tomography of the abdomen and pelvis withcontrast. Radiation optimization: All CT scans at this facility use at least one ofthese dose optimization techniques: automated exposure control; mA and/or kV adjustment per patient size (includes targeted exams where dose is matchedto clinical indication); or iterative reconstruction. Contrast material: [id number]; Contrast volume: 100 ml; Contrast route: INTRAVENOUS (IV); REPORTING DATA: Count of CT and Cardiac NM exams in prior 12 months: This patient hasreceived [address] and 0 known cardiac nuclear medicine studies in the 12 monthsprior to the current study. COMPARISON: CT ABD/PELVIS WO IV/ORAL CONTRAST 09/25/2022 8:16 PM FINDINGS: Lungs: No acute abnormality. Liver: Normal. No mass. Gallbladder and bile ducts: The gallbladder is distended. Pancreas: There is diffuse atrophy of the pancreatic parenchyma. Spleen: Normal. No splenomegaly. Adrenal glands: Mild adrenal hyperplasia. Kidneys and ureters: Bilateral extrarenal pelves, right greater than left. Remainder of the ureters is unremarkable.There is no evidence of renal or ureteral calcifications. Stomach and bowel: Thickening of the gastric wall nonspecific and may be associated with nondistention. Mild diverticulosis is present in thedistal colon. There is no evidence of intestinal obstruction. Appendix: No evidence of appendicitis. Intraperitoneal space: Unremarkable. No free air. No significant fluid collection. Vasculature: Unremarkable. No abdominal aortic aneurysm. Lymph nodes: Unremarkable. No enlarged lymph nodes. Urinary bladder: Unremarkable as visualized. Reproductive: Unremarkable as visualized. Bones/joints: The spine demonstrates moderate degenerative changes atmultiple levels. Soft tissues: Unremarkable. IMPRESSION: 1. Overall nonobstructive bowel gas pattern. No focal inflammationidentified 2. The gallbladder is distended. If pain referred to this area consider ultrasound to further evaluate 3. Mild diverticulosis without significant inflammation THIS DOCUMENT HAS BEEN ELECTRONICALLY SIGNED BY ROHIT HERRERA MD Keon Islas DO RAD CT * CT PULMONARY EMBOLUS W CONTRAST (07/28/2023 8:11 PM EST) Anatomical Region Laterality Modality Chest, Cardio, Body Computed Carlos ography 07/28/2023 7:59 PM EST Impressions 07/28/2023 8:28 PM EST IMPRESSION: 1. There is no evidence of filling defects within the pulmonary arterial circulation to suggest pulmonary embolism. 2. Esophagus is patulous and somewhat dilated. Mild thickening of distal esophageal wall. Question reflux disease and esophagitis. Recommend clinical correlation. Further evaluation with upper GI or EGD may be considered to evaluate the wall thickening of the distal esophagus and exclude any underlying lesions. 3. Nonspecific lymph nodes at the level of the diaphragm adjacent to the gastroesophageal junction. Recommend attention on follow-up. PROCEDURE INFORMATION: Exam: CT Abdomen And Pelvis With Contrast Exam date and time: 07/28/2023 7:59 PM Age: 67 years old Clinical indication: Abdominal pain; Other: Anxiety; Additional info: Severe generalized abdominal pain TECHNIQUE: Imaging protocol: Computed tomography of the abdomen and pelvis with contrast. Radiation optimization: All CT scans at this facility use at least one of these dose optimization techniques: automated exposure control; mA and/or kV adjustment per patient size (includes targeted exams where dose is matched to clinical indication); or iterative reconstruction. Contrast material: [id number]; Contrast volume: 100 ml; Contrast route: INTRAVENOUS (IV); REPORTING DATA: Count of CT and Cardiac NM exams in prior 12 months: This patient has received [address] and 0 known cardiac nuclear medicine studies in the 12 months prior to the current study. COMPARISON: CT ABD/PELVIS WO IV/ORAL CONTRAST 09/25/2022 8:16 PM FINDINGS: Lungs: No acute abnormality. Liver: Normal. No mass. Gallbladder and bile ducts: The gallbladder is distended. Pancreas: There is diffuse atrophy of the pancreatic parenchyma. Spleen: Normal. No splenomegaly. Adrenal glands: Mild adrenal hyperplasia. Kidneys and ureters: Bilateral extrarenal pelves, right greater than left. Remainder of the ureters is unremarkable.There is no evidence of renal or ureteral calcifications. Stomach and bowel: Thickening of the gastric wall nonspecific and may be associated with nondistention. Mild diverticulosis is present in the distal colon. There is no evidence of intestinal obstruction. Appendix: No evidence of appendicitis. Intraperitoneal space: Unremarkable. No free air. No significant fluid collection. Vasculature: Unremarkable. No abdominal aortic aneurysm. Lymph nodes: Unremarkable. No enlarged lymph nodes. Urinary bladder: Unremarkable as visualized. Reproductive: Unremarkable as visualized. Bones/joints: The spine demonstrates moderate degenerative changes at multiple levels. Soft tissues: Unremarkable. IMPRESSION: 1. Overall nonobstructive bowel gas pattern. No focal inflammation identified 2. The gallbladder is distended. If pain referred to this area consider ultrasound to further evaluate 3. Mild diverticulosis without significant inflammation THIS DOCUMENT HAS BEEN ELECTRONICALLY SIGNED BY ROHIT HERRERA MD Narrative 07/28/2023 8:28 PM EST PROCEDURE INFORMATION: Exam: CTA Chest With Contrast Exam date and time: 07/28/2023 7:59 PM Age: 67 years old Clinical indication: Abdominal pain; Other: Anxiety; Additional info: Severe generalized abdominal pain TECHNIQUE: Imaging protocol: Computed tomographic angiography of the chest with contrast. Exam focused on the arteries. 3D rendering (Not supervised by radiologist): MIP and/or 3D reconstructed images were created by the technologist. Radiation optimization: All CT scans at this facility use at least one of these dose optimization techniques: automated exposure control; mA and/or kV adjustment per patient size (includes targeted exams where dose is matched to clinical indication); or iterative reconstruction. Contrast material: [id number]; Contrast volume: 100 ml; Contrast route: INTRAVENOUS (IV); REPORTING DATA: Count of CT and Cardiac NM exams in prior 12 months: This patient has received [address] and 0 known cardiac nuclear medicine studies in the 12 months prior to the current study. COMPARISON: CT PULMONARY EMBOLUS W CONTRAST 07/28/2023 7:59 PM FINDINGS: Pulmonary arteries: Normal. No pulmonary emboli. Aorta: Unremarkable. No aortic aneurysm. No aortic dissection. Lungs: Minimal atelectatic changes at the lung bases. Pleural spaces: Unremarkable. No pneumothorax. No pleural effusion. Heart: Unremarkable. No cardiomegaly. No pericardial effusion. Mediastinal space: Esophagus is patulous and somewhat dilated. Mild thickening of distal esophageal wall. Lymph nodes: No significant mediastinal adenopathy. Nonspecific 1 cm lymph node adjacent to the gastroesophageal junction at the site of hiatus hernia, series 17 image 27 Bones/joints: There are moderate degenerative changes present. Soft tissues: Unremarkable. Procedure Note Rohit Herrera MD - 07/28/2023 PROCEDURE INFORMATION: Exam: CTA Chest With Contrast Exam date and time: 07/28/2023 7:59 PM Age: 67 years old Clinical indication: Abdominal pain; Other: Anxiety; Additional info:Severe generalized abdominal pain TECHNIQUE: Imaging protocol: Computed tomographic angiography of the chest withcontrast. Exam focused on the arteries. 3D rendering (Not supervised by radiologist): MIP and/or 3D reconstructed images were created by the technologist. Radiation optimization: All CT scans at this facility use at least one ofthese dose optimization techniques: automated exposure control; mA and/or kV adjustment per patient size (includes targeted exams where dose is matchedto clinical indication); or iterative reconstruction. Contrast material: [id number]; Contrast volume: 100 ml; Contrast route: INTRAVENOUS (IV); REPORTING DATA: Count of CT and Cardiac NM exams in prior 12 months: This patient hasreceived [address] and 0 known cardiac nuclear medicine studies in the 12 monthsprior to the current study. COMPARISON: CT PULMONARY EMBOLUS W CONTRAST 07/28/2023 7:59 PM FINDINGS: Pulmonary arteries: Normal. No pulmonary emboli. Aorta: Unremarkable. No aortic aneurysm. No aortic dissection. Lungs: Minimal atelectatic changes at the lung bases. Pleural spaces: Unremarkable. No pneumothorax. No pleural effusion. Heart: Unremarkable. No cardiomegaly. No pericardial effusion. Mediastinal space: Esophagus is patulous and somewhat dilated. Mildthickening of distal esophageal wall. Lymph nodes: No significant mediastinal adenopathy. Nonspecific 1 cm lymphnode adjacent to the gastroesophageal junction at the site of hiatus hernia,series 17 image 27 Bones/joints: There are moderate degenerative changes present. Soft tissues: Unremarkable. IMPRESSION IMPRESSION: 1. There is no evidence of filling defects within the pulmonary arterial circulation to suggest pulmonary embolism. 2. Esophagus is patulous and somewhat dilated. Mild thickening of distal esophageal wall. Question reflux disease and esophagitis. Recommendclinical correlation. Further evaluation with upper GI or EGD may be considered to evaluate the wall thickening of the distal esophagus and exclude anyunderlying lesions. 3. Nonspecific lymph nodes at the level of the diaphragm adjacent to the gastroesophageal junction. Recommend attention on follow-up. PROCEDURE INFORMATION: Exam: CT Abdomen And Pelvis With Contrast Exam date and time: 07/28/2023 7:59 PM Age: 67 years old Clinical indication: Abdominal pain; Other: Anxiety; Additional info:Severe generalized abdominal pain TECHNIQUE: Imaging protocol: Computed tomography of the abdomen and pelvis withcontrast. Radiation optimization: All CT scans at this facility use at least one ofthese dose optimization techniques: automated exposure control; mA and/or kV adjustment per patient size (includes targeted exams where dose is matchedto clinical indication); or iterative reconstruction. Contrast material: [id number]; Contrast volume: 100 ml; Contrast route: INTRAVENOUS (IV); REPORTING DATA: Count of CT and Cardiac NM exams in prior 12 months: This patient hasreceived [address] and 0 known cardiac nuclear medicine studies in the 12 monthsprior to the current study. COMPARISON: CT ABD/PELVIS WO IV/ORAL CONTRAST 09/25/2022 8:16 PM FINDINGS: Lungs: No acute abnormality. Liver: Normal. No mass. Gallbladder and bile ducts: The gallbladder is distended. Pancreas: There is diffuse atrophy of the pancreatic parenchyma. Spleen: Normal. No splenomegaly. Adrenal glands: Mild adrenal hyperplasia. Kidneys and ureters: Bilateral extrarenal pelves, right greater than left. Remainder of the ureters is unremarkable.There is no evidence of renal or ureteral calcifications. Stomach and bowel: Thickening of the gastric wall nonspecific and may be associated with nondistention. Mild diverticulosis is present in thedistal colon. There is no evidence of intestinal obstruction. Appendix: No evidence of appendicitis. Intraperitoneal space: Unremarkable. No free air. No significant fluid collection. Vasculature: Unremarkable. No abdominal aortic aneurysm. Lymph nodes: Unremarkable. No enlarged lymph nodes. Urinary bladder: Unremarkable as visualized. Reproductive: Unremarkable as visualized. Bones/joints: The spine demonstrates moderate degenerative changes atmultiple levels. Soft tissues: Unremarkable. IMPRESSION: 1. Overall nonobstructive bowel gas pattern. No focal inflammationidentified 2. The gallbladder is distended. If pain referred to this area consider ultrasound to further evaluate 3. Mild diverticulosis without significant inflammation THIS DOCUMENT HAS BEEN ELECTRONICALLY SIGNED BY ROHIT HERRERA MD [facility] DO RAD CT * (ABNORMAL) BLOOD GAS, VENOUS (07/28/2023 7:25 PM EST) Temperature 37.0 C 07/28/2023 7:33 PM EST LAB[facility] pH, Venous 7.576(H) 7.320 - 7.430 units 07/28/2023 7:33 PM EST [facility] pCO2, Venous 24.7(L) 40.0 - 60.0 mmHg 07/28/2023 7:33 PM EST [facility] pO2, Venous 25.9 25.0 - 50.0 mmHg 07/28/2023 7:33 PM EST [facility] Base Excess, Venous 3.2(H) -2.0 - 2.0 mmol/L 07/28/2023 7:33 PM EST [facility] Hemoglobin, Whole Blood 18.4(H) 14.0 - 16.8 g/dL 07/28/2023 7:33 PM EST [facility] Oxyhemoglobin, Venous 50.3 40.0 - 85.0 % total Hgb 07/28/2023 7:33 PM EST [facility] Carboxyhemoglobi n, Whole Blood 1.0 <=1.5 % total Hgb 07/28/2023 7:33 PM EST [facility] Comment:Smokers: 0-9.0 % Methemoglobin, Whole Blood 0.6 <=1.5 % total Hgb 07/28/2023 7:33 PM EST [facility] Reduced Hemoglobin, Venous 48.1 % total Hgb 07/28/2023 7:33 PM EST [facility] O2 Content, Venous 12.9 7.0 - 18.0 %vol 07/28/2023 7:33 PM EST [facility] Bicarbonate, Whole Blood 22.9(L) 23.0 - 31.0 mmol/L 07/28/2023 7:33 PM EST [facility] Blood Venous blood specimen / Unknown Venipuncture / Unknown 07/28/2023 7:25 PM EST 07/28/2023 7:29 PM EST Keon Boaz Islas LAB BLOOD ORDERABLE S Performing Organization Address City/State/[facility] Co de Phone Number LABORATORY [facility] [address] [place] [address] * XR CHEST 1 VIEW (07/28/2023 7:19 PM EST) Anatomical Region Laterality Modality Chest Digital Radiogra phy 07/28/2023 7:11 PM EST Impressions 07/28/2023 7:57 PM EST IMPRESSION: There is no evidence of focal pulmonary consolidation. THIS DOCUMENT HAS BEEN ELECTRONICALLY SIGNED BY ROHIT HERRERA MD Narrative 07/28/2023 7:57 PM EST PROCEDURE INFORMATION: Exam: XR Chest Exam date and time: 07/28/2023 7:11 PM Age: 67 years old Clinical indication: Other: SOB TECHNIQUE: Imaging protocol: Radiologic exam of the chest. Views: 1 view. COMPARISON: DX XR CHEST 1 VIEW 09/25/2022 5:28 PM FINDINGS: Lungs: There is poor ventilation of the lungs, accounting for mild diffuse increase in pulmonary parenchymal density. Pleural spaces: Unremarkable. No pleural effusion. No pneumothorax. Heart/Mediastinum: Unremarkable. No cardiomegaly. Bones/joints: Unremarkable. Procedure Note Rohit Herrera MD - 12/16/2023 PROCEDURE INFORMATION: Exam: XR Chest Exam date and time: 07/28/2023 7:11 PM Age: 67 years old Clinical indication: Other: SOB TECHNIQUE: Imaging protocol: Radiologic exam of the chest. Views: 1 view. COMPARISON: DX XR CHEST 1 VIEW 09/25/2022 5:28 PM FINDINGS: Lungs: There is poor ventilation of the lungs, accounting for mild diffuse increase in pulmonary parenchymal density. Pleural spaces: Unremarkable. No pleural effusion. No pneumothorax. Heart/Mediastinum: Unremarkable. No cardiomegaly. Bones/joints: Unremarkable. IMPRESSION IMPRESSION: There is no evidence of focal pulmonary consolidation. THIS DOCUMENT HAS BEEN ELECTRONICALLY SIGNED BY ROHIT HERRERA MD Keon Boaz Islas RADIOLOGY ([facility]) * CK (07/28/2023 6:18 PM EST) CK 52 39 - 308 U/L 07/28/2023 8:20 PM EST LABORATORY [facility] Blood Venous blood specimen / Unknown Venipuncture / Unknown 07/28/2023 6:18 PM EST 07/28/2023 6:26 PM EST Keon Boaz [facility] LAB BLOOD ORDERABLE S LABORATORY [address] [address] * BNP, NT-PRO (07/28/2023 6:18 PM EST) BNP, NT-Pro 41 <300 pg/mL 07/28/2023 7:59 PM EST LABORATORY [facility] Blood Venous blood specimen / Unknown Venipuncture / Unknown 07/28/2023 6:18 PM EST 07/28/2023 6:26 PM EST Narrative LABORATORY GL - 07/28/2023 7:59 PM EST Exclude Heart Failure: <300 pg/mL Diagnose Heart Failure: Age <50 yr: >450 pg/mL 50-75 yr: >900 pg/mL >75 yr: >1800 pg/mL GFR is 30-59 mL/min: >1200 pg/mL or Age-adjusted values GFR <30 mL/min: do not use, not reliable Prognostic threshold: 1000 pg/mL Keon Islas LAB BLOOD ORDERABLE S LABORATORY [address] [address] * TROPONIN T, HIGH SENSITIVITY (07/28/2023 6:18 PM EST) Troponin T, High Sensitivity 18 <=22 ng/L 07/28/2023 7:59 PM EST LABORATORY [facility] Blood Venous blood specimen / Unknown Venipuncture / Unknown 07/28/2023 6:18 PM EST 07/28/2023 6:26 PM EST [facility] LAB BLOOD ORDERABLE S Performing Organization Address [facility] Co de Phone Number LABORATORY [address] [address] * PROCALCITONIN (07/28/2023 6:18 PM EST) Procalcitonin 0.07 <0.10 ng/mL 07/28/2023 7:59 PM EST LABORATORY [facility] Blood Venous blood specimen / Unknown Venipuncture / Unknown 07/28/2023 6:18 PM EST 07/28/2023 6:26 PM EST Narrative LABORATORY [facility] - 07/28/2023 7:59 PM EST Less than 0.5 ng/mL: Low risk for progression to sepsis. Review patients condition for localized infections. 0.5 to 2.0 ng/mL: Intermediate risk for progresion to sepsis. Review underlying conditions. Recommend repeat PCT after 6 hours has elapsed. Greater than 2.0 ng/mL: high risk for progression to sepsis unless other causes are known. Keon Islas LAB BLOOD ORDERABLE S Performing Organization Address City/[facility]/ZIP Co de Phone Number LABORATORY [address] [phone] * EXTRA GREEN TOP WITH GEL (07/28/2023 6:18 PM EST) Blood Venous blood specimen / Unknown 07/28/2023 6:18 PM EST 07/28/2023 6:26 PM EST Cam Amaya PA-C LAB BLOOD ORD ERABLES LABORATORY [facility] [address] [place] [address] * (ABNORMAL) DIFFERENTIAL, AUTOMATED (07/28/2023 6:18 PM EST) WBC 14.79(H) 4.00 - 10.80 K/uL 07/28/2023 6:29 PM EST [facility] Neutrophils % 63.4 40.0 - 75.0 % 07/28/2023 6:29 PM EST [facility] Lymphocytes % 26.0 18.0 - 42.0 % 07/28/2023 6:29 PM EST [facility] Monocytes % 8.9 1.0 - 11.0 % 07/28/2023 6:29 PM EST [facility] Eosinophils % 0.7 0.0 - 6.0 % 07/28/2023 6:29 PM EST [facility] Basophils % 0.5 0.0 - 2.0 % 07/28/2023 6:29 PM EST LABORATORY GL Immature Granulocytes % 0.5 0.0 - 2.0 % 07/28/2023 6:29 PM EST LABORATORY GL Absolute Neutrophils 9.36(H) 1.80 - 7.70 K/uL 07/28/2023 6:29 PM EST LABORATORY GL Absolute Lymphocytes 3.85 1.00 - 4.80 K/ul 07/28/2023 6:29 PM EST LABORATORY GL Absolute Monocytes 1.31(H) 0.00 - 1.10 K/uL 07/28/2023 6:29 PM EST [facility] Absolute Eosinophils 0.11 0.00 - 0.70 K/uL 07/28/2023 6:29 PM EST [facility] Absolute Basophils 0.08 0.00 - 0.20 K/uL 07/28/2023 6:29 PM EST LABORATORY GL Absolute Immature Granulocytes 0.08 0.00 - 0.20 K/uL 07/28/2023 6:29 PM EST [facility] Blood Venous blood specimen / Unknown Venipuncture / Unknown 07/28/2023 6:18 PM EST 07/28/2023 6:25 PM EST Keon Islas LAB BLOOD ORDERABLE S LABORATORY [facility] [address] [place] [address] * (ABNORMAL) CBC (07/28/2023 6:18 PM EST) WBC 14.79(H) 4.00 - 10.80 K/uL 07/28/2023 6:29 PM EST LABORATORY GL RBC 5.78 4.50 - 5.25 M/uL 07/28/2023 6:29 PM EST LABORATORY GL HGB 17.7(H) 14.0 - 16.8 g/dL 07/28/2023 6:29 PM EST LABORATORY GL HCT 51.3(H) 40.0 - 48.4 % 07/28/2023 6:29 PM EST LABORATORY GL MCV 88.8 82.0 - 99.5 fL 07/28/2023 6:29 PM EST LABORATORY GL MCH 30.6 27.0 - 34.0 pg 07/28/2023 6:29 PM EST LABORATORY GL MCHC 34.5 32.0 - 36.0 g/dL 07/28/2023 6:29 PM EST LABORATORY GL RDW 14.4 11.5 - 15.5 % 07/28/2023 6:29 PM EST LABORATORY GL PLT 357 140 - 400 K/uL 07/28/2023 6:29 PM EST LABORATORY GL MPV 9.4 6.6 - 11.1 fL 07/28/2023 6:29 PM EST LABORATORY GL nRBCs 0 <=0 /100 WBCs 07/28/2023 6:29 PM EST LABORATORY GL Blood Venous blood specimen / Unknown Venipuncture / Unknown 07/28/2023 6:18 PM EST 07/28/2023 6:25 PM EST Keon Islas LAB BLOOD ORDERABLE S LABORATORY [address] [address] * (ABNORMAL) LACTATE (07/28/2023 6:18 PM EST) Pathologist [facility] Lactate 7.3(HH) 0.4 - 2.0 mmol/L 07/28/2023 6:48 PM EST LABORATORY [facility] Blood Venous blood specimen / Unknown Venipuncture / Unknown 07/28/2023 6:18 PM EST 07/28/2023 6:25 PM EST [facility] LAB BLOOD ORDERABLE S Performing Organization Address [facility] Co de Phone Number LABORATORY [address] [address] * EXTRA LIGHT BLUE TOP (07/28/2023 6:18 PM EST) Blood Venous blood specimen / Unknown Venipuncture / Unknown 07/28/2023 6:18 PM EST 07/28/2023 6:25 PM EST Keon Boaz [facility] LAB BLOOD ORDERABLE S Performing Organization Address City/[facility]/ZIP Co de Phone Number LABORATORY [address] [address] * LIPASE (07/28/2023 6:18 PM EST) [facility] Lipase 33 13 - 60 U/L 07/28/2023 6:48 PM EST LABORATORY [facility] Blood Venous blood specimen / Unknown Venipuncture / Unknown 07/28/2023 6:18 PM EST 07/28/2023 6:26 PM EST Keon Sandra [facility] LAB BLOOD ORDERABLE S Performing Organization Address [facility] Co de Phone Number LABORATORY [address] [address] * (ABNORMAL) COMPREHENSIVE METABOLIC PANEL (07/28/2023 6:18 PM EST) Pathologist [facility] BUN 40(H) 6 - 20 mg/dL 07/28/2023 6:48 PM EST [facility] Creatinine 1.0 0.6 - 1.2 mg/dL 07/28/2023 6:48 PM EST [facility] Estimated Glomerular Filtration Rate 82 >=60 mL/min 07/28/2023 6:48 PM EST [facility] Comment:eGFR is calculated b ased on the CKD-EPI 2020 equation Sodium 135 135 - 146 mmol/L 07/28/2023 6:48 PM EST [facility] Potassium 4.3 3.5 - 5.1 mmol/L 07/28/2023 6:48 PM EST [facility] Chloride 88(L) 98 - 107 mmol/L 07/28/2023 6:48 PM EST [facility] CO2 22 22 - 32 mmol/L 07/28/2023 6:48 PM EST [facility] Anion Gap 25(H) 7 - 15 mmol/L 07/28/2023 6:48 PM EST [facility] Glucose 222(H) 70 - 120 mg/dL 07/28/2023 6:48 PM EST [facility] Albumin 4.5 3.8 - 5.0 g/dL 07/28/2023 6:48 PM EST [facility] AST 18 10 - 50 U/L 07/28/2023 6:48 PM EST [facility] Alkaline Phosphatase 143(H) 35 - 130 U/L 07/28/2023 6:48 PM EST [facility] Bilirubin, Total 1.0 <=1.2 mg/dL 07/28/2023 6:48 PM EST [facility] Calcium 11.0(H) 8.4 - 10.2 mg/dL 07/28/2023 6:48 PM EST [facility] Protein 7.8 6.0 - 8.3 g/dL 07/28/2023 6:48 PM EST [facility] ALT 32 10 - 50 U/L 07/28/2023 6:48 PM EST [facility] Blood Venous blood specimen / Unknown Venipuncture / Unknown 07/28/2023 6:18 PM EST 07/28/2023 6:26 PM EST Keon Islas LAB BLOOD [facility] [address] [place] [address] * RESPIRATORY PATHOGEN PANEL, PCR (07/28/2023 5:53 PM EST) Pathologist [facility] Adenovirus by PCR Negative Negative 023 6:46 PM EST LABORATORY [facility] Coronavirus 229E by PCR Negative Negative 07/28/2023 6:46 PM EST LABORATORY [facility] Coronavirus HKU1 by PCR Negative Negative 07/28/2023 6:46 PM EST LABORATORY [facility] Coronavirus NL63 by PCR Negative Negative 07/28/2023 6:46 PM EST LABORATORY [facility] Coronavirus OC43 by PCR Negative Negative 07/28/2023 6:46 PM EST LABORATORY [facility] Coronavirus SARS-CoV-2 by PCR Negative Negative 07/28/2023 6:46 PM EST LABORATORY [facility] Human Metapneumovirus by PCR Negative Negative 07/28/2023 6:46 PM EST LABORATORY [facility] Rhinovirus/Enterovi raisa by PCR Negative Negative 07/28/2023 6:46 PM EST LABORATORY [facility] Influenza A Virus by PCR Negative Negative 07/28/2023 6:46 PM EST LABORATORY [facility] Influenza B Virus by PCR Negative Negative 07/28/2023 6:46 PM EST LABORATORY [facility] Parainfluenza Virus 1 by PCR Negative Negative 07/28/2023 6:46 PM EST LABORATORY [facility] Parainfluenza Virus 2 by PCR Negative Negative 07/28/2023 6:46 PM EST LABORATORY [facility] Parainfluenza Virus 3 by PCR Negative Negative 07/28/2023 6:46 PM EST LABORATORY [facility] Parainfluenza Virus 4 by PCR Negative Negative 07/28/2023 6:46 PM EST LABORATORY [facility] Respiratory Syncytial Virus by PCR Negative Negative 07/28/2023 6:46 PM EST LABORATORY [facility] Bordetella pertussis by PCR Negative Negative 07/28/2023 6:46 PM EST LABORATORY [facility] Chlamydia pneumoniae by PCR Negative Negative 07/28/2023 6:46 PM EST LABORATORY [facility] Mycoplasma pneumoniae by PCR Negative Negative 07/28/2023 6:46 PM EST LABORATORY [facility] Bordetella parapertussis by PCR Negative Negative 07/28/2023 6:46 PM EST LABORATORY [facility] Comment: The primers that detect Rhinovirus may cross react with some Enterorviruses. The validation of bronchial specimens, tracheal aspirates, and throats for this assay was developed and performance characteristics determined by [employer]. The validation of alternate specimen types has not been cleared or approved by the U.S. Food and Drug Administration (FDA). It has been determined that such clearance or approval is not necessary. Upper Respiratory Mid-turbinate nasal swab / Unknown Non-blood Collection / Unknown 07/28/2023 5:53 PM EST 07/28/2023 5:57 PM EST Keon Islas DO LAB MICRO - GENERAL ORDERABLES Performing Organization Address [facility] Co de Phone Number LABORATORY [facility] [address] [place] [address] * (ABNORMAL) GLUCOSE METER, POINT OF CARE (07/28/2023 5:52 PM EST) [facility] Signature Glucose Meter 208(H) 70 - 120 mg/dL 07/28/2023 5:54 PM EST [facility] Blood Whole blood specimen / Unknown 07/28/2023 5:52 PM EST 07/28/2023 5:54 PM EST No Physician Data Unknown LAB POINT OF C ARE TEST DOCKED DEVICE UNSOLICITED RESULTS Performing Organization Address [facility] de Phone Number [facility] [address] [place] [address] documented in this encounter Visit Diagnoses Diagnosis Nausea and vomiting- Primary Nausea with vomiting Abdominal pain Abdominal pain, unspecified site Dehydration Cyclical vomiting Persistent vomiting Chest pain Chest pain, unspecified At risk for prolonged QT interval syndrome DM type 2 causing neurological disease (HCC) Type II or unspecified type diabetes mellitus with neurological manifestations, not stated as uncontrolled Type 2 diabetes mellitus with hemoglobin A1c goal of less than 7.0% (HCC) 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) Type II or unspecified type diabetes mellitus with ophthalmic manifestations, not stated as uncontrolled Type 2 diabetes mellitus with hemoglobin A1c goal of less than 7.0% (HCC) Major depressive disorder, recurrent 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) Major depressive disorder, recurrent episode, severe, without mention of psychotic behavior HTN, goal below 140/90 Unspecified essential hypertension Generalized anxiety disorder Dyslipidemia, goal LDL below 100 Other and unspecified hyperlipidemia BPH with obstruction/lower urinary tract symptoms Hypertrophy of prostate with urinary obstruction and other lower urinary tract symptoms (LUTS) Acute urinary retention Other specified retention of urine Major depressive disorder, recurrent episode, moderate with anxious distress (HCC) Abnormal CT of the chest Nonspecific (abnormal) findings on radiological and other examination of other intrathoracic organs Miguelina esophagitis (HCC) Candidiasis of the esophagus documented in this encounter Administered Medications Inactive Administered Medications - up to 3 most recent administrations Medication Order MAR Action Action Date Dose Rate Site Acetaminophen (Ofirmev) inj 1,000 mg 1,000 mg, Intravenous, ONCE, 1 dose, On 07/28/23 at 1945, Administer over 15 Minutes, Administer undiluted over 15 minutes! NOTE: Maximum of 4000 mg per 24 hours of acetaminophen from all acetaminophen containing products., Indication: Patient is strictly NPO New Bag 07/28/2023 7:56 PM EST 1,000 mg 400 mL/hr Acetaminophen (Tylenol) tab 975 mg 975 mg, Oral, Q6H PRN Pain, Mild, Fever >38C(100.5F), Starting on 07/28/23 at 2356, Until Sun07/31/23 at 203, Maximum of 4 grams (4000 mg) per day. amitriptyline (Elavil) tab 10 mg 10 mg, Oral, HS, First dose on 07/29/23 at 0045, Until Discontinued Given 07/30/2023 9:01 PM EST 10 mg Given 07/29/2023 10:31 PM EST 10 mg Given 07/29/2023 1:28 AM EST 10 mg Atenolol (Tenormin) tab 12.5 mg 12.5 mg, Oral, Daily(AM), First dose on 07/29/23 at 0900, Until Discontinued, Hold for HR less than 60 or SBP below 100 and notify service if dose is held Given 07/31/2023 9:46 AM EST 12.5 mg Given 07/30/2023 9:13 AM EST 12.5 mg Given 07/29/2023 10:34 AM EST 12.5 mg atorvaSTATin (Lipitor) tab 40 mg 40 mg, Oral, Daily(AM), First dose on 07/29/23 at 0900, Until Discontinued Given 07/31/2023 9:46 AM EST 40 mg Given 07/30/2023 9:14 AM EST 40 mg Given 07/29/2023 10:32 AM EST 40 mg buPROPion extended release (SR) (Wellbutrin SR) tab 200 mg 200 mg, Oral, BID (.AM/PM), First dose on 07/29/23 at 0900, Until Discontinued Given 07/31/2023 9:47 AM EST 200 mg Given 07/30/2023 9:02 PM EST 200 mg Given 07/30/2023 9:13 AM EST 200 mg busPIRone (Buspar) tab 10 mg 10 mg, Oral, BID (.AM/PM), First dose on 07/29/23 at 0900, Until Discontinued Given 07/29/2023 10:32 AM EST 10 mg busPIRone (Buspar) tab 10 mg 10 mg, Oral, TID(AM/NOON/HS), First dose (after last modification) on 07/29/23 at 2200, Until Discontinued Given 07/31/2023 12:13 PM EST 10 mg Given 07/31/2023 5:27 AM EST 10 mg Given 07/30/2023 9:02 PM EST 10 mg dextrose 50 % inj 25 mL 25 mL, IV Push, PRN Hypoglycemia, Other, For blood glucose 54 - 69 mg/dL or 70 - 100 mg/dL with symptoms AND patient is unresponsive, NPO, OR unable to swallow, Starting on 07/29/23 at 0004, Until Sun07/31/23 at 2031, Administer IV. Recheck blood glucose after 15 minutes. Notify provider. dextrose 50 % inj 50 mL 50 mL, IV Push, PRN Hypoglycemia, Other, For blood glucose below 54 mg/dL AND patient unresponsive, NPO, OR unable to swallow, Starting on 07/29/23 at 0004, Until Sun07/31/23 at 2031, Administer IV. Recheck blood glucose in 15 minutes. Notify provider. Enoxaparin (Lovenox) inj 40 mg 40 mg, Subcutaneous, Daily(AM), First dose on 07/29/23 at 0900, Until Discontinued, If patient is on warfarin, inform provider if daily INR value is 2 or greater! Given 07/29/2023 10:53 AM EST 40 mg Abdomen Right Lower escitalopram (Lexapro) tab 20 mg 20 mg, Oral, Daily(AM), First dose on 07/29/23 at 0900, Until Discontinued Given 07/31/2023 9:47 AM EST 20 mg Given 07/30/2023 9:14 AM EST 20 mg Given 07/29/2023 10:32 AM EST 20 mg Famotidine (Pepcid) tab 20 mg 20 mg, Oral, Q12H, First dose on 07/29/23 at 2100, Until Discontinued Given 07/31/2023 9:47 AM EST 20 mg Given 07/30/2023 9:02 PM EST 20 mg Given 07/30/2023 9:13 AM EST 20 mg Finasteride (Proscar) tab 5 mg 5 mg, Oral, Daily(AM), First dose on 07/29/23 at 0900, Until Discontinued Given 07/31/2023 9:46 AM EST 5 mg Given 07/30/2023 9:14 AM EST 5 mg Given 07/29/2023 10:32 AM EST 5 mg fluconazole in NSS (Diflucan IV) ivpb 400 mg IV Piggyback, 400 mg, Q2H, 2 doses, First dose on Sun07/30/23 at 1800, Last dose on Sun07/30/23 at 2000, Administer over 120 Minutes New Bag 07/30/2023 9:19 PM EST 400 mg 100 mL/hr Rate Verify 07/30/2023 6:12 PM EST 200 mg/hr 100 mL/hr Restarted 07/30/2023 6:11 PM EST 200 mg/hr 100 mL/hr Furosemide (Lasix) tab 20 mg 20 mg, Oral, Daily(AM), First dose on 07/29/23 at 0900, Until Discontinued Given 07/31/2023 9:46 AM EST 20 mg Given 07/30/2023 9:13 AM EST 20 mg Given 07/29/2023 10:34 AM EST 20 mg glucagon (Glucagen) inj 1 mg 1 mg, Intramuscular, PRN Hypoglycemia, Other, If patient is unresponsive, or NPO and has no IV access, Starting on 07/29/23 at 0004, Until Sun07/31/23 at 2031, NPO and no IV access with either 1) blood glucose less than 100 mg/dL and symptomatic OR 2) blood glucose less than 70 mg/dL and asymptomatic Glucose (Glutose 15) 40 % gel 15 g of glucose 15 g of glucose, Oral, PRN Hypoglycemia (low sugar), Other, For blood glucose 54 - 69 mg/dL or 70 - 100 mg/dL with symptoms AND patient alert WITH difficulty chewing/swallowing, Starting on 07/29/23 at 0004, Until Sun07/31/23 at 2031, Administer gel. Recheck blood glucose after 15 minutes. Notify provider. 37.5 gram tube = 15 grams glucose = 1 each Glucose (Glutose 15) 40 % gel 30 g of glucose 30 g of glucose, Oral, PRN Hypoglycemia (low sugar), Other, For blood glucose below 54 mg/dL AND patient alert WITH difficulty chewing/swallowing, Starting on Sun07/29/23 at 0004, Until Sun07/31/23 at 2031, Administer gel. Recheck blood glucose after 15 minutes. Notify provider. 37.5 gram tube = 15 grams glucose = 1 each glucose chew tab 16 g 16 g, Oral, PRN Hypoglycemia, Other, For blood glucose 54 - 69 mg/dL or 70 - 100 mg/dL with symptoms and patient alert without difficulty chewing/swallowing., Starting on 07/29/23 at 0004, Until Sun07/31/23 at 2031 house antacid (Mi-Acid II) oral susp 15 mL 15 mL, Oral, Q4H PRN Indigestion, Starting on 07/28/23 at 2356, Until Sun07/31/23 at 2031, SHAKE WELL HYDROmorphone (Dilaudid) inj 1 mg 1 mg, IV Push, ONCE, On 07/28/23 at 1945, For 1 dose Given 07/28/2023 7:32 PM EST 1 mg hydrOXYzine HCl tab 25 mg 25 mg, Oral, ONCE, On Sun07/28/23 at 2315, For 1 dose Given 07/28/2023 10:46 PM EST 25 mg hydrOXYzine HCl tab 25 mg 25 mg, Oral, Q8H PRN Itching, Starting on 07/29/23 at 0000, Until Sun07/31/23 at 2031 Given 07/29/2023 5:1 4 PM EST 25 mg Given 07/29/2023 1:28 AM EST 25 mg insulin aspart (NovoLOG) inj Subcutaneous, W/MEALS AND HS, First dose on 07/29/23 at 0800, Until Discontinued, MEDIUM DOSE (Usual starting dose): Sliding Scale Correctional insulin may be given if the patient is NPO. Dose based on standard build from [employer]culator. Do not modify insulin doses in administration instructions! , Glucose less than 70 instructions: Obtain STAT lab blood glucose and call covering provider., Glucose 80-150 (units): 0, Glucose 151-200 (units): 2, Glucose 201-250 (units): 4, Glucose 251-300 (units): 6, Glucose greater than 300 (units): 8, Glucose greater than 300 instructions: Give suggested insulin dose and call covering provider. Given 07/31/2023 12:13 PM EST 6 Units Arm Left Upper Given 07/30/2023 9:35 PM EST 2 Units Ar m Left Upper Given 07/29/2023 12:33 PM EST 2 Units A rm Right Upper Ioversol (Optiray 320) inj 100 mL 100 mL, Intravenous, ONCE, On 07/28/23 at 2045, For 1 dose, Radiology Medication Routing (Non-IR) Given 07/28/2023 8:45 PM EST 100 mL isolyte-S PH 7.4 1,000 mL with potassium chloride 40 mEq INFUSION Intravenous, at 75 mL/hr, CONTINUOUS, Starting on Sun07/29/23 at 0745, Until Sun07/30/23 at 1556 Restarted 07/30/2023 5:20 AM EST 75 mL/hr New Bag 07/30/2023 2:15 AM EST 75 mL/hr New Bag 07/29/2023 8:49 AM EST 75 mL/hr isolyte-S pH 7.4 infusion Intravenous, at 75 mL/hr, Plasma-LYTE 148, isolyte-S, and isolyte-S pH 7.4 are considered equivalent - including for MAR barcode scanning., CONTINUOUS, Starting on Sun07/29/23 at 0045, Until [place] 07/29/23 at 0706 New Bag 07/29/2023 12:26 AM EST 75 mL/hr isolyte-S pH 7.4 infusion Intravenous, at 10 mL/hr, Plasma-LYTE 148, isolyte-S, and isolyte-S pH 7.4 are considered equivalent - including for MAR barcode scanning., CONTINUOUS, Starting on Sun07/30/23 at 1245, Until Sun07/30/23 at 1556 Restarted 07/30/2023 1:26 PM EST Continue from Pre-Op 07/30/2023 1:19 PM EST 10 mL/hr New Bag 07/30/2023 12:07 PM EST 10 mL/hr LORazepam (Ativan) tab 0.25 mg 0.25 mg, Oral, Q6H PRN Anxiety, Starting on Sun07/29/23 at 0959, Until Sun07/31/23 at 2031 Given 07/31/2023 12:20 AM EST 0.25 mg Given 07/30/2023 9:13 AM EST 0.25 mg Given 07/29/2023 3:57 PM EST 0.25 mg magnesium sulfate 1 g in d5w 100mL LOCKED DOSE 1 g, IV Piggyback, ONCE, 1 dose, On Sun07/29/23 at 0745, Administer over 60 Minutes New 07/29/2023 9:00 AM EST 1 g 100 mL/hr melatonin tab 3 mg 3 mg, Oral, HS PRN Insomnia, Starting on Sun07/28/23 at 2356, Until Sun07/31/23 at 2031 Given 07/31/2023 12:20 AM EST 3 mg metoclopramide (Reglan) inj 5 mg 5 mg, IV Push, ONCE, On Sun07/29/23 at 1030, For 1 dose Given 07/29/2023 10:39 AM EST 5 mg NSS 0.9% 1,000 mL bolus infusion Intravenous, at 1,000 mL/hr Administer over 60 Minutes, Administer entire volume within 60 minutes or less., ONCE, 1 dose, On Sun07/29/23 at 0000 New 07/29/2023 12:16 AM EST 1,000 mL 1000 mL/hr NSS 0.9% 2,000 mL bolus infusion Peripheral IV, at 2,000 mL/hr Administer over 60 Minutes, Administer entire volume within 60 minutes or less., ONCE, 1 dose, On 07/28/23 at 1945 New 07/28/2023 7:28 PM EST 2,000 mL 2000 mL/hr NSS 0.9% 250 mL bolus infusion Intravenous, at 250 mL/hr Administer over 60 Minutes, Administer entire volume within 60 minutes or less., ONCE, 1 dose, On 07/29/23 at 1030 New Bag 07/29/2023 10:51 AM EST 250 mL 250 mL/hr NSS 0.9% 500 mL bolus infusion Peripheral IV, at 500 mL/hr Administer over 60 Minutes, Administer entire volume within 60 minutes or less., ONCE, 1 dose, On 07/28/23 at 2200 New Bag 07/28/2023 9:27 PM EST 500 mL 5 00 mL/hr omeprazole (PriLOSEC) cap 40 mg 40 mg, Oral, QHS, First dose on 07/30/23 at 2200, Until Discontinued, This med should NOT be Crushed or Chewed Given 07/30/2023 9:01 PM EST 40 mg ondansetron (Zofran) inj 4 mg 4 mg, IV Push, ONCE, On 07/28/23 at 1945, For 1 dose Given 07/28/2023 7:29 PM EST 4 mg ondansetron (Zofran) inj 4 mg 4 mg, IV Push, Q6H, First dose (after last modification) on 07/29/23 at 1045, Until Discontinued Given 07/30/2023 11:47 AM EST 4 mg Given 07/30/2023 5:17 AM EST 4 mg Given 07/30/2023 12:24 AM EST 4 mg Pantoprazole (Protonix) inj 40 mg 40 mg, IV Push, Daily(AM), First dose on 07/29/23 at 0900, Until Discontinued, IV push instructions: Flush I.V. Line before and after administration. In-line filter not required. 2-minute infusion: The volume of reconstituted solution (4mg/ml) to be injected may be administered intravenously over at least 2 minutes. ( Dilute each vial with 10 ml of 0.9% saline PF) Given 07/29/2023 10:38 AM EST 40 mg Pantoprazole (Protonix) inj 40 mg 40 mg, IV Push, Q12H, First dose (after last modification) on 07/29/23 at 2100, Until Discontinued, IV push instructions: Flush I.V. Line before and after administration. In-line filter not required. 2-minute infusion: The volume of reconstituted solution (4mg/ml) to be injected may be administered intravenously over at least 2 minutes. ( Dilute each vial with 10 ml of 0.9% saline PF) Given 07/30/2023 9:13 AM EST 40 mg Given 07/29/2023 10:30 PM EST 40 mg Polyethylene Glycol 3350 (Miralax) oral powder 17 g 17 g (1 Packet), Oral, DAILY PRN Constipation, Starting on 07/28/23 at 2356, Until Sun07/31/23 at 2031, Mix in 8 oz of water, juice, soda, coffee, or tea. sodium chloride 0.9 % flush/inj 3 mL 3 mL, IV Push, PRN Other, Line Patency, Starting on 07/28/23 at 2354, Until Sun07/31/23 at 2031, Do not flush if lock, PICC, or central line not in place, IV infusing or unable to flush tamsulosin (Flomax) cap 0.4 mg 0.4 mg, Oral, Daily(AM), First dose on Sun07/29/23 at 0900, Until Discontinued, Administer 30 min after meal. This med should NOT be Crushed or Chewed or opened! ORAL administration only!! Given 07/31/2023 9:46 AM EST 0.4 mg Given 07/30/2023 9:13 AM EST 0.4 mg Given 07/29/2023 10:31 AM EST 0.4 mg traZODone (Desyrel) tab 100 mg 100 mg, Oral, QHS, First dose (after last modification) on 07/29/23 at 2200, Until Discontinued Given 07/29/2023 10:32 PM EST 100 mg traZODone (Desyrel) tab 50 mg 50 mg, Oral, QHS, First dose (after last modification) on 07/30/23 at 2200, Until Discontinued Given 07/30/2023 9:01 PM EST 50 mg trimethobenzamide (Tigan) inj 100 mg 100 mg, Intramuscular, Q6H PRN Nausea, Starting on 07/28/23 at 2359, Until Sun07/31/23 at 2031 documented in this encounter Active and Recently Administered Medications Times are shown in EST. Scheduled Medication Order 07/29/2023 07/30/2023 07/31/2023 amitriptyline (Elavil) tab 10 mg 10 mg, Oral, HS, First dose on 07/29/23 at 0045, Until Discontinued 127 (Given - Provider: Xochitl Gannon RN)2230 (Given - Provider: Xochitl Gannon RN) 2100 (Given - Provider: Xochitl Gannon RN) Atenolol (Tenormin) tab 12.5 mg 12.5 mg, Oral, Daily(AM), First dose on 07/29/23 at 0900, Until Discontinued, Hold for HR less than 60 or SBP below 100 and notify service if dose is held 103 (Given - Provider: Concepcion Miller RN) 912 (Given - Provider: Rosi Muñoz RN) 945 (Given - Provider: Sudarshan Muniz, RN) atorvaSTATin (Lipitor) tab 40 mg 40 mg, Oral, Daily(AM), First dose on 07/29/23 at 0900, Until Discontinued 1031 (Given - Provider: Concepcion Miller RN) 913 (Given - Provider: Rosi Muñoz RN) 945 (Given - Provider: Sudarshan Muniz, DRISS) buPROPion extended release (SR) (Wellbutrin SR) tab 200 mg 200 mg, Oral, BID (.AM/PM), First dose on 07/29/23 at 0900, Until Discontinued 1031 (Given - Provider: Concepcion Miller RN)2230 (Given - Provider: Xochitl Gannon RN) 912 (Given - Provider: Rosi Muñoz RN)2101 (Given - Provider: Xochitl Gannon RN) 946 (Given - Provider: Sudarshan Muniz, DRISS) busPIRone (Buspar) tab 10 mg (CANCELED) 10 mg, Oral, BID (.AM/PM), First dose on 07/29/23 at 0900, Until Discontinued 1031 (Given - Provider: Concepcion Miller RN - Comment: verified with Charge Nurse Renata Martinez and Dr. Draper.) busPIRone (Buspar) tab 10 mg 10 mg, Oral, TID(AM/NOON/HS), First dose (after last modification) on 07/29/23 at 2200, Until Discontinued 2231 (Given - Provider: Xochitl Gannon RN) 0517 (Given - Provider: Xochitl Gannon RN)1200 (OR/Procedure - Provider: Rosi Muñoz RN)2101 (Given - Provider: Xochitl Gannon RN) 05 (Given - Provider: Xochitl Gannon RN)1213 (Given - Provider: Sudarshan Muniz RN) Enoxaparin (Lovenox) inj 40 mg 40 mg, Subcutaneous, Daily(AM), First dose on 07/29/23 at 0900, Until Discontinued, If patient is on warfarin, inform provider if daily INR value is 2 or greater! 1053 (Given - Provider: Concepcion Miller RN) 0900 (Not Given - Provider: Rosi Muñoz RN - Reason: Clinician Judgement-Notify Provider - Comment: procedure) 0900 (Not Given - Provider: Sudarshan Muniz RN - Reason: Refused-Notify Provider) escitalopram (Lexapro) tab 20 mg 20 mg, Oral, Daily(AM), First dose on 07/29/23 at 0900, Until Discontinued 103 (Given - Provider: Concepcion Miller RN) 0914 (Given - Provider: Rosi Muñoz RN) 0947 (Given - Provider: Sudarshan Muniz RN) Famotidine (Pepcid) tab 20 mg 20 mg, Oral, Q12H, First dose on 07/29/23 at 2100, Until Discontinued 2230 (Given - Provider: Xochitl Gannon RN) 09 (Given - Provider: Rosi Muñoz RN)2101 (Given - Provider: Xochitl Gannon RN) 0947 (Given - Provider: Sudarshan Muniz RN) Finasteride (Proscar) tab 5 mg 5 mg, Oral, Daily(AM), First dose on 07/29/23 at 0900, Until Discontinued 103 (Given - Provider: Concepcion Miller RN) 0914 (Given - Provider: Rosi Muñoz RN) 0946 (Given - Provider: Sudarshan Muniz RN) fluconazole in NSS (Diflucan IV) ivpb 200 mg IV Piggyback, 200 mg, ONCE, 1 dose, On Sun07/31/23 at 1500, Administer over 60 Minutes 1500 (Due) fluconazole in NSS (Diflucan IV) ivpb 400 mg (COMPLETED) IV Piggyback, 400 mg, Q2H, 2 doses, First dose on Sun07/30/23 at 1800, Last dose on Sun07/30/23 at 2000, Administer over 120 Minutes 1806 (New Bag - Provider: Rosi Muñoz RN)180 (Paused - Provider: Rosi Muñoz RN)180 (Restarted - Provider: Rosi Muñoz RN)180 (Paused - Provider: Rosi Muñoz RN)181 (Restarted - Provider: Rosi Muñoz RN)181 (Rate Verify - Provider: Rosi Muñoz RN)2118 (New Bag - Provider: Xochitl Gannon RN) Furosemide (Lasix) tab 20 mg 20 mg, Oral, Daily(AM), First dose on Sun07/29/23 at 0900, Until Discontinued 1034 (Given - Provider: Concepcion Miller RN) 0913 (Given - Provider: Rosi Muñoz RN) 0946 (Given - Provider: Sudarshan Muniz, DRISS) insulin aspart (NovoLOG) inj Subcutaneous, W/MEALS AND HS, First dose on Sun07/29/23 at 0800, Until Discontinued, MEDIUM DOSE (Usual starting dose): Sliding Scale Correctional insulin may be given if the patient is NPO. Dose based on standard build from Insulin Calculator. Do not modify insulin doses in administration instructions! , Glucose less than 70 instructions: Obtain STAT lab blood glucose and call covering provider., Glucose 80-150 (units): 0, Glucose 151-200 (units): 2, Glucose 201-250 (units): 4, Glucose 251-300 (units): 6, Glucose greater than 300 (units): 8, Glucose greater than 300 instructions: Give suggested insulin dose and call covering provider. 0800 (Not Given - Provider: Concepcion Miller RN - Reason: Parameter(s) Not Met)1233 (Given - Provider: Concepcion Miller RN)1700 (Not Given - Provider: Natasha Dominique RN - Reason: Parameter(s) Not Met)2200 (No Insulin - Provider: Xochitl Gannon RN - Reason: Parameter(s) Not Met) 0800 (No Insulin - Provider: Rosi Muñoz RN - Reason: Parameter(s) Not Met)1200 (No Insulin - Provider: Rosi Muñoz RN - Reason: Parameter(s) Not Met)1700 (No Insulin - Provider: Rosi Muñoz RN - Reason: Parameter(s) Not Met)2135 (Given - Provider: Xochitl Gannon RN) 0800 (No Insulin - Provider: Sudarshan Muniz RN - Reason: Parameter(s) Not Met)1213 (Given - Provider: Sudarshan Muniz RN) magnesium sulfate 1 g in d5w 100mL LOCKED DOSE (COMPLETED) 1 g, IV Piggyback, ONCE, 1 dose, On 07/29/23 at 0745, Administer over 60 Minutes 0900 (New Bag - Provider: Concepcion Miller RN) metoclopramide (Reglan) inj 5 mg (COMPLETED) 5 mg, IV Push, ONCE, On 07/29/23 at 1030, For 1 dose 1039 (Given - Provider: Concepcion Miller RN) NSS 0.9% 1,000 mL bolus infusion (COMPLETED) Intravenous, at 1,000 mL/hr Administer over 60 Minutes, Administer entire volume within 60 minutes or less., ONCE, 1 dose, On 07/29/23 at 0000 0016 (New Bag - Provider: Xochitl Gannon RN) NSS 0.9% 250 mL bolus infusion (COMPLETED) Intravenous, at 250 mL/hr Administer over 60 Minutes, Administer entire volume within 60 minutes or less., ONCE, 1 dose, On 07/29/23 at 1030 1051 (New Bag - Provider: Concepcion Miller RN) omeprazole (PriLOSEC) cap 40 mg 40 mg, Oral, QHS, First dose on 07/30/23 at 2200, Until Discontinued, This med should NOT be Crushed or Chewed 210 (Given - Provider: Xochitl Gannon RN) ondansetron (Zofran) inj 4 mg 4 mg, IV Push, Q6H, First dose (after last modification) on 07/29/23 at 1045, Until Discontinued 1038 (Given - Provider: Concepcion Miller RN)1717 (Given - Provider: Natasha Dominique RN) 0024 (Given - Provider: Xochitl Gannon RN)0517 (Given - Provider: Xochitl Gannon RN)1147 (Given - Provider: Rosi Muñoz RN)1800 (Not Given - Provider: Rosi Muñoz RN - Reason: Refused-Notify Provider - Comment: denies nausea) 0000 (Not Given - Provider: Xochitl Gannon RN - Reason: Refused-Notify Provider - Comment: Pt has no nausea)0600 (Not Given - Provider: Xochitl Gannon RN - Reason: Clinician Judgement-Notify Provider - Comment: Pt is not nauseated)1200 (Not Given - Provider: Sudarshan Muniz RN - Reason: Other- Please add reason in Comments - Comment: Pt denies nausea) Pantoprazole (Protonix) inj 40 mg (CANCELED) 40 mg, IV Push, Daily(AM), First dose on 07/29/23 at 0900, Until Discontinued, IV push instructions: Flush I.V. Line before and after administration. In-line filter not required. 2-minute infusion: The volume of reconstituted solution (4mg/ml) to be injected may be administered intravenously over at least 2 minutes. ( Dilute each vial with 10 ml of 0.9% saline PF) 1038 (Given - Provider: Concepcion Miller RN) Pantoprazole (Protonix) inj 40 mg (CANCELED) 40 mg, IV Push, Q12H, First dose (after last modification) on 07/29/23 at 2100, Until Discontinued, IV push instructions: Flush I.V. Line before and after administration. In-line filter not required. 2-minute infusion: The volume of reconstituted solution (4mg/ml) to be injected may be administered intravenously over at least 2 minutes. ( Dilute each vial with 10 ml of 0.9% saline PF) 2230 (Given - Provider: Xochitl Gannon RN) 0913 (Given - Provider: Rosi Muñoz RN) tamsulosin (Flomax) cap 0.4 mg 0.4 mg, Oral, Daily(AM), First dose on 07/29/23 at 0900, Until Discontinued, Administer 30 min after meal. This med should NOT be Crushed or Chewed or opened! ORAL administration only!! 1031 (Given - Provider: Concepcion Miller RN) 0913 (Given - Provider: Rosi Muñoz RN) 0946 (Given - Provider: Sudarshan Muniz RN) traZODone (Desyrel) tab 100 mg (CANCELED) 100 mg, Oral, QHS, First dose (after last modification) on 07/29/23 at 2200, Until Discontinued 2231 (Given - Provider: Xochitl Gannon, DRISS) traZODone (Desyrel) tab 50 mg 50 mg, Oral, QHS, First dose (after last modification) on 07/30/23 at 2200, Until Discontinued 2100 (Given - Provider: Xochitl Gannon RN) Continuous Medication Order 07/29/2023 07/30/2023 07/31/2023 isolyte-S PH 7.4 1,000 mL with potassium chloride 40 mEq INFUSION (CANCELED) Intravenous, at 75 mL/hr, CONTINUOUS, Starting on 07/29/23 at 0745, Until Sun07/30/23 at 1556 0849 (New Bag - Provider: Concepcion Miller RN) 0215 (New Bag - Provider: Xochitl Gannon RN)0518 (Paused - Provider: Rosi Muñoz RN)0520 (Restarted - Provider: Rosi Muñoz RN)1206 (Stopped - Provider: Kathryn Snyder RN - Comment: stopped for procedure) isolyte-S pH 7.4 infusion (CANCELED) Intravenous, at 75 mL/hr, Plasma-LYTE 148, isolyte-S, and isolyte-S pH 7.4 are considered equivalent - including for MAR barcode scanning., CONTINUOUS, Starting on 07/29/23 at 0045, Until Sun07/29/23 at 0706 0026 (New Bag - Provider: Xochitl Gannon RN)0841 (Finish Infusion - Provider: Concepcion L Bowersox, RN)0843 (Stopped - Provider: Concepcion Miller RN) isolyte-S pH 7.4 infusion (CANCELED) Intravenous, at 10 mL/hr, Plasma-LYTE 148, isolyte-S, and isolyte-S pH 7.4 are considered equivalent - including for MAR barcode scanning., CONTINUOUS, Starting on Sun07/30/23 at 1245, Until Sun07/30/23 at 1556 1207 (New Bag - Provider: Kathryn Snyder RN)1319 (Continue from Pre-Op - Provider: Lorena Velazquez CRNA)1325 (Paused - Provider: Lorena Velazquez CRNA - Comment: Switch to gravity)1326 (Restarted - Provider: Lorena Velazquez CRNA)1356 (Anes Intra-Op Fluid - Provider: Lorena Velazquez CRNA)1556 (Stopped - Provider: Rosi Muñoz RN) PRN Medication Order 07/29/2023 07/30/2023 07/31/2023 Acetaminophen (Tylenol) tab 975 mg 975 mg, Oral, Q6H PRN Pain, Mild, Fever >38C(100.5F), Starting on Sun07/28/23 at 2356, Until Sun07/31/23 at 2031, Maximum of 4 grams (4000 mg) per day. dextrose 50 % inj 25 mL 25 mL, IV Push, PRN Hypoglycemia, Other, For blood glucose 54 - 69 mg/dL or 70 - 100 mg/dL with symptoms AND patient is unresponsive, NPO, OR unable to swallow, Starting on Sun07/29/23 at 0004, Until Sun07/31/23 at 2031, Administer IV. Recheck blood glucose after 15 minutes. Notify provider. dextrose 50 % inj 50 mL 50 mL, IV Push, PRN Hypoglycemia, Other, For blood glucose below 54 mg/dL AND patient unresponsive, NPO, OR unable to swallow, Starting on Sun07/29/23 at 0004, Until Sun07/31/23 at 2031, Administer IV. Recheck blood glucose in 15 minutes. Notify provider. glucagon (Glucagen) inj 1 mg 1 mg, Intramuscular, PRN Hypoglycemia, Other, If patient is unresponsive, or NPO and has no IV access, Starting on Sun07/29/23 at 0004, Until Sun07/31/23 at 2031, NPO and no IV access with either 1) blood glucose less than 100 mg/dL and symptomatic OR 2) blood glucose less than 70 mg/dL and asymptomatic Glucose (Glutose 15) 40 % gel 15 g of glucose 15 g of glucose, Oral, PRN Hypoglycemia (low sugar), Other, For blood glucose 54 - 69 mg/dL or 70 - 100 mg/dL with symptoms AND patient alert WITH difficulty chewing/swallowing, Starting on Sun07/29/23 at 0004, Until Sun07/31/23 at 2031, Administer gel. Recheck blood glucose after 15 minutes. Notify provider. 37.5 gram tube = 15 grams glucose = 1 each Glucose (Glutose 15) 40 % gel 30 g of glucose 30 g of glucose, Oral, PRN Hypoglycemia (low sugar), Other, For blood glucose below 54 mg/dL AND patient alert WITH difficulty chewing/swallowing, Starting on Sun07/29/23 at 0004, Until Sun07/31/23 at 2031, Administer gel. Recheck blood glucose after 15 minutes. Notify provider. 37.5 gram tube = 15 grams glucose = 1 each glucose chew tab 16 g 16 g, Oral, PRN Hypoglycemia, Other, For blood glucose 54 - 69 mg/dL or 70 - 100 mg/dL with symptoms and patient alert without difficulty chewing/swallowing., Starting on 07/29/23 at 0004, Until Sun07/31/23 at 2031 house antacid (Mi-Acid II) oral susp 15 mL 15 mL, Oral, Q4H PRN Indigestion, Starting on 07/28/23 at 2356, Until Sun07/31/23 at 2031, SHAKE WELL hydrOXYzine HCl tab 25 mg 25 mg, Oral, Q8H PRN Itching, Starting on 07/29/23 at 0000, Until Sun07/31/23 at 2031 0128 (Given - Provider: Xochitl Gannon RN)1714 (Given - Provider: Natasha Dominique RN - Comment: pt states he still has anxiety and is requesting more medication; aware his trazodone and buspar is not scheduled until bedtime) LORazepam (Ativan) tab 0.25 mg 0.25 mg, Oral, Q6H PRN Anxiety, Starting on 07/29/23 at 0959, Until Sun07/31/23 at 2031 1557 (Given - Provider: Natasha Dominique RN - Comment: pt is fidgety, admits he feels a bit anxious. Agreeable to prn) 0913 (Given - Provider: Rosi Muñoz RN) 0020 (Given - Provider: Xochitl Gannon, DRISS) melatonin tab 3 mg 3 mg, Oral, HS PRN Insomnia, Starting on 07/28/23 at 2356, Until Sun07/31/23 at 2031 0020 (Given - Provider: Xochitl Gannon, DRISS) Polyethylene Glycol 3350 (Miralax) oral powder 17 g 17 g (1 Packet), Oral, DAILY PRN Constipation, Starting on 07/28/23 at 2356, Until Sun07/31/23 at 2031, Mix in 8 oz of water, juice, soda, coffee, or tea. sodium chloride 0.9 % flush/inj 3 mL 3 mL, IV Push, PRN Other, Line Patency, Starting on 07/28/23 at 2354, Until Sun07/31/23 at 2031, Do not flush if lock, PICC, or central line not in place, IV infusing or unable to flush trimethobenzamide (Tigan) inj 100 mg 100 mg, Intramuscular, Q6H PRN Nausea, Starting on 07/28/23 at 2359, Until Sun07/31/23 at 2031 documented in this encounter Advance Directives Latest [...] the patient have Health Care Power of [employer] Engineer? Yes, in chart and reviewed as current No Code 08/14/2020 1:19 AM 08/20/2020 4:29 PM This or mihir reflects the patients wishes and were consensually agreed upon. Question Answer Comments Discussion of Advance Directives occurred with: Patient
--- OUTSIDE RECORDS SUMMARY | 2023-09-18 06:13 | External Medical Summary ---
Author Name Unknown Address Unknown Organization K1F:LABORATORY [facility] - [address] [place] [address] Laboratory Report Ordering Provider Test Date Status NICOLE GARCÍA 07/30/2023 05:19:00 Final Observation Date Value Abnormality Reference (Units ) Status WBC, Total 07/30/2023 05:19:00 7.32 4.00-10.80 (K/uL) Final RBC 07/30/2023 05:19:00 4.43 4.50-5.25 (M/uL) Final Hemoglobin 07/30/2023 05:19:00 13.6 Below low normal 14.0-16.8 (g/dL) Final HCT 07/30/2023 05:19:00 39.9 Below low normal 40.0-48.4 (%) Final MCV 07/30/2023 05:19:00 90.1 82.0-99.5 (fL) Final MCH 07/30/2023 05:19:00 30.7 27.0-34.0 (pg) Final MCHC 07/30/2023 05:19:00 34.1 32.0-36.0 (g/dL) Final RDW 07/30/2023 05:19:00 14.0 11.5-15.5 (%) Final Platelets 07/30/2023 05:19:00 213 140-400 (K/uL) Final MPV 07/30/2023 05:19:00 9.0 6.6-11.1 (fL) Final Nucleated erythrocytes/100 leukocytes [Ratio] in Blood by Automated count 07/30/2023 05:19:00 0 <=0 (/100 WBCs) Final Performing Location LABORATORY [facility] - [address] [place] [address]
--- OUTSIDE RECORDS SUMMARY | 2023-09-18 06:13 | External Medical Summary ---
Author Name Unknown Address Unknown Organization : Laboratory Report Ordering Provider Test Date Status NICOLE GARCÍA 07/31/2023 07:36:30 Final Observation Date Value Abnormality Reference (Units ) Status Glucose Point of Care 07/31/2023 07:36:30 129 Above high normal 70-120 (mg/dL) Final Performing Location
--- OUTSIDE RECORDS SUMMARY | 2023-09-18 06:13 | External Medical Summary ---
Author Name Unknown Address Unknown Organization K1F:LABORATORY [facility] - [address] [place] [address] Laboratory Report Ordering Provider Test Date Status RICKYNICOLE 07/31/2023 04:45:00 Final Observation Date Value Abnormality Reference (Units ) Status BUN 07/31/2023 04:45:00 16 6-20 (mg/dL) Final Creatinine 07/31/2023 04:45:00 0.9 0.6-1.2 (mg/dL) Final Glomerular filtration rate/1.73 sq M.predicted [Volume Rate/Area] in Serum, Plasma or Blood by Creatinine-based formula (CKD-EPI) 07/31/2023 04:45:00 89 >=60 (mL/min) Final eGFR is calculated based on the CKD-EPI 2020 equation SODIUM 07/31/2023 04:45:00 143 135-146 (m mol/L) Final Potassium 07/31/2023 04:45:00 3.8 3.5-5.1 (m mol/L) Final Cl 07/31/2023 04:45:00 105 98-107 (mm ol/L) Final CO2 07/31/2023 04:45:00 27 22-32 (mmo l/L) Final Anion gap 07/31/2023 04:45:00 11 7-15 (mmol /L) Final Glucose 07/31/2023 04:45:00 122 Above high normal 70 -120 (mg/dL) Final Calcium 07/31/2023 04:45:00 9.2 8.4-10.2 ( mg/dL) Final Performing Location LABORATORY [facility] - [address] [place] [id number]
--- OUTSIDE RECORDS SUMMARY | 2023-09-18 06:13 | External Medical Summary ---
Author Name Unknown Address Unknown Organization K1F:LABORATORY [facility] - [address] [place] [address] Laboratory Report Ordering Provider Test Date Status MARLEEN COSTARYA 07/29/2023 06:03:00 Final Observation Date Value Abnormality Reference (Units ) Status Magnesium 07/29/2023 06:03:00 1.7 1.5-2.6 (m g/dL) Final Performing Location LABORATORY [facility] - [address] [place] [address]
--- OUTSIDE RECORDS SUMMARY | 2023-09-18 06:13 | External Medical Summary ---
Author Name Unknown Address Unknown Organization : Laboratory Report Ordering Provider Test Date Status NICOLE GARCÍA 07/29/2023 22:00:18 Final Observation Date Value Abnormality Reference (Units ) Status Glucose Point of Care 07/29/2023 22:00:18 115 70-120 (mg/dL) Final Performing Location
--- OUTSIDE RECORDS SUMMARY | 2023-09-18 06:13 | External Medical Summary ---
Author Name Unknown Address Unknown Organization : Laboratory Report Ordering Provider Test Date Status NICOLE GARCÍA 07/31/2023 16:10:12 Final Observation Date Value Abnormality Reference (Units ) Status Glucose Point of Care 07/31/2023 16:10:12 141 Above high normal 70-120 (mg/dL) Final Performing Location
--- OUTSIDE RECORDS SUMMARY | 2023-09-18 06:13 | External Medical Summary ---
Author Name Unknown Address Unknown Organization : Laboratory Report Ordering Provider Test Date Status NICOLE GARCÍA 07/30/2023 21:27:50 Final Observation Date Value Abnormality Reference (Units ) Status Glucose Point of Care 07/30/2023 21:27:50 169 Above high normal 70-120 (mg/dL) Final Performing Location
--- OUTSIDE RECORDS SUMMARY | 2023-09-18 06:13 | External Medical Summary ---
Author Name Unknown Address Unknown Organization : Laboratory Report Ordering Provider Test Date Status NICOLE GARCÍA 07/30/2023 14:28:38 Final Observation Date Value Abnormality Reference (Units ) Status Glucose Point of Care 07/30/2023 14:28:38 123 Above high normal 70-120 (mg/dL) Final Performing Location
--- OUTSIDE RECORDS SUMMARY | 2023-09-18 06:13 | External Medical Summary ---
Author Name Unknown Address Unknown Organization : Laboratory Report Ordering Provider Test Date Status NICOLE GARCÍA 07/31/2023 11:25:21 Final Observation Date Value Abnormality Reference (Units ) Status Glucose Point of Care 07/31/2023 11:25:21 262 Above high normal 70-120 (mg/dL) Final Performing Location
--- OUTSIDE RECORDS SUMMARY | 2023-09-18 06:13 | External Medical Summary ---
Author Name Unknown Address Unknown Organization K1F:LABORATORY [facility] - [address] [place] [address] Laboratory Report Ordering Provider Test Date Status NICOLE GARCÍA 07/31/2023 04:45:00 Final Observation Date Value Abnormality Reference (Units ) Status Magnesium 07/31/2023 04:45:00 1.8 1.5-2.6 (m g/dL) Final Performing Location LABORATORY [facility] - [address] [place] [address]
--- OUTSIDE RECORDS SUMMARY | 2023-09-18 06:13 | External Medical Summary ---
Author Name Unknown Address Unknown Organization K1F:LABORATORY [facility] - [address] [place] [address] Laboratory Report Ordering Provider Test Date Status SARINA GARBER 07/29/2023 06:03:00 Final Observation Date Value Abnormality Reference (Units ) Status Lactic Acid 07/29/2023 06:03:00 0.9 0.4-2.0 (mmol/L) Final Performing Location LABORATORY [facility] - [address] [place] [address]
--- OUTSIDE RECORDS SUMMARY | 2023-09-18 06:13 | External Medical Summary ---
Author Name Unknown Address Unknown Organization : Laboratory Report Ordering Provider Test Date Status NICOLE GARCÍA 07/29/2023 11:51:29 Final Observation Date Value Abnormality Reference (Units ) Status Glucose Point of Care 07/29/2023 11:51:29 165 Above high normal 70-120 (mg/dL) Final Performing Location
--- OUTSIDE RECORDS SUMMARY | 2023-09-18 06:13 | External Medical Summary ---
Author Name Unknown Address Unknown Organization : Laboratory Report Ordering Provider Test Date Status NICOLE GARCÍA 07/29/2023 08:03:14 Final Observation Date Value Abnormality Reference (Units ) Status Glucose Point of Care 07/29/2023 08:03:14 74 70-120 (mg/dL) Final Performing Location
--- OUTSIDE RECORDS SUMMARY | 2023-09-18 06:13 | External Medical Summary ---
Author Name Unknown Address Unknown Organization : Laboratory Report Ordering Provider Test Date Status NICOLE GARCÍA 07/30/2023 11:35:19 Final Observation Date Value Abnormality Reference (Units ) Status Glucose Point of Care 07/30/2023 11:35:19 122 Above high normal 70-120 (mg/dL) Final Performing Location
--- OUTSIDE RECORDS SUMMARY | 2023-09-18 06:13 | External Medical Summary ---
Author Name Unknown Address Unknown Organization K1F:LABORATORY [facility] - [address] [place] [address] Laboratory Report Ordering Provider Test Date Status NICOLE GARCÍA 07/30/2023 05:19:00 Final Observation Date Value Abnormality Reference (Units ) Status Magnesium 07/30/2023 05:19:00 1.9 1.5-2.6 (m g/dL) Final Performing Location LABORATORY [facility] - [address] [place] [address]
--- OUTSIDE RECORDS SUMMARY | 2023-09-18 06:13 | External Medical Summary ---
Author Name Unknown Address Unknown Organization K1F:LABORATORY [facility] - [address] [place] [address] Laboratory Report Ordering Provider Test Date Status FAM COSTA 07/29/2023 06:03:00 Final Observation Date Value Abnormality Reference (Units ) Status BUN 07/29/2023 06:03:00 29 Above high normal 6-20 (mg/dL) Final Creatinine 07/29/2023 06:03:00 0.8 0.6-1.2 (mg/dL) Final Glomerular filtration rate/1.73 sq M.predicted [Volume Rate/Area] in Serum, Plasma or Blood by Creatinine-based formula (CKD-EPI) 07/29/2023 06:03:00 >90 >=60 (mL/min) Final eGFR is calculated based on the CKD-EPI 2020 equation SODIUM 07/29/2023 06:03:00 139 135-146 (m mol/L) Final Potassium 07/29/2023 06:03:00 3.3 Below low normal 3.5 -5.1 (mmol/L) Final Cl 07/29/2023 06:03:00 102 98-107 (mm ol/L) Final CO2 07/29/2023 06:03:00 25 22-32 (mmo l/L) Final Anion gap 07/29/2023 06:03:00 12 7-15 (mmol /L) Final Glucose 07/29/2023 06:03:00 76 70-120 (mg /dL) Final Albumin 07/29/2023 06:03:00 3.5 Below low normal 3.8 -5.0 (g/dL) Final AST (Aspartate aminotransferase) 07/29/2023 06:03:00 14 10-50 (U/L) Fin al Alk Phos 07/29/2023 06:03:00 98 35-130 (U/ L) Final Bilirubin, Total 07/29/2023 06:03:00 0.8 <=1 .2 (mg/dL) Final Calcium 07/29/2023 06:03:00 8.7 8.4-10.2 ( mg/dL) Final Protein 07/29/2023 06:03:00 5.7 Below low normal 6.0 -8.3 (g/dL) Final ALT (Alanine aminotransferase) 07/29/2023 06:03:00 20 10-50 (U/L) Mario pritchett Performing Location LABORATORY [facility] - [address] [place], [place] [address] [address]
--- OUTSIDE RECORDS SUMMARY | 2023-09-18 06:13 | External Medical Summary ---
Author Name Unknown Address Unknown Organization K1F:LABORATORY [facility] - [address] [place] [address] Laboratory Report Ordering Provider Test Date Status SARINA GARBER 07/29/2023 03:29:00 Final Observation Date Value Abnormality Reference (Units ) Status Lactic Acid 07/29/2023 03:29:00 1.5 0.4-2.0 (mmol/L) Final Performing Location LABORATORY [facility] - [address] [place] [place] [address]
--- OUTSIDE RECORDS SUMMARY | 2023-09-18 06:13 | External Medical Summary ---
Author Name Unknown Address Unknown Organization : Laboratory Report Ordering Provider Test Date Status NICOLE GARCÍA 07/29/2023 16:59:47 Final Observation Date Value Abnormality Reference (Units ) Status Glucose Point of Care 07/29/2023 16:59:47 130 Above high normal 70-120 (mg/dL) Final Performing Location
--- OUTSIDE RECORDS SUMMARY | 2023-09-18 06:13 | External Medical Summary ---
Author Name Unknown Address Unknown Organization K1F:LABORATORY [facility] - [address] [place] [address] Laboratory Report Ordering Provider Test Date Status FAM COSTA 07/29/2023 06:03:00 Final Observation Date Value Abnormality Reference (Units ) Status WBC, Total 07/29/2023 06:03:00 10.26 4.00-10.80 (K/uL) Final RBC 07/29/2023 06:03:00 4.66 4.50-5.25 (M/uL) Final Hemoglobin 07/29/2023 06:03:00 14.3 14.0-16.8 (g/dL) Final HCT 07/29/2023 06:03:00 41.5 40.0-48.4 (%) Final MCV 07/29/2023 06:03:00 89.1 82.0-99.5 (fL) Final MCH 07/29/2023 06:03:00 30.7 27.0-34.0 (pg) Final MCHC 07/29/2023 06:03:00 34.5 32.0-36.0 (g/dL) Final RDW 07/29/2023 06:03:00 14.5 11.5-15.5 (%) Final Platelets 07/29/2023 06:03:00 232 140-400 (K/uL) Final MPV 07/29/2023 06:03:00 9.0 6.6-11.1 (fL) Final Nucleated erythrocytes/100 leukocytes [Ratio] in Blood by Automated count 07/29/2023 06:03:00 0 <=0 (/100 WBCs) Final Performing Location LABORATORY [facility] - [address] [place] [address]
--- OUTSIDE RECORDS SUMMARY | 2023-09-18 06:13 | External Medical Summary ---
Author Name Unknown Address Unknown Organization K1F:LABORATORY [facility] - [address] [place] [address] Laboratory Report Ordering Provider Test Date Status NICOLE GARCÍA 07/30/2023 05:19:00 Final Observation Date Value Abnormality Reference (Units ) Status Albumin 07/30/2023 05:19:00 3.6 Below low normal 3.8-5.0 (g/dL) Final AST (Aspartate aminotransferase) 07/30/2023 05:19:00 15 10-50 (U/L) Final Alk Phos 07/30/2023 05:19:00 94 35-130 (U/L) Final ALT (Alanine aminotransferase) 07/30/2023 05:19:00 22 10-50 (U/L) Final Bilirubin, Total 07/30/2023 05:19:00 0.7 <=1.2 (mg/dL) Final Bilirubin, Direct 07/30/2023 05:19:00 <0.2 0.0-0.3 (mg/dL) Final Protein 07/30/2023 05:19:00 5.8 Below low normal 6.0-8.3 (g/dL) Final Performing Location LABORATORY [facility] - [address] [place] [address]
--- OUTSIDE RECORDS SUMMARY | 2023-09-18 06:13 | External Medical Summary ---
Author Name Unknown Address Unknown Organization K1F:LABORATORY [facility] - [address] [place] [address] Laboratory Report Ordering Provider Test Date Status RICKYNICOLE 07/30/2023 05:19:00 Final Observation Date Value Abnormality Reference (Units ) Status BUN 07/30/2023 05:19:00 15 6-20 (mg/dL) Final Creatinine 07/30/2023 05:19:00 0.9 0.6-1.2 (mg/dL) Final Glomerular filtration rate/1.73 sq M.predicted [Volume Rate/Area] in Serum, Plasma or Blood by Creatinine-based formula (CKD-EPI) 07/30/2023 05:19:00 >90 >=60 (mL/min) Final eGFR is calculated based on the CKD-EPI 2020 equation SODIUM 07/30/2023 05:19:00 142 135-146 (m mol/L) Final Potassium 07/30/2023 05:19:00 3.5 3.5-5.1 (m mol/L) Final Cl 07/30/2023 05:19:00 105 98-107 (mm ol/L) Final CO2 07/30/2023 05:19:00 28 22-32 (mmo l/L) Final Anion gap 07/30/2023 05:19:00 9 7-15 (mmol /L) Final Glucose 07/30/2023 05:19:00 77 70-120 (mg /dL) Final Calcium 07/30/2023 05:19:00 9.1 8.4-10.2 ( mg/dL) Final Performing Location LABORATORY [facility] - [address] [place] [address]
--- OUTSIDE RECORDS SUMMARY | 2023-09-18 06:14 | External Medical Summary ---
Author Name Unknown Address Unknown Organization K1F:LABORATORY [facility] - [address] [place] [address] Laboratory Report Ordering Provider Test Date Status DAVID PEREYRA 07/28/2023 18:18:00 Final Less than 0.5 ng/mL: Low ris [...] [Mass/volume] in Serum or Plasma by Immunoassay 07/28/2023 18:18:00 0.07 <0.10 (ng/mL) Final Performing Location LABORATORY [facility] - [address] [place] [address]
--- OUTSIDE RECORDS SUMMARY | 2023-09-18 06:14 | External Medical Summary | Summary of Care ---
Author Name Unknown Organization [facility] Address [address] [facility] [place] [address] Phone [phone] Care Team Providers Care Top Cager Name Role Phone Unavailable Primary Care Provider Unavailabl e Reason for Visit * Reason Onset Date Comments Medication Refill 07/18/2023 Encounter Details Date Type Department Care Team (Late st Contact Info) Description 07/18/[address] [place] [address] Dilcia Johnston RN Enlarged prostate*; DM type 2 causing neurological disease (HCC); HTN, goal below 140/80; Type 2 diabetes mellitus with hemoglobin A1c goal of less than 7.0% ([facility]); Dyslipidemia, goal LDL below 100; DM type 2 causing neurological disease; 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 30 Cap 11 7 Active Folic Acid 400 MCG Tablet Take 1 Tablet by mouth in the morning. 30 Tab 11 7 Active NATURAL SUPPLEMENT Take 1 g by mouth daily. CINNAMON 0 Active [place]-3 Fatty Acids (FISH OIL) 1200 MG CAPS Take 1,200 mg by mouth 2 times a day. 0 Active ONETOUCH ULTRASOFT LANCETS MISCIndications:D M [...] MOUTH TWICE DAILY DIRECTED 0 1 Active hydrOXYzine HCl 25 MG Oral TabletIndications :Rash and nonspecific skin eruption TAKE 1 TABLET BY MOUTH 4 TIMES DAILY NEEDED FOR ITCHING 40 Tablet 0 2 Active Vitron-C 65-125 MG Oral Tablet (Iron-Vitamin C) Take 1 tablet by mouth twice daily 60 Tablet 11 2 Active Additional Information Patient not taking.Reported on 04/26/2023 Travoprost (BOBBY Free) 0.004 % Ophthalmic Solution [...] Other (none). 30 Tablet 0 2 Active PURACYN PLUS RX wound & skin care fliptop EX SOLN Apply topically to affected area every afternoon. Apply to affected area 250 mL 0 3 Active Amitriptyline HCl 10 MG Oral Tablet [...] for Sleep. 30 Tablet 3 3 Active traZODone HCl 100 MG Oral Tablet (Desyrel) Take 1 Tablet by mouth at bedtime as needed. 0 1 07/18/20 23 Discontinu ed(Refill) Furosemide 20 MG Oral Tablet (Lasix) Take 1 tablet by mouth once daily 90 Tablet 1 2 07/18/20 23 Discontinu ed(Refill) metFORMIN HCl 1000 MG Oral Tablet (Glucophage)Indic ations:DM type 2 causing neurological disease (HCC),Type 2 diabetes mellitus with hemoglobin A1c goal of less than 7.0% (HCC) TAKE 1 TABLET BY MOUTH TWICE DAILY WITH MEALS 180 Tablet 3 2 07/18/20 23 Discontinu ed(Refill) Atenolol 25 MG Oral Tablet (Tenormin)Indicat ions:HTN, goal below 140/80,Type 2 diabetes mellitus with hemoglobin A1c goal of less than 7.0% (HCC) Take 1/2 (one-half) tablet by mouth once daily 45 Tablet 3 2 07/18/20 23 Discontinu ed(Refill) Atorvastatin Calcium 40 MG Oral Tablet (Lipitor)Indicati ons:Dyslipidemia, goal LDL below 100,DM type 2 causing neurological disease (HCC),Type 2 diabetes mellitus with hemoglobin A1c goal of less than 7.0% (HCC) Take 1 tablet by mouth once daily 90 Tablet 1 3 07/18/20 23 Discontinu ed(Refill) Amitriptyline HCl 10 MG Oral Tablet (Elavil)Indicatio ns:DM type 2 causing neurological disease (HCC) TAKE 1 TABLET BY MOUTH AT BEDTIME 90 Tablet 1 3 07/18/20 23 Discontinu ed(Refill) Ozempic (2 MG/DOSE) 8 MG/3ML Subcutaneous Solution Pen-injector (Semaglutide (2 MG/DOSE)) INJECT 2 MG SUBCUTANEOUSLY ONCE A WEEK 3 mL 2 3 07/18/20 23 Discontinu ed(Refill) Finasteride 5 MG Oral Tablet (Proscar) Take 1 Tablet by mouth in the morning. 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 90 Tablet 1 3 07/18/20 23 Discontinu ed(Refill) Tamsulosin HCl 0.4 MG Oral Capsule (Flomax) Take 1 Capsule by mouth in the morning. 90 Capsule 3 3 07/18/20 23 Discontinu ed(Refill) documented as of this encounter (statuses as of 07/19/2023) Active Problems Problem Noted Date Diagnosed Date Tenosynovitis of foot 09/29/2022 Complicated UTI (urinary [...] 140/90 10/18/2015 Overview: Per HTN Protocol #27. Fez41--bqn-TUT at 97/mt, Min voltage criteria LVH. Type [...] type 2 causing neurological disease 9 Overview: Kant66--9%, ld 100, nl bm, rbs 132, alt 09/26/2008--NEW DIAG DM--Hb 17/49, bmp, x na 134, fbs 238, nl lft, tsh 2.01, 226/259/31/143, psa 0.85, ua +glu, b12 nml , fol nml, -ferritin 56, 37%sat, c0f--12.2%---- - ma neg Eye exam--[facility]ard[facility] - Foot exam-10/06/2008--nml documented as of this encounter (statuses as of 07/19/2023) Resolved Problems Problem Noted Date Diagnosed Date Resolved Date Gangrene of toe of left foot 07/08/2022 [...] Fatigue 11/17/2017 02/19/2018 Nausea and vomiting 11/17/2017 09/21/19 21 Near syncope 11/17/2017 02/19/2018 Foot osteomyelitis 09/18/2017 [...] 140/80 04/01/201211/16 Overview: Per HTN Protocol #27. Pdm35--euc-OKA at 97/mt, Min voltage criteria LVH. Primary open angle glaucoma 11/15/2010 02/05/2017 Overview: St travatan gtt 10/21 Diverticulosis of colon 05/10/201001/12 Obesity, Class I, BMI 30.0-3 4.9 (see actual BMI) 11/04/2009 07/29/2020 Overview: Per Obesity Taxonomy, 09/22/2008--BMI: 30.35 kg/m? -- ht s Shoes. HTN, goal below 130/80 09/09/200904/04 Overview: Wak63--eup-LXY at 97/mt, Min voltage criteria LVH. HTN, goal below 140/90 11/24/200809/09 Overview: Per HTN Taxonomy. Xti33--osu-SIJ at 97/mt, Min voltage criteria LVH. Carpal [...] us his list--Fo 1000mg daily, Zn 50mg, [id number] documented as of this encounter (statuses as of 07/19/2023) Immunizations Name Administration Dates Next Due COVID-19 mRNA, LNP-s, No Pre serve, 2-Dose Series (Moderna) 09/15/2020,08/25/2020 COVID-19 mRNA, LNP-s, No Pre serve, 2-Dose Series (Pfizer) 06/24/2021 Pneumococcal Conjugate Vacci ne, 20-valent (Pyngeod33) 05/14/2023 Pneumococcal Polysaccharide PPV23 (Pneumovax) 11/03/2008,10/06/2008(Deferred: Patient Refused) SEASONAL INFLUENZA, PF, 6 M & Above, IM , (FLULAVAL or FLUZONE) 04/25/2021,05/25/2020,06/13/2017 Seasonal Influenza, Quadriva lent Hd (Fluzone [...] Tobacco: Never Alcohol Use Standard Drinks/Week Comments No 0 (1 standard drink = 0.6 oz pur e alcohol) PHQ-2 Answer Date Recorded PHQ Adult Total Score 11 05/14/2023 Hunger Vital Sign Answer Date Recorded Within the past 12 months, y ou worried that your food would run out before you got the money to buy more. Never true 05/14/20 Within the past 12 months, t he [...] deaf or do you have serious difficulty h earing? No 09/25/2022 Are you blind or do you have serious difficulty seeing, even when wearing glasses? No 09/25/2022 Do you have serious difficul ty walking or climbing stairs? (5 years old or older) No 10/04/2022 Do you have difficulty dress ing or bathing? (5 years old or older) No 09/25/2022 Because of a physical, menta l, or emotional condition, do you have difficulty doing errands alone such as visiting a doctor s office or shopping? (15 years old or older) No 09/25/19 Cognitive Status Response Date of Assessm ent Because of a physical, menta l, or emotional condition, do you have serious difficulty concentrating, remembering, or making decisions? (5 years old or older) No 09/25/2022 documented as of this encounter Miscellaneous Notes * Telephone Encounter - Presley Echavarria MD - 07/19/2023 9:46 AM EST Signed Prescriptions: Disp Refills Amitriptyline HCl 10 MG Oral Tablet (Elavi*90 Tab*1 Sig: Take 1 Tablet by mouth at bedtime.Authorizing Provider: PRESLEY ECHAVARRIA Atenolol 25 MG Oral Tablet (Tenormin) 45 Tab*3 Sig: Take 1/2 (one-half) tablet by mouth once dailyAuthorizing Provider: PRESLEY ECHAVARRIA Atorvastatin Calcium 40 MG Oral Tablet (Li*90 Tab*1 Sig: Take 1 Tablet by mouth in the morning.Authorizing Provider: PRESLEY ECHAVARRIA Finasteride 5 MG Oral Tablet(Proscar) 90 Tab*3 Sig: Take 1 Tablet by mouth in the morning.Authorizing Provider: PRESLEY ECHAVARRIA Furosemide 20 MG Oral Tablet (Lasix) 90 Tab*1 Sig: Take 1 Tablet by mouth in the morning.Authorizing Provider: PRESLEY ECHAVARRIA glipiZIDE ER 5 MG Oral Tablet Extended Rel*90 Tab*1 Sig: Take 1 Tablet by mouth in the morning.Authorizing Provider: PRESLEY ECHAVARRIA metFORMIN HCl 1000 MG Oral Tablet (Glucoph*180 Ta*3 Sig: Take 1 Tablet by mouth in the morning and 1 Tablet before bedtime. With meals..Authorizing Provider: PRESLEY ECHAAVRRIA Ozempic (2 MG/DOSE) 8 MG/3ML Subcutaneous *3 mL 2 Sig: INJECT 2 MG SUBCUTANEOUSLY ONCE A WEEKAuthorizing Provider: PRESLEY ECHAVARRIA Tamsulosin HCl0.4 MG Oral Capsule (Flomax)90 Cap*3 Sig: Take 1 Capsule by mouth in the morning.Authorizing Provider: PRESLEY ECHAVARRIA traZODone HCl 100 MG Oral Tablet (Desyrel) 30 Tab*3 Sig: Take 1 Tabletby mouth at bedtime as needed for Sleep.Authorizing Provider: PRESLEY ECHAVARRIA * Telephone Encounter - Dilcia Johnston RN - 07/18/2023 1:58 PM EST Provider to address: Patient reports he needs refills for all medications after being discharged from rehab. Orders pended. Please sign if agreeable. Thank you. Reason for Call: Medication Refill Contact: In Clinic Contact Type: Medication Outcome: see above. Face to face time spent with Patient (minutes): 20 Total Time including non face to face (minutes): 30 documented in this encounter Plan of Treatment Upcoming Encounters Date Type Department Care Team (Late st Contact Info) Description 08/07/2023 11:30 AM EST Office Visit Pharmacy, [place] [address] [facility] [place] [address] Pharmacist1, [facility] [place] [address] [facility] [place] [id number] 08/27/2023 10:40 AM EST Office Visit Podiatry, [facility] [address] [facility] [place] [address] [address] [facility] [address] [place] [address] 11/02/2023 8:45 AM EDT Office Visit Urology Kadi Jang [place] [address] [facility] [address] [place] [address] Shane Baker MD 27 [facility] [address] [place] [address] 11/16/2023 10:00 AM EDT Office Visit Family [facility] [address] [facility] [place] [phone] Renata Murrieta CRNP [address] [facility] [place] [address] Health Maintenance Due Date Last Done Comments [...] visit until score < 10) 05/15/2023 05/14/2023 HbA1c 09/02/2023 03/02/2023, 10/12, 10/06/2022, Additional history exists Diabetic Foot Exam 09/20/2023 09/20/2022, 0 02/22/2021, 09/09/2019, Additional history exists Cologuard 03/02/2024 03/02/2021, 09/2017, 02/19/2017 Colorectal Cancer Screening 03/02/2024 GFR 03/02/2024 03/02/2023, 11/11, 11/22/2022, Additional history exists Lipid Panel 03/02/2028 03/02/2023, [...] this encounter Medical Devices Implanted Type Area Soda Column Operator Device Identifier Shelf Expiration Date Model / Serial / Lot Clip Quick 2.8mm 230cm - [id number] Implanted:Qty: 7 on 09/18/2020 by Terrance Granados MD at OR [facility] N/A: [employer] [id number] / / Description:lot 01K x4, 02K x2and 92K x1 documented as of this encounter Visit Diagnoses Diagnosis Enlarged prostate- Primary Hypertrophy of prostate without urinary obstruction and other lower urinary tract symptoms (LUTS) DM type 2 causing neurological disease Type II or unspecified type diabetes mellitus with neurological manifestations, not stated as uncontrolled HTN, goal below 140/80 Unspecified essential hypertension Type 2 diabetes mellitus with hemoglobin A1c goal of less than 7.0% (HCC) Dyslipidemia, goal LDL below 100 Other and unspecified hyperlipidemia 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 Question Answer Comments Discussion of Advance Directives occurred with: Patient Code Status History Code Status Date Activated Date Inactivated Comments Full Code 07/08/2022 2:58 AM 07/14/2022 5:35 [...] the patient have Health Care Power of S[place]? Yes, in chart and reviewed as current No Code 08/14/2020 1:19 AM 08/20/2020 4:29 PM This or mihir reflects the patients wishes and were consensually agreed upon. Question Answer Comments Discussion of Advance Directives occurred with: Patient No Code 07/17/2020 7:56 PM 07/23/2020 2:05 PM This order reflects the patients wishes and were consensually agreed upon. Question Answer Comments Discussion of Advance Directives occurred with: Patient Does the patient have a Living Will? No Does the patient have Health Care Power of Sinker Winder? No
--- OUTSIDE RECORDS SUMMARY | 2023-09-18 06:14 | External Medical Summary ---
Author Name Unknown Address Unknown Organization K1F:LABORATORY [facility] - [address] [place] [address] Laboratory Report Ordering Provider Test Date Status DAVID PEREYRA 07/28/2023 21:44:04 Final Observation Date Value Abnormality Reference (Units ) Status RBC, Urine 07/28/2023 21:44:04 0-2 0-2 (/HPF) Final WBC, Urine 07/28/2023 21:44:04 0-2 0-2 (/HPF) Final Bacteria [#/area] in Urine sediment by Microscopy high power field 07/28/2023 21:44:04 0-25 0-25 (/HPF) Final Performing Location LABORATORY [facility] - [address] [place] [address]
--- OUTSIDE RECORDS SUMMARY | 2023-09-18 06:14 | External Medical Summary ---
Author Name Unknown Address Unknown Organization K1F:LABORATORY [facility] - [address] [place] [address] Laboratory Report Ordering Provider Test Date Status DAVID PEREYRA 07/28/2023 18:18:00 Final Observation Date Value Abnormality Reference (Units ) Status Lipase 07/28/2023 18:18:00 33 13-60 (U/L ) Final Performing Location LABORATORY [facility] - [address] [place] [address]
--- OUTSIDE RECORDS SUMMARY | 2023-09-18 06:14 | External Medical Summary ---
Author Name Unknown Address Unknown Organization K1F:LABORATORY [address] [place] [address] Laboratory Report Ordering Provider Test Date Status DAVID PEREYRA 07/28/2023 19:25:34 Final Observation Date Value Abnormality Reference (Units ) Status Bacteria identified in Specimen by Culture 07/28/2023 19:25:34 No growth Final Test: Culture, Blood (Site 2)
Specimen Source: Blood, Venous
Specimen Type: Blood
Specimen Date: 07/28/2023 7:25 PM
Result Date: 08/02/2023 8:01 PM
Result Status: Final result
Resulting Lab: [facility]ATORY [facility]
[address] [place] [address]
[place] [address]

CULTURE

No growth

null Performing Location LABORATORY [facility] - [address] [place] [address] [place] [address]
--- OUTSIDE RECORDS SUMMARY | 2023-09-18 06:14 | External Medical Summary ---
Author Name Unknown Address Unknown Organization K1F:LABORATORY [facility] - [address] [place] [address] Laboratory Report Ordering Provider Test Date Status DAVID PEREYRA 07/28/2023 21:01:00 Final After fluids Observation Date Value Abnormality Reference (Units ) Status Lactic Acid 07/28/2023 21:01:00 2.7 Above high normal 0.4-2.0 (mmol/L) Final Performing Location LABORATORY [facility] - [address] [place] [address]
--- OUTSIDE RECORDS SUMMARY | 2023-09-18 06:14 | External Medical Summary ---
Author Name Unknown Address Unknown Organization K1F:LABORATORY [facility] - [address] [place] [address] Laboratory Report Ordering Provider Test Date Status DAVID PEREYRA 07/28/2023 18:18:00 Final Observation Date Value Abnormality Reference (Units ) Status Troponin T 07/28/2023 18:18:00 18 <=22 (ng/ L) Final Performing Location LABORATORY [facility] - [address] [place] [address]
--- OUTSIDE RECORDS SUMMARY | 2023-09-18 06:14 | External Medical Summary ---
Author Name Unknown Address Unknown Organization K1F:LABORATORY [facility] - [address] [place] [address] Laboratory Report Ordering Provider Test Date Status NOLAN PEREYRANEY 07/28/2023 18:18:00 Final Observation Date Value Abnormality Reference (Units ) Status LORAINE 07/28/2023 18:18:00 52 39-308 (U/ L) Final Performing Location LABORATORY [facility] - [address] [place] [address]
--- OUTSIDE RECORDS SUMMARY | 2023-09-18 06:14 | External Medical Summary ---
Author Name Unknown Address Unknown Organization K1F:LABORATORY [facility] - [address] [place] [address] Laboratory Report Ordering Provider Test Date Status DAVID PEREYRA 07/28/2023 18:18:00 Final Observation Date Value Abnormality Reference (Units ) Status WBC, Total 07/28/2023 18:18:00 14.79 Above high normal 4.00-10.80 (K/uL) Final RBC 07/28/2023 18:18:00 5.78 4.50-5.25 (M/uL) Final Hemoglobin 07/28/2023 18:18:00 17.7 Above high normal 14.0-16.8 (g/dL) Final HCT 07/28/2023 18:18:00 51.3 Above high normal 40.0-48.4 (%) Final MCV 07/28/2023 18:18:00 88.8 82.0-99.5 (fL) Final MCH 07/28/2023 18:18:00 30.6 27.0-34.0 (pg) Final MCHC 07/28/2023 18:18:00 34.5 32.0-36.0 (g/dL) Final RDW 07/28/2023 18:18:00 14.4 11.5-15.5 (%) Final Platelets 07/28/2023 18:18:00 357 140-400 (K/uL) Final MPV 07/28/2023 18:18:00 9.4 6.6-11.1 (fL) Final Nucleated erythrocytes/100 leukocytes [Ratio] in Blood by Automated count 07/28/2023 18:18:00 0 <=0 (/100 WBCs) Final Performing Location LABORATORY [facility] - [address] [place] [address]
--- OUTSIDE RECORDS SUMMARY | 2023-09-18 06:14 | External Medical Summary ---
Author Name Unknown Address Unknown Organization K1F:LABORATORY [facility] - [address] [place] [address] Laboratory Report Ordering Provider Test Date Status SHIRLENESARINA BROWN 07/29/2023 01:15:00 Final Observation Date Value Abnormality Reference (Units ) Status Lactic Acid 07/29/2023 01:15:00 3.3 Above high normal 0.4-2.0 (mmol/L) Final Performing Location LABORATORY [facility] - [address] [place] [address]
--- OUTSIDE RECORDS SUMMARY | 2023-09-18 06:14 | External Medical Summary ---
Author Name Unknown Address Unknown Organization K1F:LABORATORY [facility] - [address] [place] [address] Laboratory Report Ordering Provider Test Date Status DAVID PEREYRA 07/28/2023 17:53:46 Final ADMITTED patient Observation Date Value Abnormality Reference (Units ) Status Adenovirus DNA [Presence] in Nasopharynx by BREN with non-probe detection 07/28/2023 17:53:46 Negative Negative Final Human coronavirus 229E RNA [Presence] in Nasopharynx by BREN with non-probe detection 07/28/2023 17:53:46 Negative Negative Final Human coronavirus HKU1 RNA [Presence] in Nasopharynx by BREN with non-probe detection 07/28/2023 17:53:46 Negative Negative Final Human coronavirus NL63 RNA [Presence] in Nasopharynx by BREN with non-probe detection 07/28/2023 17:53:46 Negative Negative Final Human coronavirus OC43 RNA [Presence] in Nasopharynx by BREN with non-probe detection 07/28/2023 17:53:46 Negative Negative Final SARS-CoV-2 (COVID-19) RNA [Presence] in Nasopharynx by BREN with non-probe detection 07/28/2023 17:53:46 Negative Negative Final Human metapneumovirus RNA [Presence] in Nasopharynx by BREN with non-probe detection 07/28/2023 17:53:46 Negative Negative Final Rhinovirus+Enterovirus RNA [Presence] in Nasopharynx by BREN with non-probe detection 07/28/2023 17:53:46 Negative Negative Final Influenza virus A RNA [Presence] in Nasopharynx by BREN with non-probe detection 07/28/2023 17:53:46 Negative Negative Final Influenza virus B RNA [Presence] in Nasopharynx by BREN with non-probe detection 07/28/2023 17:53:46 Negative Negative Final Parainfluenza virus 1 RNA [Presence] in Nasopharynx by BREN with non-probe detection 07/28/2023 17:53:46 Negative Negative Final Parainfluenza virus 2 RNA [Presence] in Nasopharynx by BREN with non-probe detection 07/28/2023 17:53:46 Negative Negative Final Parainfluenza virus 3 RNA [Presence] in Nasopharynx by BREN with non-probe detection 07/28/2023 17:53:46 Negative Negative Final Parainfluenza virus 4 RNA [Presence] in Nasopharynx by BREN with non-probe detection 07/28/2023 17:53:46 Negative Negative Final Respiratory syncytial virus RNA [Presence] in Nasopharynx by BREN with non-probe detection 07/28/2023 17:53:46 Negative Negative Final Bordetella pertussis.pertussis toxin promoter region [Presence] in Nasopharynx by BREN with non-probe detection 07/28/2023 17:53:46 Negative Negative Final Chlamydophila pneumoniae DNA [Presence] in Nasopharynx by BREN with non-probe detection 07/28/2023 17:53:46 Negative Negative Final Mycoplasma pneumoniae DNA [Presence] in Nasopharynx by BREN with non-probe detection 07/28/2023 17:53:46 Negative Negative Final Bordetella parapertussis [id number] DNA [Presence] in Nasopharynx by BREN with non-probe detection 07/28/2023 17:53:46 Negative Negative Final
The primers that detect Rhinovirus may cross react with some Enterorviruses. The validation of bronchial specimens, tracheal aspirates, and throats for this assay was developed and performance characteristics determined by [employer]. The validation of alternate specimen types has not been cleared or approved by the U.S. Food and Drug Administration (FDA). It has been determined that such clearance or approval is not necessary. [facility] - [address] [place] [address] [facility] [facility] [address]
--- OUTSIDE RECORDS SUMMARY | 2023-09-18 06:14 | External Medical Summary ---
Author Name Unknown Address Unknown Organization K1F:LABORATORY [facility] - [address] [place] [address] Laboratory Report Ordering Provider Test Date Status DAVID PEREYRA 07/28/2023 19:25:34 Final Observation Date Value Abnormality Reference (Units ) Status Body temperature 07/28/2023 19:25:34 37.0 (C) Final pH of Venous blood 07/28/2023 19:25:34 7.576 Above high normal 7.320-7.430 (units) Final Carbon dioxide [Partial pressure] in Venous blood 07/28/2023 19:25:34 24.7 Below low normal 40.0-60.0 (mmHg) Final Oxygen [Partial pressure] in Venous blood 07/28/2023 19:25:34 25.9 25.0-50.0 (mmHg) Final Base excess, Capillary 07/28/2023 19:25:34 3.2 Above high normal -2.0-2.0 (mmol/L) Final Hemoglobin [Mass/volume] in Blood by Oximetry 07/28/2023 19:25:34 18.4 Above high normal 14.0-16.8 (g/dL) Final Oxyhemoglobin, Venous (FO2HB) 07/28/2023 19:25:34 50.3 40.0-85.0 (% total Hgb) Final Carboxyhemoglobin 07/28/2023 19:25:34 1.0 <=1.5 (% total Hgb) Final Smokers: 0-9.0 % Methemoglobin 07/28/2023 19:25:34 0.6 <= 1.5 (% total Hgb) Final Deoxyhemoglobin/Hemoglo bin.total in Venous blood 07/28/2023 19:25:34 48.1 (% total Hgb) Final Oxygen content in Venous blood 07/28/2023 19:25:34 12.9 7.0-18.0 (%vol) Final Bicarbonate, Venous, POC (i-STAT) 07/28/2023 19:25:34 22.9 Below low normal 23.0-31.0 (mmol/L) Final Performing Location LABORATORY [facility] - [address] [facility] [place] [address]
--- OUTSIDE RECORDS SUMMARY | 2023-09-18 06:14 | External Medical Summary ---
Author Name Unknown Address Unknown Organization K1F:LABORATORY [facility] - [address] [place] [address] Laboratory Report Ordering Provider Test Date Status DAVID PEREYRA 07/28/2023 22:16:00 Final Observation Date Value Abnormality Reference (Units ) Status BUN 07/28/2023 22:16:00 36 Above high normal 6-20 (mg/dL) Final Creatinine 07/28/2023 22:16:00 0.9 0.6-1.2 (mg/dL) Final Glomerular filtration rate/1.73 sq M.predicted [Volume Rate/Area] in Serum, Plasma or Blood by Creatinine-based formula (CKD-EPI) 07/28/2023 22:16:00 >90 >=60 (mL/min) Final eGFR is calculated based on the CKD-EPI 2020 equation SODIUM 07/28/2023 22:16:00 138 135-146 (m mol/L) Final Potassium 07/28/2023 22:16:00 3.6 3.5-5.1 (m mol/L) Final Cl 07/28/2023 22:16:00 99 98-107 (mm ol/L) Final CO2 07/28/2023 22:16:00 24 22-32 (mmo l/L) Final Anion gap 07/28/2023 22:16:00 15 7-15 (mmol /L) Final Glucose 07/28/2023 22:16:00 106 70-120 (mg /dL) Final Calcium 07/28/2023 22:16:00 8.9 8.4-10.2 ( mg/dL) Final Performing Location LABORATORY [facility] - [address] [place] [address]
--- OUTSIDE RECORDS SUMMARY | 2023-09-18 06:14 | External Medical Summary | Summary of Care ---
Author Name Unknown Organization [facility] Address [address] [place] [address] Phone [phone] Care Team Providers Care Graphic Art Technician Name Role Phone Unavailable Primary Care Provider Unavailabl e Reason for Visit * Reason Onset Date Comments Advice 04/05/2023 Encounter Details Date Type Department Care Team ([facility] st Contact Info) Description 04/05/2023 Telephone [facility] [address] [place] [address] Jorge Luis Escobar MD [address] [place] [address] Advice Allergies No known active allergiesdocumented as of this encounter (statuses as of 07/05/2023) Medications Medication Sig Dispensed Refills Start Date End Date Status ONETOUCH ULTRA SYSTEM W/DEVICE KITIndications:DM type 2, not at goal (HCC) Use up to four times a day as directed 1 0 10/06/2008 Active Zinc Gluconate 50 MG CAPS Take 1 Tab by mouth daily. 30 Cap 11 10/18/2016 Active Folic Acid 400 MCG Tablet Take 1 Tablet by mouth in the morning. 30 Tab 11 10/18/2016 Active NATURAL SUPPLEMENT Take 1 g by mouth daily. CINNAMON 0 Active [place]-3 Fatty Acids (FISH OIL) 1200 MG CAPS Take 1,200 mg by mouth 2 times a day. 0 Active ONETOUCH ULTRASOFT LANCETS MISCIndications:DM type [...] mouth in the morning. 0 10/22/2019 Active traZODone HCl 100 MG Oral Tablet (Desyrel) Take 1 Tablet by mouth at bedtime as needed. 0 11/23/2020 Active busPIRone HCl 10 MG Oral Tablet (Buspar) TAKE 1 TABLET BY MOUTH TWICE DAILY DIRECTED 0 04/21/2021 Active hydrOXYzine HCl 25 MG Oral TabletIndications: Rash and nonspecific skin eruption TAKE 1 TABLET BY MOUTH 4 TIMES DAILY NEEDED FOR ITCHING 40 Tablet 0 09/16/2021 Active Vitron-C 65-125 MG Oral Tablet (Iron-Vitamin C) Take 1 tablet by mouth twice daily 60 Tablet 11 09/16/2021 Active Additional Information Patient not taking.Reported on 04/26/2023 Furosemide 20 MG Oral Tablet (Lasix) Take 1 tablet by mouth once daily 90 Tablet 1 02/17/2022 Active Travoprost (BOBBY Free) 0.004 % Ophthalmic Solution (Travatan Z)Indications:Prim luisa open angle glaucoma of both eyes, moderate stage Instill into both eyes 1 Drop before bedtime. 5 mL 5 02/18/2022 Active metFORMIN HCl 1000 MG Oral Tablet (Glucophage)Indica tions:DM type 2 causing neurological disease (HCC),Type 2 diabetes mellitus with hemoglobin A1c goal of less than 7.0% (HCC) TAKE 1 TABLET BY MOUTH TWICE DAILY WITH MEALS 180 Tablet 3 04/21/2022 Active Acetaminophen 325 MG Oral Tablet (Tylenol) Take 3 Tablets (975 mg) by mouth every 6 hours as needed for Fever (Temp Greater than ), Pain, Breakthrough or Other (none). 30 Tablet 0 07/14/2022 Active Atenolol 25 MG Oral Tablet (Tenormin)Indicati ons:HTN, goal below 140/80,Type 2 diabetes mellitus with hemoglobin A1c goal of less than 7.0% (HCC) Take 1/2 (one-half) tablet by mouth once daily 45 Tablet 3 08/11/2022 Active Atorvastatin Calcium 40 MG Oral Tablet (Lipitor)Indicatio ns:Dyslipidemia, goal LDL below 100,DM type 2 causing neurological disease (HCC),Type 2 diabetes mellitus with hemoglobin A1c goal of less than 7.0% (HCC) Take 1 tablet by mouth once daily 90 Tablet 1 08/24/2022 Active Amitriptyline HCl 10 MG Oral Tablet (Elavil)Indication s:DM type 2 causing neurological disease (HCC) TAKE 1 TABLET BY MOUTH AT BEDTIME 90 Tablet 1 08/28/2022 Active Ozempic (2 MG/DOSE) 8 MG/3ML Subcutaneous Solution Pen-injector (Semaglutide (2 MG/DOSE)) INJECT 2 MG SUBCUTANEOUSLY ONCE A WEEK 3 mL 2 09/20/2022 Active PURACYN PLUS RX wound & skin care fliptop EX SOLN Apply topically to affected area every afternoon. Apply to affected area 250 mL 0 10/04/2022 Active Finasteride 5 MG Oral Tablet (Proscar) Take 1 Tablet by mouth in the morning. 90 Tablet 3 12/01/2022 Active glipiZIDE ER 5 MG Oral Tablet Extended Release 24 Hour (glipiZIDE XL)Indications:Typ e 2 diabetes mellitus with hemoglobin A1c goal of less than 7.0% (HCC),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),DM type 2 causing neurological disease (HCC) Take 1 Tablet by mouth in the morning. 90 Tablet 1 02/26/2023 Active documented as of this encounter (statuses as of 07/05/2023) Active Problems Problem Noted Date Diagnosed Date [...] 140/90 10/18/2015 Overview: Per HTN Protocol #27. Ptv43--dcl-DLQ at 97/mt, Min voltage criteria LVH. Type [...] DrSheth. DM type 2 causing neurological disease 9 Overview: Cezx96--4%, ld 100, nl bm, rbs 132, alt 09/26/2008--NEW DIAG DM--Hb 17/49, bmp, x na 134, fbs 238, nl lft, tsh 2.01, 226/259/31/143, psa 0.85, ua +glu, b12 nml , fol nml, -ferritin 56, 37%sat, m9h--90.2%---- - ma neg Eye exam--Nivia - Foot exam-10/06/2008--nml documented as of this encounter (statuses as of 07/05/2023) Resolved Problems Problem Noted Date Diagnosed Date [...] 140/80 04/01/201211/16 Overview: Per HTN Protocol #27. Llc92--ims-TKZ at 97/mt, Min voltage criteria LVH. Primary open angle glaucoma 11/15/2010 02/05/2017 Overview: St travatan gtt 10/21 Diverticulosis of colon 05/10/201001/12 Obesity, Class I, BMI 30.0-3 4.9 (see actual BMI) 11/04/2009 07/29/2020 Overview: Per Obesity Taxonomy, 09/22/2008--BMI: 30.35 kg/m? -- ht s Shoes. HTN, goal below 130/80 09/09/200904/04 Overview: Olm37--slh-ZOP at 97/mt, Min voltage criteria LVH. HTN, goal below 140/90 11/24/200809/09 Overview: Per HTN Taxonomy. Kpd35--bwp-FBZ at 97/mt, Min voltage criteria LVH. Carpal [...] of colon 10/27/2008 Overview: 12/22--nml-fair prep--rpt 3 yrs-DrL.>>>>>>5/15--defers csope this yr.>06/27- fobt++++refuses,ch cbc>hb 16.-,rpt 3 [...] us his list--Fo 1000mg daily, Zn 50mg, [id number] documented as of this encounter (statuses as of 07/05/2023) Immunizations Name Administration Dates Next Due COVID-19 mRNA, LNP-s, No Pre serve, 2-Dose Series (Moderna) 09/15/2020,08/25/2020 COVID-19 mRNA, LNP-s, No Pre serve, 2-Dose Series (Pfizer) 06/24/2021 Pneumococcal Polysaccharide PPV23 (Pneumovax) 11/03/2008,10/06/2008(Deferred: Patient Refused) SEASONAL INFLUENZA, PF, 6 M & Above, IM , (FLULAVAL or FLUZONE) 04/25/2021,05/25/2020,06/13/2017 Seasonal Influenza, Quadriva lent Hd (Fluzone Hd) 07/14/2022(Deferred: Contraindication - PT ALREADY RECEIVED THIS SEASON) [...] encounter Miscellaneous Notes * Telephone Encounter - Rachelle Sims LPN - 04/05/2023 10:31 AM EDT Provider to address: Lissett calling from [facility]. She is asking if patient has a major case detective through [employer]. Advised that he does not. Patient's FMLA claim has been denied. He had a leg amputation through [facility]. She stated that he was denied because he did not follow up with orthopedics but she had called into the office to see if patient needed to follow up as patient is on a fix income and it is an expensive tripfor him. She was told that he didn't need to follow up as he already had his prothesis from the [facility] clinic and that is what they were going to do at this visit. She asked them to cancel the appointment but they told her that they didn't need to cancel that people no show all the time and that itwould take too long to cancel it. The FMLA form was filled out by ortho and sent in on 03/13. She is at a loss and does not know what to do for the patient as he will lose his job if this FMLA does not get approved. Ortho needs to appeal this decision. He is currently at [facility] still learning how to ambulate. She is asking if he can get a major case detective set up? Reason for Call: Advice Contact: Telephone Call Contact Type: Information Total Time including non face to face (minutes): 15 Receiving bills that he does not documented in this encounter Plan of Treatment Upcoming Encounters Date Type Department Care Team (Late st Contact Info) Description 08/07/2023 11:30 AM EST [facility] [place] [facility] [phone] Pharmacist1, [facility] [place] [address] [address] 08/27/2023 10:40 AM EST Office Visit Podiatry, [facility] [address] [facility] [place] [address] [address] [facility] [address] 11/02/2023 8:45 AM EDT Office Visit Urology [place] [address] [facility] [address] [address] Shane Baker MD 27 [facility] [address] [place] [address] 11/16/2023 10:00 AM EDT Office Visit Family [facility], [place] [address] [phone] Renata Murrieta [facility] [place] [address] Health Maintenance Due Date Last Done Comments Hepatitis C Screening 1974 Sigmoidoscopy 2001 Hepatitis B (1 of 3 - Risk 3-dose series) 2016 Fecal Occult Blood Test 09/14/2017 09/14/19 17, 07/19/2016, 06/23/2015, Additional history exists Zoster Vaccines (3 of 3) 07/20/2020 05/25/2020, 01/0 12/2016 Colonoscopy 12/25/2021 12/26/2011, 12/11, 12/15/2009, Additional history exists B-12 10/19/2022 10/19/2021, 02/0 02/2021, 04/06/2020, Additional history exists Diabetic Eye [...] 09/09/2019, Additional history exists Cologuard 03/02/2024 03/02/2021, 08/0 09/2017, 02/19/2017 Colorectal Cancer Screening 03/02/2024 GFR [...] this encounter Medical Devices Implanted Type Area Dialysis Patient Care Technician Device Identifier Shelf Expiration Date Model / Serial / Lot Clip Quick 2.8mm 230cm - [id number] Implanted:Qty: 7 on 09/18/2020 by Terrance Granados MD at OR [facility] N/A: Stomach [employer] [id number] [...] the patient have Health Care Power of Reproducer? Yes, in chart and reviewed as current [...] the patient have Health Care Power of Reproducer? No
--- OUTSIDE RECORDS SUMMARY | 2023-09-18 06:14 | External Medical Summary ---
Author Name Unknown Address Unknown Organization K1F:LABORATORY [facility] - [address] [place] [address] Laboratory Report Ordering Provider Test Date Status DAVID PEREYRA 07/28/2023 21:44:04 Final Observation Date Value Abnormality Reference (Units ) Status Color of Urine by Auto 07/28/2023 21:44:04 Yellow Light Yellow, Yellow, Dark Yellow Final Clarity, Urine 07/28/2023 21:44:04 Clear Clear Final Glucose [Mass/volume] in Urine by Automated test strip 07/28/2023 21:44:04 Negative Negative (mg/dL) Final Bilirubin.total [Presence] in Urine by Automated test strip 07/28/2023 21:44:04 Negative Negative Final Ketones [Mass/volume] in Urine by Automated test strip 07/28/2023 21:44:04 15 Abnormal Negative (mg/dL) Final Specific gravity, Urine 07/28/2023 21:44:04 1.030 1.003-1.030 Final Hemoglobin [Presence] in Urine by Automated test strip 07/28/2023 21:44:04 Trace Abnormal Negative Final pH, Urine 07/28/2023 21:44:04 5.5 5.0-7.5 (Units) Final Protein [Mass/volume] in Urine by Automated test strip 07/28/2023 21:44:04 Negative Negative (mg/dL) Final Urobilinogen [Mass/volume] in Urine by Automated test strip 07/28/2023 21:44:04 0.2 0.2, 1.0 (mg/dL) Final Nitrite [Presence] in Urine by Automated test strip 07/28/2023 21:44:04 Negative Negative Final Leukocyte esterase [Presence] in Urine by Automated test strip 07/28/2023 21:44:04 Negative Negative Final Performing Location LABORATORY [facility] - [address] [facility] [place] [address]
--- OUTSIDE RECORDS SUMMARY | 2023-09-18 06:14 | External Medical Summary ---
Author Name Unknown Address Unknown Organization : Laboratory Report Ordering Provider Test Date Status NO,UNKNOWN 07/28/2023 17:52:04 Final Observation Date Value Abnormality Reference (Units ) Status Glucose Point of Care 07/28/2023 17:52:04 208 Above high normal 70-120 (mg/dL) Final Performing Location
--- OUTSIDE RECORDS SUMMARY | 2023-09-18 06:14 | External Medical Summary ---
Author Name Unknown Address Unknown Organization K1F:LABORATORY [facility] - [address] [place] [address]. [place] [address] Laboratory Report Ordering Provider Test Date Status DAVID PEREYRA 07/28/2023 19:12:00 Final No anaerobic bottle received . Observation Date Value Abnormality Reference (Units ) Status Bacteria identified in Specimen by Culture 07/28/2023 19:12:00 No growth Final Test: Culture, Blood
Trent simmons Source: Blood, Venous
Specimen Type: Blood
Specimen Date: 07/28/2023 7:12 PM
Result Date: 08/02/2023 8:01 PM
Result Status: Final result
Resulting Lab: LABORATORY [facility]
[address] [place] [address]
[place] [address]

CULTURE

No growth

No anaerobic bottle received.

null Performing Location LABORATORY [address] [place] [address]
--- OUTSIDE RECORDS SUMMARY | 2023-09-18 06:14 | External Medical Summary ---
Author Name Unknown Address Unknown Organization K1F:LABORATORY [facility] - [address] [place] [address] Laboratory Report Ordering Provider Test Date Status DAVID PEREYRA 07/28/2023 22:16:00 Final With collection of BNP and l actate after the IV fluids Observation Date Value Abnormality Reference (Units ) Status Troponin T 07/28/2023 22:16:00 14 <=22 (ng/ L) Final Performing Location LABORATORY [facility] - [address] [place] [address]
--- OUTSIDE RECORDS SUMMARY | 2023-09-18 06:14 | External Medical Summary ---
Author Name Unknown Address Unknown Organization K1F:LABORATORY [facility] - [address] [facility] [place] [address] Laboratory Report Ordering Provider Test Date Status DAVID PEREYRA 07/28/2023 18:18:00 Final Observation Date Value Abnormality Reference (Units ) Status BUN 07/28/2023 18:18:00 40 Above high normal 6-20 (mg/dL) Final Creatinine 07/28/2023 18:18:00 1.0 0.6-1.2 (mg/dL) Final Glomerular filtration rate/1.73 sq M.predicted [Volume Rate/Area] in Serum, Plasma or Blood by Creatinine-based formula (CKD-EPI) 07/28/2023 18:18:00 82 >=60 (mL/min) Final eGFR is calculated based on the CKD-EPI 2020 equation SODIUM 07/28/2023 18:18:00 135 135-146 (m mol/L) Final Potassium 07/28/2023 18:18:00 4.3 3.5-5.1 (m mol/L) Final Cl 07/28/2023 18:18:00 88 Below low normal 98- 107 (mmol/L) Final CO2 07/28/2023 18:18:00 22 22-32 (mmo l/L) Final Anion gap 07/28/2023 18:18:00 25 Above high normal 7- 15 (mmol/L) Final Glucose 07/28/2023 18:18:00 222 Above high normal 70 -120 (mg/dL) Final Albumin 07/28/2023 18:18:00 4.5 3.8-5.0 (g /dL) Final AST (Aspartate aminotransferase) 07/28/2023 18:18:00 18 10-50 (U/L) Fin al Alk Phos 07/28/2023 18:18:00 143 Above high normal 35 -130 (U/L) Final Bilirubin, Total 07/28/2023 18:18:00 1.0 <=1 .2 (mg/dL) Final Calcium 07/28/2023 18:18:00 11.0 Above high normal 8. 4-10.2 (mg/dL) Final Protein 07/28/2023 18:18:00 7.8 6.0-8.3 (g /dL) Final ALT (Alanine aminotransferase) 07/28/2023 18:18:00 32 10-50 (U/L) Mario pritchett Performing Location LABORATORY [facility] - [address] [place], [place] [address] [place] [address]
--- OUTSIDE RECORDS SUMMARY | 2023-09-18 06:14 | External Medical Summary ---
Author Name Unknown Address Unknown Organization K1F:LABORATORY [facility] - [address] [place] [address] Laboratory Report Ordering Provider Test Date Status DAVID PEREYRA 07/28/2023 22:16:00 Final After IV fluids Observation Date Value Abnormality Reference (Units ) Status Lactic Acid 07/28/2023 22:16:00 2.4 Above high normal 0.4-2.0 (mmol/L) Final Performing Location LABORATORY [facility] - [address] [place] [address]
--- OUTSIDE RECORDS SUMMARY | 2023-09-18 06:14 | External Medical Summary | Summary of Care ---
Author Name Unknown Organization [facility] Address [address] [facility] [place] [address] Phone [phone] Care Team Providers Care Vegetable Thinner Name Role Phone Unavailable Primary Care Provider Unavailabl e Encounter Details Date Type Department Care Team (Late st Contact Info) Description 07/03/2023 Population Health External Data Unspecified Department Allergies No known active allergiesdocumented as of this encounter (statuses as of 07/03/2023) Medications Medication Sig Dispensed Refills Start Date End Date Status GENELINKTOPoderopedia ULTRA SYSTEM W/DEVICE KITIndications:DM type 2, not [...] g by mouth daily. CINNAMON 0 Active [place]-3 Fatty Acids (FISH OIL) 1200 MG CAPS [...] the morning. 90 Tablet 1 02/26/2023 Active Tamsulosin HCl 0.4 MG Oral Capsule (Flomax) Take 1 Capsule by mouth in the morning. 90 Capsule 3 04/26/2023 Active documented as of this encounter (statuses as of 07/03/2023) Active Problems Problem Noted Date Diagnosed Date [...] 140/90 10/18/2015 Overview: Per HTN Protocol #27. Rxn28--wzw-JTG at 97/mt, Min voltage criteria LVH. Type [...] DM type 2 causing neurological disease Overview: Fdcz75--9%, ld 100, nl bm, rbs 132, alt 09/26/2008--NEW DIAG DM--Hb 17/49, bmp, x na 134, fbs 238, nl lft, tsh 2.01, 226/259/31/143, psa 0.85, ua +glu, b12 nml , fol nml, -ferritin 56, 37%sat, a9o--67.2%---- - mo neg Eye exam--Nivia - Foot exam-10/06/2008--nml documented as of this encounter (statuses as of 07/03/2023) Resolved Problems Problem Noted Date Diagnosed Date [...] 140/80 04/01/201211/16 Overview: Per HTN Protocol #27. Eep65--cmr-JFJ at 97/mt, Min voltage criteria LVH. Primary open angle glaucoma 11/15/2010 02/05/2017 Overview: St travatan gtt 10/21 Diverticulosis of colon 05/10/201001/12 Obesity, Class I, BMI 30.0-3 4.9 (see actual BMI) 11/04/2009 07/29/2020 Overview: Per Obesity Taxonomy, 09/22/2008--BMI: 30.35 kg/m? -- ht s Shoes. HTN, goal below 130/80 09/09/200904/04 Overview: Pla66--vyw-AFD at 97/mt, Min voltage criteria LVH. HTN, goal below 140/90 11/24/200809/09 Overview: Per HTN Taxonomy. Gfl14--bez-ETE at 97/mt, Min voltage criteria LVH. Carpal [...] us his list--Fo 1000mg daily, Zn 50mg, [id number] documented as of this encounter (statuses as of 07/03/2023) Immunizations Name Administration Dates Next Due COVID-19 mRNA, LNP-s, No Pre serve, 2-Dose Series (Moderna) 09/15/2020,08/25/2020 COVID-19 mRNA, LNP-s, No Pre serve, 2-Dose Series (Pfizer) 06/24/2021 Pneumococcal Conjugate Vacci ne, 20-valent ([id number]) 05/14/2023 Pneumococcal Polysaccharide PPV23 (Pneumovax) 11/03/2008,10/06/2008(Deferred: Patient [...] No 09/25/2022 documented as of this encounter Plan of Treatment Upcoming Encounters Date Type Department Care Team (Late st Contact Info) Description 08/07/2023 11:30 AM EST Office Visit Pharmacy, [place] [address] [address] Pharmacist1, [facility] [place] [address] [address] 08/27/2023 10:40 AM EST Office Visit Podiatry, [facility] [address] [facility] [place] [address] [address], [facility] [address] 11/02/2023 8:45 AM EDT Office Visit Urology Kadi Jang [place] [address] [facility] [address] [place] [address] Shane Baker MD [address] [facility] [address] [place] [address] 11/16/2023 10:00 AM EDT Office Visit Family [facility], [place] [address] [phone] Renata Murrieta CRNP [address] [facility] [address] [place] [address] Health Maintenance Due Date Last Done Comments [...] this encounter Medical Devices Implanted Type Area Linen Keeper Device Identifier Shelf Expiration Date Model / Serial / Lot Clip Quick 2.8mm 230cm - [id number] Implanted:Qty: 7 on 09/18/2020 by Terrance Granados MD at OR [facility] N/A: Stomach [employer] [id number] [...] the patient have Health Care Power of It Software Developer? Yes, in chart and reviewed as current [...] the patient have Health Care Power of It Software Developer? No
--- OUTSIDE RECORDS SUMMARY | 2023-09-18 06:14 | External Medical Summary ---
Author Name Unknown Address Unknown Organization K1F:[facility]ATORY [facility] - [address] [facility] [place] [address] Laboratory Report Ordering Provider Test Date Status DAVID PEREYRA 07/28/2023 18:18:00 Final Observation Date Value Abnormality Reference (Units ) Status SYNC LEUKOCYTES IN BLOOD BY AUTOMATED COUNT 07/28/2023 18:18:00 14.79 Above high normal 4.00-10.80 (K/uL) Final Segs 07/28/2023 18:18:00 63.4 40.0-75.0 (%) Final Lymphs % 07/28/2023 18:18:00 26.0 18.0-42.0 (%) Final Monos 07/28/2023 18:18:00 8.9 1.0-11.0 (%) Final Eosinophils 07/28/2023 18:18:00 0.7 0.0-6.0 (%) Final Basos 07/28/2023 18:18:00 0.5 0.0-2.0 (%) Final Immature Granulocyte, Percent 07/28/2023 18:18:00 0.5 0.0-2.0 (%) Final Absolute Segs 07/28/2023 18:18:00 9.36 Above high normal 1.80-7.70 (K/uL) Final Lymphs, absolute 07/28/2023 18:18:00 3.85 1.00-4.80 (K/ul) Final Monos, Abs 07/28/2023 18:18:00 1.31 Above high normal 0.00-1.10 (K/uL) Final Eos, Abs 07/28/2023 18:18:00 0.11 0.00-0.70 (K/uL) Final Basos, Abs 07/28/2023 18:18:00 0.08 0.00-0.20 (K/uL) Final Immature Granulocytes, Number 07/28/2023 18:18:00 0.08 0.00-0.20 (K/uL) Final Performing Location LABORATORY [facility] - [facility] [place] [address]
--- OUTSIDE RECORDS SUMMARY | 2023-09-18 06:14 | External Medical Summary ---
Author Name Unknown Address Unknown Organization K01:LABORATORY [facility] - [address] [place] [address] Laboratory Report Ordering Provider Test Date Status FAM COSTA 07/29/2023 00:20:43 Final Observation Date Value Abnormality Reference (Units) Status Bacteria identified in Specimen by Culture 07/29/2023 00:20:43 No significant growth Final Test: Culture, Urine, Quanti tative
Specimen Source: Urine, Clean Catch
Specimen Type: Urine
Specimen Date: 07/29/2023 12:20 AM
Result Date: 07/30/2023 7:25 AM
Result Status: Final result
Resulting Lab: LABORATORY [facility]
[address]
[place] [address]

CULTURE

No significant growth

null Performing Location LABORATORY [facility] - [address] [place] [address]
--- OUTSIDE RECORDS SUMMARY | 2023-09-18 06:14 | External Medical Summary | Summary of Care ---
Author Name Unknown Organization [facility] Address [address] [facility] [place] [address] Phone [phone] Care Team Providers Care Lens Examiner Name Role Phone Unavailable Primary Care Provider Unavailabl e Reason for Visit * Reason Comments Dosage Adjustment In Person (Anticoag Cl inic) Diabetes Follow-Up Encounter Details Date Type Department Care Team (Late st Contact Info) Description 06/28/2023 1:00 PM EST Office Visit Pharmacy, [address] [place] [address] Pharmacist1, [facility] [address] [place] [address] Type 2 diabetes mellitus with hemoglobin A1c goal of less than 7.0% ([facility])*; 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 30 Cap 11 10/18/2016 Active Folic Acid 400 MCG Tablet Take 1 Tablet by mouth in the morning. 30 Tab 10/18/2016 Active NATURAL SUPPLEMENT Take 1 g by mouth daily. CINNAMON 0 Active [place]-3 Fatty Acids (FISH OIL) 1200 MG CAPS [...] as of this encounter (statuses as of 06/28/2023) Active Problems Problem Noted Date Diagnosed Date [...] 140/90 10/18/2015 Overview: Per HTN Protocol #27. Dtq61--lxl-YXC at 97/mt, Min voltage criteria LVH. Type [...] type 2 causing neurological disease 9 Overview: Gmlm25--8%, ld 100, nl bm, rbs 132, alt 09/26/2008--NEW DIAG DM--Hb 17/49, bmp, x na 134, fbs 238, nl lft, tsh 2.01, 226/259/31/143, psa 0.85, ua +glu, b12 nml , fol nml, -ferritin 56, 37%sat, u0e--01.2%---- - ma neg Eye exam--DrAzdis - Foot exam-10/06/2008--nml documented as of this encounter (statuses as of 06/28/2023) Resolved Problems Problem Noted Date Diagnosed Date [...] 140/80 04/01/201211/16 Overview: Per HTN Protocol #27. Sqa08--ovj-JDI at 97/mt, Min voltage criteria LVH. Primary open angle glaucoma 11/15/2010 02/05/2017 Overview: St travatan gtt 10/21 Diverticulosis of colon 05/10/201001/12 Obesity, Class I, BMI 30.0-3 4.9 (see actual BMI) 11/04/2009 07/29/2020 Overview: Per Obesity Taxonomy, 09/22/2008--BMI: 30.35 kg/m? -- ht s Shoes. HTN, goal below 130/80 09/09/200904/04 Overview: Jdt45--oxv-LDT at 97/mt, Min voltage criteria LVH. HTN, goal below 140/90 11/24/200809/09 Overview: Per HTN Taxonomy. Eru06--ltb-RLR at 97/mt, Min voltage criteria LVH. Carpal [...] us his list--Fo 1000mg daily, Zn 50mg, [id number] documented as of this encounter (statuses as of 06/28/2023) Immunizations Name Administration Dates Next Due COVID-19 mRNA, LNP-s, No Pre serve, 2-Dose Series (Moderna) 09/15/2020,08/25/2020 COVID-19 mRNA, LNP-s, No Pre serve, 2-Dose Series (Pfizer) 06/24/2021 Pneumococcal Conjugate Vacci ne, 20-valent (Goenbaq06) 05/14/2023 Pneumococcal Polysaccharide PPV23 (Pneumovax) 11/03/2008,10/06/2008(Deferred: Patient [...] (15 years old or older) No 09/25/19 23 Cognitive Status Response Date of Assessm ent Because of a physical, menta l, or emotional condition, do you have serious difficulty concentrating, remembering, or making decisions? (5 years old or older) No 09/25/2022 documented as of this encounter Progress Notes * Silva Chan, [facility] - 06/28/2023 12:37 PM EST Medication Therapy Disease Management Clinic [...] 02/24/22 Medication Injection Site: Abdomen Lifestyle: Diet: will be returning to normal - back home past 1-2 weeks Glucose Review/SMBG: Readings obtained from patient documented BG logbook Pre am Post am Pre Lunch Post Lunch Pre pm Post pm HS 156 113 81 155 89 203 121 129 106 123 90 148 84 159 142 151 92 164 86 140 99 176 83 151 224 114 104 133 109 124 127 157 108 166 84 150 107 184 146 290 93 138 94 170 110 125 92 155 104 132 86 158 114 128 74 275 91 123 105 154 Average 107 #DIV/0! #DIV/0! #DIV/0! #DIV/0! #DIV/0! 156 Hi 224 0 0 0 0 0 290 Lo 74 0 0 0 0 0 113 Range 150 0 0 0 0 0 177 Hypoglycemia: Does your blood sugar go below 70 mg/dL? No Hyperglycemia symptoms present: none Recent Labs Units 03/02/23 0715 11/01/22 0449 10/06/22 0436 HEMOGLOBIN A1C - [facility] % 8.4* 6.3* 6.7* Recent Labs Units 03/02/23 0715 11/29/22 0358 11/22/22 0400 ESTIMATED GLOMERULAR FILTRATION RATE - [facility] mL/min >90 >90 83 CREATININE - [facility] mg/dL 0.8 0.9 1.0 HYPERTENSION: Patient on ACEi/ARB: no, UAC 22 on 05/04/22 BP Readings from Last 3 Encounters: 05/14/23 122/78 10/04/22 165/66 09/20/22 132/70 Blood pressure at goal: yes HYPERLIPIDEMIA: Patient is taking moderate or high intensity statin: yes HEALTH MAINTENANCE REVIEW: Health Maintenance Due Topic Date Due Hepatitis C Screening Never done Hepatitis B (1 of 3 - Risk 3-dose series) Never done Zoster Vaccines (3 of 3) 07/20/2020 B-12 10/19/2022 Diabetic Eye Exam 02/09/2023 COVID-19 Vaccine () 04/13/2023 Albumin/Creatinine Ratio 05/04/2023 Depression, Most Recent Score >= 10 (will fire each visit until score < 10) 05/15/2023 ASSESSMENT & PLAN: ICD-10-CM 1. Type 2 diabetes mellitus with hemoglobin A1c goal of less than 7.0% (HCC) E11.9 2. 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 Reviewed BG readings from [facility]. Patient returned home 1-2 weeks ago and has been trying to get settled (not checking currently). Readings from the past month have been greatly improved. No hypoglycemia reported. Medications - Reviewed current regimen, patient is adherent to regimen. Not making any medication changes to regimen as patient has just returned home. Will want to wait to see how his routine/diet effects BG before changing. Will likely need to reduce or eliminate glipizide. Diet, Exercise, Lifestyle - Returned home from [place] [facility]. Diet and activity level will be returning to normal. Patient is agreeable to SMBG 1-2 time(s) daily. Patient aware to contact clinic if any hypoglycemia before next visit. MEDICATION CHANGES: no change Diabetic Medications: Metformin 1000mg: take 1 tablet twice daily Ozempic: inject 2mg once weekly Glipizide ER 5mg: take 1 tablet every morning GFR > 90 on 02/24/22 HEALTH MAINTENANCE INTERVENTIONS: Labs: due for B13 and microalbumin (already ordered) Immunizations: defers Foot Exam: Up to Date Eye Exam: Complete with next PCP visit on 11/15 Annual Wellness Visit: N/A FOLLOW UP: Return to clinic in 6 weeks 08/07/2023 Silva Chan RPh Clinical Pharmacist - Wastewater Analyst Medication Therapy Management Clinic 06/28/2023, 12:37 PM documented in this encounter Plan of Treatment Upcoming Encounters Date Type Department Care Team (Late st Contact Info) Description 08/07/2023 11:30 AM EST Office [address] [address] Pharmacist1, [facility] [place] [address] [facility] [place] [address] 08/27/2023 10:40 AM EST Office Visit Podiatry, [facility] [address] [facility] [place] [address] [address] [facility] [address] [facility] [address] 11/02/2023 8:45 AM EDT Office Visit Urology [place] [address] [place] [address] Shane Baker MD [address] [place] [address] [place] [address] 11/16/2023 10:00 AM EDT Office Visit [place] [address] [place] [phone] Renata Murrieta CRNP [address] [place] [address] Health Maintenance Due Date Last Done Comments [...] this encounter Medical Devices Implanted Type Area Sawmill Tally Clerk Device Identifier Shelf Expiration Date Model / Serial / Lot Clip Quick 2.8mm 230cm - [id number] Implanted:Qty: 7 on 09/18/2020 by Terrance Granados MD at OR [facility] N/A: Stomach [employer] [id number] / / Description:lot [id number] [id number], [...] with neurological manifestations, not stated as uncontrolled documented in this encounter Advance Directives Latest [...] the patient have Health Care Power of Division Human Resources Manager? Yes, in chart and reviewed as current [...] the patient have Health Care Power of Division Human Resources Manager? No
--- OUTSIDE RECORDS SUMMARY | 2023-09-18 06:14 | External Medical Summary ---
Author Name Unknown Address Unknown Organization K1F:[facility] - [address] [place] [address] Laboratory Report Ordering Provider Test Date Status DAVID PEREYRA 07/28/2023 18:18:00 Final Observation Date Value Abnormality Reference (Units ) Status Lactic Acid 07/28/2023 18:18:00 7.3 Above upper panic limits 0.4-2.0 (mmol/L) Final Performing Location [facility] - [address] [place] [address]
--- OUTSIDE RECORDS SUMMARY | 2023-09-18 06:15 | External Medical Summary | Summary of Care ---
Author Name Unknown Organization [facility] Address [address] [place] [address] Phone [phone] Care Team Providers Care Globe Changer Name Role Phone Unavailable Primary Care Provider Unavailabl e Reason for Visit * Reason Onset Date Comments Forms Request 03/08/2023 Encounter Details Date Type Department Care Team (Late st Contact Info) Description 03/08/2023 [facility] [address] [place] [address] Jorge Luis Escobar MD [address] [place] [address] Forms Request Allergies No known active allergiesdocumented as of this encounter (statuses as of 06/07/2023) Medications Medication Sig Dispensed Refills Start Date [...] g by mouth daily. CINNAMON 0 Active [place]-3 Fatty Acids (FISH OIL) 1200 MG CAPS [...] as of this encounter (statuses as of 06/07/2023) Active Problems Problem Noted Date Diagnosed Date [...] 140/90 10/18/2015 Overview: Per HTN Protocol #27. Qna24--ifv-GKH at 97/mt, Min voltage criteria LVH. Type [...] DM type 2 causing neurological disease Overview: Lhwy78--6%, ld 100, nl bm, rbs 132, alt 09/26/2008--NEW DIAG DM--Hb 17/49, bmp, x na 134, fbs 238, nl lft, tsh 2.01, 226/259/31/143, psa 0.85, ua +glu, b12 nml , fol nml, -ferritin 56, 37%sat, r3q--51.2%---- - nc neg Eye exam--Nivia - Foot exam-10/06/2008--nml documented as of this encounter (statuses as of 06/07/2023) Resolved Problems Problem Noted Date Diagnosed Date Resolved Date Gangrene of toe of left foot 07/08/2022 09/20/2022 Symptomatic anemia 09/18/2020 GI bleed 09/18/2020 11/04/2020 Upper GI bleed 09/18/2020 09/21/2020 Acute blood loss anemia 09/18/20200 04/2021 Subacute osteomyelitis of left foot 09/18/2020 [...] 140/80 04/01/201211/16 Overview: Per HTN Protocol #27. Dgh76--mcr-TYS at 97/mt, Min voltage criteria LVH. Primary open angle glaucoma 11/15/2010 02/05/2017 Overview: St travatan gtt 10/21 Diverticulosis of colon 05/10/201001/12 Obesity, Class I, BMI 30.0-3 4.9 (see actual BMI) 11/04/2009 07/29/2020 Overview: Per Obesity Taxonomy, 09/22/2008--BMI: 30.35 kg/m? -- ht s Shoes. HTN, goal below 130/80 09/09/200904/04 Overview: Ecj81--uop-AJT at 97/mt, Min voltage criteria LVH. HTN, goal below 140/90 11/24/200809/09 Overview: Per HTN Taxonomy. Zro32--hef-YDS at 97/mt, Min voltage criteria LVH. Carpal [...] us his list--Fo 1000mg daily, Zn 50mg, [id number] documented as of this encounter (statuses as of 06/07/2023) Immunizations Name Administration Dates Next Due COVID-19 [...] or making decisions? (5 years old or older No 09/25/2022 documented as of this encounter Miscellaneous Notes * Telephone Encounter - KURTIS Gay - 03/08/2023 3:17 PM EDT Forms received from silas and pt needs them faxed back by Sunday documented in this encounter Plan of Treatment Upcoming Encounters Date Type Department Care Team (Late st Contact Info) Description 06/21/2023 10:30 AM EST Office [address] [address] Pharmacist1, [facility] [place] [address] [facility] [place] [address] 08/27/2023 10:40 AM EST Office Visit Podiatry, [facility] [address] [facility] [place] [address] [address] [facility] [address] [facility] [address] 11/02/2023 8:45 AM EDT Office Visit Urology Adore D[place] [address] [place] [address] Shane Baker MD [address] [place] [address] 11/16/2023 10:00 AM EDT Office Visit [facility], [place] [address] [place] [phone] Renata Murrieta CRNP [address] [place] [phone] Health Maintenance Due Date Last Done Comments Hepatitis C Screening 1974 Sigmoidoscopy 2001 Fecal Occult Blood Test 09/14/2017 09/14/19 17, 07/19/2016, 06/23/2015, Additional history exists Zoster Vaccines (3 of 3) 07/20/2020 05/25/2020, 12/2016 Colonoscopy 12/25/2021 12/26/2011, 12/11, 12/15/2009, Additional history exists DIABETES-EYE EXAM 10/12/2022 10/12/2021, , 08/02/2019, Additional history exists B-12 10/19/2022 10/19/2021, 02/2021, [...] on patient's age to complete this topic Hepatitis B Aged Out No longer eligi ble based on patient's age to complete this topic MENINGOCOCCAL (MENACTRA/MENVEO) Aged Out No longer eligible based on patient's age to complete this topic documented as of this encounter Medical Devices Implanted Type Area Conche Operator Device Identifier Shelf Expiration Date Model / Serial / Lot Clip Quick 2.8mm 230cm - [id number] Implanted:Qty: 7 on 09/18/2020 by Terrance Granados MD at OR [facility] N/A: Stomach [employer] [id number] / / Description:lot [id number] x4, [...] the patient have Health Care Power of Commercial Retoucher? Yes, in chart and reviewed as current [...] the patient have Health Care Power of Commercial Retoucher? No
--- OUTSIDE RECORDS SUMMARY | 2023-09-18 06:15 | External Medical Summary | Summary of Care ---
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 Diagnoses Type 2 diabetes mellitus with hemoglobin A1c goal of less than 7.0% (HCC) Anemia, unspecified type Hx of BKA, left (HCC) Dyslipidemia, goal LDL below 100 HTN, goal below 140/80 Dianne Lua MD [address] [place] [address] Referral ID Status Reason Start Date Expiration Date Visits Requested Visits Authorized [id number] Authorized Specialty Services Required 05/14/2023 999 [id number] Question Answer Referral Priority Within 10 days (routine) Role Community Health/Case Management Assistants [facility]/Production Administrative Assistant Referral Reason Transportation Comments Is patient being transitioned from [facility] to Complex Case Management? No Needs help with paper work for new medical insurance * Evaluate & Treat - Unlimited Visits (Within 10 days (routine)) - Authorized Specialty Diagnoses / Procedures Referred By Mattie dillon Referred To Contact Podiatry Diagnoses Type 2 diabetes mellitus with hemoglobin A1c goal of less than 7.0% (HCC) Dianne Lua MD [address] [place] [address] Referral ID Status Reason Start Date Expiration Date Visits Requested Visits Authorized [id number] Authorized Specialty Services Required 05/14/2023 999 999 Question Answer Referral Priority Within 10 days (routine) Which condition are you referring this patient for? Diabetic foot care/pain Specific condition? Diabetic Foot pain Medicare Patient? No Reason for Visit * Reason Onset Date Comments Follow Up 6mo check up- DM . [facility] to left leg. Rash around knee where prosthetic sleeve is Last A1C- 03/02/2023-8.4 Medication Administration 05/14/2023 Flu an d/or Pneumo Inj Encounter Details Date Type Department Care Team Description 05/14/2023 Office Visit [facility] [address] [facility] [place] [id number] Dianne Lua MD [address] [facility] [place] [address] Type 2 diabetes mellitus with hemoglobin A1c goal of less than 7.0% (HCC)*; Need for prophylactic vaccination and inoculation against influenza; Need for pneumococcal vaccination; High risk medication use; Anemia, unspecified type; Hx of BKA, left (HCC); Dyslipidemia, goal LDL below 100; HTN, goal below 140/80 Allergies No known active allergiesdocumented as of this encounter (statuses as of 05/17/2023) Medications Medication Sig Dispensed Refills Start Date End Date Status Chinese Online SYSTEM W/DEVICE KITIndications:DM type 2, not at [...] g by mouth daily. CINNAMON 0 Active [place]-3 Fatty Acids (FISH OIL) 1200 MG CAPS [...] mouth in the morning. 0 0 Active traZODone HCl 100 MG Oral Tablet (Desyrel) Take 1 Tablet by mouth at bedtime as needed. 0 1 Active busPIRone HCl 10 MG Oral Tablet [...] mouth once daily 90 Tablet 1 2 Active Travoprost (BOBBY Free) 0.004 % Ophthalmic Solution (Travatan Z)Indications:Bailey mary ann open angle glaucoma of both eyes, moderate stage Instill into both eyes 1 Drop before bedtime. 5 mL 5 2 Active metFORMIN HCl 1000 MG Oral Tablet (Glucophage)Indic ations:DM type 2 causing neurological disease (HCC),Type 2 diabetes mellitus with hemoglobin A1c goal of less than 7.0% (HCC) TAKE 1 TABLET BY MOUTH TWICE DAILY WITH MEALS 180 Tablet 3 2 Active Acetaminophen 325 MG Oral Tablet (Tylenol) Take 3 Tablets (975 mg) by mouth every 6 hours as needed for Fever (Temp Greater than ), Pain, Breakthrough or Other (none). 30 Tablet 0 2 Active Atenolol 25 MG Oral Tablet (Tenormin)Indicat ions:HTN, goal below 140/80,Type 2 diabetes mellitus with hemoglobin A1c goal of less than 7.0% (HCC) Take 1/2 (one-half) tablet by mouth once daily 45 Tablet 3 2 Active Atorvastatin Calcium 40 MG Oral Tablet (Lipitor)Indicati ons:Dyslipidemia, goal LDL below 100,DM type 2 causing neurological disease (HCC),Type 2 diabetes mellitus with hemoglobin A1c goal of less than 7.0% (HCC) Take 1 tablet by mouth once daily 90 Tablet 1 3 Active Amitriptyline HCl 10 MG Oral Tablet (Elavil)Indicatio ns:DM type 2 causing neurological disease (HCC) TAKE 1 TABLET BY MOUTH AT BEDTIME 90 Tablet 1 3 Active Ozempic (2 MG/DOSE) 8 MG/3ML Subcutaneous Solution Pen-injector (Semaglutide (2 MG/DOSE)) INJECT 2 MG SUBCUTANEOUSLY ONCE A WEEK 3 mL 2 3 Active PURACYN PLUS RX wound & skin care fliptop EX SOLN Apply topically to affected area every afternoon. Apply to affected area 250 mL 0 3 Active Finasteride 5 MG Oral Tablet (Proscar) Take 1 Tablet by mouth in the morning. 90 Tablet 3 3 Active glipiZIDE ER 5 MG Oral Tablet Extended Release 24 Hour (glipiZIDE XL)Indications:Ty pe 2 diabetes mellitus with hemoglobin A1c goal of less than 7.0% (HCC),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),DM type 2 causing neurological disease (HCC) Take 1 Tablet by mouth in the morning. 90 Tablet 1 3 Active Tamsulosin HCl 0.4 MG Oral Capsule (Flomax) Take 1 Capsule by mouth in the morning. 90 Capsule 3 3 Active oxyCODONE HCl 5 MG Oral Tablet (Oxy IR) Take 1 Tablet by mouth every 6 hours as needed for Pain, Moderate. 12 Tablet 0 3 05/14/20 23 Discontinu ed(Medicat ion/Dose Changed) documented as of this encounter (statuses as of 05/17/2023) Active Problems Problem Noted Date Tenosynovitis of foot 09/29/2022 Complicated UTI (urinary tract infection ) 09/27/2022 Hematuria 09/25/2022 Cellulitis of left foot 09/25/2022 History of transmetatarsal amputation of left foot 09/20/2022 Diabetic ulcer of left lower leg associated with diabetes mellitus due to underlying condition, with fat layer exposed 09/20/2022 Osteomyelitis of left foot 07/21/2022 Major depressive disorder, recurrent, mo derate 07/21/2022 Sepsis 07/08/2022 Rhinovirus 07/08/2022 PVD (peripheral vascular disease) 2020 Primary open angle glaucoma of both eyes , moderate stage 09/09/2019 Cellulitis of left lower extremity 11/17 Diabetic foot ulcer 11/17/2017 Status post amputation of great toe, lef t 08/07/2017 Benign non-nodular prostatic hyperplasia without lower urinary tract symptoms 07/19/2016 HTN, goal below 140/90 10/18/2015 Overview: Per HTN Protocol #27. [id number]--fvg-FHI at 97/mt, Min voltage criteria LVH. 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 DM type 2 causing neurological disease 0 09/26/2008 Overview: Nrbw01--2%, ld 100, nl bm, rbs 132, alt 09/26/2008--NEW DIAG DM--Hb 17/49, bmp, x na 134, fbs 238, nl lft, tsh 2.01, 226/259/31/143, psa 0.85, ua +glu, b12 nml , fol nml, -ferritin 56, 37%sat, p3t--52.2%---- - ma neg Eye exam--Nivia - Foot exam-10/06/2008--nml documented as of this encounter (statuses as of 05/17/2023) Resolved Problems Problem Noted Date Resolved Date Gangrene of toe of left foot 07/08/202203/2023 Symptomatic anemia 09/18/2020 09/21/2020 GI bleed 09/18/2020 11/04/2020 Upper GI bleed 09/18/2020 09/21/2020 Acute blood loss anemia 09/18/2020 09/21/19 Subacute osteomyelitis of left foot 09/18/2020 11/04/2020 Subacute osteomyelitis of right foot 08/17/2020 11/04/2020 Dry heaves 08/14/2020 11/04/2020 Lactic acidosis 08/14/2020 11/04/2020 Moderate malnutrition 08/14/2020 02/22/2021 Failure to thrive in adult 07/21/202011/04 Ambulatory dysfunction 07/21/2020 Generalized weakness 07/21/2020 11/04/2020 Generalized weakness 07/13/2020 11/04/2020 Hypoxia 07/13/2020 11/04/2020 COVID-19 virus infection 07/11/2020 021 Abdominal pain 07/11/2020 09/21/2020 Foot osteomyelitis 10/22/2018 03/05/2019 Diabetic ulcer of toe of rig ht foot associated with type 2 diabetes mellitus, with fat layer exposed 10/22/2018 11/04/2020 Elevated WBC count 11/18/2017 02/19/2018 Gram-positive bacteremia 11/18/2017 018 Rigors 11/17/2017 02/19/2018 Chills 11/17/2017 02/19/2018 Fatigue 11/17/2017 02/19/2018 Nausea and vomiting 11/17/2017 09/21/2020 Near syncope 11/17/2017 02/19/2018 Foot osteomyelitis 09/18/2017 02/19/2018 Encounter for long-term (current) use of medicat ions 09/11/2017 07/05/2021 Personal history of diabetic foot ulcer 08/07/20 17 02/19/2018 Diastolic heart failure 08/05/2017 07/21/20 22 Moderate malnutrition 08/04/2017 02/19/2018 Diabetic ulcer of left great toe 08/01/2017 08/07/2017 Acute osteomyelitis 08/01/2017 02/19/2018 Fecal occult blood test positive 01/18/2016 02/05/2017 Fracture of metatarsal bone of right foot with n onunion 01/08/2013 12/16/2013 Overview: xr 12/10/12--bone scan--inc Ut 1st/2nd MTP and 3rd toe>.[place]-WBC scan --+ same areas as bone scan cw active inf/inflm->>05/25--imp swelling Fracture of toe of right foot 01/08/2013 HTN, GOAL BELOW 140/80 04/01/2012 6 Overview: Per HTN Protocol #27. Ilb23--kze-QOH at 97/mt, Min voltage criteria LVH. Primary open angle glaucoma 11/15/201001/12 Overview: St travatan gtt 10/21 Diverticulosis of colon 05/10/2010 02/06/20 17 Obesity, Class I, BMI 30.0-34.9 (see actual BMI) 11/04/2009 07/29/2020 Overview: Per Obesity Taxonomy, 09/22/2008--BMI: 30.35 kg/m? -- ht s Shoes. HTN, goal below 130/80 09/09/2009 2 Overview: Lxc39--psw-IUE at 97/mt, Min voltage criteria LVH. HTN, goal below 140/90 11/24/2008 0 Overview: Per HTN Taxonomy. Xtk66--acm-JVE at 97/mt, Min voltage criteria LVH. Carpal tunnel syndrome 11/03/2008 7 Overview: Trial splint. Benign neoplasm of colon 10/29/2008 009 Overview: -- - One 2 mm polyp in the distal transverse colon.-adenoma ,- Mild diverticulosis in the sigmoid colon. Recommendation: - Repeat colonoscopy in 1 year because the preparation was too poor and for surveillance. Felicia Duarte MD Benign neoplasm of colon 10/27/2008 017 Overview: 12/22--nml-fair prep--rpt 3 yrs-DrL.>>>>>>12/25--defers csope this yr.>06/27- fobt++++refuses,ch cbc>hb 16.-,rpt 3 mts 12/15/2009 -Moderate diverticulosis sigmoid colon and descending colon. - Stool in the entire examined colon. Recommendation: - Use fiber, for example Citrucel, Fibercon, Konsyl or Metamucil. --RPT 2 yrs Shaylee 10/19-poor prep - repeat in 1 year, adenomatous polyp Referral 09/22/2008--FOBT neg. h/o CALCULUS OF KIDNEY 09/22/2008 7 Overview: Had passed spontaneously in 1993 --type unknown Obesity, BMI not known 09/22/2008 0 Overview: Per Obesity Taxonomy, 09/22/2008--BMI: 30.35 kg/m? -- ht s Shoes. Screening for prostate cancer 09/22/2008 Overview: Adjustment disorder with depressed mood 09/22/1910/22/2018 Family history of diabetes mellitus 09/22/2008 02/05/2017 Overview: father Routine medical exam 09/22/2008 01/18/2016 Overview: 11/09/2009 09/22/2008--new pt eval--sent us his list--Fo 1000mg daily, Zn 50mg, [id number] documented as of this encounter (statuses as of 05/17/2023) Immunizations Name Administration Dates Next Due COVID-19 mRNA, LNP-s, No Pre serve, 2-Dose Series (Moderna) 09/15/2020,08/25/2020 COVID-19 mRNA, LNP-s, No Pre serve, 2-Dose Series (Pfizer) 06/24/2021 Pneumococcal Conjugate Vacci ne, 20-valent ([id number]) 05/14/2023 Pneumococcal Polysaccharide PPV23 (Pneumovax) 11/03/2008,10/06/2008(Deferred: Patient [...] drink = 0.6 oz pur e alcohol) Food Insecurity Answer Date Recorded Within the past 12 months, y ou worried that your food would run out before you got money to buy more. Never true 05/14/2023 Within the past 12 months, t he food you bought just didn't last and you didn't have money to get more. Never true 05/14/2023 Sex Assigned at Date Recorded Male 03/05/2019 9:01 AM E DT Job Start Date Occupation Industry Not on file Not on file Not on file documented as of this encounter Last Filed Vital Signs Vital Sign Reading Time Taken Comments Blood Pressure 122/78 05/14/2023 2:16 PM EDT Pulse 114 05/14/2023 2:16 PM EDT Temperature 36.6 C (97.8 F) 05/14/2023 2 :16 PM EDT Respiratory Rate 20 05/14/2023 2:16 PM EDT Oxygen Saturation 98% 05/14/2023 2:1 6 PM EDT Inhaled Oxygen Concentration - - Weight 74.8 kg (165 lb) 05/14/2023 2:16 PM EDT weighed without prosthetic Height - - Body Mass Index 25.09 09/25/2022 10:19 PM EST documented in this encounter Functional [...] No 09/25/2022 documented as of this encounter Patient Instructions * Patient Instructions* Lauren Kenny CMA - 05/14/2023 2:16 PM EDT ~~PATIENT INSTRUCTIONS FOR PNEUMOCOCCAL VACCINE~~ Possible side effects of pneumococcal vaccine, (pneumonia shot), are usually mild and can include: 1. Soreness or redness at injection site 2. Low grade fever 3. Body aches You may use Tylenol/Acetaminophen as needed for these symptoms. LET YOUR DOCTOR KNOW IMMEDIATELY IF YOU HAVE DIFFICULTY BREATHING OR SWALLOWING, EXPERIENCE ITCHINGOF FEET OR HANDS, HAVE SWELLING OF EYES, FACE OR INSIDE OF NOSE. documented in this encounter Progress Notes * Dianne Lua MD - 05/14/2023 2:23 PM EDT Images from the original note were not included. History of Present Illness Epifanio Silva is a 67 year old male that presents for Follow Up (6mo check up- DM. [facility]Recent amputation to left leg. Rash around knee where prosthetic sleeveis /Last A1C- 03/02/2023-8.4) and Medication Administration (Flu and/or Pneumo Inj) Brief Clinical History Mr. Silva is a 67 year old man last seen in Family Medicine 7 months ago (09-20-22). He has h/o amputation, chronic diabetic complication, chronic skin ulcer, depression, Diabetic foot ulcer (HCC), Diabetic ulcer of left lower leg associated with diabetes mellitus due to underlying condition, with fat layer exposed (HCC), 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), DM type 2 causing neurological disease (HCC), History of transmetatarsal amputation of left foot (HCC), Major depressive disorder, recurrent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), Major depressive disorder, recurrent, moderate (HCC), PVD (peripheral vascular disease) (HCC), Status post amputation of great toe, left (HCC), and vascular disease, due for eval of Osteomyelitis of left foot (HCC) and Sepsis (HCC). 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 Physical Exam Vitals: 05/14/23 1416 Temp: 36.6 C (97.8 F) Pulse: 114 Resp: 20 SpO2: 98% BP: 122/78 BP Readings from Last 3 Encounters: 05/14/23 122/78 10/04/22 165/66 09/20/22 132/70 Wt Readings from Last 3 Encounters: 05/14/23 74.8 kg (165 lb) 10/04/22 79.9 kg (176 lb 3.2 oz) 09/20/22 81.6 kg (180 lb) BMI Readings from Last 3 Encounters: 05/14/23 25.09 kg/m 10/04/22 26.79 kg/m 09/20/22 27.37 kg/m Physical Exam Constitutional: General: He is not in acute distress. Appearance: Normal appearance. HENT: Head: Normocephalic and atraumatic. Right Ear: Ear canal and external ear normal. Left Ear: Ear canal and external ear normal. Ears: Comments: Cerumen BL Nose: Nose normal. Mouth/Throat: Mouth: Mucous membranes are moist. Pharynx: Oropharynx is clear. Eyes: Conjunctiva/sclera: Conjunctivae normal. Pupils: Pupils are equal, round, and reactive to light. Cardiovascular: Rate and Rhythm: Normal rate and regular rhythm. Pulses: Normal pulses. Pulmonary: Effort: Pulmonary effort is normal. Breath sounds: Normal breath sounds. Abdominal: General: Bowel sounds are normal. There is no distension. Palpations: Abdomen is soft. Tenderness: There is no abdominal tenderness. Musculoskeletal: Cervical back: Neck supple. Right lower leg: No edema. Left lower leg: No edema. Comments: Left BKA Skin: General: Skin is warm and dry. Findings: No rash. Neurological: Mental Status: He is alert and oriented to person, place, and time. Psychiatric: Mood and Affect: Mood is anxious. Behavior: Behavior normal. I have reviewed the following results: Hemoglobin A1C Assessment and Plan 1. Need for prophylactic vaccination and inoculation against influenza - INFLUENZA VACC, QUAD, HIGH DOSE (FLUZONE HD) 2. Need for pneumococcal vaccination - PNEUMOCOCCAL VACC, PCV20, IM ([id number]) 3. High risk medication use - VITAMIN B12; Future 4. Type 2 diabetes mellitus with hemoglobin A1c goal of less than 7.0% ([facility]) - ALBUMIN / CREATININE RATIO, URINE; Future - PODIATRY REFERRAL OP - [facility] REFERRAL OP 5. Anemia, unspecified type - CBC WITH WBC DIFFERENTIAL; Future - IRON SCREEN, INCLUDING TIBC; Future - FERRITIN; Future - POPULATION HE[facility] REFERRAL OP 6. Hx of BKA, left (HCC) - [facility] REFERRAL OP 7. Dyslipidemia, goal LDL below 100 - [facility] REFERRAL OP 8. HTN, goal below 140/80 - [facility] REFERRAL OP Wrap-Up 6 months Time: I spent a total of 30-39 minutes (exact time 30 mins) on the date of service in preparation, delivery, and documentation of the care provided to Epifanio Silva excluding any time spent in the performance of separately billed services. * Lauren Kenny CMA - 05/14/2023 2:15 PM EDT PRE - ADMINISTRATION DOCUMENTATION Are you experiencing any cold symptoms or fever? No Have you had Guillain-Wellington Syndrome (an illness that causes paralysis) within the last 6 weeks? No Have you had the flu shot in the past? YES Have you ever had a reaction to the flu shot? No Lauren Kenny CMA, 05/14/2023 2:15 PM Immunization Administration Documentation Time Out Procedure Performed: Yes Patient Identified (Ask Name/Date of ): Yes Does the patient have a fever greater than 101 degrees today? No Patient allergic to latex? No VFC Stock: No Immunization(s) verified: Yes, Immunization Name: Flu and Prevnar 20 (PCV20), VIS Sheet(s) given: Yes Verified Side and Site: Yes Verified Shot(s) with Parent(s)/Patient: Yes documented in this encounter Nursing Notes * Lauren Kenny CMA - 05/14/2023 2:13 PM EDT Chief Complaint Patient presents with Follow Up 6mo check up- DM. Currently [facility] Recent amputation to left leg. Rash around knee where prosthetic sleeve is Last A1C- 03/02/2023-8.4 documented in this encounter Plan of Treatment Upcoming Encounters Date Type Specialty Care Team Description 06/21/2023 Office Visit Pharmacy Pharmacist1, [facility] [place] [address] [place] [id number] 08/27/2023 Office Visit Podiatry Violet Grier DPM [address] [facility] [place] [address] 11/02/2023 Office Visit Urology Shane Baker MD [address] [address] [place] [address] 11/16/2023 Office Visit Family Medicine Renata Murrieta CRNP [address] [place] [place] [phone] Scheduled Orders Name Type Priority Associated Diagnoses Orde r Schedule VITAMIN B12 Lab Routine High risk medication use Expected: 05/14/2023 (Approximate), Expires: 05/13/2024 ALBUMIN / CREATININE RATIO, URINE Lab Routine Type 2 diabetes mellitus with hemoglobin A1c goal of less than 7.0% (HCC) Expected: 05/14/2023 (Approximate), Expires: 05/13/2024 CBC WITH WBC DIFFERENTIAL Lab Routine Anemia, unspecified type Expected: 05/14/2023 (Approximate), Expires: 05/14/2024 IRON SCREEN, INCLUDING TIBC Lab Routine Anemia, unspecified type Expected: 05/14/2023 (Approximate), Expires: 05/13/2024 FERRITIN Lab Routine Anemia, unspecified type Expected: 05/14/2023 (Approximate), Expires: 05/13/2024 Scheduled Referrals Name Type Priority Associated Diagnoses Orde r Schedule PODIATRY REFERRAL OP Referral Within 10 d ays (routine) Type 2 diabetes mellitus with hemoglobin A1c goal of less than 7.0% (HCC) Ordered: 05/14/2023 POPULATION HEALTH REFERRAL OP Referral Within 10 days (routine) Type 2 diabetes mellitus with hemoglobin A1c goal of less than 7.0% (HCC) Anemia, unspecified type Hx of BKA, left (HCC) Dyslipidemia, goal LDL below 100 HTN, goal below 140/80 Ordered: 05/14/2023 Health Maintenance Due Date Last [...] this encounter Medical Devices Implanted Type Area Bacteriologist Food Device Identifier Shelf Expiration Date Model / Serial / Lot Clip Quick 2.8mm 230cm - [id number] Implanted:Qty: 7 on 09/18/2020 by Terrance Granados MD at [facility] N/A: [employer] [id number] / / Description:lot [id number] x4, [id number] x2and [id number] x1 documented as of this encounter Visit Diagnoses Diagnosis Type 2 diabetes mellitus with hemoglobin A1c goal of less than 7.0% (HCC)- Primary Need for prophylactic vaccination and inoculation against influenza Need for pneumococcal vaccination Need for prophylactic vaccination against streptococcus pneumoniae (pneumococcus) High risk medication use Encounter for long-term (current) use of other medications Anemia, unspecified type Hx of BKA, left (HCC) Dyslipidemia, goal LDL below 100 Other and unspecified hyperlipidemia HTN, goal below 140/80 Unspecified essential hypertension documented in this encounter Advance Directives Latest [...] the patient have Health Care Power of Grape Grower? Yes, in chart and reviewed as current [...] the patient have Health Care Power of Grape Grower? No
--- OUTSIDE RECORDS SUMMARY | 2023-09-18 06:15 | External Medical Summary | Summary of Care ---
Author Name Unknown Organization [facility] Address [address] [place] [address] Phone [phone] Care Team Providers Care Senior Dentist Name Role Phone Unavailable Primary Care Provider Unavailabl e Encounter Details Date Type Department Care Team Description 05/16/2023 Telephone Care Coordination [address] [place] [address] Gretchen Sharma OSA Allergies No known active allergiesdocumented as of this encounter (statuses as of 05/16/2023) Medications Medication Sig Dispensed Refills Start Date [...] g by mouth daily. CINNAMON 0 Active [place]-3 Fatty Acids (FISH OIL) 1200 MG CAPS [...] as of this encounter (statuses as of 05/16/2023) Active Problems Problem Noted Date Tenosynovitis of [...] 140/90 10/18/2015 Overview: Per HTN Protocol #27. Mtz55--nry-GLL at 97/mt, Min voltage criteria LVH. Type [...] sev ere without psychotic features 11/12/2008 Overview: Adm-- DrShe. DM type 2 causing neurological disease 0 09/26/2008 Overview: Chyr92--6%, ld 100, nl bm, rbs 132, alt 09/26/2008--NEW DIAG DM--Hb 17/49, bmp, x na 134, fbs 238, nl lft, tsh 2.01, 226/259/31/143, psa 0.85, ua +glu, b12 nml , fol nml, -ferritin 56, 37%sat, e4b--73.2%---- - dc neg Eye exam--Nivia - Foot exam-10/06/2008--nml documented as of this encounter (statuses as of 05/16/2023) Resolved Problems Problem Noted Date Resolved Date Gangrene of toe of left foot 07/08/202203/2023 Symptomatic anemia 09/18/2020 09/21/2020 GI bleed 09/18/2020 11/04/2020 Upper GI bleed 09/18/2020 09/21/2020 Acute blood loss anemia 09/18/2020 09/21/19 21 Subacute osteomyelitis of left foot 09/18/2020 11/04/2020 [...] 04/01/2012 6 Overview: Per HTN Protocol #27. Psx94--eod-HTN at 97/mt, Min voltage criteria LVH. Primary open angle glaucoma 11/15/201001/12 Overview: St travatan gtt 10/21 Diverticulosis of colon 05/10/2010 02/06/20 17 Obesity, Class I, BMI 30.0-34.9 (see actual BMI) 11/04/2009 07/29/2020 Overview: Per Obesity Taxonomy, 09/22/2008--BMI: 30.35 kg/m? -- ht s Shoes. HTN, goal below 130/80 09/09/2009 2 Overview: Srh59--rvf-QFY at 97/mt, Min voltage criteria LVH. HTN, goal below 140/90 11/24/2008 0 Overview: Per HTN Taxonomy. Alz67--lee-EZM at 97/mt, Min voltage criteria LVH. Carpal [...] exam 09/22/2008 01/18/2016 Overview: 11/09/2009 09/22/2008--new pt yousif--sent us his list--Fo 1000mg daily, Zn 50mg, [id number] documented as of this encounter (statuses as of 05/16/2023) Immunizations Name Administration Dates Next Due COVID-19 mRNA, LNP-s, No Pre serve, 2-Dose Series (Moderna) 09/15/2020,08/25/2020 COVID-19 mRNA, LNP-s, No Pre serve, 2-Dose Series (Pfizer) 06/24/2021 Pneumococcal Conjugate Vacci ne, 20-valent (Cteumlg21) 05/14/2023 Pneumococcal Polysaccharide PPV23 (Pneumovax) 11/03/2008,10/06/2008(Deferred: Patient [...] Miscellaneous Notes * Telephone Encounter - KURTIS Akers - 05/16/2023 10:10 AM EDT Is patient being transitioned from [facility] to [facility]? No Needs help with paper work for new medical insurance Order Questions Question Answer Referral Priority Within 10 days (routine) Role Community Health/Case Management Assistants On License Of [facility] Referral Reason Transportation DINING CAR WAITER/WAITRESS NOTE: Called pt to discuss transportation needs. Pt states he is not sure if he needs transportation. Pt states he uses [facility] transportation but he needs to get his new photo ID and [facility] transportation will not take him. DINING CAR WAITER/WAITRESS advised the only option for transportation is [facility]. Pt has no other needs. No further DINING CAR WAITER/WAITRESS NEEDS. documented in this encounter Plan of Treatment Upcoming Encounters Date Type Specialty Care Team Description 06/21/2023 Office Visit Pharmacy Pharmacist1, [facility] [address] [place] [address] 08/27/2023 Office Visit Podiatry Violet Grier DPM [address] [facility] [place] [address] 11/02/2023 Office Visit Urology Shane Baker MD [address] [address] [place] [address] 11/16/2023 Office Visit Family Medicine Renata Murrieta CRNP [address] [place] [address] Health Maintenance Due Date Last Done Comments [...] this encounter Medical Devices Implanted Type Area Nail Expert Device Identifier Shelf Expiration Date Model / Serial / Lot Clip Quick 2.8mm 230cm - [id number] Implanted:Qty: 7 on 09/18/2020 by Terrance Granados MD at OR [facility] N/A: Stomach [employer] [id number] [...] the patient have Health Care Power of Elevator Repairer? Yes, in chart and reviewed as current [...] the patient have Health Care Power of Elevator Repairer? No
--- OUTSIDE RECORDS SUMMARY | 2023-09-18 06:15 | External Medical Summary | Summary of Care ---
Author Name Unknown Organization [facility] Address [address] [facility] [address] Phone [phone] Care Team Providers Care Pet Sitter Name Role Phone Unavailable Primary Care Provider Unavailabl e Reason for Visit * Reason Comments Dosage Adjustment In Person (Anticoag Cl inic) Diabetes Follow-Up Encounter Details Date Type Department Care Team Description 05/10/2023 Office Visit Pharmacy, [address] [place] [address] Pharmacist1, [address] [place] [address] Type 2 diabetes mellitus with hemoglobin A1c goal of less than 7.0% (HCC)*; 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 CINNAMON 0 Active [place]-3 Fatty Acids (FISH OIL) 1200 MG CAPS [...] A WEEK 3 mL 2 09/20/2022 Active oxyCODONE HCl 5 MG Oral Tablet (Oxy IR) Take 1 Tablet by mouth every 6 hours as needed for Pain, Moderate. 12 Tablet 0 10/04/2022 Active Additional Information Patient not taking.Reported on 04/26/2023 PURACYN PLUS RX wound & skin care [...] as of this encounter (statuses as of 05/10/2023) Active Problems Problem Noted Date Tenosynovitis of [...] 140/90 10/18/2015 Overview: Per HTN Protocol #27. Swz86--dcj-VXC at 97/mt, Min voltage criteria LVH. Type [...] ere without psychotic features 11/12/2008 Overview: Adm-- DrSheth. DM type 2 causing neurological disease 0 09/26/2008 Overview: Sjfo67--6%, ld 100, nl bm, rbs 132, alt 09/26/2008--NEW DIAG DM--Hb 17/49, bmp, x na 134, fbs 238, nl lft, tsh 2.01, 226/259/31/143, psa 0.85, ua +glu, b12 nml , fol nml, -ferritin 56, 37%sat, k2v--41.2%---- - ma neg Eye exam--DrNardis - Foot exam-10/06/2008--nml documented as of this encounter (statuses as of 05/10/2023) Resolved Problems Problem Noted Date Resolved Date [...] 04/01/2012 6 Overview: Per HTN Protocol #27. Plo55--qry-TAB at 97/mt, Min voltage criteria LVH. Primary open angle glaucoma 11/15/201001/12 Overview: St travatan gtt 10/21 Diverticulosis of colon 05/10/2010 02/06/20 17 Obesity, Class I, BMI 30.0-34.9 (see actual BMI) 11/04/2009 07/29/2020 Overview: Per Obesity Taxonomy, 09/22/2008--BMI: 30.35 kg/m? -- ht s Shoes. HTN, goal below 130/80 09/09/2009 2 Overview: Bvb32--brk-LYW at 97/mt, Min voltage criteria LVH. HTN, goal below 140/90 11/24/2008 0 Overview: Per HTN Taxonomy. Gwv02--yum-KNV at 97/mt, Min voltage criteria LVH. Carpal [...] us his list--Fo 1000mg daily, Zn 50mg, [id number] documented as of this encounter (statuses as of 05/10/2023) Immunizations Name Administration Dates Next Due COVID-19 mRNA, LNP-s, No Pre serve, 2-Dose Series (Moderna) 09/15/2020,08/25/2020 COVID-19 mRNA, LNP-s, No Pre serve, 2-Dose Series (Pfizer) 06/24/2021 Pneumococcal Polysaccharide PPV23 (Pneumovax) 11/03/2008,10/06/2008(Deferred: Patient Refused) Seasonal Influenza, PF, 6 mo ns & Above, IM , (Flulaval) 04/25/2021,05/25/2020,06/13/2017 Seasonal Influenza, Quadriva lent Hd (Fluzone [...] got money to buy more. Never true 09/09/2019 Within the past 12 months, t he food you bought just didn't last and you didn't have money to get more. Never true 09/09/2019 Sex Assigned at Date Recorded Male 03/05[birth year]2019 [...] this encounter Progress Notes * Silva Chan, [facility] - 05/10/2023 10:02 AM EDT Medication Therapy Disease Management Clinic - Diabetes Management Progress Note Epifanio Silva, identified by name and date of , is a 67 year old male being seen for diabetes management/education. Patient presents for return diabetic visit. DIABETES: Current diabetic medications: Metformin 1000mg: take 1 tablet twice daily Ozempic: inject 2mg once weekly START: Glipizide ER 5mg: take 1 tablet every morning GFR > 90 on 02/24/22 Medication Injection Site: Abdomen Lifestyle: Diet: residing at [facility] - diet is dictated by what they provide Glucose Review/SMBG: Readings obtained from patient documented BG logbook Pre am Post am Pre Lunch Post Lunch Pre pm Post pm HS 308 202 297 247 321 170 255 218 317 189 330 217 307 167 287 189 217 130 170 162 211 149 164 111 155 124 134 130 165 113 207 164 164 148 115 110 180 180 340 134 218 118 232 160 211 129 147 95 164 101 124 132 140 112 145 98 144 141 115 108 Average 148 #DIV/0! #DIV/0! #DIV/0! #DIV/0! #DIV/0! 206 Hi 247 0 0 0 0 0 340 Lo 95 0 0 0 0 0 115 Range 152 0 0 0 0 0 225 Hypoglycemia: Does your blood sugar go below [...] 05/04/22 BP Readings from Last 3 Encounters: 10/04/22 165/66 09/20/22 132/70 07/21/22 130/68 Blood pressure at goal: yes HYPERLIPIDEMIA: Patient is taking moderate or high intensity statin: yes HEALTH MAINTENANCE REVIEW: Health Maintenance Due Topic Date Due Hepatitis C Screening Never done Pneumococcal Vaccine: 65+ Years (2 - PCV) 11/03/2009 Zoster Vaccines (3 of 3) 07/20/2020 COVID-19 Vaccine (4 - Moderna series) 08/19/2021 Depression Screening 07/05/2022 DIABETES-EYE EXAM 10/12/2022 B-12 10/19/2022 Influenza Vaccine (FLU shot) (1) 04/13/2023 Albumin/Creatinine Ratio 05/04/2023 ASSESSMENT & PLAN: ICD-10-CM 1. Type 2 diabetes mellitus with hemoglobin A1c goal of less than 7.0% (HCC) E11.9 2. 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 Readings have improved since last MTM appointment. Evening readings remain elevated, however, he is still living in assisted living facility, so BG testing timingis dependent on them. Some evening readings may be within 2 hours of evening meal. Medications - Reviewed current regimen, patient is adherent to regimen. No trouble with regimen at this time. Diet, Exercise, Lifestyle - Patient has been under increased stress as he is still in assisted living. His schedule is mostly dictated by the facility. Patient is also dealing with deciding whether to return to work or retire, changing insurance to Medicare, and determining living arrangements (changing apartments). Continuing regimen for now, will reassess once things settle back into a more normal routine. Patient is agreeable to SMBG 2 time(s) daily. Patient aware to contact clinic if any hypoglycemia before next visit. MEDICATION CHANGES: no change Diabetic Medications: Metformin 1000mg: take 1 tablet twice daily Ozempic: inject 2mg once weekly Glipizide ER 5mg: take 1 tablet every morning GFR > 90 on 02/24/22 HEALTH MAINTENANCE INTERVENTIONS: Labs: due for B12 and microalbumin Immunizations: due for pneumonia, zoster, flu Foot Exam: Up to Date Eye Exam: due Annual Wellness Visit: N/A FOLLOW UP: Return to clinic in 6 weeks 06/21/2023 Silva Chan RPh Clinical Pharmacist - Livestock Agent Medication Therapy Management Clinic 05/10/2023, 10:02 AM documented in this encounter Plan of Treatment Upcoming Encounters Date Type Specialty Care Team Description 05/14/2023 Office Visit Family Medicine Dianne Lua MD [address] [place] [address] 06/21/2023 Office Visit Pharmacy Pharmacist, [facility] [place] [address] [address] 11/02/2023 Office Visit Urology Shane Baker MD [address] [place] [address] [place] [address] Health Maintenance Due Date Last Done Comments Hepatitis C Screening 1974 Sigmoidoscopy 2001 Pneumococcal Vaccine: 65+ Years (2 - PCV) 11/03/2009 11/03/2008 Fecal Occult Blood Test 09/14/2017 09/14/19 17, 07/19/2016, 06/23/2015, Additional history exists Zoster Vaccines (3 of 3) 07/20/2020 05/25/2020, 12/2016 COVID-19 Vaccine (4 - Moderna series) 08/19/2021 06/24/2021, 09/15/2020, 08/25/2020 Colonoscopy 12/25/2021 12/26/2011, 12/11, 12/15/2009, Additional history exists Depression Screening 07/05/2022 07/05/2021 DIABETES-EYE EXAM 10/12/2022 10/12/2021, , 08/02/2019, Additional history exists B-12 10/19/2022 10/19/2021, 0202/2021, 04/06/2020, Additional history exists Influenza Vaccine (FLU shot) (#1) 2023 04/25/2021, 05/25/2020, 06/17/2019, Additional history exists Albumin/Creatinine Ratio 05/04/2023 022, 04/29/2021, 02/25/2019, Additional history exists HbA1c 09/02/2023 03/02/2023, 10/12, 10/06/2022, Additional history exists Diabetic Foot Exam 09/20/2023 09/20/2022, 0 02/22/2021, 09/09/2019, Additional history exists Cologuard 03/02/2024 03/02/2021, 0809/2017, 02/19/2017 Colorectal Cancer Screening 03/02/2024 GFR 03/02/2024 03/02/2023, 11/11, 11/22/2022, Additional history exists Lipid Panel 03/02/2028 03/02/2023, 09/14, 07/05/2021, Additional history exists DTaP,Tdap,and Td Vaccines (3 - Td or Tdap) 03/05/2029 03/05/2019, 09/22/2008 GARDASIL-HPV IMMUNIZATION SERIES Aged Out No longer eligible based on patient's age to complete this topic Hepatitis B Aged Out No longer eligi ble based on patient's age to complete this topic MENINGOCOCCAL (MENACTRA/MENVEO) Aged Out No longer eligible based on patient's age to complete this topic documented as of this encounter Medical Devices Implanted Type Area Drop Hammer Setter Up Device Identifier Shelf Expiration Date Model / Serial / Lot Clip Quick 2.8mm 230cm - [id number] Implanted:Qty: 7 on 09/18/2020 by Terrance Granados MD at OR [facility] N/A: Stomach [employer] [id number] / [...] uncontrolled DM type 2 causing neurological disease (HCC) [...] the patient have Health Care Power of Carriage Rider? Yes, in chart and reviewed as current [...] the patient have Health Care Power of Carriage Rider? No
--- OUTSIDE RECORDS SUMMARY | 2023-09-18 06:15 | External Medical Summary | Summary of Care ---
Author Name Unknown Organization [facility] Address [address] [facility] [place] [address] Phone [phone] Care Team Providers Care New Order Clerk Name Role Phone Unavailable Primary Care Provider Unavailabl e Reason for Visit * Reason Onset Date Comments Appointment 06/22/2023 Encounter Details Date Type Department Care Team (Late st Contact Info) Description 06/22/2023 Telephone Podiatry, [facility] [address] [place] [address] Violet Grier, [facility] [address], [place] [phone] Appointment Allergies No known active allergiesdocumented as of this encounter (statuses as of 06/22/2023) Medications Medication Sig Dispensed Refills Start Date End Date Status [employer] SYSTEM W/DEVICE KITIndications:DM type 2, not at [...] g by mouth daily. CINNAMON 0 Active [place]-3 Fatty Acids (FISH OIL) 1200 MG CAPS [...] as of this encounter (statuses as of 06/22/2023) Active Problems Problem Noted Date Diagnosed Date [...] 140/90 10/18/2015 Overview: Per HTN Protocol #27. Ymh68--dxd-FRO at 97/mt, Min voltage criteria LVH. Type [...] severe without psychotic features 11/12/2008 Overview: Adm-- DrSlevi. DM type 2 causing neurological disease 9 Overview: Wtjf89--7%, ld 100, nl bm, rbs 132, alt 09/26/2008--NEW DIAG DM--Hb 17/49, bmp, x na 134, fbs 238, nl lft, tsh 2.01, 226/259/31/143, psa 0.85, ua +glu, b12 nml , fol nml, -ferritin 56, 37%sat, a9v--19.2%---- - ok neg Eye exam--Nivia - Foot exam-10/06/2008--nml documented as of this encounter (statuses as of 06/22/2023) Resolved Problems Problem Noted Date Diagnosed Date [...] 140/80 04/01/201211/16 Overview: Per HTN Protocol #27. Qfi26--hjp-OYR at 97/mt, Min voltage criteria LVH. Primary open angle glaucoma 11/15/2010 02/05/2017 Overview: St travatan gtt 10/21 Diverticulosis of colon 05/10/201001/12 Obesity, Class I, BMI 30.0-3 4.9 (see actual BMI) 11/04/2009 07/29/2020 Overview: Per Obesity Taxonomy, 09/22/2008--BMI: 30.35 kg/m? -- ht s Shoes. HTN, goal below 130/80 09/09/200904/04 Overview: Krt69--tho-QJL at 97/mt, Min voltage criteria LVH. HTN, goal below 140/90 11/24/200809/09 Overview: Per HTN Taxonomy. Fyo98--ouv-SEF at 97/mt, Min voltage criteria LVH. Carpal [...] us his list--Fo 1000mg daily, Zn 50mg, [id number] documented as of this encounter (statuses as of 06/22/2023) Immunizations Name Administration Dates Next Due COVID-19 mRNA, LNP-s, No Pre serve, 2-Dose Series (Moderna) 09/15/2020,08/25/2020 COVID-19 mRNA, LNP-s, No Pre serve, 2-Dose Series (Pfizer) 06/24/2021 Pneumococcal Conjugate Vacci ne, 20-valent (Mshvrgw57) 05/14/2023 Pneumococcal Polysaccharide PPV23 (Pneumovax) 11/03/2008,10/06/2008(Deferred: Patient [...] encounter Miscellaneous Notes * Telephone Encounter - Nereyda Mao - 06/22/2023 9:40 AM EST Spoke with patient and appointment 08/27/23 is not for nail trimming just a follow-up. documented in this encounter Plan of Treatment Upcoming Encounters Date Type Department Care Team (Late st Contact Info) Description 06/28/2023 1:00 PM EST Office Visit Pharmacy, [address] [place] [address] Pharmacist1, [facility] [place] [address] [place] [address] 08/27/2023 10:40 AM EST Office Visit Podiatry, [facility] [address] [place] [address] Violet Grier [facility] [address] [facility] [address] 11/02/2023 8:45 AM EDT Office Visit Urology Adore Dolan [address] [place] [address] [place] [address] Shane Baker MD [address] [place] [address] [place] [address] 11/16/2023 10:00 AM EDT Office Visit [facility], [place] [address] [place] [phone] Renata Murrieta CRNP [address] [place] [address] Health Maintenance Due Date Last Done Comments [...] Colorectal Cancer Screening 03/02/2024 GFR 03/02/2024 03/02/2023, 04/04/2023, 11/22/2022, Additional history exists Lipid Panel 03/02/2028 [...] this encounter Medical Devices Implanted Type Area Telephone Service Adviser Device Identifier Shelf Expiration Date Model / Serial / Lot Clip Quick 2.8mm 230cm - [id number] Implanted:Qty: 7 on 09/18/2020 by Terrance Granados MD at OR [facility] N/A: Stomach [employer] [id number] / / Description:lot [id number] [id number], [...] the patient have Health Care Power of Condemnation Engineer? Yes, in chart and reviewed as [...] the patient have Health Care Power of Condemnation Engineer? No
--- OUTSIDE RECORDS SUMMARY | 2023-09-18 06:16 | External Medical Summary | Summary of Care ---
Author Name Unknown Organization [facility] Address [address] [place] [address] Phone [phone] Care Team Providers Care Radiology Aide Name Role Phone Unavailable Primary Care Provider Unavailabl e Encounter Details Date Type Department Care Team Description 04/04/2023 Orders Only Outcomes Research Department [address] [place] [address] Marylin Mcadams CHRA [employer] Other*[id number] Allergies No known active allergiesdocumented as of this encounter (statuses as of 04/04/2023) Medications Medication Sig Dispensed Refills Start Date [...] g by mouth daily. CINNAMON 0 Active [place]-3 Fatty Acids (FISH OIL) 1200 MG [...] twice daily 60 Tablet 11 09/16/2021 Active Furosemide 20 MG Oral Tablet (Lasix) Take [...] A WEEK 3 mL 2 09/20/2022 Active Tamsulosin HCl 0.4 MG Oral Capsule (Flomax) Take 1 Capsule by mouth in the morning. 30 Capsule 0 10/04/2022 Active oxyCODONE HCl 5 MG Oral Tablet (Oxy IR) Take 1 Tablet by mouth every 6 hours as needed for Pain, Moderate. 12 Tablet 0 10/04/2022 Active PURACYN PLUS RX wound & skin [...] as of this encounter (statuses as of 04/04/2023) Active Problems Problem Noted Date Tenosynovitis of [...] stage 09/09/2019 Cellulitis of left lower extremity 04/07 /2018 Diabetic foot ulcer 11/17/2017 Status post amputation of great toe, lef t 08/07/2017 Benign non-nodular prostatic hyperplasia without lower urinary tract symptoms 07/19/2016 HTN, goal below 140/90 10/18/2015 Overview: Per HTN Protocol #27. Uyd94--upw-LKL at 97/mt, Min voltage criteria LVH. Type [...] 2 causing neurological disease 0 09/26/2008 Overview: Pbvy78--1%, ld 100, nl bm, rbs 132, alt 09/26/2008--NEW DIAG DM--Hb 17/49, bmp, x na 134, fbs 238, nl lft, tsh 2.01, 226/259/31/143, psa 0.85, ua +glu, b12 nml , fol nml, -ferritin 56, 37%sat, y4k--59.2%---- - ma neg Eye exam--DrAzdis - Foot exam-10/06/2008--nml documented as of this encounter (statuses as of 04/04/2023) Resolved Problems Problem Noted Date Resolved Date [...] 04/01/2012 6 Overview: Per HTN Protocol #27. Akl09--mkg-JUM at 97/mt, Min voltage criteria LVH. Primary open angle glaucoma 11/15/201001/12 Overview: St travatan gtt 10/21 Diverticulosis of colon 05/10/2010 02/06/20 17 Obesity, Class I, BMI 30.0-34.9 (see actual BMI) 11/04/2009 07/29/2020 Overview: Per Obesity Taxonomy, 09/22/2008--BMI: 30.35 kg/m? -- ht s Shoes. HTN, goal below 130/80 09/09/2009 2 Overview: Rhj16--kjv-AWE at 97/mt, Min voltage criteria LVH. HTN, goal below 140/90 11/24/2008 0 Overview: Per HTN Taxonomy. Ekx17--hia-VGW at 97/mt, Min voltage criteria LVH. Carpal [...] us his list--Fo 1000mg daily, Zn 50mg, [id number] documented as of this encounter (statuses as of 04/04/2023) Immunizations Name Administration Dates Next Due COVID-19 [...] Encounters Date Type Specialty Care Team Description 04/05/2023 Office Visit Urology Shane Baker MD [address] [facility] [address] [address] 05/10/2023 Office Visit Family Medicine Zachary Weems MD [address] [address] 05/10/2023 Office Visit Pharmacy Pharmacist1, [facility] [address] [address] Scheduled Orders Name Type Priority Associated Diagnoses Orde r Schedule MYCODE SUBSEQUENT ADULT Lab Routine MyCode Research Other*[id number] Every 6 Months for 2 Occurrences starting 04/04/2023 until 04/23/2024 Health Maintenance Due Date Last Done Comments Hepatitis C Screening 1974 Sigmoidoscopy 2001 Pneumococcal Vaccine: 65+ Years (2 - PCV) 11/03/2009 11/03/2008 Fecal Occult Blood Test 09/14/2017 09/14/19 17, 07/19/2016, 06/23/2015, Additional history exists Zoster Vaccines (3 of 3) 07/20/2020 05/25/2020, 12/2016 COVID-19 Vaccine (4 - Moderna series) 08/19/2021 06/24/2021, 09/15/2020, 08/25/2020 Colonoscopy 12/25/2021 12/26/2011, 12/11, 12/15/2009, Additional history exists Depression Screening, Annual for Pts 12 and Over 07/05/2022 07/05/2021 DIABETES-EYE EXAM 10/12/2022 10/12/2021, , 08/02/2019, Additional history exists B-12 10/19/2022 10/19/2021, 02/0 02/2021, 04/06/2020, Additional history exists Influenza Vaccine (FLU shot) (#1) 2023 04/25/2021, 05/25/2020, 06/17/2019, Additional history exists Albumin/Creatinine Ratio 05/04/2023 022, 04/29/2021, 02/25/2019, Additional history exists HbA1c 09/02/2023 03/02/2023, 10/12, 10/06/2022, Additional history exists DIABETES-FOOT EXAM 09/20/2023 09/20/2022, 0 02/22/2021, 09/09/2019, Additional history exists Cologuard 03/02/2024 03/02/2021, 0809/2017, 02/19/2017 Colorectal Cancer Screening 03/02/2024 GFR 03/02/2024 03/02/2023, 0404/2023, 11/22/2022, Additional history exists Lipid Panel 03/02/2028 [...] this encounter Medical Devices Implanted Type Area Industrial Machine Assembler Device Identifier Shelf Expiration Date Model / Serial / Lot Clip Quick 2.8mm 230cm - [id number] Implanted:Qty: 7 on 09/18/2020 by Terrance Granados MD at [facility] N/A: Stomach [employer] [id number] / / Description:lot 01K x4, 02K x2and 92K x1 documented as of this encounter Visit Diagnoses Diagnosis MyCode Research Other*[id number] documented in this encounter Advance Directives Latest [...] the patient have Health Care Power of Rn Support Services? Yes, in chart and reviewed as current [...] the patient have Health Care Power of Rn Support Services? No
--- OUTSIDE RECORDS SUMMARY | 2023-09-18 06:16 | External Medical Summary | Summary of Care ---
Author Name Unknown Organization [facility] Address [address] [facility] [address] [address] Phone [phone] Care Team Providers Care Shoe Turner Name Role Phone Unavailable Primary Care Provider Unavailabl e Reason for Visit * Reason Comments Follow Up Encounter Details Date Type Department Care Team Description 04/26/2023 Office Visit Urology Adore Dolan [address] [place] [address] [phone] Shane Baker MD [address] [place] [address] [phone] BPH with obstruction/lower urinary tract symptoms* Allergies No known active allergiesdocumented as of this encounter (statuses as of 04/26/2023) Medications Medication Sig Dispensed Refills Start Date End Date Status ONEScoreBigUCH ULTRA SYSTEM W/DEVICE KITIndications:DM type 2, not [...] g by mouth daily. CINNAMON 0 Active [place]-3 Fatty Acids (FISH OIL) 1200 MG CAPS Take 1,200 mg by mouth 2 times a day. 0 Active ONETOUCH ULTRASOFT LANCETS MISCIndications:D M type 2 causing neurological disease (HCC) CHECK FASTING BLOOD SUGAR BEFORE BREAKFAST AND BEFORE SUPPER ADVISED 100 Box Dosing Unit 5 8 Active MIRTHATOUCH ULTRA BLUE STRPIndications:D M type 2 causing [...] (BOBBY Free) 0.004 % Ophthalmic Solution (Travatan Z)Indications:[facility] open angle glaucoma of both eyes, moderate stage Instill into both eyes 1 Drop before bedtime. 5 mL 5 2 Active metFORMIN HCl 1000 MG Oral Tablet (Glucophage)Indic ations:DM type 2 causing neurological disease (HCC),Type 2 diabetes mellitus with hemoglobin A1c goal of less than 7.0% ([facility]) TAKE 1 TABLET BY MOUTH TWICE DAILY [...] hemoglobin A1c goal of less than 7.0% ([facility]) Take 1/2 (one-half) tablet by mouth once [...] A WEEK 3 mL 2 3 Active oxyCODONE HCl 5 MG Oral Tablet (Oxy IR) Take 1 Tablet by mouth every 6 hours as needed for Pain, Moderate. 12 Tablet 0 3 Active Additional Information Patient not taking.Reported on [...] the morning. 90 Capsule 3 3 Active Tamsulosin HCl 0.4 MG Oral Capsule (Flomax) Take 1 Capsule by mouth in the morning. 30 Capsule 0 3 04/26/20 23 Discontinu ed(Refill) documented as of this encounter (statuses as of 04/26/2023) Active Problems Problem Noted Date Tenosynovitis of [...] 140/90 10/18/2015 Overview: Per HTN Protocol #27. Kzd43--gqz-UVI at 97/mt, Min voltage criteria LVH. Type [...] 2 causing neurological disease 0 09/26/2008 Overview: Pbxm24--0%, ld 100, nl bm, rbs 132, alt 09/26/2008--NEW DIAG DM--Hb 17/49, bmp, x na 134, fbs 238, nl lft, tsh 2.01, 226/259/31/143, psa 0.85, ua +glu, b12 nml , fol nml, -ferritin 56, 37%sat, n7t--45.2%---- - ma neg Eye exam--Nivia - Foot exam-10/06/2008--nml documented as of this encounter (statuses as of 04/26/2023) Resolved Problems Problem Noted Date Resolved Date [...] 04/01/2012 6 Overview: Per HTN Protocol #27. Qwp15--bck-VFH at 97/mt, Min voltage criteria LVH. Primary open angle glaucoma 11/15/201001/12 Overview: St travatan gtt 10/21 Diverticulosis of colon 05/10/2010 02/06/20 17 Obesity, Class I, BMI 30.0-34.9 (see actual BMI) 11/04/2009 07/29/2020 Overview: Per Obesity Taxonomy, 09/22/2008--BMI: 30.35 kg/m? -- ht s Shoes. HTN, goal below 130/80 09/09/2009 2 Overview: Fpz97--gtq-EJE at 97/mt, Min voltage criteria LVH. HTN, goal below 140/90 11/24/2008 0 Overview: Per HTN Taxonomy. Xlt87--cup-ZHE at 97/mt, Min voltage criteria LVH. Carpal [...] us his list--Fo 1000mg daily, Zn 50mg, [id number] documented as of this encounter (statuses as of 04/26/2023) Immunizations Name Administration Dates Next Due COVID-19 [...] as of this encounter Progress Notes * Shane Baker MD - 04/26/2023 12:46 PM EDT [id number] PCP: None Epifanio Silva is a 67 year old male, who presents for 4 month follow-up of his voiding after the addition of finasteride for BPH. Patient's past notes reviewed. He denies changes in his voiding, but also notes improved stream, intermittency and nocturia. He remains in rehab, improving slowly. BPH: Patient is being seen for BPH today. He previously has had the following symptoms: slow stream, intermittency, nocturia, hesitancy, incomplete emptying and frequency. Severity is moderate. He has tried tamsulosin. He has previously had office cystoscopy done November 2022 demonstrating BPH with median lobe. Problem has been present for a few months. Finasteride added November 2022 with improvement. Problem is getting better. Gross hematuria: Presented September 2022. Cystoscopy November 2022 shows BPH. PSA Results: Lab Results Component Value Date/Time PSA - [facility] 1.50 04/06/2020 01:41 PM PSA - [facility] 1.62 02/25/2019 09:46 AM PSA - [facility] 1.32 02/14/2018 10:56 AM PSA SCREENING 1.09 09/14/2016 10:33 AM PSA SCREENING 1.00 01/18/2016 10:09 AM PSA SCREENING 0.90 12/24/2014 11:[address] scan September 2022: IMPRESSION No urolithiasis or other acute abnormalities. Decompressed bladder wall limits evaluation. Current Outpatient Medications Medication Sig Dispense Refill [place] [email or web address] SYSTEM W/DEVICE KIT Use up to four times a day as directed 1 0 Zinc Gluconate 50 MG CAPS Take 1 Tab by mouth daily. 30 Cap 11 Folic Acid 400 MCG Tablet Take 1 Tablet by mouth in the morning. 30 Tab 11 NATURAL SUPPLEMENT Take 1 g by mouth daily. CINNAMON [place]-3 Fatty Acids (FISH OIL) 1200 MG CAPS Take 1,200 mg by mouth 2 times a day. Primitive Makeup ULTRASOFT LANCETS MISC CHECK FASTING BLOOD SUGAR BEFORE BREAKFAST AND BEFORE SUPPER ADVISED 100 Box Dosing Unit 5 NeuraUCH ULTRA BLUE STRP CHECK FASTING BLOOD SUGAR BEFORE BREAKFAST AND BEFORE SUPPER ADVISED 100 Strip 11 BuPROPion HCl ER, SR, (WELLBUTRIN SR) 200 MG TB12 Take 1 Tablet by mouth in the morning and 1 Tablet before bedtime. escitalopram (LEXAPRO) 20 MG Tablet Take 1 Tablet by mouth in the morning. traZODone HCl 100 MG Oral Tablet (Desyrel) Take 1 Tablet by mouth at bedtime as needed. busPIRone HCl 10 MG Oral Tablet (Buspar) TAKE 1 TABLET BY MOUTH TWICE DAILY DIRECTED hydrOXYzine HCl 25 MG Oral Tablet TAKE 1 TABLET BY MOUTH 4 TIMES DAILY NEEDED FOR ITCHING 40 Tablet 0 Vitron-C 65-125 MG Oral Tablet (Iron-Vitamin C) Take 1 tablet by mouth twice daily 60 Tablet 11 Furosemide 20 MG Oral Tablet (Lasix) Take 1 tablet by mouth once daily 90 Tablet 1 Travoprost (BOBBY Free) 0.004 % Ophthalmic Solution (Travatan Z) Instill into both eyes 1 Drop beforebedtime. 5 mL 5 metFORMIN HCl 1000 MG Oral Tablet (Glucophage) TAKE 1 TABLET BY MOUTH TWICE DAILY WITH MEALS 180 Tablet 3 Acetaminophen 325 MG Oral Tablet (Tylenol) Take 3 Tablets (975 mg) by mouth every 6 hours as neededfor Fever (Temp Greater than ), Pain, Breakthrough or Other (none). 30 Tablet 0 Atenolol 25 MG Oral Tablet (Tenormin) Take 1/2 (one-half) tablet by mouth once daily 45 Tablet 3 Atorvastatin Calcium 40 MG Oral Tablet (Lipitor) Take 1 tablet by mouth once daily 90 Tablet 1 Amitriptyline HCl 10 MG Oral Tablet (Elavil) TAKE 1 TABLET BY MOUTH AT BEDTIME 90 Tablet 1 Ozempic (2 MG/DOSE) 8 MG/3ML Subcutaneous Solution Pen-injector (Semaglutide (2 MG/DOSE)) INJECT 2 MG SUBCUTANEOUSLY ONCE A WEEK 3 mL 2 Tamsulosin HCl 0.4 MG Oral Capsule (Flomax) Take 1 Capsule by mouth in the morning. 30 Capsule 0 oxyCODONE HCl 5 MG Oral Tablet (Oxy IR) Take 1 Tablet by mouth every 6 hours as needed for Pain, Moderate. 12 Tablet 0 PURACYN PLUS RX wound & skin care fliptop EX SOLN Apply topically to affected area every afternoon. Apply to affected area 250 mL 0 Finasteride 5 MG Oral Tablet (Proscar) Take 1 Tablet by mouth in the morning. 90 Tablet 3 glipiZIDE ER 5 MG Oral Tablet Extended Release 24 Hour (glipiZIDE XL) Take 1 Tablet by mouth in themorning. 90 Tablet 1 No current facility-administered medications for this visit. Review of patient's allergies indicates: No Known Allergies Social History: Social History Tobacco Use Smoking status: Never Smokeless tobacco: Never Substance Use Topics Alcohol use: No Vaping/E-Cigarette Use Vaping/E-Cigarette Substances Vaping/E-Cigarette Devices Family History Problem Relation Age of Onset Diabetes Father CLL Neurological Disorder Mother Parkinsons, breast ca age 60-70 No Past Hx Brother Past Surgical History: Procedure Laterality Date AMPUTATION OF LOWER LEG Left 09/30/2022 AMPUTATION LEG THROUGH TIBIA AND FIBULA performed by Alexander Campbell MD at OR [facility] AMPUTATION OF TOE Left 08/02/2017 AMPUTATION TOE METATARSOPHALANGEAL JOINT performed by Violet Grier DPM at OR [facility] AMPUTATION OF TOE & METATARSAL Left 09/21/2017 AMPUTATION METATARSAL WITH TOE performed by Violet Grier DPM at OR [facility] AMPUTATION OF TOE & METATARSAL Left 11/21/2017 AMPUTATION METATARSAL WITH TOE performed by Violet Girer DPM at OR [facility] AMPUTATION OF TOE & METATARSAL Left 08/17/2020 AMPUTATION METATARSAL WITH TOE performed by Violet Grier DPM at OR [facility] AMPUTATION THRU METATARSAL Left 07/09/2022 AMPUTATION FOOT TRANSMETATARSAL performed by Jena Butts DPM at OR [facility] COLONOSCOPY W/ BIOPSY (RECTUM) 10/27/2008 poor prep - repeat in 1 year, adenomatous polyp COLONOSCOPY, DIAGNOSTIC (RECTUM) 12/15/2009 fair prep, diverticulosis, repeat in 2 years COLONOSCOPY, DIAGNOSTIC (RECTUM) 12/26/2011 COLONOSCOPY FLEXIBLE PROXIMAL DIAGNOSTIC performed by ROGER GODDARD at ENDOSCOPY [facility] EGD, FLEXIBLE, DIAGNOSTIC N/A 09/18/2020 large amount of blood, clot in stomach, briskly oozing lesion in mid body of stomach, likely AVM, hemostatsis achieved using clips/ESOPHAGOGASTRODUODENOSCOPY (EGD), FLEXIBLE, TRANSORAL, DIAGNOSTIC performed by Terrance Granados MD at OR [facility] INCISION OF TOE TENDON Right 10/09/2019 TENOTOMY PERCUTANEOUS TOE performed by Violet Grier DPM at OR [facility] LASER TRABECULOPLASTY 11/22/2016 ALT OS inf 180 PARTIAL AMPUTATION OF TOE Right 11/07/2018 AMPUTATION TOE INTERPHALANGEAL JOINT performed by Violet Grier DPM at OR [facility] PARTIAL AMPUTATION OF TOE Right 10/09/2019 AMPUTATION TOE INTERPHALANGEAL JOINT performed by Violet Grier DPM at OR [facility] REMOVE TONSILS & ADENOIDS, UNDER 12 1960 REPAIR OF HAMMERTOE, ONE TOE Right 10/09/2019 CORRECTION HAMMERTOE performed by Violet Grier DPM at OR [facility] TREAT DEEP FOOT INFECTIONS Left 08/04/2017 INCISION AND DRAINAGE MULTIPLE AREA FOOT performed by Violet Grier DPM at OR [facility] TREAT DEEP FOOT INFECTIONS Left 09/28/2022 INCISION AND DRAINAGE MULTIPLE AREA FOOT performed by Violet Grier DPM at OR [facility] Past Medical History: Diagnosis Date 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 (background diabetic retinopathy) (HCC) Benign neoplasm of [...] 11/12/2008 MGD (meibomian gland disease) Moderate malnutrition ([facility]) 08/04/2017 Personal history of diabetic foot ulcer 08/07/2017 Personal history of diabetic foot ulcer 08/07/2017 Primary open angle glaucoma 0.7/0.8 (11/01); FH-;VF 06/28;HRT 04/01 Primary open angle glaucoma 11/15/2010 St travatan gtt 10/21 Status post amputation of great toe, left ([facility]) 08/07/2017 Patient Active Problem List Diagnosis Code 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, recurrent severe without psychotic features ([facility]) F33.2 Generalized anxiety disorder 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 ([facility]) F60.6 Dyslipidemia, goal LDL below 100 E78.5 DM type 2 causing eye disease ([facility]) E11.39 Type 2 diabetes mellitus with hemoglobin A1c goal of less than 7.0% ([facility]) E11.9 HTN, goal below 140/90 I10 Benign non-nodular prostatic hyperplasia without lower urinary tract symptoms N40.0 Status post amputation of great toe, left ([facility]) Z89.412 Cellulitis of left lower extremity L03.116 Diabetic foot ulcer ([facility]) E11.621, L97.509 Primary open angle glaucoma of both eyes, moderate stage H40.1132 PVD (peripheral vascular disease) ([facility]) I73.9 Sepsis ([facility]) A41.9 Rhinovirus B34.8 Osteomyelitis of left foot ([facility]) M86.9 Major depressive disorder, recurrent, moderate ([facility]) F33.1 History of transmetatarsal amputation of left foot ([facility]) Z89.432 Diabetic ulcer of left lower leg associated with diabetes mellitus due to underlying condition, with fat layer exposed ([facility]) E08.622, L97.922 Hematuria R31.9 Cellulitis of left foot L03.116 Complicated UTI (urinary tract infection) N39.0 Tenosynovitis of foot M65.9 Constitutional: (-) fever and (-) chills Eyes: (+) corrective lenses ENT: (-) stridor Male : see HPI Musculoskeletal: (+) LE amputation Neurology: (+) loss of balance Psychiatry: (+) depression Physical Exam Nursing note reviewed. Constitutional: General: He is not in acute distress. Appearance: Normal appearance. He is not ill-appearing or toxic-appearing. Comments: Using cane HENT: Head: Normocephalic and atraumatic. Right Ear: External ear normal. Left Ear: External ear normal. Nose: Nose normal. Mouth/Throat: Mouth: Mucous membranes are moist. Eyes: Extraocular Movements: Extraocular movements intact. Cardiovascular: Pulses: Normal pulses. Pulmonary: Effort: Pulmonary effort is normal. Abdominal: Palpations: Abdomen is soft. Tenderness: There is no abdominal tenderness. Musculoskeletal: General: Deformity (LLE BKA) present. Cervical back: Normal range of motion and neck supple. Lymphadenopathy: Cervical: No cervical adenopathy. Skin: Coloration: Skin is not cyanotic or pale. Neurological: Mental Status: He is alert and oriented to person, place, and time. Gait: Gait abnormal. Psychiatric: Attention and Perception: Attention normal. Mood and Affect: Mood and affect normal. Impression/Plan: 67 yo male with improved LUTS. Patient is satisfied with his voiding on his current regimen. Continue tamsulosin and finasteride, refill provided for the latter. Will see in 6 months, PSA with next labs. Contact us sooner PRN deterioration. Above content is personally reviewed. Patient vocalizes good understanding of the treatment plan. Shane Baker MD 12:46 PM 04/26/2023 documented in this encounter Nursing Notes * Rowena Jean LPN - 04/26/2023 12:57 PM EDT Patient presents for routine follow up. States his urinary symptoms are about the same. documented in this encounter Plan of Treatment Upcoming Encounters Date Type Specialty Care Team Description 05/10/2023 Office Visit Family Medicine Zachary Weems MD [address] [address] 05/10/2023 Office Visit Pharmacy Pharmacist1, [facility] [address] [address] 11/02/2023 Office Visit Urology Shane Baker MD 27 [facility] [address] [place] [address] Scheduled Orders Name Type Priority Associated Diagnoses Orde r Schedule PSA Lab Routine BPH with obstruction/lower urinary tract symptoms Expected: 04/26/2023, Expires: 04/26/2024 Health Maintenance Due Date Last Done Comments [...] 08/02/2019, Additional history exists B-12 10/19/2022 10/19/2021, 020 02/2021, 04/06/2020, Additional history exists Influenza Vaccine [...] this encounter Medical Devices Implanted Type Area Fishing Line Winding Machine Operator Device Identifier Shelf Expiration Date Model / Serial / Lot Clip Quick 2.8mm 230cm - [id number] Implanted:Qty: 7 on 09/18/2020 by Terrance Granados MD at OR [facility] N/A: Stomach [employer] [id number] / / Description:lot [id number] x4, 02K x2and [id number] x1 documented as of this encounter Visit Diagnoses Diagnosis BPH with obstruction/lower urinary tract symptoms- Primary Hypertrophy of prostate with urinary obstruction and other lower urinary tract symptoms (LUTS) documented in this encounter Advance Directives Latest [...] the patient have Health Care Power of Cam Specialist? Yes, in chart and reviewed as [...] the patient have Health Care Power of Cam Specialist? No
--- OUTSIDE RECORDS SUMMARY | 2023-09-18 06:16 | External Medical Summary | Summary of Care ---
Author Name Unknown Organization [facility] Address [address] [place] [address] Phone [phone] Care Team Providers Care Tank Refinisher Name Role Phone Unavailable Primary Care Provider Unavailabl e Reason for Visit * Reason Onset Date Comments Appointment 04/03/2023 Encounter Details Date Type Department Care Team Description 04/03/2023 Telephone Urology Adore Dolan [address] [place] [phone] Services, Scheduling [address] [place] [address] Appointment Allergies No known active allergiesdocumented as of this encounter (statuses as of 04/03/2023) Medications Medication Sig Dispensed Refills Start Date [...] g by mouth daily. CINNAMON 0 Active Cashmere-3 Fatty Acids (FISH OIL) 1200 MG CAPS [...] as of this encounter (statuses as of 04/03/2023) Active Problems Problem Noted Date Tenosynovitis of [...] 140/90 10/18/2015 Overview: Per HTN Protocol #27. Uyv26--dys-ORK at 97/mt, Min voltage criteria LVH. Type [...] 2 causing neurological disease 0 09/26/2008 Overview: Zsgw08--3%, ld 100, nl bm, rbs 132, alt 09/26/2008--NEW DIAG DM--Hb 17/49, bmp, x na 134, fbs 238, nl lft, tsh 2.01, 226/259/31/143, psa 0.85, ua +glu, b12 nml , fol nml, -ferritin 56, 37%sat, h8n--89.2%---- - ma neg Eye exam--Nivia - Foot exam-10/06/2008--nml documented as of this encounter (statuses as of 04/03/2023) Resolved Problems Problem Noted Date Resolved Date [...] 04/01/2012 6 Overview: Per HTN Protocol #27. Nsy19--rph-BZJ at 97/mt, Min voltage criteria LVH. Primary open angle glaucoma 11/15/201001/12 Overview: St travatan gtt 10/21 Diverticulosis of colon 05/10/2010 02/06/20 17 Obesity, Class I, BMI 30.0-34.9 (see actual BMI) 11/04/2009 07/29/2020 Overview: Per Obesity Taxonomy, 09/22/2008--BMI: 30.35 kg/m? -- ht s Shoes. HTN, goal below 130/80 09/09/2009 2 Overview: Yhr00--vwu-KVX at 97/mt, Min voltage criteria LVH. HTN, goal below 140/90 11/24/2008 0 Overview: Per HTN Taxonomy. Xsg02--sgl-BEP at 97/mt, Min voltage criteria LVH. Carpal [...] us his list--Fo 1000mg daily, Zn 50mg, [id number] documented as of this encounter (statuses as of 04/03/2023) Immunizations Name Administration Dates Next Due COVID-19 [...] encounter Miscellaneous Notes * Telephone Encounter - Kacy Chan LPN - 04/03/2023 9:27 AM EDT Moved to 930. * Telephone Encounter - KURTIS Nevarez - 04/03/2023 9:00 AM EDT Patient calling asking if his appt on 04/05/23 can be moved to 9:30 due to his transportation, [employer],wanting him to change time, please call pt to advise if this can be done, thanks documented in this encounter Plan of Treatment Upcoming Encounters Date Type Specialty Care Team Description 04/05/2023 Office Visit Urology Shane Baker MD [address] [place] [id number] 05/10/2023 Office Visit Family Medicine Zachary Weems MD [address] [place] [phone] 05/10/2023 Office Visit Pharmacy Pharmacist1, [facility] [place] [address] [place] [address] Health Maintenance Due Date Last Done Comments [...] 10/19/2022 10/19/2021, 02/2021, 04/06/2020, Additional history exists Influenza Vaccine [...] this encounter Medical Devices Implanted Type Area Slab Conditioner Supervisor Device Identifier Shelf Expiration Date Model / Serial / Lot Clip Quick 2.8mm 230cm - [id number] Implanted:Qty: 7 on 09/18/2020 by Terrance Granados MD at OR [facility] N/A: [employer] [id number] / / Description:lot [id number] x4, [...] the patient have Health Care Power of Leather Goods Sales Representative? Yes, in chart and reviewed as [...] the patient have Health Care Power of Leather Goods Sales Representative? No
--- OUTSIDE RECORDS SUMMARY | 2023-09-18 06:16 | External Medical Summary | Summary of Care ---
Author Name Unknown Organization [facility] Address [address] [place] [address] Phone [phone] Care Team Providers Care Special Education Director Name Role Phone Unavailable Primary Care Provider Unavailabl e Reason for Visit * Reason Onset Date Comments Advice 05/01/2023 Encounter Details Date Type Department Care Team Description 05/01/2023 Telephone [facility] [address] [facility] [place] [address] Services, Scheduling [address] [place] [address] Advice Allergies No known active allergiesdocumented as of this encounter (statuses as of 05/01/2023) Medications Medication Sig Dispensed Refills Start Date End Date Status Unravel Data SystemsTOUCH ULTRA SYSTEM W/DEVICE KITIndications:DM type 2, not at goal (HCC) Use up to four times a day as directed 1 0 10/06/2008 Active Zinc Gluconate 50 MG CAPS Take 1 Tab by mouth daily. 30 Cap 10/18/2016 Active Folic Acid 400 MCG Tablet Take 1 Tablet by mouth in the morning. 30 Tab 11 10/18/2016 Active NATURAL SUPPLEMENT Take 1 g by mouth daily. CINNAMON 0 Active Jennings-3 Fatty Acids (FISH OIL) 1200 MG CAPS [...] as of this encounter (statuses as of 05/01/2023) Active Problems Problem Noted Date Tenosynovitis of [...] 140/90 10/18/2015 Overview: Per HTN Protocol #27. Qjf86--ejr-PMN at 97/mt, Min voltage criteria LVH. Type [...] 2 causing neurological disease 0 09/26/2008 Overview: Chwu56--7%, ld 100, nl bm, rbs 132, alt 09/26/2008--NEW DIAG DM--Hb 17/49, bmp, x na 134, fbs 238, nl lft, tsh 2.01, 226/259/31/143, psa 0.85, ua +glu, b12 nml , fol nml, -ferritin 56, 37%sat, d8k--39.2%---- - ma neg Eye exam--DrNardis - Foot exam-10/06/2008--nml documented as of this encounter (statuses as of 05/01/2023) Resolved Problems Problem Noted Date Resolved Date [...] 04/01/2012 6 Overview: Per HTN Protocol #27. Gky38--kyb-WHF at 97/mt, Min voltage criteria LVH. Primary open angle glaucoma 11/15/201001/12 Overview: St travatan gtt 10/21 Diverticulosis of colon 05/10/2010 02/06/20 17 Obesity, Class I, BMI 30.0-34.9 (see actual BMI) 11/04/2009 07/29/2020 Overview: Per Obesity Taxonomy, 09/22/2008--BMI: 30.35 kg/m? -- ht s Shoes. HTN, goal below 130/80 09/09/2009 2 Overview: Kll53--xyz-TLN at 97/mt, Min voltage criteria LVH. HTN, goal below 140/90 11/24/2008 0 Overview: Per HTN Taxonomy. Ees21--bjb-WEW at 97/mt, Min voltage criteria LVH. Carpal [...] us his list--Fo 1000mg daily, Zn 50mg, [id number] documented as of this encounter (statuses as of 05/01/2023) Immunizations Name Administration Dates Next Due COVID-19 [...] Miscellaneous Notes * Telephone Encounter - KURTIS Bahena - 05/01/2023 2:28 PM EDT Called pt and rescheduled May [address] Lua * Telephone Encounter - Joy Carmen CMA - 05/01/2023 11:49 AM EDT Please see below msg and help reschedule appt. Pt is currently karen with Dr. Weems on 05/10 at 900 am. * Telephone Encounter - KURTIS Thomas - 05/01/2023 11:44 AM EDT Pt called in asking if he can talk to office., He has upcoming appt and transportation said they are unable to take him at 9 . He needs a liitle later . Please call to advise documented in this encounter Plan of Treatment Upcoming Encounters Date Type Specialty Care Team Description 05/10/2023 Office Visit Pharmacy Pharmacist1, [facility] [place] [address] [phone] 05/14/2023 Office Visit Family Medicine Dianne Lua MD [address] [place] [phone] 11/02/2023 Office Visit Urology Baker, Shane Rocha MD [address] [place] [address] Health Maintenance Due Date Last Done Comments [...] this encounter Medical Devices Implanted Type Area Town Manager Device Identifier Shelf Expiration Date Model / Serial / Lot Clip Quick 2.8mm 230cm - [id number] Implanted:Qty: 7 on 09/18/2020 by Terrance Granados MD at OR [facility] N/A: [employer] [id number] / / Description:lot [id number] x4, [...] the patient have Health Care Power of Logistics Vice President? Yes, in chart and reviewed as current [...] the patient have Health Care Power of Logistics Vice President? No
[2023-09-18 06:47] LABS: Appearance Urine Clear (Clear); Bacteria Urine Automated Negative (Negative); Bilirubin Urine Negative (Negative); Blood Urine Negative (Negative); Color Urine Yellow; Glucose Urine UA 1+ (Negative); Ketones Urine 1+ (Negative); Leukocyte Esterase Urine Trace (Negative); Nitrite Urine Negative (Negative); Protein Urine Negative (Negative); RBC Urine Automated 0-4 /hpf (0-4); Specific Gravity Urine > 1.045 (1.000-1.030); Urobilinogen Urine Negative (Negative)
[2023-09-18 07:41] LABS: Amphetamines+Metham, Urine Neg (Neg); Barbiturates, Urine Neg (Neg); Benzodiazepine, Urine Neg (Neg); Cocaine, Urine Neg (Neg); MDMA (Ecstacy), Urine Pos (Neg); Marijuana, Urine Neg (Neg); Methadone, Urine Neg (Neg); Opiate, Urine Neg (Neg); Phencyclidine, Urine Neg (Neg)
--- NOTE | 2023-09-18 07:53 | Electrocardiogram Report ---
Test Reason : Blood Pressure : / mmHG Vent. Rate : 094 BPM Atrial Rate : 094 BPM P-R Int : 180 ms QRS Dur : 112 ms QT Int : 394 ms P-R-T Axes : 008 -42 024 degrees QTc Int : 492 ms Normal sinus rhythm Left anterior fascicular block Moderate voltage criteria for LVH, may be normal variant ( R in aVL , [employer] product ) Prolonged QT Abnormal ECG No previous ECGs available Confirmed by Vel Ulrich ([id number]) on 09/18/2023 7:53:03 AM Referred By: REFERRED SELF Confirmed By:Vel Ulrich
--- NOTE | 2023-09-18 08:21 | Gastrointestinal Consultation ---
Date of Consultation September 18, 2023 Assessment & Plan (1) Hematemesis: (2) Nausea & vomiting: Pt is a 67 yo male who was admitted after found confused, sitting on a curb, suspected to have sustained a concussion. He reported n/v, abd pain symptoms x 6 weeks, and noted to have hematemesis in ED wo significant drop in blood ct overnight. CT abd/pelvis unremarkable. - PPI gtt - NPO - EGD today by Dr. Donna De Souza - Monitor blood ct and transfuse prn - Further GI recs after EGD completed Supervising Physician Co-Signing Physician Notes I saw and evaluated the patient. The patient had presented to the hospital after being found on the street. There is a question of hematemesis that was reported to the emergency room staff. The patient did have a prior endoscopy performed about 8 weeks ago notable for mild gastritis but was otherwise unremarkable. The patient is unclear if he has dark sticky stool and reports that he did have hematemesis yesterday. Given this we will proceed with upper endoscopy for further evaluation. Of note the patient's blood count appears to be stable suggesting that he does not have evidence of a gastrointestinal hemorrhage at the present time. Plan upper endoscopy today History of Present Illness Reason for Consultation: Hematemesis Requesting Physician: Dr. Franklyn Abdul Attending Physician: Dr. Donna De Souza History of Present Illness Pt is a 67 yo male w PMHx of DM II, HTN, HLD, BPH, hx of osteomyelitis, s/p L BKA,anxiety and depression, who was brought into ED after found sitting on a curb confused. He is anxious, unable to provide much history. History obtained from IP and OP chart reviews. Pt recalled coming over to [facility] to see a [facility] physician but fell out when he was getting out of the care and hit his head. He had a contusion and suspected to have sustained a concussion but no intracranial acute changes. He reported having n/v and abd pain x 6 weeks. In ED, he had some hematemesis. On eval, labs showed leukocytosis, H/H stable overnight, BUN 26, LFTs, lipase normal. Utox + MDMA, negative ETOH. CT abd/pelvis unremarkable. He had hx of coffee ground emesis. 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 EGD in 07/2023 showed gastritis, esophagitis, miguelina. Denies abd surgeries, NSAIDs. Allergies Allergy/AdvReac Type Severity Reaction Status Date / Time No Known Allergies Allergy Unverified 09/17/23 18:57 Home Medications Medication Instructions Recorded Confirmed Type amitriptyline 10 mg tablet 10 mg PO HS 09/17/23 09/17/23 History atenolol 25 mg tablet 12.5 mg PO DAILY 09/17/23 09/17/23 History atorvastatin 40 mg tablet 40 mg PO [facility] 09/17/23 09/17/23 History bupropion HCl 150 mg 24 hr tablet, 150 mg PO [facility] 09/17/23 09/17/23 History extended release bupropion HCl 300 mg 24 hr tablet, 300 mg PO [facility] 09/17/23 09/17/23 History extended release buspirone 10 mg tablet 20 mg PO BID 09/17/23 09/17/23 History escitalopram oxalate 10 mg tablet 10 mg PO DAILY 09/17/23 09/17/23 History finasteride 5 mg tablet 5 mg PO [facility] 09/17/23 09/17/23 History furosemide 20 mg tablet 20 mg PO [facility] 09/17/23 09/17/23 History glipizide 5 mg tablet, extended 5 mg PO [facility] 09/17/23 09/17/23 History release 24 hr hydroxyzine HCl 10 mg tablet 10 mg PO BID PRN anx/panic attacks 09/17/23 09/17/23 History metformin 1,000 mg tablet 1,000 mg PO [facility] 09/17/23 09/17/23 History mirtazapine 15 mg tablet 15 mg PO 09/17/23 09/17/23 History omeprazole 40 mg capsule,delayed 40 mg PO 09/17/23 09/17/23 History release semaglutide 2 mg/dose (8 mg/3 mL) 2 mg subcut WE 09/17/23 09/17/23 History subcutaneous pen injector (Ozempic) tamsulosin 0.4 mg capsule 0.4 mg PO [facility] 09/17/23 09/17/23 History travoprost 0.004 % eye drops 1 drp [facility] 09/17/23 09/17/23 History trazodone 100 mg tablet 100 mg PO 09/17/23 09/17/23 History Patient History Medical History 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 MDD (major depressive disorder) BPH (benign prostatic hyperplasia) HTN (hypertension), benign Surgical History Status post amputation of great toe Social History Smoking Status: Never smoker Hx Alcohol Use: No Hx Substance Use: No Preferred Language: Tamazight Communication Ability: Effective Communication Ability Comment: Patient reports stuttering following COVID. Communication effective. Preventive Maintenance Coordinator Required: No Beliefs That Will Affect Care: None Current Living Situation: Alone Feels Safe at Home: Yes Safety Concerns: Feels Safe At This Time Assistive Devices: Cane, Glasses and Prosthesis Review of Systems Review of Systems: All systems reviewed & are unremarkable except as noted in HPI & below Physical Exam Constitutional: WD/WN, vitals as above well groomed, cooperative and comfortable Eyes: PERRL, conjunctivae normal, anicteric sclerae ENMT: external ear and nose normal, oropharynx normal Respiratory: normal respiratory effort, lungs clear to auscultation Cardiovascular: RRR, no murmur, no edema Gastrointestinal (Abdomen): normal bowel sounds, soft, nontender, no hepatosplenomegaly Skin: no rashes, warm and dry no jaundice Psychiatric: AAOx3, anxious Lymphatic: no lymphedema Results & Data Vital Signs (Past 12 Hours) Vital Signs Temp Pulse Pulse Resp BP BP BP 09/18/23 08:02 36.6 C 91 H 18 143/69 H 09/18/23 07:10 36.3 C L 92 H 20 162/81 H 09/18/23 05:14 36.8 C 92 H 20 134/83 09/17/23 22:45 35.7 C L 97 H 20 133/86 09/17/23 21:45 93 H 17 112/72 09/17/23 21:30 93 H 25 H 124/84 09/17/23 21:00 94 H 24 139/89 09/17/23 20:45 94 H 24 140/86 Pulse Ox O2 Del Method 09/18/23 08:02 99 Room Air 09/18/23 07:10 99 Room Air 09/18/23 05:14 95 Room Air 09/17/23 22:45 100 Room Air 09/17/23 21:45 09/17/23 21:30 09/17/23 21:00 09/17/23 20:45
--- NOTE | 2023-09-18 08:21 | Hospitalist Progress Note ---
Date of Service September 18, 2023 Assessment & Plan (1) Fall: (2) Contusion of scalp: (3) CHI (closed head injury): Plan: Head CT - 1. No acute intracranial findings. 2. Two right scalp contusion. No calvarial fractures. No acute cervical spine fracture or subluxation. Trauma body scan obtained in ED and negative Patient likely with concussion as he had troubles remembering the story and was found by police and brought into the hospital. Repeat CT head - negat., cont. to closely monitor. Monitor H&H as well Neurology consulted - Fall, which now appears to be mechanical based on his hi story. While he did hit his head his CT and exam and unremarkable. Doubt significant concussion. Patient is on multiple psychiatric medications with overlapping effects. Recommend these be reviewed by psychiatry as an outpatient as they could be contributing to confusion and gait instability. Otherwise they should be restarted to prevent withdrawl and help control his anxiety. ? Syncope Not clear how patient fell. He feels that he tripped over, however he also reports he felt lightheaded. CT chest - IMPRESSION: No acute traumatic findings within the chest. Urine drug screen - pending ECG - NSR, poss. prolonged QT Will monitor on telemetry US carotids - No hemodynamically significant stenosis seen within the carotid arteries. Echocardiogram - LV systolic function is normal. EF 65 to 70%. Borderline RV enlargement. RV systolic function is normal as assessed by tricuspid annular plane systolic excursion (TAPSE). No significant valvular pathology. Pulse-w ave TDI of the anterior and posterior mitral annulus demonstrates normal LV relaxation. Per Cardiology - No dysrhythmias on telemetry or evidence of structural heart disease per echocardiogram. Borderline prolonged QT interval noted on ECG. Multiple psych meds that could cause prolonged QT interval - Amitriptyline, Escitalopram, hydroxyzine. Continue to monitor. (4) Diabetes mellitus type 2 in nonobese: Plan: In July reportedly A1c 6.7% -Does not use insulin, at home using metformin, Ozempic and glipizide, will hold while inpatient (5) Hematemesis: (6) Nausea & vomiting: Plan: Acute gastritis with Hematemesis Patient reports abdominal pain for past 6 weeks, nausea and vomiting, difficulty eating Reports being seen in July, and diagnosed with gastritis , esophagitis and taking omeprazole In ER noted to have hematemesis CT abdomen pelvis obtained - 1. No evidence for traumatic injury to the solid abdominal viscera. 2. Lucency through the first coccygeal segment. This suggests an age indeterminate nondisplaced fracture. No additional fractures. Started on PPI IV, will continue Monitor H&H q6hrs IVF GI consulted - underwent EGD The patient underwent upper endoscopy for question of hematemesis. The patient was found to have evidence of mild gastritis, in addition he had a esophagitis of his lower esophagus. There was no evidence of active bleeding or recent bleeding. Recommendations Daily PPI would suggest omeprazole or Protonix 40 mg daily Carafate slurry 10 mL 4 times daily for 10 days Repeat upper endoscopy in 3 to 6 months (7) Depression: Plan: - on multiple medications, ? possibly contributing to fall, ? possibly prolonging QT - follows w/ psychiatry Dr. Lewis Allen - med list from 08/29/23 reviewed in [facility] - seen by therapist 09/13/23 note reviewed in [facility] - pt says he feels anxious and feels medications are helping - needs to follow up w/ psych regarding multiple meds and poss. prolonging QT Admission and Anticipated Discharge Date Admission Date: September 17, 2023 Subjective Pt seen in follow up of fall, head trauma, hematemesis Underwent EGD this AM - c/w gastritis - cont. ppi, added sucralfate Just had echo done Currently laying in bed in NAD, denies having any complaints No fever, chills, chest pain, palpitations, shortness of breath. Reports minimal abdominal discomfort. Denies any nausea, vomiting. Review of Systems Review of Systems: All systems reviewed & are unremarkable except as noted in Subjective Physical Exam Physical Exam: Constitutional: WD/WN, + forehead contusion Eyes: PERRL, EOMI, conju nctivae normal, an icteric sclerae ENMT: external ear and n ose normal, oropha rynx normal Neck: normal visual insp ection Respiratory: normal respiratory effort, lungs aníbal ar to auscultation Cardiovascular: RRR, no murmur, no edema Chest (Breasts): Chest: normal insp ection of chest Gastrointestinal ( Abdomen): Percussion/Palpati on: abdomen soft , + bowel sounds, + mild tenderness to palp, no guarding , no distention Musculoskeletal: Head/Neck/Chest: n ormocephalic and + scalp tenderness ,+ forehead contus ion, moves extremi ties, + Left BKA Skin: no rashes, warm an d dry Neurologic: moves all extremit ies and awake Aw sparkle, alert, stutte ring, able to answ er some questions appropriately Psychiatric: Affect: + anxious affect Results & Data Results & Data Vital Signs (Past 12 Hours) Vital Signs Temp Pulse Pulse Resp BP BP BP 09/18/23 08:02 36.6 C 91 H 18 143/69 H 09/18/23 07:10 36.3 C L 92 H 20 162/81 H 09/18/23 05:14 36.8 C 92 H 20 134/83 09/17/23 22:45 35.7 C L 97 H 20 133/86 09/17/23 21:45 93 H 17 112/72 09/17/23 21:30 93 H 25 H 124/84 09/17/23 21:00 94 H 24 139/89 09/17/23 20:45 94 H 24 140/86 Pulse Ox O2 Del Method 09/18/23 08:02 99 Room Air 09/18/23 07:10 99 Room Air 09/18/23 05:14 95 Room Air 09/17/23 22:45 100 Room Air 09/17/23 21:45 09/17/23 21:30 09/17/23 21:00 09/17/23 20:45 Laboratory Results 09/18/23 09/18/23 09/18/23 Range/Units 06:08 06:01 01:53 WBC (4.8-10.8) K/ul RBC (4.70-6.10) M/uL Hgb (14.0-18.0) g/dl Hct 38.7 L (42.0-52.0) % MCV 88.1 (80.0-100.0) fL MCH 30.0 (25.0-34.0) pg MCHC 34.0 (32.0-36.0) g/dL RDW Std Deviation 41.8 (36.4-46.3) fL RDW Coeff of William 13.0 (11.5-14.5) % Plt Count 275 (130-400) K/uL MPV 9.3 L (9.4-12.4) fL Immature Gran % (Auto) % Neut % (Auto) % Lymph % (Auto) % [place] % (Auto) % Eos % (Auto) % Baso % (Auto) % Neut # (Auto) (1.40-6.50) K/uL Lymph # (Auto) (1.20-3.40) K/uL [place] # (Auto) (0.11-0.59) K/uL Eos # (Auto) (0.00-0.50) K/uL Baso # (Auto) (0.00-0.20) K/uL Immature Gran # (Auto) (0.01-0.20) K/uL PT (9.0-12.0) Seconds INR (0.9-1.1) VBG pH (7.36-7.41) VBG pCO2 (38-50) mmHg VBG pO2 mmHg VBG HCO3 mmol/L VBG O2 Saturation % VBG Base Excess mEq/L Sodium 140 (136-145) mmol/L Potassium 3.7 (3.5-5.1) mmol/L Chloride 101 (98-107) mmol/L Carbon Dioxide 31 (21-32) mmol/L Anion Gap 8 (3-11) BUN 26 H (6-23) mg/dl Creatinine 0.94 (0.6-1.4) mg/dl Est Cr Clr Drug Dosing 74.8 ml/min Est GFR ( Amer) 97.5 ml/min Est GFR (Non-Af Amer) 84.2 ml/min BUN/Creatinine Ratio 27.7 H (10-20) Glucose 139 H (70-99(Fasting)) mg/dl POC Glucose 98 (70-99) mg/dl Calcium 9.3 (8.6-10.3) mg/dl Phosphorus 3.9 (2.5-4.9) mg/dl Magnesium 1.7 (1.7-2.4) mg/dl Total Bilirubin (0.2-1.0) mg/dl AST (13-39) U/L ALT (7-52) U/L Alkaline Phosphatase (34-104) U/L Troponin I High Sens (0-20) pg/ml Total Protein (6.0-8.3) gm/dl Albumin (3.4-5.0) gm/dl Globulin (2.5-4.0) gm/dl Albumin/Globulin Ratio (0.9-2) Lipase (11-82) U/L TSH (0.300-4.500) uIu/ml Urine Color Yellow Urine Appearance Clear (Clear) Urine pH 7.0 (4.5-7.5) Ur Specific [place] > 1.045 H (1.000-1.030) Urine Protein Negative (Negative) Urine Glucose (UA) 1+ H (Negative) Urine Ketones 1+ H (Negative) Urine Blood Negative (Negative) Urine Nitrite Negative (Negative) Urine Bilirubin Negative (Negative) Urine Urobilinogen Negative (Negative) Ur Leukocyte Esterase Trace H (Negative) Urine WBC (Auto) 1-5 (0-5) /hpf Urine RBC (Auto) 0-4 (0-4) /hpf U Hyaline Cast (Auto) 1-5 (0-5) /lpf U Epithel Cells (Auto) 5-10 H (0-5) /lpf Urine Bacteria (Auto) Negative (Negative) Urine Opiates Screen Neg (Neg) Ur Methadone, Qual Neg (Neg) Urine Barbiturates Neg (Neg) Ur Phencyclidine (PCP) Neg (Neg) U Amphetamin/Meth Scrn Neg (Neg) Urine MDEA Pending MDMA (Ecstasy) Screen Pos H (Neg) MDMA Pending Urine MDMA Pending U Benzodiazepines Scrn Neg (Neg) Ur Cocaine Metabolite Neg (Neg) U Marijuana (THC) Screen Neg (Neg) Ethyl Alcohol mg/dL (<10.0) mg/dl 09/18/23 09/18/23 09/17/23 Range/Units 01:53 01:53 22:58 WBC 15.04 H (4.8-10.8) K/ul RBC 4.27 L (4.70-6.10) M/uL Hgb 12.8 L 12.8 L (14.0-18.0) g/dl Hct 37.6 L (42.0-52.0) % MCV (80.0-100.0) fL MCH (25.0-34.0) pg MCHC (32.0-36.0) g/dL RDW Std Deviation (36.4-46.3) fL RDW Coeff of William (11.5-14.5) % Plt Count (130-400) K/uL MPV (9.4-12.4) fL Immature Gran % (Auto) % Neut % (Auto) % Lymph % (Auto) % [place] % (Auto) % Eos % (Auto) % Baso % (Auto) % Neut # (Auto) (1.40-6.50) K/uL Lymph # (Auto) (1.20-3.40) K/uL [place] # (Auto) (0.11-0.59) K/uL Eos # (Auto) (0.00-0.50) K/uL Baso # (Auto) (0.00-0.20) K/uL Immature Gran # (Auto) (0.01-0.20) K/uL PT (9.0-12.0) Seconds INR (0.9-1.1) VBG pH (7.36-7.41) VBG pCO2 (38-50) mmHg VBG pO2 mmHg VBG HCO3 mmol/L VBG O2 Saturation % VBG Base Excess mEq/L Sodium (136-145) mmol/L Potassium (3.5-5.1) mmol/L Chloride (98-107) mmol/L Carbon Dioxide (21-32) mmol/L Anion Gap (3-11) BUN (6-23) mg/dl Creatinine (0.6-1.4) mg/dl Est Cr Clr Drug Dosing ml/min Est GFR ( Amer) ml/min Est GFR (Non-Af Amer) ml/min BUN/Creatinine Ratio (10-20) Glucose (70-99(Fasting)) mg/dl POC Glucose 174 H (70-99) mg/dl Calcium (8.6-10.3) mg/dl Phosphorus (2.5-4.9) mg/dl Magnesium (1.7-2.4) mg/dl Total Bilirubin (0.2-1.0) mg/dl AST (13-39) U/L ALT (7-52) U/L Alkaline Phosphatase (34-104) U/L Troponin I High Sens (0-20) pg/ml Total Protein (6.0-8.3) gm/dl Albumin (3.4-5.0) gm/dl Globulin (2.5-4.0) gm/dl Albumin/Globulin Ratio (0.9-2) Lipase (11-82) U/L TSH (0.300-4.500) uIu/ml Urine Color Urine Appearance (Clear) Urine pH (4.5-7.5) Ur Specific [place] (1.000-1.030) Urine Protein (Negative) Urine Glucose (UA) (Negative) Urine Ketones (Negative) Urine Blood (Negative) Urine Nitrite (Negative) Urine Bilirubin (Negative) Urine Urobilinogen (Negative) Ur Leukocyte Esterase (Negative) Urine WBC (Auto) (0-5) /hpf Urine RBC (Auto) (0-4) /hpf U Hyaline Cast (Auto) (0-5) /lpf U Epithel Cells (Auto) (0-5) /lpf Urine Bacteria (Auto) (Negative) Urine Opiates Screen (Neg) Ur Methadone, Qual (Neg) Urine Barbiturates (Neg) Ur Phencyclidine (PCP) (Neg) U Amphetamin/Meth Scrn (Neg) Urine MDEA MDMA (Ecstasy) Screen (Neg) MDMA Urine MDMA U Benzodiazepines Scrn (Neg) Ur Cocaine Metabolite (Neg) U Marijuana (THC) Screen (Neg) Ethyl Alcohol mg/dL (<10.0) mg/dl 09/17/23 09/17/23 09/17/23 Range/Units 21:21 17:33 15:42 WBC (4.8-10.8) K/ul RBC (4.70-6.10) M/uL Hgb 13.8 L (14.0-18.0) g/dl Hct 39.2 L (42.0-52.0) % MCV (80.0-100.0) fL MCH (25.0-34.0) pg MCHC (32.0-36.0) g/dL RDW Std Deviation (36.4-46.3) fL RDW Coeff of William (11.5-14.5) % Plt Count (130-400) K/uL MPV (9.4-12.4) fL Immature Gran % (Auto) % Neut % (Auto) % Lymph % (Auto) % [place] % (Auto) % Eos % (Auto) % Baso % (Auto) % Neut # (Auto) (1.40-6.50) K/uL Lymph # (Auto) (1.20-3.40) K/uL [place] # (Auto) (0.11-0.59) K/uL Eos # (Auto) (0.00-0.50) K/uL Baso # (Auto) (0.00-0.20) K/uL Immature Gran # (Auto) (0.01-0.20) K/uL PT (9.0-12.0) Seconds INR (0.9-1.1) VBG pH 7.50 H (7.36-7.41) VBG pCO2 35 L (38-50) mmHg VBG pO2 23 mmHg VBG HCO3 27 mmol/L VBG O2 Saturation < 60.0 % VBG Base Excess 4.2 mEq/L Sodium (136-145) mmol/L Potassium (3.5-5.1) mmol/L Chloride (98-107) mmol/L Carbon Dioxide (21-32) mmol/L Anion Gap (3-11) BUN (6-23) mg/dl Creatinine (0.6-1.4) mg/dl Est Cr Clr Drug Dosing ml/min Est GFR ( Amer) ml/min Est GFR (Non-Af Amer) ml/min BUN/Creatinine Ratio (10-20) Glucose (70-99(Fasting)) mg/dl POC Glucose (70-99) mg/dl Calcium (8.6-10.3) mg/dl Phosphorus (2.5-4.9) mg/dl Magnesium (1.7-2.4) mg/dl Total Bilirubin (0.2-1.0) mg/dl AST (13-39) U/L ALT (7-52) U/L Alkaline Phosphatase (34-104) U/L Troponin I High Sens (0-20) pg/ml Total Protein (6.0-8.3) gm/dl Albumin (3.4-5.0) gm/dl Globulin (2.5-4.0) gm/dl Albumin/Globulin Ratio (0.9-2) Lipase (11-82) U/L TSH (0.300-4.500) uIu/ml Urine Color Urine Appearance (Clear) Urine pH (4.5-7.5) Ur Specific [place] (1.000-1.030) Urine Protein (Negative) Urine Glucose (UA) (Negative) Urine Ketones (Negative) Urine Blood (Negative) Urine Nitrite (Negative) Urine Bilirubin (Negative) Urine Urobilinogen (Negative) Ur Leukocyte Esterase (Negative) Urine WBC (Auto) (0-5) /hpf Urine RBC (Auto) (0-4) /hpf U Hyaline Cast (Auto) (0-5) /lpf U Epithel Cells (Auto) (0-5) /lpf Urine Bacteria (Auto) (Negative) Urine Opiates Screen (Neg) Ur Methadone, Qual (Neg) Urine Barbiturates (Neg) Ur Phencyclidine (PCP) (Neg) U Amphetamin/Meth Scrn (Neg) Urine MDEA MDMA (Ecstasy) Screen (Neg) MDMA Urine MDMA U Benzodiazepines Scrn (Neg) Ur Cocaine Metabolite (Neg) U Marijuana (THC) Screen (Neg) Ethyl Alcohol mg/dL < 10.0 (<10.0) mg/dl 09/17/23 Range/Units 15:21 WBC 14.11 H (4.8-10.8) K/ul RBC 5.27 (4.70-6.10) M/uL Hgb 15.6 (14.0-18.0) g/dl Hct 46.8 (42.0-52.0) % MCV 88.8 (80.0-100.0) fL MCH 29.6 (25.0-34.0) pg MCHC 33.3 (32.0-36.0) g/dL RDW Std Deviation 41.6 (36.4-46.3) fL RDW Coeff of William 12.8 (11.5-14.5) % Plt Count 310 (130-400) K/uL MPV 9.2 L (9.4-12.4) fL Immature Gran % (Auto) 0.6 % Neut % (Auto) 75.9 % Lymph % (Auto) 15.7 % [place] % (Auto) 6.9 % Eos % (Auto) 0.5 % Baso % (Auto) 0.4 % Neut # (Auto) 10.71 H (1.40-6.50) K/uL Lymph # (Auto) 2.21 (1.20-3.40) K/uL [place] # (Auto) 0.97 H (0.11-0.59) K/uL Eos # (Auto) 0.07 (0.00-0.50) K/uL Baso # (Auto) 0.06 (0.00-0.20) K/uL Immature Gran # (Auto) 0.09 (0.01-0.20) K/uL PT 10.9 (9.0-12.0) Seconds INR 1.0 (0.9-1.1) VBG pH (7.36-7.41) VBG pCO2 (38-50) mmHg VBG pO2 mmHg VBG HCO3 mmol/L VBG O2 Saturation % VBG Base Excess mEq/L Sodium 139 (136-145) mmol/L Potassium 4.1 (3.5-5.1) mmol/L Chloride 97 L (98-107) mmol/L Carbon Dioxide 26 (21-32) mmol/L Anion Gap 16 H (3-11) BUN 26 H (6-23) mg/dl Creatinine 1.17 (0.6-1.4) mg/dl Est Cr Clr Drug Dosing 64.1 ml/min Est GFR ( Amer) 74.9 ml/min Est GFR (Non-Af Amer) 64.6 ml/min BUN/Creatinine Ratio 22.2 H (10-20) Glucose 175 H (70-99(Fasting)) mg/dl POC Glucose (70-99) mg/dl Calcium 11.2 H (8.6-10.3) mg/dl Phosphorus (2.5-4.9) mg/dl Magnesium 1.6 L (1.7-2.4) mg/dl Total Bilirubin 1.0 (0.2-1.0) mg/dl AST 19 (13-39) U/L ALT 26 (7-52) U/L Alkaline Phosphatase 116 H (34-104) U/L Troponin I High Sens 4.0 (0-20) pg/ml Total Protein 7.2 (6.0-8.3) gm/dl Albumin 4.7 (3.4-5.0) gm/dl Globulin 2.5 (2.5-4.0) gm/dl Albumin/Globulin Ratio 1.9 (0.9-2) Lipase 13 (11-82) U/L TSH 2.241 (0.300-4.500) uIu/ml Urine Color Urine Appearance (Clear) Urine pH (4.5-7.5) Ur Specific [place] (1.000-1.030) Urine Protein (Negative) Urine Glucose (UA) (Negative) Urine Ketones (Negative) Urine Blood (Negative) Urine Nitrite (Negative) Urine Bilirubin (Negative) Urine Urobilinogen (Negative) Ur Leukocyte Esterase (Negative) Urine WBC (Auto) (0-5) /hpf Urine RBC (Auto) (0-4) /hpf U Hyaline Cast (Auto) (0-5) /lpf U Epithel Cells (Auto) (0-5) /lpf Urine Bacteria (Auto) (Negative) Urine Opiates Screen (Neg) Ur Methadone, Qual (Neg) Urine Barbiturates (Neg) Ur Phencyclidine (PCP) (Neg) U Amphetamin/Meth Scrn (Neg) Urine MDEA MDMA (Ecstasy) Screen (Neg) MDMA Urine MDMA U Benzodiazepines Scrn (Neg) Ur Cocaine Metabolite (Neg) U Marijuana (THC) Screen (Neg) Ethyl Alcohol mg/dL (<10.0) mg/dl Medications Administered Current Inpatient Medications Acetaminophen (Acetaminophen 325 Mg Tab) 650 mg PO Q4H PRN PRN Reason: Pain or Fever Stop: 10/17/23 18:56 Last Admin: 09/18/23 06:29 Dose: 650 mg Amitriptyline HCl (Amitriptyline Hcl 10 Mg Tab) 10 mg PO HS [facility] Stop: 10/18/23 20:59 Last Admin: 09/18/23 19:23 Dose: 10 mg Atenolol (Atenolol 25 Mg Tablet) 12.5 mg PO DAILY DYANA Stop: 10/18/23 08:59 Last Admin: 09/18/23 09:38 Dose: 12.5 mg Atorvastatin Calcium (Atorvastatin 40 Mg Tab) 40 mg PO QAM [facility] Stop: 10/19/23 08:59 Bupropion HCl (Bupropion Xl 300 Mg Tabcr) 300 mg PO QAM [facility] Stop: 10/19/23 08:59 Bupropion HCl (Bupropion Xl 150 Mg Tabcr) 150 mg PO QAM [facility] Stop: 10/19/23 08:59 Buspirone HCl (Buspirone 5 Mg Tab) 20 mg PO BID [facility] Stop: 10/18/23 20:59 Last Admin: 09/18/23 19:23 Dose: 20 mg Escitalopram Oxalate (Escitalopram Oxalate 10 Mg Tab) 10 mg PO DAILY [facility] Stop: 10/19/23 08:59 Finasteride (Finasteride 5 Mg Tab) 5 mg PO QAM [facility] Stop: 10/19/23 08:59 Hydroxyzine HCl (Hydroxyzine Hcl 10 Mg Tab) 10 mg PO BID PRN PRN Reason: anx/panic attacks Stop: 10/18/23 14:24 Last Admin: 09/18/23 16:07 Dose: 10 mg Sodium Chloride (Nss) 1,000 mls @ 125 mls/hr IV .Q8H DYANA Stop: 10/17/23 15:29 Last Infusion: 09/18/23 13:45 Dose: 0 mls/hr Pantoprazole Sodium (Pantoprazole 40 Mg Tab) 40 mg PO QAM [facility] Stop: 10/19/23 08:59 Sucralfate (Sucralfate 1 Gm/10 Ml Udc) 1 gm PO QID DYANA Stop: 10/18/23 12:59 Last Admin: 09/18/23 19:22 Dose: 1 gm Travoprost (Travoprost Z 0.004% Oph Soln 2.5 Ml Btl) 1 drops OPB HS [facility] Stop: 10/17/23 22:33 Last Admin: 09/18/23 19:23 Dose: 1 drops
--- NOTE | 2023-09-18 08:37 | Anesthesiology Consultation ---
Date of Service September 18, 2023 Assessment & Plan Chart Review Chart Review: Acceptable Risk for Surgery and Patient NOT seen in Pre Admission Testing Consults Requested none ASA ASA4 Proposed Anesthesia Anesthesia Type: MAC Risk / Benefits Reviewed With: PT / POA / Parent / Guardian, Accepts Plan and Informed Consent Obtained History Surgery Operation Date: 09/18/23 16:30 Proposed Procedures p Esophagogastroduodenoscopy Dr Ap De Souza, DO Height/Weight Height: 5 ft 8 in Weight: 77 kg Allergies Allergy/AdvReac Type Severity Reaction Status Date / Time No Known Allergies Allergy Unverified 09/17/23 18:57 Medications Home Medications Medication Instructions Recorded Confirmed Last Taken amitriptyline 10 mg tablet 10 mg PO HS 09/17/23 09/17/23 Unknown atenolol 25 mg tablet 12.5 mg PO DAILY 09/17/23 09/17/23 Unknown atorvastatin 40 mg tablet 40 mg PO [facility] 09/17/23 09/17/23 Unknown bupropion HCl 150 mg 24 hr tablet, 150 mg PO [facility] 09/17/23 09/17/23 Unknown extended release bupropion HCl 300 mg 24 hr tablet, 300 mg PO [facility] 09/17/23 09/17/23 Unknown extended release buspirone 10 mg tablet 20 mg PO BID 09/17/23 09/17/23 Unknown escitalopram oxalate 10 mg tablet 10 mg PO DAILY 09/17/23 09/17/23 Unknown finasteride 5 mg tablet 5 mg PO [facility] 09/17/23 09/17/23 Unknown furosemide 20 mg tablet 20 mg PO [facility] 09/17/23 09/17/23 Unknown glipizide 5 mg tablet, extended 5 mg PO [facility] 09/17/23 09/17/23 Unknown release 24 hr hydroxyzine HCl 10 mg tablet 10 mg PO BID PRN anx/panic attacks 09/17/23 09/17/23 Unknown metformin 1,000 mg tablet 1,000 mg PO [facility] 09/17/23 09/17/23 Unknown mirtazapine 15 mg tablet 15 mg PO 09/17/23 09/17/23 Unknown omeprazole 40 mg capsule,delayed 40 mg PO HS 09/17/23 09/17/23 Unknown release semaglutide 2 mg/dose (8 mg/3 mL) 2 mg subcut WE 09/17/23 09/17/23 Unknown subcutaneous pen injector (Ozempic) tamsulosin 0.4 mg capsule 0.4 mg PO QAM 09/17/23 09/17/23 Unknown travoprost 0.004 % eye drops 1 drp OPB HS 09/17/23 09/17/23 Unknown trazodone 100 mg tablet 100 mg PO HS 09/17/23 09/17/23 Unknown Active Medications Generic Name Dose Route Start Last Admin Trade Name Omid PRN Reason Stop Dose Admin Acetaminophen 650 mg 09/17/23 18:57 09/18/23 06:29 Acetaminophen 325 Mg Tab PO 10/17/23 18:56 650 mg Q4H PRN Administration Pain or Fever Sodium Chloride 1,000 mls @ 125 mls/hr 09/17/23 15:30 09/18/23 06:25 Nss IV 10/17/23 15:29 125 mls/hr .Q8H DYANA Administration Travoprost 1 drops 09/17/23 22:34 09/17/23 23:22 Travoprost Z 0.004% Oph Soln 2.5 Ml Btl OPB 10/17/23 22:33 1 drops HS DYANA Administration NPO Date Last Intake of Fluids: 09/17/23 Time Last Intake of Fluids: 23:59 Date Last Intake of Solids: 09/17/23 Time Last Intake of Solids: 23:59 Past Medical History Medical History 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 MDD (major depressive disorder) BPH (benign prostatic hyperplasia) HTN (hypertension), benign Exercise / Class Metabolic Activity II 4-5 Yardwork/Stairs/Walk up hill Past Surgical History Surgical History Status post amputation of great toe Past Anesthesia History No Hx of Anesthesia Complications and No Family Hx of Anesthesia Complications History of PONV No Hx of PONV and No Hx of Motion Sickness Social History Smoking Status: Never smoker Hx Alcohol Use: No Hx Substance Use: No Physical Exam Vital Signs Last Vital Signs Temp 36.6 C 09/18/23 08:02 Pulse 91 H 09/18/23 08:02 Resp 18 09/18/23 08:02 BP 143/69 H 09/18/23 08:02 Pulse Ox 99 09/18/23 08:02 O2 Del Method Room Air 09/18/23 08:02 ENMT Mouth: no dentition abnormality Thyromental Distance: > or= 3.5 Finger Breadths Mallampati Class: II Neck normal visual inspection Respiratory normal respiratory effort Auscultation: lungs clear to auscultation bilaterally Cardiovascular Rate/Rhythm: regular rate and regular rhythm Musculoskeletal Extremities: + amputation noted (left bka) Neurologic tremor Psychiatric Orientation: alert Testing Laboratory Results 09/18/23 01:53 09/18/23 01:53 PT 10.9 Seconds (9.0-12.0) 09/17/23 15:21 INR 1.0 (0.9-1.1) 09/17/23 15:21 Urine Color Yellow 09/18/23 06:08 Urine Appearance Clear (Clear) 09/18/23 06:08 Urine pH 7.0 (4.5-7.5) 09/18/23 06:08 Ur Specific [place] > 1.045 (1.000-1.030) H 09/18/23 06:08 Urine Protein Negative (Negative) 09/18/23 06:08 Urine Glucose (UA) 1+ (Negative) H 09/18/23 06:08 Urine Ketones 1+ (Negative) H 09/18/23 06:08 Urine Nitrite Negative (Negative) 09/18/23 06:08 Ur Leukocyte Esterase Trace (Negative) H 09/18/23 06:08 Urine WBC (Auto) 1-5 /hpf (0-5) 09/18/23 06:08 Urine RBC (Auto) 0-4 /hpf (0-4) 09/18/23 06:08 U Hyaline Cast (Auto) 1-5 /lpf (0-5) 09/18/23 06:08 U Epithel Cells (Auto) 5-10 /lpf (0-5) H 09/18/23 06:08 Urine Bacteria (Auto) Negative (Negative) 09/18/23 06:08 09/18/23 09/17/23 06:01 22:58 POC Glucose 98 174 H
--- NOTE | 2023-09-18 08:44 | Cardiology Consultation ---
Date of Consultation September 18, 2023 Assessment & Plan (1) Fall: (2) Hypertension: (3) Prolonged QT interval: Plan Patient admitted after a fall. Initially thought dizziness or syncope was related but patient denies these issues. BP and HR currently controlled. NSR on telemetry without arrhythmias. Echo is pending. He does have left anterior fascicular block on EKG and borderline prolonged QTc Repeat EKG today. He is on multiple psych meds that could cause prolonged QT interval - Amitriptyline, Escitalopram, hydroxyzine. Need to monitor closely. would continue his current home outpatient medications. Continue PPI and f/u with GI for gastritis. Case discussed with Dr. Hilliard. I spent a total of 40 minutes on the date of service in preparation, delivery, and documentation of the care provided to this patient, excluding any time spent in the performance of separately billed services. Nella López PA-C Department of Cardiology, [facility] This chart was completed in part utilizing Speech Voice Recognition Software. Grammatical errors, random word insertions, pronoun errors, and incomplete sentences are an occasional consequence of this system due to software limitations, ambient noise, and hardware issues. Any formal questions or concerns about the content, text, or information contained within the body of this dictation should be directly addressed to the provider for clarification. Supervising Physician Co-Signing Physician Notes I have reviewed the advance practitioner's documentation, and I agree with, and take responsibility for the plan of care. 67-year-old male presented to the emergency department after a fall. Fell outside of his vehicle striking his forehead. The fall was witnessed. EMS was summoned and patient brought to the ER. Admitted to telemetry floor. No evidence of dysrhythmia overnight. Reports "I did not pass out". Denies chest pain or shortness of breath. No orthopnea, PND, or edema. Denies personal history of coronary disease, congestive heart failure, or rheumatic fever as a child. PE: VSS. GEn: NAD, AAO x3. + Stuttering speech. Heart: Regular rhythm, normal S1-S2. No murmur. Lung: Clear bilateral, no rales, rhonchi, or wheeze. Extremities: Left BKA. No edema. A/P: 67-year-old male with mechanical fall. No syncope. No dysrhythmias on telemetry or evidence of structural heart disease per echocardiogram. Borderline prolonged QT interval noted on ECG. Multiple psych meds that could cause prolonged QT interval - Amitriptyline, Escitalopram, hydroxyzine. Continue to monitor. History of Present Illness Reason for Consultation: Possible syncope Requesting Physician: Dr. Abdul Attending Physician: Dr. Hilliard History of Present Illness Patient is a 67 year old male who presented to [facility] via ambulance after sustaining a fall on the sidewalk with small head laceration. History includes: 1. Hypertension 2. DM 3. History of osteomyelitis of the LE, with initial toe amputations, then subsequent BKA on the left. 4. Anxiety/depression Patient reports he was trying to find a medical facility in [place]. He got out of his car and tried to step up on a curb and lost his balance. He has a fairly new prosthetic leg that he still feels off balance at times. He adamantly denies associated dizziness, lightheadedness, or syncope. No loss of consciousness. His event on the sidewalk was witnessed by bystanders and they summoned EMS to help him who brought him to ER. He denies cardiac history. He saw cardiology approx 5 years ago due to hypertension. Echo at that time demonstrated normal LVEF and grade I diastolic dysfunction. He reports recent history of persistent nausea and vomiting post prandial. He was admitted for similar complaints at [facility] and found to have mild gastritis. Due to possible hematemesis in the ER, GI was consulted and patient had EGD this morning with mild gastritis. PPI recommended At time of consult, patient resting in bed feeling well. Denies acute cardiac complaints or concerns. No chest pain, SOB, dizziness. no orthopnea, PND or edema. Allergies Allergy/AdvReac Type Severity Reaction Status Date / Time No Known Allergies Allergy Unverified 09/17/23 18:57 Home Medications Medication Instructions Recorded Confirmed Type amitriptyline 10 mg tablet 10 mg PO HS 09/17/23 09/17/23 History atenolol 25 mg tablet 12.5 mg PO DAILY 09/17/23 09/17/23 History atorvastatin 40 mg tablet 40 mg PO QAM 09/17/23 09/17/23 History bupropion HCl 150 mg 24 hr tablet, 150 mg PO QAM 09/17/23 09/17/23 History extended release bupropion HCl 300 mg 24 hr tablet, 300 mg PO QAM 09/17/23 09/17/23 History extended release buspirone 10 mg tablet 20 mg PO BID 09/17/23 09/17/23 History escitalopram oxalate 10 mg tablet 10 mg PO DAILY 09/17/23 09/17/23 History finasteride 5 mg tablet 5 mg PO QAM 09/17/23 09/17/23 History furosemide 20 mg tablet 20 mg PO QAM 09/17/23 09/17/23 History glipizide 5 mg tablet, extended 5 mg PO QAM 09/17/23 09/17/23 History release 24 hr hydroxyzine HCl 10 mg tablet 10 mg PO BID PRN anx/panic attacks 09/17/23 09/17/23 History metformin 1,000 mg tablet 1,000 mg PO AMHS 09/17/23 09/17/23 History mirtazapine 15 mg tablet 15 mg PO HS 09/17/23 09/17/23 History omeprazole 40 mg capsule,delayed 40 mg PO HS 09/17/23 09/17/23 History release semaglutide 2 mg/dose (8 mg/3 mL) 2 mg subcut WE 09/17/23 09/17/23 History subcutaneous pen injector (Ozempic) tamsulosin 0.4 mg capsule 0.4 mg PO QA 09/17/23 09/17/23 History travoprost 0.004 % eye drops 1 drp OPB HS 09/17/23 09/17/23 History trazodone 100 mg tablet 100 mg PO HS 09/17/23 09/17/23 History Patient History Medical History 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 Communication effective. Journalism Instructor Required: No Beliefs That Will Affect Care: None Current Living Situation: Alone Feels Safe at Home: Yes Safety Concerns: Feels Safe At This Time Assistive Devices: Cane and Prosthesis Review of Systems Review of Systems: All systems reviewed & are unremarkable except as noted in HPI & below Physical Exam Constitutional: WD/WN, vitals as above no acute distress Neck: trachea midline, no thyromegaly Respiratory: normal respiratory effort, lungs clear to auscultation Cardiovascular: Rate/Rhythm: regular rate and regular rhythm Heart Sounds: no murmur Vessels: no JVD Extremities: no edema (Left BKA) Neurologic: PERRL, EOMI, accommodation nl, no face palsy, no dysarthria Results & Data Vital Signs (Past 12 Hours) Vital Signs Temp Pulse Pulse Resp BP BP BP 09/18/23 08:02 36.6 C 91 H 18 143/69 H 09/18/23 07:10 36.3 C L 92 H 20 162/81 H 09/18/23 05:14 36.8 C 92 H 20 134/83 09/17/23 22:45 35.7 C L 97 H 20 133/86 09/17/23 21:45 93 H 17 112/72 09/17/23 21:30 93 H 25 H 124/84 09/17/23 21:00 94 H 24 139/89 09/17/23 20:45 94 H 24 140/86 Pulse Ox O2 Del Method 09/18/23 08:02 99 Room Air 09/18/23 07:10 99 Room Air 09/18/23 05:14 95 Room Air 09/17/23 22:45 100 Room Air 09/17/23 21:45 09/17/23 21:30 09/17/23 21:00 09/17/23 20:45 Laboratory Results Cardiac Enzymes 09/17/23 Range/Units 15:21 AST 19 (13-39) U/L Troponin I High Sens 4.0 (0-20) pg/ml Coagulation 09/17/23 Range/Units 15:21 PT 10.9 (9.0-12.0) Seconds CBC 09/17/23 09/17/23 09/18/23 Range/Units 15:21 21:21 01:53 WBC 14.11 H 15.04 H (4.8-10.8) K/ul RBC 5.27 4.27 L (4.70-6.10) M/uL Hgb 15.6 13.8 L 12.8 L (14.0-18.0) g/dl Hct 46.8 39.2 L (42.0-52.0) % Plt Count 310 (130-400) K/uL Neut # (Auto) 10.71 H (1.40-6.50) K/uL Lymph # (Auto) 2.21 (1.20-3.40) K/uL Kemper # (Auto) 0.97 H (0.11-0.59) K/uL Eos # (Auto) 0.07 (0.00-0.50) K/uL Baso # (Auto) 0.06 (0.00-0.20) K/uL 09/18/23 09/18/23 Range/Units 01:53 01:53 WBC (4.8-10.8) K/ul RBC (4.70-6.10) M/uL Hgb 12.8 L (14.0-18.0) g/dl Hct 37.6 L 38.7 L (42.0-52.0) % Plt Count 275 (130-400) K/uL Neut # (Auto) (1.40-6.50) K/uL Lymph # (Auto) (1.20-3.40) K/uL Kemper # (Auto) (0.11-0.59) K/uL Eos # (Auto) (0.00-0.50) K/uL Baso # (Auto) (0.00-0.20) K/uL Comprehensive Metabolic Panel 09/17/23 09/18/23 Range/Units 15:21 01:53 Sodium 139 140 (136-145) mmol/L Potassium 4.1 3.7 (3.5-5.1) mmol/L Chloride 97 L 101 (98-107) mmol/L Carbon Dioxide 26 31 (21-32) mmol/L BUN 26 H 26 H (6-23) mg/dl Creatinine 1.17 0.94 (0.6-1.4) mg/dl Glucose 175 H 139 H (70-99(Fasting)) mg/dl Calcium 11.2 H 9.3 (8.6-10.3) mg/dl AST 19 (13-39) U/L ALT 26 (7-52) U/L Alkaline Phosphatase 116 H (34-104) U/L Total Protein 7.2 (6.0-8.3) gm/dl Albumin 4.7 (3.4-5.0) gm/dl Intake and Output 09/17/23 09/18/23 09/18/23 22:59 06:59 14:59 Intake Total 1226.250 / 2192.917 966.667 / 2192.917 Balance 1226.250 / 2192.917 966.667 / 2192.917 Intake: IV 1226.250 / 2192.917 966.667 / 2192.917 Magnesium Sulfate / D5w 1 gm In 100.000 / 100.000 100 ml @ 100 mls/hr IV NOW STA Rx#:[id number] PANTOprazole 80 mg In Dextrose 120 / 120 5% 100 ml @ 480 mls/hr IV ONE STA Rx#:[id number] Sodium Chloride 0.9% 1,000 ml @ 1006.25 / 1972.917 966.667 / 1971.917 125 mls/hr IV .Q8H [facility] Rx#: [id number] Oral 0 / 0 Other: Weight 75.7 kg 77 kg 77 kg Weight Measurement Method [facility] in [facility] Built in [facility] Patient Weight 09/19/23 06:59 Weight 77 kg Diagnostic Findings Telemetry reviewed: NSR in the 90's. No arrhythmias EKG reviewed from 09/17/23: NSR at 94 bmp LAFB Voltage criteria for possible LVH QT/QTc 394/492 ms Chest xray without acute findings Echo ordered - results pending Outside echo results reviewed dated Sep 2022 at [facility]: Interpretation Summary The qualitative LV ejection fraction is 55-59% (normal). The left ventricular cavity size is normal. The LV wall thickness is normal. There is no left ventricular mural thrombus. The left ventricular wall motion is normal. The left ventricular diastolic function is mildly abnormal (grade I). The right ventricular cavity size is enlarged with normal systolic function. Medications Administered Current Inpatient Medications Acetaminophen (Acetaminophen 325 Mg Tab) 650 mg PO Q4H PRN PRN Reason: Pain or Fever Stop: 10/17/23 18:56 Last Admin: 09/18/23 06:29 Dose: 650 mg Amitriptyline HCl (Amitriptyline Hcl 10 Mg Tab) 10 mg PO HS [facility] Stop: 10/18/23 20:59 Atenolol (Atenolol 25 Mg Tablet) 12.5 mg PO DAILY [facility] Stop: 10/18/23 08:59 Last Admin: 09/18/23 09:38 Dose: 12.5 mg Atorvastatin Calcium (Atorvastatin 40 Mg Tab) 40 mg PO QAM [facility] Stop: 10/19/23 08:59 Bupropion HCl (Bupropion Xl 300 Mg Tabcr) 300 mg PO QAM [facility] Stop: 10/19/23 08:59 Bupropion HCl (Bupropion Xl 150 Mg Tabcr) 150 mg PO QAM [facility] Stop: 10/19/23 08:59 Buspirone HCl (Buspirone 5 Mg Tab) 20 mg PO BID [facility] Stop: 10/18/23 20:59 Escitalopram Oxalate (Escitalopram Oxalate 10 Mg Tab) 10 mg PO DAILY [facility] Stop: 10/19/23 08:59 Finasteride (Finasteride 5 Mg Tab) 5 mg PO QAM [facility] Stop: 10/19/23 08:59 Hydroxyzine HCl (Hydroxyzine Hcl 10 Mg Tab) 10 mg PO BID PRN PRN Reason: anx/panic attacks Stop: 10/18/23 14:24 Sodium Chloride (Nss) 1,000 mls @ 125 mls/hr IV .Q8H [facility] Stop: 10/17/23 15:29 Last Infusion: 09/18/23 13:45 Dose: 0 mls/hr Pantoprazole Sodium (Pantoprazole 40 Mg Tab) 40 mg PO QAM [facility] Stop: 10/19/23 08:59 Sucralfate (Sucralfate 1 Gm/10 Ml Udc) 1 gm PO QID [facility] Stop: 10/18/23 12:59 Last Admin: 09/18/23 13:01 Dose: 1 gm Travoprost (Travoprost Z 0.004% Oph Soln 2.5 Ml Btl) 1 drops OPB HS [facility] Stop: 10/17/23 22:33 Last Admin: 09/17/23 23:22 Dose: 1 drops (1) Fall Encounter type: initial encounter Qualified Code(s): W19.XXXA - Unspecified fall, initial encounter (2) Hypertension Hypertension type: primary hypertension Qualified Code(s): I10 - Essential (primary) hypertension
--- NOTE | 2023-09-18 08:55 | Communication Note ---
Date of Service: September 18, 2023 The patient underwent upper endoscopy for question of hematemesis. The patient was found to have evidence of mild gastritis, in addition he had a esophagitis of his lower esophagus. There was no evidence of active bleeding or recent bleeding. Recommendations Daily PPI would suggest omeprazole or Protonix 40 mg daily Carafate slurry 10 mL 4 times daily for 10 days Repeat upper endoscopy in 3 to 6 months Please call with any questions or concerns GI to sign off
--- NOTE | 2023-09-18 09:01 | GI REPORT ---
Patient Name: Epifanio Silva Procedure Date: 09/18/2023 8:21 AM Date of : 1955 Admit Type: Inpatient Age: 67 Gender: Male Attending MD: Donna De Souza DO, Procedure: Upper GI endoscopy Providers: Donna De Souza DO Referring MD: Franklyn Abdul Md Indications: Hematemesis Medicines: Monitored Anesthesia Care Complications: No immediate complications. Estimated blood loss: Minimal. Estimated Blood Loss: Estimated blood loss was minimal. Procedure: Pre-Anesthesia Assessment: - Prior to the procedure, a History and Physical was performed, and patient medications, allergies and sensitivities were reviewed. The patient's tolerance of previous anesthesia was reviewed. - The risks and benefits of the procedure and the sedation options and risks were discussed with the patient. All questions were answered and informed consent was obtained. - Patient identification and proposed procedure were verified prior to the procedure by the physician, the nurse and the special education superintendent. The procedure was verified in the procedure room. - Pre-procedure physical examination revealed no contraindications to sedation. - ASA Grade Assessment: IV - A patient with severe systemic disease that is a constant threat to life. - After reviewing the risks and benefits, the patient was deemed in satisfactory condition to undergo the procedure. - The anesthesia plan was to use monitored anesthesia care (MAC). - Immediately prior to administration of medications, the patient was re-assessed for adequacy to receive sedatives. - The heart rate, respiratory rate, oxygen saturations, blood pressure, adequacy of pulmonary ventilation, and response to care were monitored throughout the procedure. - The physical status of the patient was re-assessed after the procedure. After obtaining informed consent, the endoscope was passed under direct vision. Throughout the procedure, the patient's blood pressure, pulse, and oxygen saturations were monitored continuously. The Endoscope was introduced through the mouth, and advanced to the second part of duodenum. The upper GI endoscopy was accomplished without difficulty. The patient tolerated the procedure well. Findings: LA Grade C (one or more mucosal breaks continuous between tops of 2 or more mucosal folds, less than 75% circumference) esophagitis with no bleeding was found in the lower third of the esophagus. Diffuse mild inflammation characterized by congestion (edema), erythema and granularity was found in the entire examined stomach. An endoclip was found in the gastric fundus. There is no endoscopic evidence of bleeding or ulceration in the entire examined stomach. The examined duodenum was normal. Impression: - LA Grade C reflux esophagitis with no bleeding. - Diffuse gastritis (likely medication related0. - An endoclip was found in the stomach (this is a retained clip from an intervention several years ago). - Normal examined duodenum. - No specimens collected. Recommendation: - Return patient to hospital [facility] for ongoing care. - Advance diet as tolerated today. - Use Prilosec (omeprazole) 40 mg PO daily. - Use sucralfate suspension 1 gram PO QID for 10 days. - Repeat upper endoscopy in 3 months to check healing. Donna De Souza D.O. Donna De Souza, DO 09/18/2023 9:00:48 AM This report has been signed electronically. Note Initiated On: 09/18/2023 8:21 AM Number of Addenda: 0 I attest to the content of the Intraoperative Record and orders documented therein, exceptions below {[id number]}
[2023-09-18] MEDS: PANTOprazole 40 MG in SYRINGE 0 ML IV SCH (09:38)
[2023-09-18] MEDS: ATENOLOL 25 MG TABLET PO SCH (09:38)
[2023-09-18] MEDS: PROPOFOL IV EMULSION 10 MG/ML 20 ML VIAL IV ONE (10:21)
[2023-09-18] MEDS: LIDOCAINE 2% 2 ML VIAL/AMP(20MG/ML) INFIL ONE (10:21)
--- NOTE | 2023-09-18 11:58 | Anesthesiology Progress Note ---
Date of Service September 18, 2023 Anesthesia Post Procedure Vital Signs Vital Signs: Temp Pulse Pulse Resp BP BP BP 09/18/23 10:37 36.4 C L 92 H 16 136/71 09/18/23 09:37 36.8 C 91 H 20 143/78 H 09/18/23 09:25 91 H 16 134/80 09/18/23 09:10 86 16 97/55 L 09/18/23 08:56 84 14 95/56 L 09/18/23 08:02 36.6 C 91 H 18 143/69 H 09/18/23 07:30 90 09/18/23 07:10 36.3 C L 92 H 20 162/81 H 09/18/23 05:14 36.8 C 92 H 20 134/83 09/17/23 22:45 35.7 C L 97 H 20 133/86 09/17/23 21:45 93 H 17 112/72 09/17/23 21:30 93 H 25 H 124/84 09/17/23 21:00 94 H 24 139/89 09/17/23 20:45 94 H 24 140/86 09/17/23 20:15 93 H 22 137/95 09/17/23 20:00 93 H 18 114/76 09/17/23 19:38 92 H 21 137/86 09/17/23 19:30 94 H 25 H 144/94 H 09/17/23 19:15 94 H 20 124/80 09/17/23 18:59 99 H 09/17/23 18:30 91 H 21 129/79 09/17/23 18:15 90 24 119/77 09/17/23 18:00 89 25 H 120/79 09/17/23 17:53 89 22 116/73 09/17/23 17:31 92 H 28 H 112/86 09/17/23 16:55 24 98/67 L 09/17/23 15:08 91 H 09/17/23 15:01 36.4 C L 90 20 122/80 Pulse Ox O2 Del Method O2 Flow Rate 09/18/23 10:37 97 Room Air 09/18/23 09:37 96 Room Air 09/18/23 09:25 95 Room Air 09/18/23 09:10 100 Room Air 09/18/23 08:56 99 Oxymask 8 09/18/23 08:02 99 Room Air 09/18/23 07:30 09/18/23 07:10 99 Room Air 09/18/23 05:14 95 Room Air 09/17/23 22:45 100 Room Air 09/17/23 21:45 09/17/23 21:30 09/17/23 21:00 09/17/23 20:45 09/17/23 20:15 09/17/23 20:00 09/17/23 19:38 09/17/23 19:30 09/17/23 19:15 09/17/23 18:59 09/17/23 18:30 100 09/17/23 18:15 96 09/17/23 18:00 95 09/17/23 17:53 95 09/17/23 17:31 97 Room Air 09/17/23 16:55 09/17/23 15:08 09/17/23 15:01 97 Room Air Pain Intensity Abdomen: Pain Intensity: 5 Head: Pain Intensity: 2 Bilateral Abdomen: Pain Intensity: 5 Transfer of Care Handoff Completed per policy Notes Mental Status: alert / awake / arousable Patient Amnestic to Procedure: Yes Nausea / Vomiting: adequately controlled Pain: adequately controlled Airway Patency, RR, SpO2: stable & adequate BP & HR: stable & adequate Hydration State: stable & adequate Anesthetic Complications: no major complications apparent
--- NOTE | 2023-09-18 12:46 | Neurology Consultation ---
Date of Consultation September 18, 2023 Assessment & Plan (1) Fall: Fall, which now appears to be mechanical based on his history. While he did hit his head his CT and exam and unremarkable. Doubt significant concussion. Patient is on multiple psychiatric medications with overlapping effects. Recommend these be reviewed by psychiatry as an outpatient as they could be contributing to confusion and gait instability. Otherwise they should be restarted to prevent withdrawl and help control his anxiety. -- No further neurologic workup or follow-up recommended Telehealth Consultation Telehealth Information Telehealth Information: I performed this visit using a real-time telehealth connection between my location and the patients location ([facility]). After connecting through interactive tele-video, patient was identified by name and date of and/or wristband check.Patient (or authorized healthcare it sales representative) was informed that this was a telemedicine visit and it was being conducted confidentially over secure lines. My office door was closed and no one else was present in the room with me.Patient (or authorized healthcare it sales representative) provided consent to proceed with the visit, expressed an understanding of privacy and security of the telemedicine visit, and gave permission to have a hospital it sales representative in the room in order to assist with the visit and to conduct portions of the visit, as needed. I informed the patient (or authorized healthcare it sales representative) that I reviewed their record and presented the opportunity for them to ask any questions regarding the visit today. The patient agreed to participate. History of Present Illness Reason for Consultation: Possible concussion Requesting Physician: Dr. Abdul Attending Physician: Franklyn Abdul MD History of Present Illness Epifanio Silva is a 67 yo M with anxiety presenting after a fall yesterday. He recalls tripping over the curb and hitting his head, when he came to the ED yesterday he was confused. He is on multiple psychiatric medication as reviewed in his [facility] chart and is concerned because he has not yet received them at [facility]. He denies any headache, any further confusion. He does not remember if he lost consciousness yesterday after falling. Otherwise no new focal weakness or numbness, no change in speech or vision. Allergies Allergy/AdvReac Type Severity Reaction Status Date / Time No Known Allergies Allergy Unverified 09/17/23 18:57 Home Medications Medication Instructions Recorded Confirmed Type amitriptyline 10 mg tablet 10 mg PO HS 09/17/23 09/17/23 History atenolol 25 mg tablet 12.5 mg PO DAILY 09/17/23 09/17/23 History atorvastatin 40 mg tablet 40 mg PO QAM 09/17/23 09/17/23 History bupropion HCl 150 mg 24 hr tablet, 150 mg PO QAM 09/17/23 09/17/23 History extended release bupropion HCl 300 mg 24 hr tablet, 300 mg PO QAM 09/17/23 09/17/23 History extended release buspirone 10 mg tablet 20 mg PO BID 09/17/23 09/17/23 History escitalopram oxalate 10 mg tablet 10 mg PO DAILY 09/17/23 09/17/23 History finasteride 5 mg tablet 5 mg PO QAM 09/17/23 09/17/23 History furosemide 20 mg tablet 20 mg PO QAM 09/17/23 09/17/23 History glipizide 5 mg tablet, extended 5 mg PO QA 09/17/23 09/17/23 History release 24 hr hydroxyzine HCl 10 mg tablet 10 mg PO BID PRN anx/panic attacks 09/17/23 09/17/23 History metformin 1,000 mg tablet 1,000 mg PO AMHS 09/17/23 09/17/23 History mirtazapine 15 mg tablet 15 mg PO HS 09/17/23 09/17/23 History omeprazole 40 mg capsule,delayed 40 mg PO HS 09/17/23 09/17/23 History release semaglutide 2 mg/dose (8 mg/3 mL) 2 mg subcut WE 09/17/23 09/17/23 History subcutaneous pen injector (Ozempic) tamsulosin 0.4 mg capsule 0.4 mg PO [facility] 09/17/23 09/17/23 History travoprost 0.004 % eye drops 1 drp OPB HS 09/17/23 09/17/23 History trazodone 100 mg tablet 100 mg PO HS 09/17/23 09/17/23 History Patient History Medical History 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 Communication effective. Song Writer Required: No Beliefs That Will Affect Care: None Current Living Situation: Alone Feels Safe at Home: Yes Safety Concerns: Feels Safe At This Time Assistive Devices: Cane and Prosthesis Review of Systems +anxiety Physical Exam Neurological Examination: Mental Status: Awake and alert. Oriented to person, place, and time. Fluent. Comprehension intact. Affect appropriate. Cranial Nerves: II: pupils 3/3 to 2/2, bryson grossly intact. III/IV/: Versions intact without nystagmus, no gaze preference. V: Facial sensation symmetric to light touch VII: Facial expression symmetric VIII: Hearing intact to voice IX/X: Palate elevates symmetrically XI: Shoulder shrug symmetric XII: Tongue midline Motor: Strength was symmetric and antigravity throughout. LLE amputation Coordination: Finger to nose was intact Reflexes: Unable to assess over telemedicine Results & Data Vital Signs (Past 12 Hours) Vital Signs Temp Pulse Pulse Resp BP BP Pulse Ox 09/18/23 10:37 36.4 C L 92 H 16 136/71 97 09/18/23 09:37 36.8 C 91 H 20 143/78 H 96 09/18/23 09:25 91 H 16 134/80 95 09/18/23 09:10 86 16 97/55 L 100 09/18/23 08:56 84 14 95/56 L 99 09/18/23 08:02 36.6 C 91 H 18 143/69 H 99 09/18/23 07:30 90 09/18/23 07:10 36.3 C L 92 H 20 162/81 H 99 09/18/23 05:14 36.8 C 92 H 20 134/83 95 O2 Del Method O2 Flow Rate 09/18/23 10:37 Room Air 09/18/23 09:37 Room Air 09/18/23 09:25 Room Air 09/18/23 09:10 Room Air 09/18/23 08:56 Oxymask 8 09/18/23 08:02 Room Air 09/18/23 07:30 09/18/23 07:10 Room Air 09/18/23 05:14 Room Air Laboratory Results Abnormal lab results 09/17/23 09/17/23 09/17/23 Range/Units 15:21 17:33 21:21 WBC 14.11 H (4.8-10.8) K/ul RBC (4.70-6.10) M/uL Hgb 13.8 L (14.0-18.0) g/dl Hct 39.2 L (42.0-52.0) % MPV 9.2 L (9.4-12.4) fL Neut # (Auto) 10.71 H (1.40-6.50) K/uL [place] # (Auto) 0.97 H (0.11-0.59) K/uL VBG pH 7.50 H (7.36-7.41) VBG pCO2 35 L (38-50) mmHg Chloride 97 L (98-107) mmol/L Anion Gap 16 H (3-11) BUN 26 H (6-23) mg/dl BUN/Creatinine Ratio 22.2 H (10-20) Glucose 175 H (70-99(Fasting)) mg/dl POC Glucose (70-99) mg/dl Calcium 11.2 H (8.6-10.3) mg/dl Magnesium 1.6 L (1.7-2.4) mg/dl Alkaline Phosphatase 116 H (34-104) U/L Ur Specific Fraser (1.000-1.030) Urine Glucose (UA) (Negative) Urine Ketones (Negative) Ur Leukocyte Esterase (Negative) U Epithel Cells (Auto) (0-5) /lpf MDMA (Ecstasy) Screen (Neg) 09/17/23 09/18/23 09/18/23 Range/Units 22:58 01:53 01:53 WBC 15.04 H (4.8-10.8) K/ul RBC 4.27 L (4.70-6.10) M/uL Hgb 12.8 L 12.8 L (14.0-18.0) g/dl Hct 37.6 L (42.0-52.0) % MPV (9.4-12.4) fL Neut # (Auto) (1.40-6.50) K/uL [place] # (Auto) (0.11-0.59) K/uL VBG pH (7.36-7.41) VBG pCO2 (38-50) mmHg Chloride (98-107) mmol/L Anion Gap (3-11) BUN (6-23) mg/dl BUN/Creatinine Ratio (10-20) Glucose (70-99(Fasting)) mg/dl POC Glucose 174 H (70-99) mg/dl Calcium (8.6-10.3) mg/dl Magnesium (1.7-2.4) mg/dl Alkaline Phosphatase (34-104) U/L Ur Specific Fraser (1.000-1.030) Urine Glucose (UA) (Negative) Urine Ketones (Negative) Ur Leukocyte Esterase (Negative) U Epithel Cells (Auto) (0-5) /lpf MDMA (Ecstasy) Screen (Neg) 09/18/23 09/18/23 09/18/23 Range/Units 01:53 06:08 11:53 WBC (4.8-10.8) K/ul RBC (4.70-6.10) M/uL Hgb (14.0-18.0) g/dl Hct 38.7 L (42.0-52.0) % MPV 9.3 L (9.4-12.4) fL Neut # (Auto) (1.40-6.50) K/uL [place] # (Auto) (0.11-0.59) K/uL VBG pH (7.36-7.41) VBG pCO2 (38-50) mmHg Chloride (98-107) mmol/L Anion Gap (3-11) BUN 26 H (6-23) mg/dl BUN/Creatinine Ratio 27.7 H (10-20) Glucose 139 H (70-99(Fasting)) mg/dl POC Glucose 147 H (70-99) mg/dl Calcium (8.6-10.3) mg/dl Magnesium (1.7-2.4) mg/dl Alkaline Phosphatase (34-104) U/L Ur Specific Fraser > 1.045 H (1.000-1.030) Urine Glucose (UA) 1+ H (Negative) Urine Ketones 1+ H (Negative) Ur Leukocyte Esterase Trace H (Negative) U Epithel Cells (Auto) 5-10 H (0-5) /lpf MDMA (Ecstasy) Screen Pos H (Neg) Diagnostic Findings CT head - unremarkable
[2023-09-18] MEDS: SUCRALFATE 1 GM/10 ML UDC PO SCH (13:01)
--- NOTE | 2023-09-18 15:45 | Ultrasound Report ---
BILATERAL CAROTID DOPPLER STUDY HISTORY: poss. syncope COMPARISON: None. TECHNIQUE: Real-time, grayscale, and color Doppler sonography of the carotid arteries was performed. Imaging reviewed in the transverse and longitudinal planes. All measurements were calculated based on NASCET criteria. FINDINGS: Antegrade flow is seen in the bilateral vertebral arteries. Mild calcified plaque within the bilateral carotid bifurcations.. The peak systolic velocity within the right ICA is 67 cm/s. The right systolic ratio is 0.7. The peak systolic velocity within the left ICA is 57 cm/s. The left systolic ratio is 0.8. IMPRESSION: No hemodynamically significant stenosis seen within the carotid arteries. ACT 112: Negative or not required by law. Electronically signed by: Derrick Dey M.D. 09/18/2023 3:43 PM
[2023-09-18] MEDS: hydrOXYzine HCl 10 MG TAB PO PRN (16:07)
--- NOTE | 2023-09-18 16:41 | Electrocardiogram Report ---
Test Reason : Blood Pressure : / mmHG Vent. Rate : 095 BPM Atrial Rate : 095 BPM P-R Int : 182 ms QRS Dur : 116 ms QT Int : 386 ms P-R-T Axes : -07 -29 032 degrees QTc Int : 485 ms Normal sinus rhythm Prolonged QT Abnormal ECG When compared with ECG of 17-SEP-2023 17:02, No significant change was found Confirmed by Vel Ulrich ([id number]) on 09/18/2023 4:41:04 PM Referred By: REFERRED SELF Confirmed By:Vel Ulrich
[2023-09-18] MEDS: AMITRIPTYLINE HCL 10 MG TAB PO SCH (19:23)
[2023-09-18] MEDS: busPIRone 5 MG TAB PO SCH (19:23)
[2023-09-19 06:13] LABS: Hematocrit (blood only) 31.9 % (42.0-52.0); Hemoglobin 10.8 g/dl (14.0-18.0); Mean Corpuscular Hemoglobin 29.8 pg (25.0-34.0); Mean Corpuscular Hgb Conc 33.9 g/dL (32.0-36.0); Mean Corpuscular Volume 88.1 fL (80.0-100.0); Mean Platelet Volume 9.7 fL (9.4-12.4); Platelet Count 212 K/uL (130-400); RDW Coefficient of Variation 12.9 % (11.5-14.5); RDW Standard Deviation 41.5 fL (36.4-46.3); Red Blood Count 3.62 M/uL (4.70-6.10); White Blood Count 9.06 K/ul (4.8-10.8)
[2023-09-19 06:35] LABS: BUN Creatinine Ratio 18.1 (10-20); Calcium 8.5 mg/dl (8.6-10.3); Creatinine Clr Calc Pharmacy 84.7 ml/min; Est GFR (African American) 106.3 ml/min; Est GFR (Non-African American) 91.7 ml/min; Magnesium 1.6 mg/dl (1.7-2.4); Phosphorus 2.7 mg/dl (2.5-4.9); Potassium 3.1 mmol/L (3.5-5.1)
[2023-09-19] MEDS: POTASSIUM CHLORIDE / WTR 10 MEQ/100 ML PLCT IV SCH (08:08)
[2023-09-19] MEDS: MAGNESIUM SULFATE / D5W 1 GM/100 ML BAG IV ONE (08:08)
[2023-09-19] MEDS: POTASSIUM CHLORIDE CRTAB 20 MEQ TABCR PO STA ×2 (08:10→21:31)
[2023-09-19] MEDS: FINASTERIDE 5 MG TAB PO SCH (08:10)
[2023-09-19] MEDS: ATORVASTATIN 40 MG TAB PO SCH (08:10)
[2023-09-19] MEDS: buPROPion XL 150 MG TABCR PO SCH (08:11)
[2023-09-19] MEDS: PANTOprazole 40 MG TAB PO SCH (08:11)
[2023-09-19] MEDS: buPROPion XL 300 MG TABCR PO SCH (08:11)
[2023-09-19] MEDS: ESCITALOPRAM OXALATE 10 MG TAB PO SCH (08:12)
[2023-09-19] MEDS: LIDOCAINE 5% 1 PATCH TD SCH (21:33)
--- NOTE | 2023-09-19 22:36 | CT Scan Report ---
Exam(s): CT EXTREMITY LEFT LOWER Without Contrast EXAM: CT Left Lower Extremity Without Intravenous Contrast CLINICAL HISTORY: pain, hx trauma. TECHNIQUE: Axial computed tomography images of the left lower extremity without intravenous contrast. CTDI is 13.22 mGy and DLP is 769.37 mGy-cm. Automated exposure control was utilized for the study. A dose lowering technique was utilized adhering to the principles of ALARA. COMPARISON: No relevant prior studies available. FINDINGS: Bones/joints: Degenerative changes of the knee. The femur is intact. No acute fracture. No dislocation. Soft tissues: Heterogeneous appearance of the vastus lateralis muscle with subtle areas of rounded hyperdensity laterally measuring 3.3 cm in diameter and a separate area immediately inferior measuring 4.3 cm in diameter. Subcutaneous fat stranding about the anterior compartment of the thigh. No subcutaneous emphysema or radiopaque foreign. No radiopaque foreign body. IMPRESSION: 1. Heterogeneous appearance of the vastus lateralis muscle with subtle areas of rounded hyperdensity laterally measuring 3.3 cm in diameter and a separate area immediately inferior measuring 4.3 cm in diameter. Findings are most consistent with intramuscular hematomas. Subtle fat stranding about the anterior thigh is most consistent with more diffuse subtle hemorrhagic products or edema. No radiopaque foreign body or subcutaneous emphysema. 2. No acute osseous abnormality. Incidental chronic degenerative changes of the knee. Electronically signed by: Edgar Landis MD 09/19/23 22:35 PM
[2023-09-20 11:32] LABS: Hematocrit (blood only) 35.9 % (42.0-52.0); Hemoglobin 12.1 g/dl (14.0-18.0); Mean Corpuscular Hemoglobin 30.3 pg (25.0-34.0); Mean Corpuscular Hgb Conc 33.7 g/dL (32.0-36.0); Mean Corpuscular Volume 89.8 fL (80.0-100.0); Mean Platelet Volume 9.6 fL (9.4-12.4); Platelet Count 251 K/uL (130-400); RDW Coefficient of Variation 12.9 % (11.5-14.5); White Blood Count 9.64 K/ul (4.8-10.8)
--- NOTE | 2023-09-20 11:32 | Hospitalist Progress Note ---
Date of Service September 19, 2023 Assessment & Plan (1) Fall: (2) Contusion of scalp: (3) CHI (closed head injury): Plan: Head CT - 1. No acute intracranial findings. 2. Two right scalp contusion. No calvarial fractures. No acute cervical spine fracture or subluxation. Trauma body scan obtained in ED and negative Patient likely with concussion as he had troubles remembering the story and was found by police and brought into the hospital. Repeat CT head - negat., cont. to closely monitor. Monitor H&H as well Neurology consulted - Fall, which now appears to be mechanical based on his hi story. While he did hit his head his CT and exam and unremarkable. Doubt significant concussion. Patient is on multiple psychiatric medications with overlapping effects. Recommend these be reviewed by psychiatry as an outpatient as they could be contributing to confusion and gait instability. Otherwise they should be restarted to prevent withdrawl and help control his anxiety. ? Syncope Not clear how patient fell. He feels that he tripped over, however he also reports he felt lightheaded. CT chest - IMPRESSION: No acute traumatic findings within the chest. Urine drug screen - pending ECG - NSR, poss. prolonged QT monitor on telemetry US carotids - No hemodynamically significant stenosis seen within the carotid arteries. Echocardiogram - LV systolic function is normal. EF 65 to 70%. Borderline RV enlargement. RV systolic function is normal as assessed by tricuspid annular plane systolic excursion (TAPSE). No significant valvular pathology. Pulse- wave TDI of the anterior and posterior mitral annulus demonstrates normal LV relaxation. Per Cardiology - No dysrhythmias on telemetry or evidence of structural heart disease per echocardiogram. Borderline prolonged QT interval noted on ECG. Multiple psych meds that could cause prolonged QT interval - Amitriptyline, Escitalopram, hydroxyzine. Continue to monitor. (4) Diabetes mellitus type 2 in nonobese: Plan: In July reportedly A1c 6.7% -Does not use insulin, at home using metformin, Ozempic and glipizide, will hold while inpatient (5) Hematemesis: (6) Nausea & vomiting: Plan: Acute gastritis with Hematemesis Patient reports abdominal pain for past 6 weeks, nausea and vomiting, difficulty eating Reports being seen in July, and diagnosed with gastritis , esophagitis and taking omeprazole In ER noted to have hematemesis CT abdomen pelvis obtained - 1. No evidence for traumatic injury to the solid abdominal viscera. 2. Lucency through the first coccygeal segment. This suggests an age indeterminate nondisplaced fracture. No additional fractures. Started on PPI IV, will continue Monitor H&H q6hrs IVF GI consulted - underwent EGD The patient underwent upper endoscopy for question of hematemesis. The patient was found to have evidence of mild gastritis, in addition he had a esophagitis of his lower esophagus. There was no evidence of active bleeding or recent bleeding. Recommendations Daily PPI would suggest omeprazole or Protonix 40 mg daily Carafate slurry 10 mL 4 times daily for 10 days Repeat upper endoscopy in 3 to 6 months (7) Depression: Plan: - on multiple medications, ? possibly contributing to fall, ? possibly prolonging QT - follows w/ psychiatry Dr. Lewis Allen - med list from 08/29/23 reviewed in [facility] - seen by therapist 09/13/23 note reviewed in [facility] - pt says he feels anxious and feels medications are helping - needs to follow up w/ psych regarding multiple meds and poss. prolonging QT Admission and Anticipated Discharge Date Admission Date: September 17, 2023 Subjective Pt seen in follow up of fall, head trauma, hematemesis Underwent EGD yesterday - c/w gastritis - cont. ppi, added sucralfate He just worked w/ PT and per PT eval pt very unsteady and recommend rehab. Pt is upset, would like to go home, but is willing to stay in the hospital one more night. Pt feels anxious and was hoping for discharge. However, he no longer feels nauseated, not vomiting and he is tolerating diet. Will further advance diet to regular. discussed with RN. YARELIS also involved in DC needs as pt's car is not in [place]/ and pt may need rehab. No fever, chills, chest pain, palpitations, shortness of breath. Review of Systems Review of Systems: All systems reviewed & are unremarkable except as noted in Subjective Physical Exam Physical Exam: Constitutional: WD/WN, + forehead contusion Eyes: PERRL, EOMI, conju nctivae normal, an icteric sclerae ENMT: external ear and n ose normal, oropha rynx normal Neck: normal visual insp ection Respiratory: normal respiratory effort, lungs aníbal ar to auscultation Cardiovascular: RRR, no murmur, no edema Chest (Breasts): Chest: normal insp ection of chest Gastrointestinal ( Abdomen): Percussion/Palpati on: abdomen soft , + bowel sounds, + mild tenderness to palp, no guarding , no distention Musculoskeletal: Head/Neck/Chest: n ormocephalic and + scalp tenderness ,+ forehead contus ion, moves extremi ties, + Left BKA Skin: no rashes, warm an d dry Neurologic: moves all extremit ies and awake Aw sparkle, alert, stutte ring, able to answ er some questions appropriately Psychiatric: Affect: + anxious affect Results & Data Results & Data Vital Signs (Past 12 Hours) Vital Signs Temp Pulse Pulse Resp BP Pulse Ox O2 Del Method 09/19/23 23:47 36.7 C 84 16 129/76 95 Room Air (1) Fall Encounter type: initial encounter Qualified Code(s): W19.XXXA - Unspecified fall, initial encounter
--- NOTE | 2023-09-20 12:58 | Discharge Summary ---
Date of Service September 20, 2023 Admission HPI Per Admitting Provider 67-year-old male with history of diabetes mellitus type 2, not on insulin, A1c in July was 6.7%, hypertension, hyperlipidemia, BPH, history of osteomyelitis and patient status post left BKA, anxiety and depression, who presents in the ED today after being found by police sitting on the curb side confused. Patient fell and hit his head earlier today, and had difficulty remembering what happened to him. Police took him to EMS station and then brought him to the hospital here. Patient was scanned in the ER due to trauma, and scans were otherwise negative. However he was vomiting in the ER and had some hematemesis noted. Patient believes that he was actually going to see a [facility] physician today, but when he got out of his car, he fell and hit his head. He reports feeling lightheaded as he has not been eating for past 4 to 5 days, and also has difficulty with his prosthesis and likely tripped. However he cannot confirm the story very well. He tells me he went to see [facility] physician today because he has been vomiting and has had abdominal pain for past 6 weeks. He denies blood in the stool or diarrhea. Currently he says that his stomach hurts, and his head hurts. In the ED he had CT of his head and also CT of the abdomen pelvis. He has history of anxiety and depression, and recently saw a therapist, note reviewed from September 13. He also reports usually seeing physicians in [facility]. Per therapist note, patient is stuttering since he had COVID. Patient denies having any fever chills cough rhinorrhea. Does not believe he had any chest pain. He says that he gets short of breath especially from his anxiety. Admission Exam Per Admitting Provider Constitutional: WD/WN, vitals as above (+ forehead contusion) Eyes: PERRL, conjunctivae normal, anicteric sclerae ENMT: external ear and nose normal, oropharynx normal Neck: normal visual inspection Respiratory: normal respiratory effort, lungs clear to auscultation Cardiovascular: RRR, no murmur, no edema Chest (Breasts): Chest: normal inspection of chest Gastrointestinal (Abdomen): Percussion/Palpation: abdomen soft (+ bowel sounds, + mild tenderness to palp, no guarding, no distention) Musculoskeletal: Head/Neck/Chest: normocephalic and + scalp tenderness (+ forehead contusion, moves extremities, + Left BKA) Skin: no rashes, warm and dry Neurologic: moves all extremities and awake Awake, alert, stuttering, able to answer some questions appropriately Psychiatric: Affect: + anxious affect Principal Diagnosis Fall, head trauma, mild concussion Gastritis with hematemesis Prolonged QT (likely from psychiatric medications) Discharge Exam Constitutional: WD/WN, + forehead contusion Eyes: PERRL, EOMI, conjunctivae normal, anicteric sclerae ENMT: external ear and nose normal, oropharynx normal Neck: normal visual inspection Respiratory: normal respiratory effort, lungs clear to auscultation Cardiovascular: RRR, no murmur, no edema Chest (Breasts): Chest: normal inspection of chest Gastrointestinal (Abdomen): Percussion/Palpation: abdomen soft ,+ bowel sounds, + mild tenderness to palp, no guarding, no distention Musculoskeletal: Head/Neck/Chest: normocephalic and + scalp tenderness ,+ forehead contusion, moves extremities, + Left BKA Skin: no rashes, warm and dry Neurologic: moves all extremities and awake Awake, alert, only mildly stuttering, able to answer questions appropriately Psychiatric: Affect: anxious affect much improved Discharge Data Allergies Allergy/AdvReac Type Severity Reaction Status Date / Time No Known Allergies Allergy Unverified 09/17/23 18:57 Consultations 09/17/23 19:00 Consult Gastroenterology Routine 09/17/23 22:34 Consult Cardiology Routine 09/18/23 08:00 Consult Neurology Routine 09/19/23 08:21 Consult Patient Services Routine Procedures Performed Operation Date: 09/18/23 16:30 Actual Procedures p Esophagogastroduodenoscopy - Donna De Souza, Ordered Studies 09/17/23 15:24 CT cervical spine wo con Stat CT head/brain wo con Stat 09/17/23 16:45 CT abd pelvis IV con only Stat CT chest diagnostic w con Stat 09/17/23 22:00 CT head/brain wo con Routine 09/18/23 19:32 US carotid doppler BI Routine 09/19/23 21:17 CT femur LT wo con Stat Hospital Course (1) Fall: (2) Contusion of scalp: (3) CHI (closed head injury): Head CT - 1. No acute intracranial findings. 2. Two right scalp contusion. No calvarial fractures. No acute cervical spine fracture or subluxation. Trauma body scan obtained in ED and negative Patient likely with concussion as he had troubles remembering the story and was found by police and brought into the hospital. Repeat CT head - negat., cont. to closely monitor. Monitor H&H as well Neurology consulted - Fall, which now appears to be mechanical based on his history. While he did hit his head his CT and exam and unremarkable. Doubt significant concussion. Patient is on multiple psychiatric medications with overlapping effects. Recommend these be reviewed by psychiatry as an outpatient as they could be contributing to confusion and gait instability. Otherwise they should be restarted to prevent withdrawl and help control his anxiety. ? Syncope Not clear how patient fell. He feels that he tripped over, however he also reports he felt lightheaded. CT chest - IMPRESSION: No acute traumatic findings within the chest. Urine drug screen - pending ECG - NSR, poss. prolonged QT monitor on telemetry US carotids - No hemodynamically significant stenosis seen within the carotid arteries. Echocardiogram - LV systolic function is normal. EF 65 to 70%. Borderline RV enlargement. RV systolic function is normal as assessed by tricuspid annular plane systolic excursion (TAPSE). No significant valvular pathology. Pulse- wave TDI of the anterior and posterior mitral annulus demonstrates normal LV relaxation. Per Cardiology - No dysrhythmias on telemetry or evidence of structural heart disease per echocardiogram. Borderline prolonged QT interval noted on ECG. Multiple psych meds that could cause prolonged QT interval - Amitriptyline, Escitalopram, hydroxyzine. Continue to monitor. (4) Diabetes mellitus type 2 in nonobese: In July reportedly A1c 6.7% -Does not use insulin, at home using metformin, Ozempic and glipizide, will hold while inpatient (5) Hematemesis: (6) Nausea & vomiting: Acute gastritis with Hematemesis Patient reports abdominal pain for past 6 weeks, nausea and vomiting, difficulty eating Reports being seen in July, and diagnosed with gastritis , esophagitis and taking omeprazole In ER noted to have hematemesis CT abdomen pelvis obtained - 1. No evidence for traumatic injury to the solid abdominal viscera. 2. Lucency through the first coccygeal segment. This suggests an age indeterminate nondisplaced fracture. No additional fractures. Started on PPI IV, will continue Monitor H&H q6hrs IVF GI consulted - underwent EGD The patient underwent upper endoscopy for question of hematemesis. The patient was found to have evidence of mild gastritis, in addition he had a esophagitis of his lower esophagus. There was no evidence of active bleeding or recent bleeding. Recommendations Daily PPI would suggest omeprazole or Protonix 40 mg daily Carafate slurry 10 mL 4 times daily for 10 days Repeat upper endoscopy in 3 to 6 months (7) Depression: - on multiple medications, ? possibly contributing to fall, ? possibly prolonging QT - follows w/ psychiatry Dr. Lewis Allen - med list from 08/29/23 reviewed in [facility] - seen by therapist 09/13/23 note reviewed in [facility] - pt says he feels anxious and feels medications are helping - needs to follow up w/ psych regarding multiple meds and poss. prolonging QT Total Time Total Time Spent Total Time Spent (In Minutes): 40 Discharge Plan Discharge Items Patient Disposition: Home - Self-Care Reason For Visit: HEAD TRAUMA, HEMATEMESIS Discharge Diagnosis: Fall, head trauma, mild concussion Gastritis with hematemesis Prolonged QT (likely from psychiatric medications) Activity: Per Instructions section Non-emergency contact: Primary Care Provider, Manager [employer] and Psychiatrist Call non-emergency contact if: you have any medication questions and your symptoms worsen Follow-up/Referrals: oDnna De Souza DO [Physician] - (The GI office will contact you for a follow up appointment/testing.) Alok Campbell MD [Outside Practitioners] - (Date & Time 09/26/2023 2:00 PM Provider Bowen Villeda PA-C Department [facility] ) Diet: Regular Diet Comment: Avoid eating spicy, hot, or acidic foods. Avoid alcohol and c affeine. Addtl Attending Provider Instructions: Follow up with your primary care physician within 1 week. The appointment was scheduled for you for 09/26/2023. Take omeprazole 40 mg daily and sucralfate 4-times a day for next 10 days. You will need to follow up with gastroenterology for repeat endoscopy in 3 months to ensure healing. Follow up with your psychiatrist to review your medications. Avoid eating spicy, hot, or acidic foods. Avoid alcohol and caffeine. Pending Studies at Discharge: No Stand-Alone Forms: My [facility], Smoking Cessation Medications and DC Order Prescriptions: New sucralfate 100 mg/mL Suspension 1 g PO QID Qty: 400 0RF Continued atorvastatin 40 mg tablet 40 mg PO QAM glipizide 5 mg tablet extended release 24hr 5 mg PO QAM atenolol 25 mg tablet 12.5 mg PO DAILY travoprost 0.004 % drops 1 drp OPB HS omeprazole 40 mg capsule,delayed release(DR/EC) 40 mg PO HS tamsulosin 0.4 mg capsule 0.4 mg PO QAM trazodone 100 mg tablet 100 mg PO HS amitriptyline 10 mg tablet 10 mg PO HS metformin 1,000 mg tablet 1,000 mg PO [facility] Rx Instructions: WITH MEALS buspirone 10 mg tablet 20 mg PO BID furosemide 20 mg tablet 20 mg PO QAM mirtazapine 15 mg tablet 15 mg PO HS Rx Instructions: for 15 days , filled 09/08/23 hydroxyzine HCl 10 mg tablet 10 mg PO BID PRN (Reason: anx/panic attacks) Rx Instructions: Do not take when driving finasteride 5 mg Tablet 5 mg PO QAM escitalopram oxalate 10 mg tablet 10 mg PO DAILY bupropion HCl 300 mg tablet extended release 24 hr 300 mg PO QAM Rx Instructions: Take with a [id number] bupropion HCl 150 mg tablet extended release 24 hr 150 mg PO QAM Ozempic 2 mg/dose (8 mg/3 mL) pen injector 2 mg SUBCUT WE Rx Instructions: SUN Discharge Orders: Discharge Order (Routine); Ordered 09/20/23 Ordered By: Franklyn Peacock/Other Patient Handouts: High Blood Sugar (Hyperglycemia), Managing Type 2 Diabetes Admission Data Admit Date/Time: 09/17/23 18:57 Attending Provider: Franklyn Abdul Admit Provider: Franklyn Abdul Primary Care Provider: PCP,NO Other Providers: Donna De Souza; Lukas Hilliard; Elizabeth Gómez; Jorge Luis Montano; Elizabeth Hernandez; Gary Wyatt; Roger Mckeon; Nitesh Villagomez; Vel Locke; Aidee Calvin; Gomez Calderón; Juan Antonio Salas; Kika Smith; Zachary Garg; Leanne Araujo; Nini Manrique; Vel Cooper Other Interventions: Discharge Summary Assessment (RN) Last Done: 09/18/23 09:25
[2023-09-20 13:51] LABS: Potassium 4.8 mmol/L (3.5-5.1)
[2023-09-20 13:52] LABS: BUN Creatinine Ratio 16.7 (10-20); Calcium 9.5 mg/dl (8.6-10.3); Creatinine Clr Calc Pharmacy 73.2 ml/min; Est GFR (African American) 95.1; Magnesium 1.8 mg/dl (1.7-2.4); Phosphorus 2.3 mg/dl (2.5-4.9)
[2023-09-21 13:46] LABS: MDA negative; MDEA negative; MDMA (Ecstasy) Urine, Confirm negative
== END 2023-09-20 14:08 | disposition home or self-care (01) | DRG 88 ==
LOC: ED 14:50 → 4W 18:57